=== PATIENT | female | born 2000 | race Caucasian/White ===

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

== ENCOUNTER 2020-02-14 16:02 | Outpatient (REF) | payer OTHER, SELFPAY ==
[2020-02-15 15:40] LABS: COVID-19 RT-PCR Result NEGATIVE (Negative)
== END 2020-02-14 16:22 ==
LOC: NCHCN 16:02
PROVIDERS: PCP Nurse Practitioner Family; Visit Provider Nurse Practitioner Family
DX: Z20.828 Contact with and (suspected) exposure to other viral communicable diseases (principal)
CPT/HCPCS: U0003

== ENCOUNTER 2020-04-08 16:14 | Outpatient (REF) | payer OTHER, SELFPAY ==
[2020-04-14 12:05] LABS: SARS-CoV-2 RNA Undetected (Undetected); SARS-CoV-2 Specimen Source Nasopharynx
== END 2020-04-08 16:34 ==
LOC: NCHCN 16:14
PROVIDERS: PCP Nurse Practitioner Family; Visit Provider Nurse Practitioner Family
DX: R50.9 Fever, unspecified (principal)
CPT/HCPCS: U0003

== ENCOUNTER 2020-07-18 02:58 | Outpatient (CLI) | payer OTHER, SELFPAY ==
[2020-07-18 09:47] LABS: TSH (W/Ref FT4) 2.77 uIU/mL (0.52-4.13)
[2020-07-18 18:08] LABS: Prolactin 25.8 ng/mL (See Table)
[2020-07-18 18:12] LABS: FSH 5.5 mIU/mL (See Note)
[2020-07-20 16:59] LABS: Testosterone, Free 0.54 ng/dL (0.06-1.08); Testosterone, Total 32 ng/dL (8-60)
[2020-07-21 08:59] LABS: DHEA Sulfate 464 ug/dL (61-494)
== END 2020-07-18 03:18 ==
PROVIDERS: PCP Nurse Practitioner Family; Visit Provider Nurse Practitioner Women's Health
DX: N92.6 Irregular menstruation, unspecified (principal); N91.2 Amenorrhea, unspecified; R63.4 Abnormal weight loss
CPT/HCPCS: 36415; 82627; 84402; 84403; 83001; 84146; 84443

== ENCOUNTER 2020-12-03 04:27 | Outpatient (CLI) | payer OTHER, SELFPAY ==
[2020-12-03 14:55] LABS: Abs Immature Grans 0.03 10^3/uL (0.0-0.06); Absolute Basophil Count 0.05 10^3/uL (0.0-0.2); Absolute Eosinophil Count 0.17 10^3/uL (0.0-0.7); Absolute Lymphocyte Count 2.26 10^3/uL (1.2-3.4); Absolute Monocyte Count 0.67 10^3/uL (0.1-0.8); Absolute Neutrophil Count 9.26 10^3/uL (1.2-6.7); Basophils % 0.4; Eosinophils % 1.4; HCT 40.8 % (36.0-46.0); HGB 13.8 g/dL (11.2-15.7); Immature Grans % 0.2; Lymphocytes % 18.2; MCH 29.4 pg (27.0-33.0); MCHC 33.8 % (32.0-36.0); MPV 9.1 fL (8.0-11.0); Monocytes % 5.4; Neutrophils % 74.4; Nucleated RBC 0 %; Platelet Count 305 10^3/uL (130-400); RBC 4.69 10^6/uL (3.93-5.22); RDW 13.2 % (11.7-14.6); RDW-SD 41.8 fL; WBC 12.44 10^3/uL (4.4-10.8)
[2020-12-03 15:54] LABS: TSH (W/Ref FT4) 2.49 uIU/mL (0.36-3.74)
[2020-12-04 09:33] LABS: HIV-1/2 Ag & Ab Screen Negative (Negative)
[2020-12-04 10:28] LABS: Varicella IgG Antibody Negative (See Note)
[2020-12-04 10:30] LABS: Rubella IgG Ab (UVM) Positive (See Note)
[2020-12-05 09:15] LABS: Hepatitis B Surface Ag Negative (Negative)
[2020-12-05 09:58] LABS: Hepatitis C Ab w Rflx HCV PCR Negative (Negative)
[2020-12-16 18:06] LABS: Result Summary NEGATIVE; Specimen WB Whole Blood
[2020-12-18 11:08] LABS: Specimen WB Whole Blood
== END 2020-12-03 04:28 | disposition home or self-care (01) ==
LOC: LBO 04:27
PROVIDERS: PCP Nurse Practitioner Family; Visit Provider Advanced Practice Midwife
DX: Z34.91 Encounter for supervision of normal pregnancy, unspecified, first trimester (principal); Z11.4 Encounter for screening for human immunodeficiency virus [HIV]; Z11.59 Encounter for screening for other viral diseases; Z01.84 Encounter for antibody response examination; Z36.89 Encounter for other specified antenatal screening
CPT/HCPCS: 36415; 81329; 86787; 86803; 86850; 86900; 86901; 87340; 87389; 81220; 84443; 85025; 86762

== ENCOUNTER 2020-12-03 19:21 | Outpatient (REF) | payer OTHER, SELFPAY ==
[2020-12-04 14:41] LABS: Chlamydia Result Negative (Negative); GC Result Negative (Negative)
== END 2020-12-03 19:22 | disposition home or self-care (01) ==
LOC: LBN 19:21
PROVIDERS: PCP Nurse Practitioner Family; Visit Provider Advanced Practice Midwife
DX: Z34.91 Encounter for supervision of normal pregnancy, unspecified, first trimester (principal); Z11.3 Encounter for screening for infections with a predominantly sexual mode of transmission
CPT/HCPCS: 87491; 87591; 87086; 87480; 87510; 87660

== ENCOUNTER 2020-12-17 02:22 | Outpatient (CLI) | payer OTHER, SELFPAY ==
[2020-12-17 11:16] LABS: Glucose,1 Hr (Glucola) 138 mg/dL (80-140)
[2020-12-17 12:47] LABS: Kit/Specimen SENT
== END 2020-12-17 02:23 | disposition home or self-care (01) ==
LOC: LBO 02:22
PROVIDERS: PCP Nurse Practitioner Family; Visit Provider Advanced Practice Midwife
DX: Z34.91 Encounter for supervision of normal pregnancy, unspecified, first trimester (principal); Z36.89 Encounter for other specified antenatal screening
CPT/HCPCS: 36415; 81329; 82950; 81220

== ENCOUNTER 2020-12-23 03:43 | Outpatient (CLI) | payer OTHER, SELFPAY ==
[2020-12-23 11:17] LABS: Glucose 1 Hour 167 mg/dL
[2020-12-23 13:39] LABS: Glucose 3 Hour 109 mg/dL
== END 2020-12-23 03:44 | disposition home or self-care (01) ==
LOC: LBO 03:43
PROVIDERS: Advanced Practice Midwife; PCP Nurse Practitioner Family; Visit Provider Advanced Practice Midwife
DX: Z34.91 Encounter for supervision of normal pregnancy, unspecified, first trimester (principal)
CPT/HCPCS: 36415; 82951

== ENCOUNTER 2020-12-31 12:52 | Outpatient (REF) | payer OTHER, SELFPAY ==
[2020-12-31 14:02] LABS: *AMPHETAMINES SCREEN URINE Negative (Negative); *BARBITURATES SCREEN URINE Negative (Negative); *BENZODIAZEPINES SCREEN URINE Negative (Negative); Cannabinoids THC Negative (Negative); Cocaine Screen,Urine Negative (Negative); METHADONE URINE SCREEN Negative (Negative); OPIATES URINE SCREEN Negative (Negative); Tricyclic Antidepressants Negative (Negative)
[2021-01-06 11:53] LABS: Buprenorphine Negative ng/mL (Cutoff: 5.0); Norbuprenorphine Negative ng/mL (Cutoff: 2.5)
== END 2020-12-31 12:53 | disposition home or self-care (01) ==
LOC: LBN 12:52
PROVIDERS: PCP Nurse Practitioner Family; Visit Provider Advanced Practice Midwife
DX: Z34.91 Encounter for supervision of normal pregnancy, unspecified, first trimester (principal)
CPT/HCPCS: 80307

== ENCOUNTER 2021-04-16 03:31 | Outpatient (CLI) | payer MEDICAID, SELFPAY ==
[2021-04-16 10:01] LABS: HCT 34.1 % (36.0-46.0); HGB 11.6 g/dL (11.2-15.7); MCH 29.8 pg (27.0-33.0); MCV 87.7 fL (80-95); MPV 8.9 fL (8.0-11.0); Platelet Count 298 10^3/uL (130-400); RBC 3.89 10^6/uL (3.93-5.22); RDW 12.8 % (11.7-14.6); RDW-SD 41.1 fL; WBC 14.12 10^3/uL (4.4-10.8)
[2021-04-16 11:33] LABS: Glucose 1 Hour 151 mg/dL
[2021-04-16 13:41] LABS: Glucose 3 Hour 161 mg/dL
== END 2021-04-16 03:32 | disposition home or self-care (01) ==
LOC: LBO 03:31
PROVIDERS: Advanced Practice Midwife; PCP Nurse Practitioner Family; Visit Provider Advanced Practice Midwife
DX: Z34.93 Encounter for supervision of normal pregnancy, unspecified, third trimester (principal); Z3A.28 28 weeks gestation of pregnancy
CPT/HCPCS: 36415; 85027; 82951

== ENCOUNTER 2021-05-26 09:17 | Outpatient (CLI) | payer MEDICAID, SELFPAY ==
--- NOTE | 2021-05-26 09:15 | RT.EKG_ITS ---
APPROVED REPORT Exam: Resting ECG Reason for Exam: VSD Patient Location: O HR:88 bpm ECG Measurements Heart Rate 88 AXIS SD 119 P 9 QRSd 72 QRS 54 QT 341 T 20 QTc 413 Conclusion Sinus rhythm...normal P axis, V-rate 50- 99 Borderline short SD interval...SD int <120mS Normal Electrocardiogram
== END 2021-05-26 09:18 | disposition home or self-care (01) ==
LOC: DI.CARD 09:20
PROVIDERS: PCP Nurse Practitioner Family; Visit Provider Internal Medicine Cardiovascular Disease
DX: Q21.0 Ventricular septal defect (principal); Q25.42 Hypoplasia of aorta
CPT/HCPCS: 93010

== ENCOUNTER 2021-05-30 11:36 | Emergency (ER) | payer MEDICAID, SELFPAY ==
[2021-05-30 11:41] VITALS: BP 116/81; PULSE 90; RESP 20; TEMP 36.7; O2SAT 98
--- NOTE | 2021-05-30 11:48 | DI.US_ITS ---
Exam(s) US ABDOMEN RENAL EXAM: US ABDOMEN RENAL CLINICAL HISTORY: right flank pain TECHNIQUE: Ultrasound abdomen performed using standard protocol. COMPARISON: No exams were available for comparison FINDINGS: ABDOMINAL AORTA AND IVC: Visualized portions normal caliber. PANCREAS: Obscured by overlying bowel gas. LIVER: Normal. Hepatopedal flow in the Portal Vein. GALLBLADDER: No evidence of cholelithiasis. No evidence of wall thickening. No pericholecystic fluid identified. BILIARY SYSTEM: Common bile duct measures < 7 mm. No intrahepatic biliary ductal dilation. LUND'S SIGN: Negative. SPLEEN: Not enlarged. ASCITES: None seen. Renal size in cm: Right: 10.4. Left: 10.1. Echogenicity: Normal. Hydronephrosis: Moderate right hydronephrosis. No left hydronephrosis. Cyst or mass: No. Nephrolithiasis: No. Other findings: Note is made of an intrauterine . The fetus was not evaluated on during thi s examination. Bladder:Normal. Ureteral jets: Right: Visualized and unremarkable. Left: Visualized and unremarkable. Prevoid vol:202 cc Postvoid vol:0 cc Renal color flow: Symmetric and within normal limits. IMPRESSION: 1. Moderate right hydronephrosis. 2. Both ureteral jets were visualized in the urinary bladder. 3. Note is made of an intrauterine . The fetus was not evaluated during this examination. DATA REPOSITORY:
--- NOTE | 2021-05-30 11:51 | W.ED.GENAD ---
Discharge Plan Disposition Patient Disposition: HOME Condition: Improving Discharge Details Clinical Impression: Right flank pain, with hydronephrosis Primary Care Provider: Teressa Morrison ED Provider: Jahaira Arboleda Home Meds and New Rx's Prescriptions: Continued prenat.vits,nitin,htn-uypy-tsbdy Tablet 1 tab PO DAILY RF: 0 cholecalciferol (vitamin D3) 25 mcg (1,000 unit) tablet,chewable 25 mcg PO DAILY RF: 0 aspirin 81 mg tablet,delayed release (DR/EC) 162 mg PO DAILY Qty: 90 RF: 3 pantoprazole [Protonix] 40 mg tablet,delayed release (DR/EC) 40 mg PO DAILY Qty: 30 RF: 3 vitamin B complex Tablet 1 tab PO DAILY RF: 0 ondansetron HCl [Zofran] 4 mg tablet 4 mg PO Q6H PRN (Reason: nausea and vomiting) Qty: 20 RF: 2 albuterol sulfate [ProAir HFA] 8.5 GM HFA aerosol inhaler 2 puff Inhalation Q4H PRN Qty: 1 RF: 1 (DME) Inhaler, Assist Devices [Aerochamber Mini] 1 EACH spacer 1 ea Miscellaneous Q4H PRN Qty: 1 RF: 0 Discharge Instructions Instructions: Flank Pain (ED) Additional Instructions: Urinalysis is reassuring, no evidence of infection. However, you do have some swelling around the right kidney which is likely associated with your . Please encourage hydration. You may continue with Tylenol as needed for discomfort. If you develop any fever/chills, increased pain or other new/worsening symptoms please seek care urgently once again. Otherwise, please keep your upcoming appointment with your hazardous substances scientist. Referrals: Corazon Yancey [[facility] [place]] - Medical Decision Making Patient is a pleasant 20-year-old female 36 weeks gestation, G1, P0, presenting today with chief complaint of right-sided flank pain. Pain began 5 days ago and has been intermittent since then. Pain is worse with mobility. Patient was seen by [facility] 2 days ago at which time an outpatient renal ultrasound was ordered. She did not have any hematuria. She denies any blood in her urine currently. No vaginal discharge. Still having movements. Denies any abdominal pain. No change in bowel movements. States she has had increased frequency and urgency but denies any dysuria or hematuria. No fevers or chills. No known trauma. On exam, patient appears nontoxic. She does have right CVA tenderness with percussion. However, pain is also elicited with range of motion as well as with palpation inferior to this along muscular region. No abdominal discomfort. Lungs are clear, normal cardiac exam. Primarily concern at this time for musculoskeletal etiology of her pain based on her symptoms and exam. However, I do agree with the ultrasound as ordered by [facility] and will attempt to obtain this today. She has not taken anything for discomfort. Will give Tylenol to help with pain. heart rate 124. Patietn is not hypertensive. FINDINGS: Liver: Normal. No mass. Gallbladder: Normal. No gallstones. There is no gallbladder wall thickening. Common bile duct: Normal. No stones. No dilation. Pancreas: The pancreas was obscured by bowel gas. Right kidney: There is moderate right hydronephrosis. No mass or calcification is seen in the right kidney. Left kidney: Normal. No mass. No hydronephrosis. Spleen: Normal. No splenomegaly. Urinary bladder: The urinary bladder is unremarkable. Bilateral ureteral jets are seen in the urinary bladder. Aorta: Normal. No aneurysm. Inferior vena cava: Normal. IMPRESSION: 1. Moderate right hydronephrosis. 2. Normal bilateral ureteral jets are seen in the urinary bladder. 3. No other significant abnormality.. Consulted with Dr. Britton. She advised that if UA is clean with no obstruction. She did not recommend empiric treatment. Recommended straight cath if urine is contaminated. REcommended hydration, tylenol and warm compresses. UA shows trace ketones. Negative for protein, negative blood, negative nitrate, negative leukocyte esterase. Discussed the findings with the patient. We reviewed Dr. Britton's recommendations. Encourage hydration. Advised that she may continue with Tylenol. She advised that she will pick some of these up today. Encourage warm compresses and hydration. She has a follow-up appointment scheduled for . Return precautions were discussed. All questions concerns were addressed and she is agreement this plan. HPI General Mode of arrival: ambulatory. Date/Time Provider Initiated Documentation: 05/30/21 11:39. Limitations to Documentation: no limitations. Information obtained by: patient, RN notes reviewed and old records reviewed. History of Present Illness 20 year old F presents to the emergency department with the chief complaint of right flank pain, described as severe, with intensity rated at 10. Quality is described as aching, and is localized to the back. Patient reports no radiation. Patient started experiencing this day(s) and it has been constant. Immobilization improves symptom(s), Movement worsens symptoms . Patient notes no other symptoms.. Patient did receive the following treatments prior to arrival, none Related Data Home Medications Medication Instructions Recorded Confirmed albuterol sulfate [ProAir HFA] 2 puff INHALATION Q4H PRN #1 06/01/17 05/28/21 inhaler prenat.vits,intin,rcw-mhlm-fxzoo 1 tab PO DAILY 05/20/20 05/28/21 cholecalciferol (vitamin D3) 25 25 mcg PO DAILY 10/29/20 05/28/21 mcg (1,000 unit) chewable tablet aspirin 81 mg tablet,delayed 162 mg PO DAILY #90 tab 12/03/20 05/28/21 release pantoprazole 40 mg tablet,delayed 40 mg PO DAILY #30 tab 04/16/21 05/28/21 release ondansetron HCl 4 mg tablet 4 mg PO Q6H PRN #20 tab 04/30/21 05/28/21 vitamin B complex 1 tab PO DAILY 04/30/21 05/28/21 Previous Rx's Medication Instructions Recorded aspirin 81 mg tablet,delayed 162 mg PO DAILY #90 tab 12/03/20 release pantoprazole 40 mg tablet,delayed 40 mg PO DAILY #30 tab 04/16/21 release ondansetron HCl 4 mg tablet 4 mg PO Q6H PRN #20 tab 04/30/21 Allergies Allergy/AdvReac Type Severity Reaction Status Date / Time No Known Allergies Allergy Verified 05/30/21 11:44 General Stated Complaint: FlankPain CALI: 3 Review of Systems Constitutional Constitutional: Reports as per HPI, Denies chills, Denies fatigue, Denies fever(s) and Denies headache(s) ENT Ears, Nose, Mouth, and Throat: Denies headache(s) Cardiovascular Cardiovascular: Reports as per HPI, Denies chest pain and Denies dyspnea (no exertional SOB, has some SOB when pain is maximal. None currently) Respiratory Respiratory: Reports as per HPI, Denies cough and Denies dyspnea (no exertional SOB, has some SOB when pain is maximal. None currently) Gastrointestinal Gastrointestinal: Reports as per HPI, Denies abdominal pain, Denies change in bowel habits, Denies nausea and Denies vomiting Genitourinary Genitourinary: Reports as per HPI, Denies hematuria, Denies dysuria, Denies urinary incontinence, Reports urinary urgency (increased urgency and frequency) and Denies vaginal discharge Musculoskeletal Musculoskeletal: Reports as per HPI Neurologic Neurologic: Denies headache(s) Endocrine Endocrine: Denies fatigue PFSH Medical History Acute pain of right shoulder (05/07/16) Asthma Chronic nausea Chronic right shoulder pain (06/01/17) Depression Limitation of joint motion of right shoulder (07/06/17) Routine sports examination for healthy child or adolescent (11/24/12) VSD (ventricular septal defect) Family History Mother Gestational diabetes Father Depression with anxiety Sister Asthma sports induced Grandfather Neoplasm MGF- Prostate, Lung, NonHodgkins PGF- Colon MGGM-cervical cancer Grandmother Eczema MGM Obsessive compulsive disorder PGM ADHD (attention deficit hyperactivity disorder) PGM GRANDPARENT Alcohol abuse Essential hypertension Heart disease Social History Smoking/Tobacco Use Status: Never Smoking risk assessment performed?: Yes Alcohol Intake: never Drug use: Never Substance use type: does not use Do you think of yourself as: straight/heterosexual Do you feel safe at home: Yes Do you feel safe in your relationship?: Yes History History 1 Para 0 Hx # Term Pregnancies 0 Multiple births 0 Hx # Pregnancies 0 Ectopic pregnancies 0 AB induced 0 Hx Number of Living Children 0 AB spontaneous 0 Exam Const General: cooperative, healthy appearing, comfortable, no acute distress and well developed Nutritional Appearance: average body habitus (appropriate for gestational age) and well nourished Orientation: alert and awake HENMT Mouth: moist mucous membranes Resp Effort & Inspection: normal respiratory effort and no respiratory distress Auscultation: clear to auscultation bilaterally, no rales, no rhonchi and no wheezes Cardio Rate: regular rate Rhythm: regular rhythm Heart Sounds: S1 normal and S2 normal GI Inspection: normal to inspection and other (appropriate for gestational age) Palpation: soft, no guarding and nontender Percussion: normal to percussion Auscultation: normal bowel sounds Back/Spine/Pelvis Back: CVA tenderness (right side) Thoracic/Lumbar Spine: thoracic and lumbar spine normal to inspection and No thoraco-lumbar ROM limited Back/spine/pelvis image: 1. area of discomfort. No rash, erythema, warmth. Worse with ROM although she does have good mobility. Skin General skin exam: no rashes or lesions noted Neuro General: patient alert and patient awake Cognition: normal cognition Speech: speech normal Gait: normal gait Psych Appearance: grossly normal and well kempt Mental Status: mental status grossly normal Speech and Movement: speech and movement normal Course Vital Signs Vital signs: Vital Signs Temperature 36.7 C 05/30/21 11:41 Pulse 90 05/30/21 11:41 Respiratory Rate 20 05/30/21 11:41 Blood Pressure 116/81 05/30/21 11:41 Pulse Oximetry 98 05/30/21 11:41 Temperature 36.7 C 05/30/21 11:41 Temperature Source Skin 05/30/21 11:41 Pulse 90 05/30/21 11:41 Respiratory Rate 20 05/30/21 11:41 Respiratory Effort Non-Labored 05/30/21 11:45 Blood Pressure 116/81 05/30/21 11:41 Blood Pressure Position Sitting 05/30/21 11:41 Pulse Oximetry 98 05/30/21 11:41 Oxygen Delivery Method Room Air 05/30/21 11:41 Oxygen Flow Rate 0 05/30/21 11:41 Pain Level 8 05/30/21 11:45
[2021-05-30] MEDS: Acetaminophen 325 MG TAB 650 MG PO (13:22)
--- NOTE | 2021-05-30 13:30 | DI.VRAD_ITS ---
PROCEDURE INFORMATION: Exam: US Abdomen Complete Exam date and time: 05/30/2021 12:04 PM Age: 20 years old Clinical indication: Patient HX: Right flank pain since this past Tuesday - patient is 35 weeks . TECHNIQUE: Imaging protocol: Real-time ultrasound of the abdomen with image documentation. COMPARISON: SD US OB 2-3 TRIMESTER 02/04/2021 10:41 AM FINDINGS: Liver: Normal. No mass. Gallbladder: Normal. No gallstones. There is no gallbladder wall thickening. Common bile duct: Normal. No stones. No dilation. Pancreas: The pancreas was obscured by bowel gas. Right kidney: There is moderate right hydronephrosis. No mass or calcification is seen in the right kidney. Left kidney: Normal. No mass. No hydronephrosis. Spleen: Normal. No splenomegaly. Urinary bladder: The urinary bladder is unremarkable. Bilateral ureteral jets are seen in the urinary bladder. Aorta: Normal. No aneurysm. Inferior vena cava: Normal. IMPRESSION: 1. Moderate right hydronephrosis. 2. Normal bilateral ureteral jets are seen in the urinary bladder. 3. No other significant abnormality.. Dictated and Authenticated by: Dharmesh Pena MD. Ordering:JOHNATHAN Campo MD
[2021-05-30 14:10] LABS: Bilirubin Negative (Negative); Blood Negative (Negative); Clarity Sl Cloudy (Clear); Glucose Negative (Negative); Ketones Trace mg/dL (Negative); Leukocyte Esterase Negative (Negative); Nitrite Negative (Negative); Specific Gravity 1.025 (1.005-1.025); Urobilinogen 0.2 EU/dL (Up TO 0.2); pH 6.5 (5-8)
== END 2021-05-30 14:24 | disposition home or self-care (01) ==
PROVIDERS: Emergency Provider Physician Assistant; PCP Nurse Practitioner Family
DX: O99.891 Other specified diseases and conditions complicating pregnancy (principal); N13.30 Unspecified hydronephrosis; Z3A.36 36 weeks gestation of pregnancy; R10.9 Unspecified abdominal pain
CPT/HCPCS: 76770; 99284; 76700; 81003; 99283

== ENCOUNTER 2021-06-04 17:54 | Outpatient (REF) | payer MEDICAID, SELFPAY | END 2021-06-04 17:55 | disposition home or self-care (01) | LOC: LBN 17:54 | PROVIDERS: PCP Nurse Practitioner Family; Visit Provider Advanced Practice Midwife | DX: Z34.93 Encounter for supervision of normal pregnancy, unspecified, third trimester (principal); Z36.85 Encounter for antenatal screening for Streptococcus B; Z3A.36 36 weeks gestation of pregnancy | CPT/HCPCS: 87081 ==

== ENCOUNTER 2021-06-11 16:29 | Outpatient (REF) | payer MEDICAID, SELFPAY ==
[2021-06-11 17:20] LABS: *AMPHETAMINES SCREEN URINE Negative (Negative); *BARBITURATES SCREEN URINE Negative (Negative); *BENZODIAZEPINES SCREEN URINE Negative (Negative); Cannabinoids THC Negative (Negative); Cocaine Screen,Urine Negative (Negative); METHADONE URINE SCREEN Negative (Negative); OPIATES URINE SCREEN Negative (Negative)
[2021-06-11 17:22] LABS: Tricyclic Antidepressants Negative (Negative)
[2021-06-17 09:59] LABS: Buprenorphine Negative ng/mL (Cutoff: 5.0); Norbuprenorphine Negative ng/mL (Cutoff: 2.5)
== END 2021-06-11 16:30 | disposition home or self-care (01) ==
LOC: LBN 16:29
PROVIDERS: PCP Nurse Practitioner Family; Visit Provider Advanced Practice Midwife
DX: Z34.93 Encounter for supervision of normal pregnancy, unspecified, third trimester (principal); Z3A.36 36 weeks gestation of pregnancy
CPT/HCPCS: 80307

== ENCOUNTER 2021-06-19 03:28 | Outpatient (CLI) | payer MEDICAID, SELFPAY ==
--- NOTE | 2021-06-19 06:00 | DI.US_ITS ---
Exam(s) US OB MYRA WEIGHT EXAM: US OB MYRA WEIGHT CLINICAL HISTORY: size less than dates,LOW WT GAIN,o26.10 TECHNIQUE: Ultrasound performed using standard protocol. COMPARISON: US US ABDOMEN RENAL from 05/30/2021 FINDINGS: Ob ultrasound was performed utilizing 3rd trimester protocol. biometry is consistent with gest ational age of 37 weeks 4 days and an EDC of July 06. The estimated weight is 3334 grams which is at the 59th percentile for predicted gestational ag e. Placenta is anterior and fundal with no evidence of placenta previa. There is visually a normal quantity of amniotic fluid and the MYRA is 11. Fetus is in cephalic presentation. heart rate is 122 BPM. IMPRESSION: DATA REPOSITORY:
== END 2021-06-19 03:48 ==
PROVIDERS: PCP Nurse Practitioner Family; Visit Provider Advanced Practice Midwife
DX: O26.13 Low weight gain in pregnancy, third trimester (principal); Z34.93 Encounter for supervision of normal pregnancy, unspecified, third trimester; Z3A.38 38 weeks gestation of pregnancy
CPT/HCPCS: 76816

== ENCOUNTER 2021-06-26 17:21 | Outpatient (REF) | payer MEDICAID, SELFPAY | END 2021-06-26 17:22 | disposition home or self-care (01) | LOC: LBN 17:21 | PROVIDERS: PCP Nurse Practitioner Family; Visit Provider Advanced Practice Midwife | DX: N89.8 Other specified noninflammatory disorders of vagina (principal) | CPT/HCPCS: 87480; 87510; 87660 ==

== ENCOUNTER 2021-06-27 18:10 | Inpatient (IN) | payer MEDICAID, SELFPAY ==
[2021-06-27] VITALS (58 sets, daily range): BP systolic 106–125; BP diastolic 52–66; PULSE 0–101; RESP 16; TEMP 36.6; O2SAT 95–99; BMI 33.4
[2021-06-27 18:48] LABS: HCT 34.4 % (36.0-46.0); HGB 11.5 g/dL (11.2-15.7); MCH 27.8 pg (27.0-33.0); MCHC 33.4 % (32.0-36.0); MCV 83.3 fL (80-95); Platelet Count 272 10^3/uL (130-400); RBC 4.13 10^6/uL (3.93-5.22); RDW 14.4 % (11.7-14.6); RDW-SD 43.3 fL; WBC 15.74 10^3/uL (4.4-10.8)
[2021-06-27] MEDS: Penicillin G POT. 5,000,000 UNITS in Normal Saline 100 ML 200 UNITS IVPB (19:05)
[2021-06-27 19:30] LABS: Source Nasal/Nares
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
[2021-06-27 20:25] LABS: COVID-19 PCR Negative (Negative)
--- NOTE | 2021-06-27 21:15 | ANES.PREOP_ITS ---
General Info Date of Service Date Performed: 06/27/21 Height: 5 ft 5 in Weight: 91.172 kg Body Mass Index (BMI): 33.4 Meds Allergies and Home Medications Allergies Allergy/AdvReac Type Severity Reaction Status Date / Time No Known Allergies Allergy Verified 06/26/21 13:53 Home Medication Medication Instructions Recorded albuterol sulfate [ProAir HFA] 2 puff INHALATION Q4H PRN #1 06/01/17 inhaler prenat.vits,nitin,[id number] 1 tab PO DAILY 05/20/20 cholecalciferol (vitamin D3) 25 25 mcg PO DAILY 10/29/20 mcg (1,000 unit) chewable tablet aspirin 81 mg tablet,delayed 162 mg PO DAILY #90 tab 12/03/20 release ondansetron HCl 4 mg tablet 4 mg PO Q6H PRN #20 tab 04/30/21 vitamin B complex 1 tab PO DAILY 04/30/21 pantoprazole 40 mg tablet,delayed 40 mg PO DAILY #90 tab 06/26/21 release Current Visit Medications: Current Medications Generic Name Dose Route Start Last Admin Trade Name Freq PRN Reason Stop Dose Admin Bupivacaine HCl 0 ml 06/27/21 21:07 Bupivacaine 0.25% Pres-Free 10 Ml Vial EP 06/27/21 21:08 NOW ONE Fentanyl 0 mcg 06/27/21 21:07 Fentanyl 100 Mcg/2 Ml Vial EP 06/27/21 21:08 NOW ONE Fentanyl/Ropivacaine 200 ml 06/27/21 21:15 Fentanyl/Ropivacaine 2 Mcg/Ml And 0.1% 200 Ml [place] EP DIRECTED CAIT Sodium Chloride 500 mls @ 0 mls/hr 06/27/21 18:10 Saline 500ml Bag IV PRN PRN As Directed Penicillin G Potassium 3,000, 50 mls @ 100 mls/hr 06/27/21 22:00 000 units/ Sodium Chloride IVPB Q4H CAIT Sodium Chloride 500 mls @ 0 mls/hr 06/27/21 18:24 Saline 500ml Bag IV PRN PRN As Directed Nalbuphine HCl 10 mg/ Sodium 51 mls @ 100 mls/hr 06/27/21 20:55 06/27/21 21:05 Chloride IVPB 06/27/21 21:25 100 mls/hr NOW ONE Administration Ringer's Solution 500 mls @ 500 mls/hr 06/27/21 21:07 IV 06/27/21 22:06 BOLUS ONE IV Miscellaneous Supplies 1 each 06/27/21 18:15 Iv Access IV DIRECTED [facility] IV Miscellaneous Supplies 1 each 06/27/21 18:30 Iv Access IV DIRECTED [facility] Sodium Chloride 0 ml 06/27/21 18:10 Normal Saline Flush 10 Ml Syr IVP PRN PRN Sodium Chloride 0 ml 06/27/21 18:24 Normal Saline Flush 10 Ml Syr IVP PRN PRN PFSH Active Problems Active Problems: Problem Status Onset Code Spontaneous onset of labor Leukorrhea N89.8 Low weight gain during O26.10 Positive GBS test B95.1 with hydronephrosis O99.891, N13.30 Chronic nausea R11.0 Right flank pain R10.9 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, 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 Housing or economic circumstances Z59.9 Weight loss, non-intentional R63.4 Hyperemesis gravidarum O21.0 Housing problems Z59.9 Anxiety disorder, unspecified F41.9 BMI 34.0-34.9,adult Z68.34 Z34.90 Depression F32.9 Attention-deficit hyperactivity disorder, unspecified type 09/07/16 F90.9 Intentional self-harm by sharp object 01/19/16 X78.9XXA Mild intermittent asthma, uncomplicated 08/24/16 J45.20 Learning difficulty 11/24/12 F81.9 Membranous ventricular septal defect 11/24/12 Q21.0 Sleep difficulties 06/01/16 G47.9 Medical History Medical History Acute pain of right shoulder (05/07/16) Asthma Chronic nausea Chronic right shoulder pain (06/01/17) Depression Limitation of joint motion of right shoulder (07/06/17) Routine sports examination for healthy child or adolescent (11/24/12) VSD (ventricular septal defect) Tobacco Smoking/Tobacco Use Status: Never Passive smoking exposure: No Alcohol Alcohol Intake: never Substance Use Substance use: Never Substance use type: does not use Prental History History 1 Para 0 Hx # Term Pregnancies 0 Multiple births 0 Hx # Pregnancies 0 Ectopic pregnancies 0 AB induced 0 Hx Number of Living Children 0 AB spontaneous 0 Vital Signs and Lab Results Vital Signs Most Recent Vital Signs in EMR: Most Recent Vital Signs Temp Pulse Resp BP Pulse Ox 36.6 C 75 16 106/59 L 99 06/27/21 19:28 06/27/21 19:28 06/27/21 19:28 06/27/21 19:28 06/27/21 19:28 Lab Results Result Diagrams: 06/27/21 18:35 Blood Type / Crossmatch: Patient ABO/Rh O Positive 06/27/21 18:35 06/27/21 Antibody Screen NEGATIVE 06/27/21 18:35 06/27/21 Complete Blood Count: White Blood Count 15.74 10^3/uL (4.4-10.8) H 06/27/21 18:35 06/27/21 Red Blood Count 4.13 10^6/uL (3.93-5.22) 06/27/21 18:35 06/27/21 Hemoglobin 11.5 g/dL (11.2-15.7) 06/27/21 18:35 06/27/21 Hematocrit 34.4 % (36.0-46.0) L 06/27/21 18:35 06/27/21 Platelet Count 272 10^3/uL (130-400) 06/27/21 18:35 06/27/21 Complete Metabolic Panel: No Data to Display Liver Function Panel: No Data to Display Coagulation Panel: No Data to Display Cardiac Panel: No Data to Display Arterial Blood Gas: No Data to Display Venous Blood Gas: No Data to Display Pancreas Panel: No Data to Display Thyroid Panel: No Data to Display Infectious Disease: Coronavirus (COVID-19)(PCR) Negative (Negative) 06/27/21 18:30 06/27/21 Coronavirus 2019 Source Nasal/Nares 06/27/21 18:30 06/27/21 Blood Cultures: No Data to Display Toxicology Panel: Urine Amphetamines Screen Negative (Negative) 06/11/21 15:15 06/11/21 Urine Benzodiazepines Screen Negative (Negative) 06/11/21 15:15 06/11/21 Urine Barbiturates Screen Negative (Negative) 06/11/21 15:15 06/11/21 Urine Cocaine Screen Negative (Negative) 06/11/21 15:15 06/11/21 Urine Methadone Screen Negative (Negative) 06/11/21 15:15 06/11/21 Urine Opiates Screen Negative (Negative) 06/11/21 15:15 06/11/21 Ur Tricyclic Antidepressants Screen Negative (Negative) 06/11/21 15:15 06/11/21 Ur Tetrahydrocannabinol (THC) Scrn Negative (Negative) 06/11/21 15:15 06/11/21 Panel: No Data to Display Imaging and Studies Imaging and Studies Other Study Summary:: 05/26/21 Assessment & Plan (1) VSD (ventricular septal defect): Patient has a very small muscular ventricular septal defect, not hemodynamically significant. She was experiencing atypical chest pain which sounds musculoskeletal. This is no longer present. She does not really have any specific cardiac symptoms I would see no specific contribution of her VSD related to the care of her , labor or delivery. Endocarditis prophylaxis is not indicated. I would not anticipate any cardiac issues We would like to reevaluate the patient in about a year, when she is not p regnant. This was discussed and she seemed agreeable Orders: Anesthesia Assessment and Plan Anesthesia History Personal History: No History of Anesthesia Complications Family History: No Family History of Anesthesia Complications Exercise Tolerance Exercise Tolerance: Metabolic Equivalents>4 Cardiac & Pulmonary Exam Cardiac Exam: Normal S1/S2 Heart Sounds Pulmonary Exam: Clear Bilateral Breath Sounds Airway Exam Known Difficult Airway: No Mallampati Class: 1 Mouth Opening: Normal (> 3cm) Thyromental Distance: Greater than 3 cm Neck Range of Motion: Full ROM Neck Circumference: Thick Teeth Condition: Normal Dentition ASA Classification ASA Score: ASA 2 Emergency Case?: No NPO Status NPO Status: NPO Clears >2 hours, Solids >8 hours Status Status: Confirmed Anesthesia Plan Resuscitation Status: Full Code Anesthesia Technique: Epidural Anesthesia Airway Planned: Natural Airway Monitors Used: Standard Monitors
--- NOTE | 2021-06-27 21:16 | PGE_ITS ---
Date of service: 06/27/21 Time of Service: 21:16 Pelvic Exam Dilation: 5 Effacement (%): 100 station: +1 Cervix Position: mid Consistency: soft Pooling: Positive (clear) Contractions Monitor Mode: External Contraction Frequency(min): every 3 min Contraction Duration(sec): 50-60 Intensity: Moderate/Strong Fetus A Monitor: External (US) Heart Rate Baseline: 130 Presentation: Cephalic Variability: Moderate (6-25 BPM) Categories: Category I FHR Rhythm: Regular Accelerations: 15 X 15 Decelerations: None Amniotic Membrane Status: Ruptured Rupture Method: Spontaneous Amniotic Fluid: Clear Date of Membrane Rupture: 06/27/21 Assessment and Plan Assessment and plan (1) Spontaneous onset of labor: Status: Acute Assessment and plan: nubain 10 mg SC was given for relaxation with good ef fect. Christopher ROONEY from anesthesia was paged. Anticipate Objective Abnormal lab results 06/27/21 Range/Units 18:35 WBC 15.74 H (4.4-10.8) 10^3/uL Hct 34.4 L (36.0-46.0) % Temp Pulse Resp BP Pulse Ox 97.9 F 75 16 106/59 L 99 06/27/21 19:28 06/27/21 19:28 06/27/21 19:28 06/27/21 19:28 06/27/21 19:28 Laboratory Results WBC 15.74 10^3/uL (4.4-10.8) H 06/27/21 18:35 RBC 4.13 10^6/uL (3.93-5.22) 06/27/21 18:35 Hgb 11.5 g/dL (11.2-15.7) 06/27/21 18:35 Hct 34.4 % (36.0-46.0) L 06/27/21 18:35 MCV 83.3 fL (80-95) 06/27/21 18:35 MCH 27.8 pg (27.0-33.0) 06/27/21 18:35 MCHC 33.4 % (32.0-36.0) 06/27/21 18:35 RDW 14.4 % (11.7-14.6) 06/27/21 18:35 Plt Count 272 10^3/uL (130-400) 06/27/21 18:35 MPV 10.0 fL (8.0-11.0) 06/27/21 18:35 COVID-19 Source Nasal/Nares 06/27/21 18:30 SARS-CoV-2 (PCR) Negative (Negative) 06/27/21 18:30 Patient ABO/Rh O Positive 06/27/21 18:35 Antibody Screen NEGATIVE 06/27/21 18:35 Subjective Patient Reports: New Complaints Interval history since last seen: SROM and contraction pain intensified. Lorena requests an epidural and is not coping well with her contractions Results Hemoglobin/Hematocrit: Hgb 11.5 g/dL (11.2-15.7) 06/27/21 18:35 Hct 34.4 % (36.0-46.0) L 06/27/21 18:35 Abnormal Lab Findings: Abnormal Labs 06/27/21 18:35 WBC 15.74 H Hct 34.4 L
--- NOTE | 2021-06-27 22:06 | W.ANESNEU ---
Epidural/Spinal Catheter Date Performed: 06/27/21 Procedure Start: 21:20 Procedure Stop: 21:41 Requesting Provider: Ann Marie Weiss Procedure Location: Obstetrics Reason Performed: Labor Epidural Standard Monitors Applied: Blood Pressure and SpO2 Patient Position: Sitting Sedation Given (Indicate Dose Given): No Sedation given Patient Mental Status: Awake Sterility: Hand Hygiene, Surgical Cap, Surgical Mask, Sterile Gloves, Sterile Drape/Sheet and Eye Protection Procedure Location: L3-L4 Interspace Epidural Needle: Tuohy 17 Guage Needle Length: 3.5 Inch Needle Approach: Midline Epidural Procedure: Skin Prepped, Sterile Drape Placed, 1% Lidocaine to skin and subcutaneous tissue with 25G needle, Tuohy Needle placed, EDGARDO to Saline Used, Epidural Catheter Placed, Negative Heme and Negative CSF Flow Catheter Placed?: Catheter Placed Test Dose (Indicate Dose Given): 3ml 1.5% Lidocaine with 1:200K Epinephrine Given Loss of Resistance Depth (cm): 9 Catheter depth at skin (cm): 17 Dressing: Sorbaview Dressing Placed Epidural Provider Bolus (Indicate Dose Given): Total bolus dose given in 3-5 ml divided doses (3+3 cc mix off the pump mixture) and Total Ropivacaine 0.1% with Fentanyl 2mcg/ml Given from pump (ml) Dose:: 3+3 cc bolus dose Additives (Indicate Dose Given ): None Infusion Medication: Medication Infusion Began Medication Infusion: Ropivacaine 0.1% with Fentanyl 2mcg/ml Maintenance Infusion Rate (ml/hour): 10 PCEA Bolus Dose (ml): 5 Block Level: T10 Paresthesia: None Ultrasound: Not Used Number of Attempts (See previous attempts in note section): 1 Procedure Tolerated: No Complications and Patient tolerated well Procedure Outcome: Successful Performed By: Francy
[2021-06-27] MEDS: Penicillin G POT. 3,000,000 UNITS in Normal Saline 50 ML 100 UNITS IVPB (23:00)
[2021-06-28] VITALS (23 sets, daily range): BP systolic 112–196; BP diastolic 55–160; PULSE 70–118; RESP 12–23; TEMP 36.3–37.3; O2SAT 93–98
--- NOTE | 2021-06-28 02:04 | W.PM.OBNL1 ---
Date of service: 06/28/21 Time of Service: 02:14 Pelvic Exam Dilation: 10 station: +2 Position: ROP Vaginal Exam Presentation: Cephalic Contractions Monitor Mode: External Fetus A Monitor: External (US) Heart Rate Baseline: 130 Presentation: Vertex Variability: Moderate (6-25 BPM) Categories: Category I Accelerations: 15 X 15 Decelerations: Early Amniotic Membrane Status: Ruptured Assessment and Plan Assessment and plan (1) Spontaneous onset of labor: Status: Acute Assessment and plan: Dr. Alvarez notified of patient's progress and requested to come to the center to evaluate for possible vacuum extraction. Objective Abnormal lab results 06/27/21 Range/Units 18:35 WBC 15.74 H (4.4-10.8) 10^3/uL Hct 34.4 L (36.0-46.0) % Temp Pulse Resp BP Pulse Ox 98.1 F 103 H 18 117/59 L 97 06/28/21 01:34 06/28/21 01:34 06/28/21 00:00 06/28/21 01:34 06/27/21 22:52 Laboratory Results WBC 15.74 10^3/uL (4.4-10.8) H 06/27/21 18:35 RBC 4.13 10^6/uL (3.93-5.22) 06/27/21 18:35 Hgb 11.5 g/dL (11.2-15.7) 06/27/21 18:35 Hct 34.4 % (36.0-46.0) L 06/27/21 18:35 MCV 83.3 fL (80-95) 06/27/21 18:35 MCH 27.8 pg (27.0-33.0) 06/27/21 18:35 MCHC 33.4 % (32.0-36.0) 06/27/21 18:35 RDW 14.4 % (11.7-14.6) 06/27/21 18:35 Plt Count 272 10^3/uL (130-400) 06/27/21 18:35 MPV 10.0 fL (8.0-11.0) 06/27/21 18:35 COVID-19 Source Nasal/Nares 06/27/21 18:30 SARS-CoV-2 (PCR) Negative (Negative) 06/27/21 18:30 Patient ABO/Rh O Positive 06/27/21 18:35 Antibody Screen NEGATIVE 06/27/21 18:35 Subjective Patient Reports: New Complaints Interval history since last seen: pshing x 2.5 hours in various positions. Caput visible at introitus with lack of descent x 1 hour. Lorena complains of fatigue but is unable to rest and avoid pushing. Results Hemoglobin/Hematocrit: Hgb 11.5 g/dL (11.2-15.7) 06/27/21 18:35 Hct 34.4 % (36.0-46.0) L 06/27/21 18:35 Abnormal Lab Findings: Abnormal Labs 06/27/21 18:35 WBC 15.74 H Hct 34.4 L
[2021-06-28] MEDS: Ondansetron 4 MG/2 ML VIAL IVP (02:10)
--- NOTE | 2021-06-28 03:08 | W.OBCONSULT ---
Date of service: 06/28/21 Time of Service: 03:08 Assessment and Plan Assessment and plan (1) Spontaneous onset of labor: Status: Acute (2) Positive GBS test: Status: Acute (3) VSD (ventricular septal defect and aortic arch hypoplasia: Status: Acute (4) Arrested labor: Status: Acute Assessment and plan: complete, pushing x > 3 1/2 hours with minimal descent of vertex. Caput present at introutus. No opportunity for assisted delivery due to caput and ROP with need for rotation. OR crew and anesthesia notified Full informed consent obtained. Will have Zithromax and Ancef prior to OR History of Present Illness History of Present Illness Chief Complaint: Arrest of descent Narrative: Patient is a 20 y/o with an uncomplicated at [facility] Presents in active labor. Progressed to complete. Now pushing with good maternal effort x 3 1/2 hours. Adequate contractions. Good maternal effort, though fatigued. Significant caput precluding vacuum assist. ROP position. Davidson placed for bladder drainage. No descent. Category 1 Strip. Risks benefits and alternatives of C/S discussed. OR crew to be called for primary section Consults Consult date: 06/28/21 Requesting physician: Ann Marie Weiss Review of Systems All systems reviewed & are unremarkable except as noted in HPI and below PFSH Medical History (Updated 06/28/21 @ 03:15 by Lisa Alvarez DO) Acute pain of right shoulder (05/07/16) Arrested labor Asthma Chronic nausea Chronic right shoulder pain (06/01/17) Depression Limitation of joint motion of right shoulder (07/06/17) Routine sports examination for healthy child or adolescent (11/24/12) VSD (ventricular septal defect) Family History Mother Gestational diabetes Father Depression with anxiety Sister Asthma sports induced Grandfather Neoplasm MGF- Prostate, Lung, NonHodgkins PGF- Colon MGGM-cervical cancer Grandmother Eczema MGM Obsessive compulsive disorder PGM ADHD (attention deficit hyperactivity disorder) PGM GRANDPARENT Alcohol abuse Essential hypertension Heart disease Social History Smoking/Tobacco Use Status: Never Smoking risk assessment performed?: Yes Alcohol Intake: never Drug use: Never Substance use type: does not use Do you think of yourself as: straight/heterosexual Do you feel safe at home: Yes Do you feel safe in your relationship?: Yes History History 1 Para 0 Hx # Term Pregnancies 0 Multiple births 0 Hx # Pregnancies 0 Ectopic pregnancies 0 AB induced 0 Hx Number of Living Children 0 AB spontaneous 0 Exam Const General: cooperative, healthy appearing and uncomfortable (pain with pushing) Nutritional Appearance: overweight Orientation: alert and oriented x3 Eyes General: appearance normal, both eyes and all related structures Neck Neck: normal visual inspection Resp Effort & Inspection: normal respiratory effort Cardio Rate: regular rate Rhythm: regular rhythm Other: Complete. Pushing. ROP, large caput Skin General skin exam: no rashes or lesions noted Results Last Vital Signs Temp 98.1 F 06/28/21 01:34 Pulse 103 H 06/28/21 01:34 Resp 18 06/28/21 00:00 BP 117/59 L 06/28/21 01:34 Pulse Ox 97 06/27/21 22:52 Labs Result diagrams: 06/27/21 18:35 Labs: Laboratory Results - last 24 hr 06/27/21 06/27/21 06/27/21 18:30 18:35 18:35 WBC 15.74 H RBC 4.13 Hgb 11.5 Hct 34.4 L MCV 83.3 MCH 27.8 MCHC 33.4 RDW 14.4 Plt Count 272 MPV 10.0 COVID-19 Source Nasal/Nares SARS-CoV-2 (PCR) Negative Patient ABO/Rh O Positive Antibody Screen NEGATIVE
[2021-06-28] MEDS: AZITHROMYCIN 500 MG in Normal Saline 250 ML 250 MG IVPB (03:15)
[2021-06-28] MEDS: Sodium Citrate 30 ML CUP PO (03:35)
[2021-06-28] MEDS: Lactated Ringers 1,000 ML 200 ML IV ×2 (04:14→05:35)
[2021-06-28] MEDS: ceFAZolin 2 GM/50 ML BAG IVPB (04:40)
[2021-06-28] MEDS: Methylergonovine 0.2 MG/ML VIAL (05:06)
[2021-06-28] MEDS: miSOPROStol 100 MCG TAB (05:48)
--- NOTE | 2021-06-28 06:03 | W.PM.OBCSECT ---
Date of service: 06/28/21 Time of Service: 06:03 Operative Note Operative Note Delivery Method: Unscheduled STAT: No DATE OF PROCEDURE: 06/28/21 PRE-OP DIAGNOSES: Arrest of descent POST-OP DIAGNOSES: same Persistent posterior PROCEDURE: Primary low transverse section SURGEON: Lisa Alvarez Electronic Field Service Engineer: Ann Marie Weiss Anesthesia: GETA and spinal Estimated blood loss (mL): 800 Pathology: none sent Complications: None Patient was transported to: PACU Patient's condition: stable Indications: Arrest of descent after approximately 3-1/2 to 4 hours of pushing. Persistent occiput posterior Findings: Delivery of a viable male with Apgars 8 and 9. Persistent occiput posterior. Procedure Description: Patient is a 20-year-old female primigravida who had care by our midwifery group. She presented today in early active labor. She progressed to the point that she was completely dilated. She did receive epidural for pain control. She became completely dilated and with good maternal effort of pushing over approximately 3-1/2 to 4 hours had an arrest of descent. I was called to evaluate the patient due to arrest of descent for possible operative vaginal delivery. With good maternal effort, It was noted at the perineum, however vertex was not distending underneath the pubic arch. vertex was in the persistent occiput posterior position with no availability turn to a delivery position that is more readily available. In light of this, conversation was had with patient and significant other regarding delivery. Risk benefits and alternatives of the procedure were explained to the patient in full informed consent was obtained. She understood the risk of infection, bleeding, injury to surrounding organs, risk of anesthesia, and potential postoperative complications. Patient was taken the operating suite with an IV running. Her previous epidural catheter was removed and intact per anesthesia and spinal anesthesia administered. During the testing portion of her spinal anesthetic, patient was not comfortable and that required general anesthesia. Please see anesthesia note for this portion of the procedure. After spinal had been administered, patient was placed in the supine position with leftward tilt. Vaginal vault prepped with Betadine and attempt was made to elevate the vertex out of the pelvis to allow for ease of delivery. At this point she was prepped and draped in the usual sterile fashion. Davidson catheter that had previously inserted was draining straw-colored urine. After the administration of general anesthesia a Pfannenstiel skin incision was made carried down to the underlying fascia. Fascial incision was nicked in the midline and extended laterally. The rectus muscles were bluntly in the midline peritoneum identified and entered and bladder blade inserted. Vesicouterine peritoneum identified tented up and entered sharply and the bladder blade was reinserted after creation of the bladder flap. Uterine incision was made and extended bluntly laterally. The fetus was wedged well low in the pelvis and the persistent posterior position. Due to this fact, effort from nursing staff from below to elevate the for vertex then allowed delivery of the vertex through the incision atraumatically. Shoulders followed with relative ease. Three-vessel cord was noted clamped x2 and cut and the was then handed off to the waiting lithostripper. At this point cord blood sample and cord blood gases segment were obtained. The placenta was manually expressed from the uterus, uterus exteriorized and cleared of all clot and debris. Due to lack of good uterine tonicity patient did receive Pitocin intravenously, 1 dose of Methergine 0.25 mg IM to assist with uterine tonicity. The uterine incision was then closed using 0 Monocryl suture in a running locked fashion and a second imbricating layer of the same suture placed. Uterus then returned to the abdomen. Abdomen was irrigated with copious amounts of normal saline and found to be hemostatic. Both fallopian tubes and ovaries are normal bilaterally. At this point, uterus had good tonicity and uterine incision was hemostatic. The fascial incision was then closed using 0 Vicryl suture in a running fashion. Subcutaneous tissue irrigated copious amounts of normal saline. Subcu tissue reapproximated with 3-0 Vicryl in a simple interrupted fashion and the skin edge was closed with 4-0 Monocryl in a subcuticular fashion. Steri-Strips and sterile dressing were placed. At this point, fundal massage was undertaken, there was a moderate gush of blood and approximately 50 clot expressed from the uterus and lower uterine segment. Due to some decrease in uterine tonicity intermittently throughout the procedure at 600 mcg of Cytotec was administered rectally. This will be continued for the first 24 hours postoperative. Patient awoke from anesthesia with ease. She was returned to the post anesthesia care unit with a Davidson catheter draining straw-colored urine. Fluids: Crystalloid per anesthesia Complications: None apparent Findings: Delivery of viable male infant from the persistent occiput posterior position. Normal tubes, ovaries, uterus. Mild uterine atony responding nicely to Pitocin, Methergine, Cytotec. EBL: 800 mL Pathology: None sent [place] Gestational Age in Weeks/Days: 39 Weeks and 2 Days Infant Gender: Male weight: 8 lb 6.217 oz
--- NOTE | 2021-06-28 06:46 | W.ANESPOSTOP ---
Postoperative Evaluation Date, Time and Location Date Performed: 06/28/21 Time Performed: 06:48 Patient Location: Obstetrics Vital Signs Most Recent Imported Vital Signs: Most Recent Vital Signs Temp Pulse Resp BP Pulse Ox 36.4 C L 100 H 22 130/95 H 97 06/28/21 06:35 06/28/21 06:35 06/28/21 06:35 06/28/21 06:35 06/28/21 06:35 Pain Score Most Recent Pain Score: Most Recent Pain Score Pain Level 1 06/28/21 06:35 Assessment Mental Status: Awake (Alert & Oriented to Patient Baseline) Airway and Respiratory Function: Patent airway with normal (patient baseline) respiratory exam Cardiovascular Function: Hemodynamically Stable Hydration Status: Adequately Hydrated Nausea & Vomiting: No Nausea or Vomiting Pain: Pain is tolerable per patient (4/10) Peripheral Nerve Block: Patient did not receive a nerve block
[2021-06-28] MEDS: Lactated Ringers 1,000 ML 120 ML IV ×3 (07:00→22:54)
[2021-06-28] MEDS: miSOPROStol 100 MCG TAB 600 MCG PO ×2 (10:58→19:20)
[2021-06-28] MEDS: Normal Saline Flush 10 ML SYR IVP ×2 (10:58→17:27)
[2021-06-28] MEDS: Ketorolac 30 MG/ML VIAL IVP ×3 (10:59→23:28)
--- NOTE | 2021-06-28 15:55 | NUR.NOTE ---
PT stated to RN that she wishes she did not have so many panic attacks all the time. RN notified CNM who has notified Gertrude Chavez Nursing Note:
--- NOTE | 2021-06-28 22:14 | NUR.NOTE ---
Assumed care of patient at 2200
[2021-06-29 03:00] VITALS: BP 114/60; PULSE 75; RESP 16; TEMP 36.9; O2SAT 97
[2021-06-29] MEDS: Ibuprofen 600 MG TAB PO ×2 (04:46→14:15)
[2021-06-29 07:32] LABS: Abs Immature Grans 0.12 10^3/uL (0.0-0.06); Absolute Eosinophil Count 0.03 10^3/uL (0.0-0.7); Absolute Lymphocyte Count 3.58 10^3/uL (1.2-3.4); Basophils % 0.2; Eosinophils % 0.2; HCT 25.3 % (36.0-46.0); HGB 8.3 g/dL (11.2-15.7); Immature Grans % 0.7; Lymphocytes % 21.5; MCH 27.7 pg (27.0-33.0); MCHC 32.8 % (32.0-36.0); MCV 84.3 fL (80-95); MPV 10.1 fL (8.0-11.0); Monocytes % 7.4; Nucleated RBC 0 %; Platelet Count 222 10^3/uL (130-400); RDW 14.8 % (11.7-14.6); RDW-SD 45.5 fL; WBC 16.66 10^3/uL (4.4-10.8)
[2021-06-29 07:33] LABS: Absolute Basophil Count 0.03 10^3/uL (0.0-0.2); Absolute Monocyte Count 1.23 10^3/uL (0.1-0.8); Absolute Neutrophil Count 11.66 10^3/uL (1.2-6.7)
[2021-06-29 08:25] VITALS: BP 110/54; PULSE 82; RESP 18; TEMP 36.7; O2SAT 97
--- NOTE | 2021-06-29 08:56 | W.PM.OBPNV1 ---
Date of service: 06/29/21 Time of Service: 08:56 Assessment and Plan Assessment and plan (1) Status post primary low transverse section: Status: Acute Assessment and plan: Postoperative day #1 status post primary low transverse section. Asymptomatic postoperative anemia due to blood loss. We will continue to monitor. Ambulate, regular diet. Advance activity. Anticipated discharge in 24 to 48 hours. (2) Arrested labor: Status: Acute Subjective Subjective Interval history: Patient seen and examined this morning postoperative day #1 status post primary low transverse section. She is doing well. Breast-feeding without difficulty. Davidson catheter is out and she has been ambulating. She is tolerating regular diet passing flatus Patient comments: No complaints, Incisional pain, Tolerating diet and Flatus present baby status: Doing well, Nursing well and Strong Bonding Observed Exam Physical Exam Vital signs: Temp Pulse Resp BP Pulse Ox 98.4 F 75 16 114/60 97 06/29/21 03:00 06/29/21 03:00 06/29/21 03:00 06/29/21 03:00 06/29/21 03:00 Constitutional Constitutional: no acute distress HEENT Exam HEENT Exam: Normal Respiratory Exam Respiratory Exam: Normal Cardiovascular Exam Cardiovascular Exam: Normal Abdominal Exam Abdomen: Tender Fundal Exam Fundus: Below Umbilicus and Firm Extremities Exam Extremity Exam: Normal; negative Calf Tenderness Skin Exam Skin Exam: Normal Psychiatric Exam Psychiatric Exam: Normal Results Hemoglobin/Hematocrit: Hgb 8.3 g/dL (11.2-15.7) L D 06/29/21 07:22 Hct 25.3 % (36.0-46.0) L D 06/29/21 07:22 Abnormal Lab Findings: Abnormal Labs 06/27/21 06/29/21 18:35 07:22 WBC 15.74 H 16.66 H RBC 3.00 L Hgb 8.3 L D Hct 34.4 L 25.3 L D RDW 14.8 H Absolute Neutrophils 11.66 H Absolute Lymphocytes 3.58 H Absolute Monocytes 1.23 H
[2021-06-29 13:17] VITALS: BP 105/57; PULSE 82; RESP 16; TEMP 36.7; O2SAT 97
[2021-06-29] MEDS: Docusate Sodium 100 MG CAP PO (14:15)
[2021-06-29] MEDS: Acetaminophen 325 MG TAB 650 MG PO (14:16)
[2021-06-29 19:30] VITALS: BP 110/59; PULSE 73; RESP 18; TEMP 36.6
[2021-06-30] MEDS: Ibuprofen 600 MG TAB PO ×2 (05:50→12:25)
[2021-06-30] MEDS: Acetaminophen 325 MG TAB 650 MG PO ×2 (05:50→12:24)
[2021-06-30 08:07] VITALS: BP 119/76; PULSE 75; RESP 16; TEMP 37.1; O2SAT 98
[2021-06-30] MEDS: Docusate Sodium 100 MG CAP PO (08:15)
[2021-06-30] MEDS: oxyCODONE 5 mg/Acetaminophen 325 mg TAB PO ×3 (08:16→17:09)
--- NOTE | 2021-06-30 08:30 | OBPPV_ITS ---
Date of service: 06/30/21 Time of Service: 08:30 Assessment and Plan Assessment and plan (1) Status post primary low transverse section: Status: Acute Assessment and plan: POD 2 LTCS. well, pain under control. Pt may be discharged to home later today, pending OK from Peds regarding 's weight and plan. Subjective Subjective Interval history: POD2 LTCS. . Pt reports feeling comfortable while taking NSAIDs. Plan to assess for plan and possible discharge to home today if Peds agrees. Patient comments: Pain well controlled, Tolerating diet and Flatus present Patient's Mood: appropriate [place] baby status: Doing well, Nursing well and Rooming in feeding status: Exclusively breast feeding Exam Physical Exam Vital signs: Temp Pulse Resp BP Pulse Ox 98.7 F 75 16 119/76 98 06/30/21 08:07 06/30/21 08:07 06/30/21 08:07 06/30/21 08:07 06/30/21 08:07 Vital Signs Reviewed: Yes Notable Details: no issues with OOB and performing ADLs Constitutional Constitutional: no acute distress, obese and cooperative HEENT Exam HEENT Exam: Not Done Neck Exam Neck Exam: Normal Respiratory Exam Respiratory Exam: Normal Cardiovascular Exam Cardiovascular Exam: Normal Abdominal Exam Abdomen: Tender (along incision line) Fundal Exam Fundus: Below Umbilicus and Firm Rectal Exam Rectal Exam: Not Done Extremities Exam Extremity Exam: Normal; negative Edema Back/Spine/Pelvis Exam Back Exam: Not Done Skin Exam Skin Exam: Normal Neurological Exam Neurological Exam: Normal Psychiatric Exam Psychiatric Exam: Normal Results Hemoglobin/Hematocrit: Hgb 8.3 g/dL (11.2-15.7) L D 06/29/21 07:22 Hct 25.3 % (36.0-46.0) L D 06/29/21 07:22 Abnormal Lab Findings: Abnormal Labs 06/27/21 06/29/21 18:35 07:22 WBC 15.74 H 16.66 H RBC 3.00 L Hgb 8.3 L D Hct 34.4 L 25.3 L D RDW 14.8 H Absolute Neutrophils 11.66 H Absolute Lymphocytes 3.58 H Absolute Monocytes 1.23 H
--- NOTE | 2021-06-30 11:57 | DSE_ITS ---
Date of service: 06/30/21 Time of Service: 11:57 DS: Diagnosis Discharge Diagnosis (1) Status post primary low transverse section: Status: Acute Discharge Plan Disposition Patient Disposition: HOME Condition: Fair Discharge Details Reason For Visit: Term Labor Admit Date/Time: 06/27/21 18:10 Admit Provider: Ann Marie Weiss Attending Provider: Ann Marie Weiss Primary Care Provider: Teressa Morrison [place] [facility] Hospital Course: 20yo female who presented to Center in active labor and progressed to complete cervical dilation. Despite 4 hours of excellent materna expulsive effort there was no descent of the vtx into the canal. Underwent a LTCS w/o complications. She was discharged to home on POD 3, successfully . Home Meds and New Rx's Prescriptions: New ibuprofen 600 mg Tablet 600 mg PO Q6H PRN PRNQty: 60 RF: 1 Discontinued aspirin 81 mg tablet,delayed release (DR/EC) 162 mg PO DAILY Qty: 90 RF: 3 No Action prenat.vits,nitin,qyi-gwsu-iqwpi Tablet 1 tab PO DAILY RF: 0 pantoprazole [Protonix] 40 mg tablet,delayed release (DR/EC) 40 mg PO DAILY Qty: 90 RF: 0 cholecalciferol (vitamin D3) 25 mcg (1,000 unit) tablet,chewable 25 mcg PO DAILY RF: 0 vitamin B complex Tablet 1 tab PO DAILY RF: 0 ondansetron HCl [Zofran] 4 mg tablet 4 mg PO Q6H PRN (Reason: nausea and vomiting) Qty: 20 RF: 2 albuterol sulfate [ProAir HFA] 8.5 GM HFA aerosol inhaler 2 puff Inhalation Q4H PRN Qty: 1 RF: 1 (DME) Inhaler, Assist Devices [Aerochamber Mini] 1 EACH spacer 1 ea Miscellaneous Q4H PRN Qty: 1 RF: 0 Discharge Instructions Additional Instructions: You have a prescription for Percocet 5/325mg tablets. Take one tablet for severe pain not relieved by Ibuprofen or Acetaminophen. Do not take the Percocet and Acetaminophen together, since they both have Acetaminophen and together may give you too large of a dose of Acetaminophen. You may take the Acetaminophen and Ibuprofen togeter, every 6 hours. Keep your appointment with Dr. Alvarez for a post op check in 2weeks and with the CNMs in 6 weeks. Stand Alone Forms: BC Instructions, BC Discharge Instruc Activity:: Activity as Tolerated Equipment/Supplies:: No Equipment Needed Diet:: As Tolerated Discharge Orders Discharge Orders: Discharge Order (Routine); Ordered 07/01/21 Ordered By: Leyda Sherman Discharge Data Discharge Date/Time-TO BE ENTERED AT DEPARTURE: 07/01/21 19:50 OB:DS Summary Contraception Discussed Contraception Discussed: Yes, Rosalie Gender-Baby A: Male weight: 8 lb 6.217 oz Status at Discharge Functional status at discharge: independent ambulation Overall status at discharge: patient is progressing back to baseline Mental Status: mental status grossly normal Speech and Movement: speech and movement normal Mood: congruent mood Affect: normal affect Exam Physical Exam Vital signs: Temp Pulse Resp BP Pulse Ox 98.7 F 75 16 119/76 98 06/30/21 08:07 06/30/21 08:07 06/30/21 08:07 06/30/21 08:07 06/30/21 08:07 Vital Signs Reviewed: Yes Narrative: POD 2 LTCS for arrest of dilation rest of descent after approximately4 hours of pushing with infant in persistent occiput posterior. She presented in early active labor. She progressed to the point that she was completely dilated. She did receive epidural for pain control. With good maternal effort of pushing but was unable to bring presenting part down into vagina. Findings: Delivery of a viable male with Apgars 8 and 9. Persistent occiput posterior. He will be named Cecilia. Constitutional Constitutional: no acute distress and cooperative HEENT Exam HEENT Exam: Not Done Neck Exam Neck Exam: Normal Respiratory Exam Respiratory Exam: Normal Cardiovascular Exam Cardiovascular Exam: Normal Abdominal Exam Abdomen: Tender (pfannenstiel skin incision.) Fundal Exam Fundus: Below Umbilicus and Firm Rectal Exam Rectal Exam: Not Done Extremities Exam Extremity Exam: Normal; negative Edema Skin Exam Skin Exam: Normal Neurological Exam Neurological Exam: Normal Psychiatric Exam Psychiatric Exam: Normal [facility] Medical History Acute pain of right shoulder (05/07/16) Arrested labor Asthma Chronic nausea Chronic right shoulder pain (06/01/17) Depression Limitation of joint motion of right shoulder (07/06/17) Routine sports examination for healthy child or adolescent (11/24/12) VSD (ventricular septal defect) Surgical History Status post primary low transverse section 06/28/21.Arrest of dilation. Jose Brooks. Family History Mother Gestational diabetes Father Depression with anxiety Sister Asthma sports induced Grandfather Neoplasm MGF- Prostate, Lung, NonHodgkins PGF- Colon MGGM-cervical cancer Grandmother Eczema MGM Obsessive compulsive disorder PGM ADHD (attention deficit hyperactivity disorder) PGM GRANDPARENT Alcohol abuse Essential hypertension Heart disease Social History Smoking/Tobacco Use Status: Never Smoking risk assessment performed?: Yes Alcohol Intake: never Drug use: Never Substance use type: does not use Household members: significant other, children and other Details: Shagufta Hahn- Cecilia Number of Children: 1 Do you think of yourself as: straight/heterosexual Do you feel safe at home: Yes Do you feel safe in your relationship?: Yes History History 1 Para 1 Hx # Term Pregnancies 1 Multiple births 0 Hx # Pregnancies 0 Ectopic pregnancies 0 AB induced 0 Hx Number of Living Children 1 AB spontaneous 0 Past Pregnancies Del. Date GA/Weeks # Outcome Route Wgt Sex Labor Lgth Anesthes ia Location [facility] 06/28/21 39 No Successful 8 lb 6.2 oz Male KJ DS: Data Vitals/I&O Vitals and I&O: Vital Signs Temperature 98.7 F 06/30/21 08:07 Pulse 75 06/30/21 08:07 Pulse Rhythm Regular 06/29/21 19:30 Respiratory Rate 16 06/30/21 08:07 Blood Pressure 119/76 06/30/21 08:07 Blood Pressure Mean 90 06/30/21 08:07 Pulse Oximetry 98 06/30/21 08:07 Respiratory End-tidal CO2 35 06/28/21 06:09 Oxygen Delivery Method Room Air 06/28/21 06:35 Oxygen Flow Rate 2 06/28/21 06:09 Pain Level 3 06/30/21 08:07 Intake & Output 06/29/21 06/29/21 06/30/21 11:59 23:59 11:59 Intake Total 904 / 904 Output Total 1800 / 2500 700 / 2500 Balance -896 / -1596 -700 / -1596 Intake: IV 754 / 754 Oral 150 / 150 Output: Urine 1800 / 2500 700 / 2500 Other: Urine Color Yellow Pale
[2021-06-30 13:00] VITALS: BP 124/69; PULSE 80; RESP 16; TEMP 36.4; O2SAT 99
[2021-06-30 18:18] VITALS: BP 115/78; PULSE 70; RESP 16; TEMP 36.8; O2SAT 98
[2021-06-30 20:26] VITALS: BP 117/79; PULSE 74; RESP 18; TEMP 36.6
[2021-07-01] MEDS: Ibuprofen 600 MG TAB PO ×3 (00:05→18:52)
[2021-07-01] MEDS: Acetaminophen 325 MG TAB 650 MG PO ×3 (00:05→18:53)
[2021-07-01 04:30] VITALS: BP 112/64; PULSE 72; RESP 18; TEMP 36.6
[2021-07-01 08:04] VITALS: BP 119/68; PULSE 88; RESP 16; TEMP 36.5; O2SAT 98
[2021-07-01] MEDS: Docusate Sodium 100 MG CAP PO ×2 (08:07→18:53)
--- NOTE | 2021-07-01 09:33 | W.PM.OBPNV1 ---
Date of service: 07/01/21 Time of Service: 09:33 Assessment and Plan Assessment and plan (1) Status post primary low transverse section: Status: Acute Assessment and plan: POD3. Primary LTCS for arrest of descent. Pt's pain controlled with NSAIDs and she has been placing on the breast to latch with +/- results. She has been pumping breast milk and syringe feeding it to infant. Pt's infant will remain hospitalized 2/2 wt loss issues. I will speak to pt later today regarding discharging her to boarder status if infant remains hospitalized. Subjective Subjective Interval history: POD 3 unscheduled PCS for arrest of descent . Pain controlled with NSAIDs and Acetaminophen. Pt reports not having to use Percocet in past 12hrs. Patient comments: Pain well controlled, Incisional pain and Tolerating diet Patient's Mood: appropriate [place] baby status: Nursing well (Patient's breast milk is not yet come in. She continues to pump), Rooming in, Strong Bonding Observed and Excessive weight loss (Peds will not discharge today 2/2 wt loss) feeding status: Exclusively breast feeding Exam Physical Exam Vital signs: Temp Pulse Resp BP Pulse Ox 98 F 72 18 112/64 98 07/01/21 04:30 07/01/21 04:30 07/01/21 04:30 07/01/21 04:30 06/30/21 18:18 Vital Signs Reviewed: Yes Constitutional Constitutional: no acute distress and obese HEENT Exam HEENT Exam: Not Done Neck Exam Neck Exam: Normal Respiratory Exam Respiratory Exam: Normal Cardiovascular Exam Cardiovascular Exam: Normal Abdominal Exam Abdomen: Tender Comments: along incsion. No ecchymosis. No induration Fundal Exam Fundus: Below Umbilicus and Firm Rectal Exam Rectal Exam: Not Done Extremities Exam Extremity Exam: Normal Back/Spine/Pelvis Exam Back Exam: Not Done Skin Exam Skin Exam: Normal Neurological Exam Neurological Exam: Normal Psychiatric Exam Psychiatric Exam: Normal Results Hemoglobin/Hematocrit: Hgb 8.3 g/dL (11.2-15.7) L D 06/29/21 07:22 Hct 25.3 % (36.0-46.0) L D 06/29/21 07:22 Abnormal Lab Findings: Abnormal Labs 06/27/21 06/29/21 18:35 07:22 WBC 15.74 H 16.66 H RBC 3.00 L Hgb 8.3 L D Hct 34.4 L 25.3 L D RDW 14.8 H Absolute Neutrophils 11.66 H Absolute Lymphocytes 3.58 H Absolute Monocytes 1.23 H
[2021-07-01 13:17] VITALS: BP 114/70; PULSE 88; RESP 17; TEMP 36.8; O2SAT 99
== END 2021-07-01 19:50 | disposition home or self-care (01) | DRG 787 ==
PROVIDERS: Obstetrics & Gynecology; Admitting Provider Advanced Practice Midwife; PCP Nurse Practitioner Family; Visit Provider Advanced Practice Midwife
PROC: 10D00Z1 Extraction of Products of Conception, Low, Open Approach (ICD-10-PCS; CPT 59514; principal; 2021-06-28 03:45)
DX: O26.13 Low weight gain in pregnancy, third trimester (principal); Q21.0 Ventricular septal defect; O99.42 Diseases of the circulatory system complicating childbirth; Z37.0 Single live birth; Z3A.39 39 weeks gestation of pregnancy; O34.211 Maternal care for low transverse scar from previous cesarean delivery; N85.8 Other specified noninflammatory disorders of uterus; O99.824 Streptococcus B carrier state complicating childbirth; O99.344 Other mental disorders complicating childbirth; F41.8 Other specified anxiety disorders; O99.52 Diseases of the respiratory system complicating childbirth; J45.909 Unspecified asthma, uncomplicated; O21.0 Mild hyperemesis gravidarum; O62.1 Secondary uterine inertia; O63.1 Prolonged second stage (of labor); Z20.822 Contact with and (suspected) exposure to COVID-19
CPT/HCPCS: 59514; 36410; 36415; 85027; 86850; 86900; 86901; 87635; 85025; J0131; J0456; J0690; J1100; J1885; J2001; J2210; J2405; J2540; J2590; J2704; J3010; J3490

== ENCOUNTER 2021-12-01 10:37 | Outpatient (REF) | payer MEDICAID, SELFPAY ==
--- NOTE | 2021-12-01 10:00 | PAPFT_PTH ---
PATIENT: Lorena Preston LOC: [facility] U#:[id number] AGE/SX: 21/F ROOM: RE12/01/[address]: Lisa Alvarez DO : 2000 BED: DIS: 12/01/2021 SPEC #: [id number] RECD: 12/01/21 13:00 STATUS: NIC REQ #: [id number] WENDI: 12/01/21 10:[address]: Lisa Alvarez DEPT: [facility] Cytology RECD BY: Svetlana Anderson ENTERED: 12/01/21 13:00 SP TYPE: PAPFT OTHR DR: Teressa Morrison Tissues: 1 - CX/ENDOCX FOR PAP SMEARS Procedures: PAP THIN PREP/UVM Screening Comments: [id number] (CHLAMYDIA/GC)
[2021-12-02 15:10] LABS: Chlamydia Result Negative (Negative); GC Result Negative (Negative)
== END 2021-12-01 10:38 | disposition home or self-care (01) ==
LOC: LBN 10:37
PROVIDERS: PCP Nurse Practitioner Family; Visit Provider Obstetrics & Gynecology
DX: Z12.4 Encounter for screening for malignant neoplasm of cervix (principal); R87.612 Low grade squamous intraepithelial lesion on cytologic smear of cervix (LGSIL)
CPT/HCPCS: 87491; 87591; 88142

== ENCOUNTER 2022-02-23 16:56 | Outpatient (REF) | payer MEDICAID, SELFPAY ==
--- NOTE | 2022-02-23 14:50 | ENDO_PTH ---
PATIENT: Lorena Preston LOC: [facility] U#:[id number] AGE/SX: 21/F ROOM: RE02/23/[address]: Lisa Alvarez DO : 2000 BED: DIS: 02/23/2022 SPEC #: [id number] RECD: 02/23/22 17:18 STATUS: NIC RE #: [id number] WENDI: 02/23/22 14:[address]: Lisa Alvarez DEPT: Surgical Specimen RECD BY: Svetlana Anderson ENTERED: 02/23/22 17:19 SP TYPE: Endo OTHR DR: Teressa Morrison Tissues: 1 - ENDOCERVICAL BX/CURRETTE 2 - CERVICAL BIOPSY Procedures: GROSS AND MICRO LEVEL 4 Comments: [id number]
== END 2022-02-23 16:57 | disposition home or self-care (01) ==
LOC: LBN 16:56
PROVIDERS: PCP Nurse Practitioner Family; Visit Provider Obstetrics & Gynecology
DX: R87.612 Low grade squamous intraepithelial lesion on cytologic smear of cervix (LGSIL) (principal)
CPT/HCPCS: 88305

== ENCOUNTER 2022-05-26 20:45 | Emergency (ER) | payer MEDICAID, SELFPAY ==
[2022-05-26 20:59] VITALS: BP 112/63; PULSE 93; RESP 14; TEMP 37; O2SAT 99
--- NOTE | 2022-05-26 21:27 | W.ED.GENAD ---
Discharge Plan Disposition Patient Disposition: HOME Condition: Good Discharge Details Clinical Impression: Vaginal bleeding Primary Care Provider: Teressa Morrison ED Provider: Sky Benson Home Meds and New Rx's Prescriptions: No Action cholecalciferol (vitamin D3) 25 mcg (1,000 unit) tablet,chewable 25 mcg PO DAILY vitamin B complex Tablet 1 tab PO DAILY albuterol sulfate [ProAir HFA] 8.5 GM HFA aerosol inhaler 2 puff Inhalation Q4H PRN Qty: 1 Rx Instructions: use with spacer (DME) Inhaler, Assist Devices [Aerochamber Mini] 1 EACH spacer 1 ea Miscellaneous Q4H PRN Qty: 1 0RF Discharge Instructions Instructions: Threatened Miscarriage (ED) Additional Instructions: At this time there is concern for potential threatened miscarriage. Please avoid any intercourse for the next few weeks. Follow-up closely with your OB doctor at your scheduled appointment. If you notice any worsening of your symptoms, or any new symptoms such as vomiting, diarrhea, fever, chills, shortness of breath, chest pain, numbness, weakness, or fainting , please return immediately to the emergency department for reevaluation. Please follow up with your primary care provider as soon as possible for reassessment and reevaluation. As always, it was a pleasure participating in your medical care today. Referrals: Teressa Morrison [Primary Care Provider] - Medical Decision Making This is a pleasant 21-year-old female who is a G2, P1 who is blood type a positive, presents today for evaluation of vaginal spotting who is currently 7 weeks . Patient states that over the last 2 to 3 days she has had mild cramping, and then today she noticed some small brown spotting. She describes the cramping is mild and located in the suprapubic region. She denies any vomiting or diarrhea. She denies any significant vaginal bladder bleeding. She denies any previous miscarriage. No other complaints at this time. No other modifying factors. Physical exam demonstrates a nontender nonsurgical abdomen with mild cramping in the suprapubic region. Urinalysis is negative for leuk esterase or nitrates. No evidence of bladder infection. Vaginal exam was performed with female nurse Tatyana at bedside and demonstrates no blood, no brown spotting, and a closed cervix. Ultrasound shows a small tissue mass in the uterus, no heartbeat is noted, however the child is supposed only be 7 weeks at this time anyway. Symptoms consistent with spotting secondary to a threatened miscarriage. Patient does admit to having intercourse last night, but this was after the spotting and the cramps had already begun. Recommend pelvic rest for the next few days, close follow-up with OB, and discussed red flags which to return. I have extensively reviewed the treatment plan and discharge instructions with the patient. I have addressed all patient concerns at this time. The patient was made aware of what symptoms to monitor for that would warrant a return to the emergency department. Discussed the plan with the patient, they demonstrate verbal understanding and agreement with our assessment and plan at this time. The documentation in this chart was dictated using [employer] dictation software. Please excuse any dictation errors. HPI General Date/Time Provider Initiated Documentation: 05/26/22 21:04. HPI Narrative: This is a pleasant 21-year-old female who is a G2, P1 who is blood type a positive, presents today for evaluation of vaginal spotting who is currently 7 weeks . Patient states that over the last 2 to 3 days she has had mild cramping, and then today she noticed some small brown spotting. She describes the cramping is mild and located in the suprapubic region. She denies any vomiting or diarrhea. She denies any significant vaginal bladder bleeding. She denies any previous miscarriage. No other complaints at this time. No other modifying factors. 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 CALI: 3 Review of Systems All systems reviewed & are unremarkable except as noted in HPI and below PFSH All Active Problems Vaginal bleeding (Acute) Missed menses (Acute) LGSIL (low grade squamous intraepithelial dysplasia) (Acute) Contraception management (Acute) Housing or economic circumstances (Acute) Weight loss, non-intentional (Acute) Housing problems (Acute) Anxiety disorder, unspecified (Acute) BMI 34.0-34.9,adult (Acute) Depression (Chronic) Attention-deficit hyperactivity disorder, unspecified type (Acute 09/07/16) has IEP for developmental/assisitive therapies (F90.9- adhd unspecified type) Intentional self-harm by sharp object (Acute 01/19/16) Mild intermittent asthma, uncomplicated (Acute 08/24/16) Learning difficulty (Acute 11/24/12) IEP in place for speech/language services Membranous ventricular septal defect (Acute 11/24/12) Followed by Dr. Chun, 02/2016- does not need SBE prophylaxis, no need to restrict from any vigorious physical activity. Re-eval in 3 years Sleep difficulties (Acute 06/01/16) Medical History Acute pain of right shoulder (05/07/16) Arrested labor Asthma Chronic right shoulder pain (06/01/17) Limitation of joint motion of right shoulder (07/06/17) Routine sports examination for healthy child or adolescent (11/24/12) VSD (ventricular septal defect and aortic arch hypoplasia VSD (ventricular septal defect) Surgical History Status post primary low transverse section 06/28/21.Arrest of dilation. Jose Brooks. Family History Mother Gestational diabetes Father Depression with anxiety Sister Asthma sports induced Grandfather Neoplasm MGF- Prostate, Lung, NonHodgkins PGF- Colon MGGM-cervical cancer Grandmother Eczema MGM Obsessive compulsive disorder PGM ADHD (attention deficit hyperactivity disorder) PGM GRANDPARENT Alcohol abuse Essential hypertension Heart disease Social History Smoking/Tobacco Use Status: Never Smoking risk assessment performed?: Yes Alcohol Intake: never Drug use: Never Substance use type: does not use Household members: significant other, children and other Details: Shagufta Lewis Number of Children: 1 Do you think of yourself as: straight/heterosexual Do you feel safe at home: Yes Do you feel safe in your relationship?: Yes History History 1 Para 1 Hx # Term Pregnancies 1 Multiple births 0 Hx # Pregnancies 0 Ectopic pregnancies 0 AB induced 0 Hx Number of Living Children 1 AB spontaneous 0 Past Pregnancies Del. Date GA/Weeks # Preg Succ Route Wgt Sex Labor Lgth Anesthesia Location Prov Complic 06/28/21 39 No 3804.506 g Male KJ Exam Narrative Exam Narrative: 1.Const: Well-nourished, Well-developed, appearing stated age 2.Eyes: PERRL, no conjunctival injection, and symmetrical lids. 3.ENT: Atraumatic external nose and ears. Moist MM. Neck: Symmetric, trachea midline, No thyromegaly. 4.CVS: +S1/S2, No murmurs or gallops. Peripheral pulses 2+ and equal in all extremities. Brisk capillary refill in all extremities. 5.RESP: Unlabored respiratory effort. Clear to auscultation bilaterally. No wheezes rales or rhonchi 6.GI: Soft, Nontender/Nondistended, No hepatosplenomegaly. No guarding or rebound. No significant suprapubic or abdominal tenderness on palpation. Mild achiness. Vaginal exam was performed with female nurse Tatyana at bedside. Vaginal exam demonstrates a closed cervix, no blood. 7.MSK: Normocephalic/Atraumatic, Extremities w/o deformity or ttp No cyanosis or clubbing, Normal movement of all extremities 8.Skin: Warm, Dry. No rashes or lesions. 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 Sensation grossly intact, no focal neurologic deficits. 10.Psych: (AAO) x3. Appropriate mood and affect Course Vital Signs Vital signs: Vital Signs Temperature 37.0 C 05/26/22 20:59 Pulse 93 H 05/26/22 20:59 Respiratory Rate 14 05/26/22 20:59 Blood Pressure 112/63 05/26/22 20:59 Pulse Oximetry 99 05/26/22 20:59 Temperature 37.0 C 05/26/22 20:59 Pulse 93 H 05/26/22 20:59 Respiratory Rate 14 05/26/22 20:59 Respiratory Effort Non-Labored 05/26/22 21:03 Blood Pressure 112/63 05/26/22 20:59 Pulse Oximetry 99 05/26/22 20:59 Pain Level 7 05/26/22 20:59 Lab/Test Results Lab/Test Results: POC- Test(urine) Positive POCUS Exam (ED) Limited OB Exam DATE OF EXAM:: 05/26/22 TIME OF EXAM:: 22:04 PROVIDER THAT PERFORMED THE STUDY: Sky Benson IS THIS A REPEAT STUDY: No Type of Exam: Pelvic OB Trans Abdominal REASON FOR EXAM: Vaginal Bleeding Exam Complete. DIFFERENTAL DIAGNOSES: Uterus was noted, small to medium amount of tissue noted in the uterus, no heartbeat can be detected. However that gestational age is affected to be around 7 weeks.
[2022-05-26 21:30] LABS: Bilirubin Negative (Negative); Blood Trace-lysed (Negative); Clarity Cloudy (Clear); Glucose Negative (Negative); Ketones Negative (Negative); Leukocyte Esterase Negative (Negative); Nitrite Negative (Negative); Specific Gravity >= 1.030 (1.005-1.025); Urobilinogen 0.2 EU/dL (Up TO 0.2)
[2022-05-26 21:46] LABS: Bacteria Moderate HPF (Negative); C & S Indicated? No/Sq. Contamination; Crystals Negative HPF (Negative); Epithelial Cells Many HPF (Negative); Mucus Heavy (Negative); RBC 0-2 HPF (0-2)
== END 2022-05-26 21:38 | disposition home or self-care (01) ==
PROVIDERS: Emergency Provider Student in an Organized Health Care Education/Training Program; PCP Nurse Practitioner Family
DX: O20.9 Hemorrhage in early pregnancy, unspecified (principal); O99.511 Diseases of the respiratory system complicating pregnancy, first trimester; J45.909 Unspecified asthma, uncomplicated; Z3A.08 8 weeks gestation of pregnancy
CPT/HCPCS: 76815; 81025; 99284; 81003; 81015; 99282

== ENCOUNTER 2022-06-01 19:35 | Outpatient (CLI) | payer MEDICAID, SELFPAY ==
[2022-06-01 13:07] LABS: HCG Quant, Pregnancy 59074 mIU/mL (1-3)
== END 2022-06-01 19:36 | disposition home or self-care (01) ==
LOC: LBO 19:36
PROVIDERS: PCP Nurse Practitioner Family; Visit Provider Advanced Practice Midwife
DX: O20.0 Threatened abortion (principal)
CPT/HCPCS: 36415; 84702

== ENCOUNTER → 2022-06-02 02:05 | Outpatient (CLI) | payer MEDICAID, SELFPAY ==
--- NOTE | 2022-06-02 07:45 | DI.US_ITS ---
Exam(s) US OB 1ST TRIMESTER EXAM: US OB 1ST TRIMESTER CLINICAL HISTORY: viability, threatened in early , O20.0. TECHNIQUE: First trimester obstetrical ultrasound was performed. COMPARISON: US POCUS EXAM from 05/26/2022 FINDINGS: There is an intrauterine gestational sac at the level the fundus which exhibits sac measurement 20.4 millimeters, correspond to 6 weeks and 4 days gestational age. No pole nor yolk sac identified . Uterus measures 7.6 cm length by 5 cm AP x 6.6 cm wide. There are no uterine fibroids. Maternal ovaries: Right ovary measures 1.6 x 1.7 x 2.6 cm. Left ovary measures 3.5 x 2.8 x 2.9 cm. There is a small amount of free fluid in the cul-de-sac. IMPRESSION:: Intrauterine fundal level sac exhibits sac measurement approximately 6 weeks 4 days. T here is, however, no pole nor yolk sac therein. Therefore possible blighted ovum. There is so me fluid in the cul-de-sac noted Cannot exclude ectopic Appropriate follow-up recommended. DATA REPOSITORY:
== END ==
PROVIDERS: PCP Nurse Practitioner Family; Visit Provider Advanced Practice Midwife
DX: O20.0 Threatened abortion (principal); Z3A.01 Less than 8 weeks gestation of pregnancy
CPT/HCPCS: 76801

== ENCOUNTER 2022-07-05 04:22 | Outpatient (CLI) | payer MEDICAID, SELFPAY ==
[2022-07-05 10:36] LABS: Abs Immature Grans 0.02 10^3/uL (0.0-0.06); Absolute Basophil Count 0.03 10^3/uL (0.0-0.2); Absolute Eosinophil Count 0.12 10^3/uL (0.0-0.7); Absolute Lymphocyte Count 1.67 10^3/uL (1.2-3.4); Absolute Monocyte Count 0.44 10^3/uL (0.1-0.8); Absolute Neutrophil Count 5.66 10^3/uL (1.2-6.7); Basophils % 0.4; Eosinophils % 1.5; HCT 34.9 % (36.0-46.0); HGB 12.2 g/dL (11.2-15.7); Immature Grans % 0.3; MCH 29.2 pg (27.0-33.0); MCV 84 fL (80-95); MPV 9.5 fL (8.0-11.0); Monocytes % 5.5; Neutrophils % 71.3; Platelet Count 266 10^3/uL (130-400); RBC 4.18 10^6/uL (3.93-5.22); RDW-SD 39.2 fL; WBC 7.94 10^3/uL (4.4-10.8)
[2022-07-05 10:37] LABS: Kit/Specimen SENT
[2022-07-05 11:30] LABS: Glucose,1 Hr (Glucola) 102 mg/dL (80-140)
[2022-07-05 11:43] LABS: TSH (W/Ref FT4) 1.89 uIU/mL (0.36-3.74)
[2022-07-06 09:36] LABS: Hepatitis B Surface Ag Negative (Negative)
[2022-07-06 10:24] LABS: HIV-1/2 Ag & Ab Screen Negative (Negative)
[2022-07-06 10:25] LABS: Varicella IgG Antibody Negative (See Note)
[2022-07-06 10:29] LABS: Rubella IgG Ab (UVM) Positive (See Note)
[2022-07-06 10:33] LABS: Hepatitis C Ab w Rflx HCV PCR Negative (Negative)
[2022-07-07 14:13] LABS: Syphilis IgG w/Reflex Nonreactive (Nonreactive)
== END 2022-07-05 04:23 | disposition home or self-care (01) ==
LOC: LBO 04:23
PROVIDERS: PCP Nurse Practitioner Family; Visit Provider Advanced Practice Midwife
DX: O99.341 Other mental disorders complicating pregnancy, first trimester (principal); F41.8 Other specified anxiety disorders; Z3A.11 11 weeks gestation of pregnancy; Z36.89 Encounter for other specified antenatal screening
CPT/HCPCS: 36415; 82950; 86787; 86803; 86850; 86900; 86901; 87340; 87389; 84443; 85025; 86762; 86780

== ENCOUNTER 2022-07-05 10:26 | Outpatient (CLI) | payer MEDICAID, SELFPAY ==
[2022-07-05 13:02] LABS: *AMPHETAMINES SCREEN URINE Negative (Negative); *BARBITURATES SCREEN URINE Negative (Negative); *BENZODIAZEPINES SCREEN URINE Negative (Negative); Cannabinoids THC Negative (Negative); Cocaine Screen,Urine Negative (Negative); METHADONE URINE SCREEN Negative (Negative); OPIATES URINE SCREEN Negative (Negative)
[2022-07-05 13:03] LABS: Tricyclic Antidepressants Negative (Negative)
[2022-07-06 14:51] LABS: Chlamydia Result Negative (Negative); GC Result Negative (Negative)
[2022-07-13 10:32] LABS: Buprenorphine Negative ng/mL (Cutoff: 5.0); Norbuprenorphine Negative ng/mL (Cutoff: 2.5)
== END 2022-07-05 10:27 | disposition home or self-care (01) ==
LOC: LBO 10:27
PROVIDERS: PCP Nurse Practitioner Family; Visit Provider Advanced Practice Midwife
DX: Z34.91 Encounter for supervision of normal pregnancy, unspecified, first trimester (principal); Z3A.11 11 weeks gestation of pregnancy
CPT/HCPCS: 80307; 80348; 87491; 87591; 87086

== ENCOUNTER 2022-07-28 09:20 | Emergency (ER) | payer MEDICAID, SELFPAY ==
--- NOTE | 2022-07-28 09:15 | DI.RAD_ITS ---
Exam(s) XR ANKLE LT COMPLETE EXAM: XR ANKLE LT COMPLETE CLINICAL HISTORY: Inversion injury, R/O Fracture TECHNIQUE: COMPARISON: No exams were available for comparison FINDINGS: Three views were obtained. The ankle mortise is well maintained. There is no evidence of acute frac ture or dislocation. IMPRESSION: RADIATION DOSE DELIVERED: Total DLP
[2022-07-28 09:23] VITALS: BP 124/75; PULSE 68; RESP 18; TEMP 37; O2SAT 99
--- NOTE | 2022-07-28 09:28 | ED.GENADUL_ITS ---
Discharge Plan Disposition Patient Disposition: HOME Condition: Stable Discharge Details Clinical Impression: Left ankle sprain Primary Care Provider: Teressa Morrison ED Provider: Cindy Cartwright Home Meds and New Rx's Prescriptions: Continued cholecalciferol (vitamin D3) 25 mcg (1,000 unit) tablet,chewable 25 mcg PO DAILY vitamin B complex Tablet 1 tab PO DAILY PNV 119-iron fum-folic acid 29 mg iron- 1 mg tablet PO doxylamine-pyridoxine (vit B6) [Diclegis] 10-10 mg tablet,delayed release (DR/EC) 1 tab PO QHS Qty: 20 3RF pantoprazole [Protonix] 40 mg tablet,delayed release (DR/EC) 40 mg PO DAILY Qty: 30 7RF ondansetron HCl 4 mg tablet 4 mg PO Q6H PRN (Reason: nausea and vomiting) Qty: 20 4RF albuterol sulfate [ProAir HFA] 8.5 GM HFA aerosol inhaler 2 puff Inhalation Q4H PRN Qty: 1 Rx Instructions: use with spacer (DME) Inhaler, Assist Devices [Aerochamber Mini] 1 EACH spacer 1 ea Miscellaneous Q4H PRN Qty: 1 0RF Discharge Instructions Instructions: Ankle Sprain (ED) Additional Instructions: At this time x-ray showed no evidence of broken bones or fractures. I do suspect that you sprained your ankle. This is very common injury. Wear the walking boot as needed for comfort. Advance toe-touch weightbearing as tolerated. Use the crutches as needed for comfort. Rest, ice, compression, elevation. Please take Tylenol with food every 4-6 hours as needed for pain and swelling. Stand Alone Forms: Work Release Referrals: Teressa Morrison [Primary Care Provider] - Return if symptoms worsen Medical Decision Making 21-year-old female who is approximately 14 weeks presents to the ER after an inversion type injury to her left ankle. She reportedly fell down approximately 3 steps did not fall all the way down to the ground. She was ambulatory with toe-touch weightbearing as tolerated upon arrival. No obvious deformity noted distal dorsal pedal pulses intact. X-ray ordered. 1049: X-ray shows no evidence for acute bony abnormality I do suspect a sprain. We will give a lace up ankle splint. Patient is wearing bearing weight without difficulty initially ordered crutches however I do not feel that patient will need these. I did discuss home care and follow-up care she verbalized understanding. This text was generated using [employer] system, please disregard any oddities of phrase or misspellings. HPI General Mode of arrival: ambulatory . Date/Time Provider Initiated Documentation: 07/28/22 09:26 . Limitations to Documentation: no limitations . Information obtained by: patient, RN notes reviewed and old records reviewed . HPI Narrative: 21-year-old female who is approximately 14 weeks presents to the ER after an inversion type injury to her left ankle. She reportedly fell down approximately 3 steps did not fall all the way down to the ground. She was ambulatory with toe-touch weightbearing as tolerated upon arrival. No obvious deformity noted distal dorsal pedal pulses intact. No significant swelling she does have tenderness to her medial and lateral malleolus with palpation. I did discuss the risks of x-rays she verbalized understanding and is requesting an x- ray. She did not take any Tylenol or ibuprofen prior to arrival I did offer her some Tylenol she declined at this time. Related Data Home Medications Medication Instructions Recorded Confirmed albuterol sulfate 90 mcg/actuation 2 puff inhalation Q4H PRN ##1 06/01/17 07/28/22 aerosol inhaler (ProAir HFA) cholecalciferol (vitamin D3) 25 25 mcg PO DAILY 10/29/20 07/28/22 mcg (1,000 unit) chewable tablet vitamin B complex 1 tab PO DAILY 04/30/21 07/28/22 doxylamine 10 mg-pyridoxine (vit 1 tab PO QHS hyperemesis #20 tabs 07/05/22 07/28/22 B6) 10 mg tablet,delayed release (Diclegis) ondansetron HCl 4 mg tablet 4 mg PO Q6H PRN nausea and 07/05/22 07/28/22 vomiting #20 tabs pantoprazole 40 mg tablet,delayed 40 mg PO DAILY #30 tabs 07/05/22 07/05/22 release (Protonix) vitamins no.119-iron tab PO 07/05/22 fumarate 29 mg-folic acid 1 mg tablet Previous Rx's Medication Instructions Recorded doxylamine 10 mg-pyridoxine (vit 1 tab PO QHS hyperemesis #20 tabs 07/05/22 B6) 10 mg tablet,delayed release (Diclegis) ondansetron HCl 4 mg tablet 4 mg PO Q6H PRN nausea and 07/05/22 vomiting #20 tabs pantoprazole 40 mg tablet,delayed 40 mg PO DAILY #30 tabs 07/05/22 release (Protonix) Allergies Allergy/AdvReac Type Severity Reaction Status Date / Time No Known Allergies Allergy Verified 07/05/22 08:44 General Stated Complaint: Orthopedic CALI: 4 Review of Systems Musculoskeletal Musculoskeletal: Reports as per HPI and Reports arthralgias PFSH All Active Problems (Updated 07/28/22 @ 10:41 by Cindy Cartwright NP) Left ankle sprain (Acute) Susceptible to varicella (non-immune), currently (Acute) Heart murmur (Acute) BMI 32.0-32.9,adult (Acute) Threatened in early (Acute) (Acute) LGSIL (low grade squamous intraepithelial dysplasia) (Acute) Housing or economic circumstances (Acute) Weight loss, non-intentional (Acute) Housing problems (Acute) Anxiety disorder, unspecified (Acute) Depression (Chronic) Attention-deficit hyperactivity disorder, unspecified type (Acute 09/07/16) has IEP for developmental/assisitive therapies (F90.9- adhd unspecified type) Intentional self-harm by sharp object (Acute 01/19/16) Mild intermittent asthma, uncomplicated (Acute 08/24/16) Learning difficulty (Acute 11/24/12) IEP in place for speech/language services Membranous ventricular septal defect (Acute 11/24/12) Followed by Dr. Chun, 02/2016- does not need SBE prophylaxis, no need to restrict from any vigorious physical activity. Re-eval in 3 years Sleep difficulties (Acute 06/01/16) Medical History Acute pain of right shoulder (05/07/16) Arrested labor Asthma Chronic right shoulder pain (06/01/17) Contraception management Limitation of joint motion of right shoulder (07/06/17) Missed menses Routine sports examination for healthy child or adolescent (11/24/12) VSD (ventricular septal defect and aortic arch hypoplasia VSD (ventricular septal defect) Surgical History Status post primary low transverse section 06/28/21.Arrest of dilation. Jose Brooks. Family History Mother Gestational diabetes Father Depression with anxiety Sister Asthma sports induced Grandfather Neoplasm MGF- Prostate, Lung, NonHodgkins PGF- Colon MGGM-cervical cancer Grandmother Eczema MGM Obsessive compulsive disorder PGM ADHD (attention deficit hyperactivity disorder) PGM GRANDPARENT Alcohol abuse Essential hypertension Heart disease Social History Smoking/Tobacco Use Status: Never Smoking risk assessment performed?: Yes Alcohol Intake: never Drug use: Never Substance use type: does not use Household members: significant other, children and other Details: Shagufta Lewis Number of Children: 1 Do you think of yourself as: straight/heterosexual Do you feel safe at home: Yes Do you feel safe in your relationship?: Yes History History 2 Para 1 Hx # Term Pregnancies 1 Multiple births 0 Hx # Pregnancies 0 Ectopic pregnancies 0 AB induced 0 Hx Number of Living Children 1 AB spontaneous 0 Past Pregnancies Del. Date GA/Weeks # Preg Succ Route Wgt Sex Labor Lgth Anesth esia Location Prov Complic 06/28/21 39 No Yes 3804.506 g Male regional [facility] for labor, C/S Dr. Alvarez Delivery Date: 06/28/21 Last Updated by: Ann Marie Weiss CNM spont labor, epidural, pushed for 5-6 hrs, baby stuck OP, C/S [facility] Exam Extrem Left lower extremity: lower leg Details: normal to inspection and ankle Details: normal to inspection, tenderness Location: of the lateral malleolus and of the medial malleolus and no edema; no abrasions, no lacerations and no ecchymosis Course Vital Signs Vital signs: Vital Signs Temperature 37 C 07/28/22 09:23 Pulse 68 07/28/22 09:23 Respiratory Rate 18 07/28/22 09:23 Blood Pressure 124/75 07/28/22 09:23 Pulse Oximetry 99 07/28/22 09:23 Temperature 37 C 07/28/22 09:23 Temperature Source Temporal Artery Scan 07/28/22 09:23 Pulse 68 07/28/22 09:23 Respiratory Rate 18 07/28/22 09:23 Respiratory Effort Non-Labored 07/28/22 09:26 Blood Pressure 124/75 07/28/22 09:23 Blood Pressure Position Sitting 07/28/22 09:23 Pulse Oximetry 99 07/28/22 09:23 Pain Level 6 07/28/22 09:23
== END 2022-07-28 10:54 | disposition home or self-care (01) ==
PROVIDERS: Emergency Provider Registered Nurse Emergency; PCP Nurse Practitioner Family
DX: S93.492A Sprain of other ligament of left ankle, initial encounter (principal); W10.8XXA Fall (on) (from) other stairs and steps, initial encounter
CPT/HCPCS: 29515; 99283; 73610; 99282

== ENCOUNTER 2022-08-09 02:37 | Outpatient (CLI) | payer MEDICAID, SELFPAY ==
[2022-08-10 16:39] LABS: AFP 32.1 ng/mL; Cigarette smoking status non-Smoker; GA used in risk estimate Scan estimate; IVF Pregnancy No; Initial or repeat testing Initial testing; Insulin dependent diabetes No; Maternal Weight 189 lbs; Number of Fetuses 1; Physician Phone Number 802-748-7300; Prev Pregnancy w/NTD No; RECOMMENDED FOLLOW UP None.; Results Summary Normal risk
== END 2022-08-09 02:38 | disposition home or self-care (01) ==
LOC: LBO 02:37
PROVIDERS: PCP Nurse Practitioner Family; Visit Provider Advanced Practice Midwife
DX: Z34.90 Encounter for supervision of normal pregnancy, unspecified, unspecified trimester (principal); Z3A.00 Weeks of gestation of pregnancy not specified
CPT/HCPCS: 36415; 82105

== ENCOUNTER 2022-10-27 02:10 | Outpatient (CLI) | payer MEDICAID, SELFPAY ==
[2022-10-27 10:12] LABS: HCT 32.4 % (36.0-46.0); HGB 10.8 g/dL (11.2-15.7); MCH 28.5 pg (27.0-33.0); MCHC 33.3 % (32.0-36.0); MCV 86 fL (80-95); MPV 8.7 fL (8.0-11.0); Platelet Count 297 10^3/uL (130-400); RBC 3.79 10^6/uL (3.93-5.22); RDW 13.1 % (11.7-14.6); RDW-SD 40.1 fL; WBC 12.39 10^3/uL (4.4-10.8)
[2022-10-27 10:26] LABS: Glucose,1 Hr (Glucola) 139 mg/dL (80-140)
== END 2022-10-27 02:11 | disposition home or self-care (01) ==
PROVIDERS: PCP Nurse Practitioner Family; Visit Provider Advanced Practice Midwife
DX: Z34.92 Encounter for supervision of normal pregnancy, unspecified, second trimester (principal); Z3A.27 27 weeks gestation of pregnancy
CPT/HCPCS: 36415; 82950; 85027

== ENCOUNTER 2022-11-09 17:11 | Outpatient (CLI) | payer MEDICAID, SELFPAY ==
[2022-11-09 17:56] VITALS: BP 115/53; PULSE 105; RESP 18; TEMP 37.3
[2022-11-09] MEDS: DEXTROSE 5%-LACTATED RINGERS 1,000 ML 999 ML IV ×2 (18:10→19:20)
[2022-11-09 18:13] VITALS: BP 115/53; PULSE 105; TEMP 37.3
[2022-11-09] MEDS: Ondansetron 4 MG/2 ML VIAL IVP (19:22)
[2022-11-09 19:28] VITALS: TEMP 37.1
[2022-11-09] MEDS: Metoclopramide 10 MG/2 ML VIAL 5 MG IVP (19:42)
[2022-11-09] MEDS: IRON SUCROSE COMPLEX 200 MG in Normal Saline 100 ML 400 MG IVPB (20:19)
[2022-11-09 20:55] VITALS: BP 109/59; PULSE 108; RESP 16; TEMP 37.3
--- NOTE | 2022-11-09 21:01 | W.OBNST ---
Date of service: 11/08/22 Time of Service: 22:00 NST Evaluation Reason for NST Reasons for Nonstress Test: OTHER, SEE COMMENT Reason for NST Other: Wellbeing, pt vomiting. Gestational Age Gestational Age in Weeks and Days: 28 Weeks and 6Days Test and Monitor Explained Test/Monitor Explained: Test Explained, Monitor Explained and Patient Verbalized Understanding Vital Signs Blood Pressure: 115/53 Pulse: 105 Temperature: 99.1 F Urine Results Urine Protein: Positive Urine Ketones: Positive Urine Glucose: Negative Urine Blood: Negative NST Information Date on Monitor: 11/09/22 Time on Monitor: 17:41 Date off Monitor: 11/09/22 Time off Monitor: 18:46 Total Time on Monitor: 65 NST Interventions: PO Hydration and IV Fluids Contraction Frequency: None NST Evaluation Patient States Movement: Present FHR Baseline: 160 Variability: Moderate 6-25 bpm Accelerations: 15x15 Decelerations: None NST Results: Reactive Note N/A NST Note Note: Pt received 2 liters of D5LR IV to correct dehydration and ketonuria Also given 4 mg Zofran, 5 mg Reglan, and 200 mg iron sucrose Pt discharged to home able to tolerate PO fluid intake (drank apple juice & shaye maría with buddy crackers) NST Reviewed and Verified by: Ally Yancey
[2022-11-09 21:03] VITALS: BP 115/53; PULSE 105; TEMP 37.3
== END 2022-11-09 20:59 ==
LOC: BCD 17:13 → OBS 17:18
PROVIDERS: PCP Nurse Practitioner Family; Visit Provider Advanced Practice Midwife
DX: O26.893 Other specified pregnancy related conditions, third trimester (principal); R11.10 Vomiting, unspecified; Z3A.28 28 weeks gestation of pregnancy
CPT/HCPCS: 59025; 96360; 96361; 96365; 96366; G0378; J1756; J2405; J2765

== ENCOUNTER 2022-12-01 01:47 | Outpatient (CLI) | payer MEDICAID, SELFPAY ==
--- NOTE | 2022-12-01 06:45 | DI.US_ITS ---
Exam(s) US OB MYRA WEIGHT EXAM: US OB MYRA WEIGHT CLINICAL HISTORY: covid infection in ,U07.1,O98.512,z34.90. TECHNIQUE: Transabdominal obstetrical ultrasound performed. COMPARISON: US US OB 1ST TRIMESTER from 06/02/2022 FINDINGS: Number of fetuses: 1 position: CEPHALIC Placental location: There is a grade 1 fundal endometrium which is slightly to the right. No evidenc e of previa. BIOMETRIC DATA: BPD: 8.5cm, 34weeks 2days HC: 31cm, 34weeks 4days AC: 30.23cm, 34weeks 1day FL: 6.42cm, 33weeks 1day EFW: 2,314.4g, 5lb 2.57oz, 88.2% Composite Age: 34weeks KOBE: 01/12/2023 Heart Rate: 123bpm Amniotic fluid index: 5.4cm. IMPRESSION: 1. Single live intrauterine gestation as above. 2. Estimated weight is 2314gms. This is the 88th percentile. 3. Amniotic fluid index is 5.4 cm. DATA REPOSITORY:
== END 2022-12-01 02:07 ==
PROVIDERS: PCP Nurse Practitioner Family; Visit Provider Advanced Practice Midwife
DX: O98.513 Other viral diseases complicating pregnancy, third trimester (principal); U07.1 COVID-19; Z3A.34 34 weeks gestation of pregnancy
CPT/HCPCS: 76816

== ENCOUNTER 2022-12-02 07:57 | Outpatient (CLI) | payer MEDICAID, SELFPAY ==
[2022-12-02 11:14] VITALS: BP 106/57; PULSE 83; TEMP 36.9
[2022-12-02 11:20] VITALS: BP 106/57; PULSE 83
[2022-12-02 11:54] VITALS: BP 106/57; PULSE 83; TEMP 36.9
--- NOTE | 2022-12-02 11:54 | W.OBNST ---
Date of service: 12/02/22 Time of Service: 11:54 NST Evaluation Reason for NST Reasons for Nonstress Test: OLIGOHYDRAMNIOS Gestational Age Gestational Age in Weeks and Days: 32 Weeks and 3Days Test and Monitor Explained Test/Monitor Explained: Test Explained, Monitor Explained and Patient Verbalized Understanding Vital Signs Blood Pressure: 106/57 Pulse: 83 Temperature: 98.4 F Urine Results Urine Protein: Negative Urine Ketones: Negative Urine Glucose: Negative Urine Blood: Negative NST Information Date on Monitor: 12/02/22 Time on Monitor: 11:17 Date off Monitor: 12/02/22 Time off Monitor: 11:49 Total Time on Monitor: 32 NST Interventions: PO Hydration Contraction Frequency: 0 NST Evaluation Patient States Movement: Present FHR Baseline: 135 Variability: Moderate 6-25 bpm Accelerations: 15x15 Decelerations: None NST Results: Reactive Note N/A NST Note Note: NST is reactive and reassuirng. Has MYRA and NST on 12/10/22. NST Reviewed and Verified by: Ann Marie Cohn
== END 2022-12-02 11:53 | disposition home or self-care (01) ==
LOC: BCD 08:25 → OBS 11:00
PROVIDERS: PCP Nurse Practitioner Family; Visit Provider Advanced Practice Midwife
DX: O41.03X0 Oligohydramnios, third trimester, not applicable or unspecified (principal); Z3A.32 32 weeks gestation of pregnancy
CPT/HCPCS: 59025

== ENCOUNTER 2022-12-06 13:12 | Outpatient (CLI) | payer MEDICAID, SELFPAY ==
[2022-12-06 15:59] VITALS: BP 112/62; PULSE 90; TEMP 36.6
--- NOTE | 2022-12-06 16:36 | W.OBNST ---
Date of service: 12/06/22 Time of Service: 15:50 NST Evaluation Reason for NST Reasons for Nonstress Test: OLIGOHYDRAMNIOS Gestational Age Gestational Age in Weeks and Days: 33 Weeks and 0Days Test and Monitor Explained Test/Monitor Explained: Test Explained, Monitor Explained and Patient Verbalized Understanding Vital Signs Blood Pressure: 112/62 Pulse: 90 Temperature: 97.9 F Urine Results Urine Protein: Negative Urine Ketones: Negative Urine Glucose: Negative Urine Blood: Negative NST Information Date on Monitor: 12/06/22 Time on Monitor: 15:28 Date off Monitor: 12/06/22 Time off Monitor: 15:58 Total Time on Monitor: 30 NST Interventions: PO Hydration Contraction Frequency: 0 NST Evaluation Patient States Movement: Present FHR Baseline: 140 Variability: Moderate 6-25 bpm Accelerations: 15x15 Decelerations: None NST Results: Reactive Note N/A (scheduled for 12/[address] Alvarez with NST) NST Note Note: Lorena had a normal reactive CAT I NST today. I reviewed her fingerstick BG's for past week, 5 elevated fasting BG's were reported 95-108. she reports there is at least 8 hours of fasting prior to checking. Her 1 hour PP have been within range except 1 elevation that was due to eating [employer] and she has discontinued that. She will meet with Dr. Sherman tomorrow to discuss insulin. NST Reviewed and Verified by: Ann Marie Cohn
[2022-12-06 16:38] VITALS: BP 112/62; PULSE 90; TEMP 36.6
--- NOTE | 2022-12-07 11:02 | DIABASSESS_ITS ---
Date of service: 12/07/22 Time of Service: 11:02 Diabetes Note Reason for Visit: GDM NOTE: Met with Lorena and ARI in [facility] today. Nurse reports to start insulin at HS due to elevations in FS and PP blood sugars. Provided insulin education, Lorena was able to demonstrate accurate technique. Provided written information on goal blood sugars and meal plan recommendations. Lorena to follow up via phone/email prn. Time Spent in Nutritional Counseling and Treatment: 10
== END 2022-12-06 16:24 | disposition home or self-care (01) ==
LOC: BCD 13:13 → OBS 15:31
PROVIDERS: PCP Nurse Practitioner Family; Visit Provider Advanced Practice Midwife
DX: O41.03X0 Oligohydramnios, third trimester, not applicable or unspecified (principal); Z3A.33 33 weeks gestation of pregnancy
CPT/HCPCS: 59025

== ENCOUNTER 2022-12-09 08:55 | Outpatient (CLI) | payer MEDICAID, SELFPAY ==
[2022-12-09 13:55] VITALS: BP 116/61; PULSE 95; TEMP 36.7
[2022-12-09 13:58] VITALS: BP 116/61; PULSE 95
--- NOTE | 2022-12-09 14:41 | PDOC.NST_ITS ---
Date of service: 12/09/22 Time of Service: 14:41 NST Evaluation Reason for NST Reasons for Nonstress Test: OLIGOHYDRAMNIOS Reason for NST Other: GDM on insulin Gestational Age Gestational Age in Weeks and Days: 33 Weeks and 3Days Test and Monitor Explained Test/Monitor Explained: Test Explained, Monitor Explained and Patient Verbalized Understanding Vital Signs Blood Pressure: 116/61 Pulse: 95 Temperature: 98.1 F Urine Results Urine Protein: Negative Urine Ketones: Positive Urine Glucose: Negative Urine Blood: Negative NST Information Date on Monitor: 12/09/22 Time on Monitor: 13:55 Date off Monitor: 12/09/22 NST Interventions: PO Hydration NST Evaluation Patient States Movement: Present FHR Baseline: 135 Variability: Moderate 6-25 bpm Accelerations: 15x15 Note MYRA Indication: Oligohydraminos Largest Vertical Pocket: 3.3 Total MYRA: 8.5 Other Pertinent Findings: Presentation (vertex) Coding for MYRA w/NST: Completed Exam NST Note Note: Category 1, reactive nonstress test. MYRA performed total is 8.5. Deepest vertical pocket is 3.3. Patient using insulin for her gestational diabetes at this point with control. She will continue her twice weekly surveillance, weekly MYRA. Recommend delivery at tertiary care facility if adamant about a trial of labor after section. Telemedicine visit with [facility] as scheduled. NST Reviewed and Verified by: Lisa Alvarez
[2022-12-09 14:43] VITALS: BP 116/61; PULSE 95; TEMP 36.7
--- NOTE | 2022-12-09 14:56 | W.OBNST ---
Date of service: 12/09/22 Time of Service: 14:56 NST Evaluation Reason for NST Reasons for Nonstress Test: OLIGOHYDRAMNIOS Reason for NST Other: GDM on insulin Gestational Age Gestational Age in Weeks and Days: 33 Weeks and 3Days Test and Monitor Explained Test/Monitor Explained: Test Explained, Monitor Explained and Patient Verbalized Understanding Vital Signs Blood Pressure: 116/61 Pulse: 95 Temperature: 98.1 F Urine Results Urine Protein: Negative Urine Ketones: Positive Urine Glucose: Negative Urine Blood: Negative NST Information Date on Monitor: 12/09/22 Time on Monitor: 13:55 Date off Monitor: 12/09/22 Time off Monitor: 14:37 Total Time on Monitor: 42 NST Interventions: PO Hydration Contraction Frequency: 0 NST Evaluation Patient States Movement: Present FHR Baseline: 135 Variability: Moderate 6-25 bpm Accelerations: 15x15 Decelerations: None NST Results: Reactive Note N/A (performed by Dr Alvarez) NST Note Note: Reactive NST. POCUS exam performed by Dr Alvarez with MYRA of 8. twice weekly NST recommended with transfer to [facility] for TOLAC. Lorena has no concerns today. NST Reviewed and Verified by: Ann Marie Weiss
[2022-12-09 14:57] VITALS: BP 116/61; PULSE 95; TEMP 36.7
== END 2022-12-09 14:40 | disposition home or self-care (01) ==
LOC: BCD 08:56 → OBS 13:54
PROVIDERS: PCP Nurse Practitioner Family; Visit Provider Advanced Practice Midwife
DX: O41.03X0 Oligohydramnios, third trimester, not applicable or unspecified (principal); Z3A.33 33 weeks gestation of pregnancy
CPT/HCPCS: 59025

== ENCOUNTER 2022-12-13 08:06 | Outpatient (CLI) | payer MEDICAID, SELFPAY ==
[2022-12-13 12:28] VITALS: BP 113/60; PULSE 111
[2022-12-13 12:35] VITALS: BP 113/60; PULSE 111; TEMP 37
--- NOTE | 2022-12-13 15:51 | W.OBNST ---
Date of service: 12/13/22 Time of Service: 12:30 NST Evaluation Reason for NST Reasons for Nonstress Test: GDM-INSULIN Gestational Age Gestational Age in Weeks and Days: 34 Weeks and 0Days Test and Monitor Explained Test/Monitor Explained: Test Explained, Monitor Explained and Patient Verbalized Understanding Vital Signs Blood Pressure: 113/60 Pulse: 111 Temperature: 98.6 F NST Information Date on Monitor: 12/13/22 Time on Monitor: 12:20 Date off Monitor: 12/13/22 Time off Monitor: 12:46 Total Time on Monitor: 26 NST Interventions: PO Hydration Contraction Frequency: 0 NST Evaluation Patient States Movement: Present FHR Baseline: 135 Variability: Moderate 6-25 bpm Accelerations: 15x15 Decelerations: None NST Results: Reactive Note N/A NST Note Note: Here for NST due to GDM. Started 2U NPH insulin last week. Fastings have been in the 80s until yesterday when it was 90 and this am was 114. She does not think she ate anything out of the ordinary last night. She had 2 pieces of pizza for dinner. pp levels are good. She has felt a bit more nauseous the past few days and is taking her zofran again. She said this happened through the whole with her first. Will monitor levels over the next few days and if consistently elevated then will need to increase her insulin dose. NST Reviewed and Verified by: Leyda Sherman
[2022-12-13 15:53] VITALS: BP 113/60; PULSE 111; TEMP 37
== END 2022-12-13 13:01 | disposition home or self-care (01) ==
LOC: BCD 08:07 → OBS 12:20
PROVIDERS: PCP Nurse Practitioner Family; Visit Provider Obstetrics & Gynecology
DX: O24.414 Gestational diabetes mellitus in pregnancy, insulin controlled (principal); Z3A.34 34 weeks gestation of pregnancy
CPT/HCPCS: 59025

== ENCOUNTER 2022-12-16 08:49 | Outpatient (CLI) | payer MEDICAID, SELFPAY ==
[2022-12-16 11:19] VITALS: BP 115/57; PULSE 94; TEMP 36.5
[2022-12-16 11:52] VITALS: BP 115/57; PULSE 94
--- NOTE | 2022-12-16 12:52 | W.OBNST ---
Date of service: 12/16/22 Time of Service: 12:00 NST Evaluation Reason for NST Reasons for Nonstress Test: GDM-INSULIN and OLIGOHYDRAMNIOS Gestational Age Gestational Age in Weeks and Days: 34 Weeks and 3Days Test and Monitor Explained Test/Monitor Explained: Test Explained, Monitor Explained and Patient Verbalized Understanding Vital Signs Blood Pressure: 115/57 Pulse: 94 Temperature: 97.7 F NST Information Date on Monitor: 12/16/22 Time on Monitor: 11:10 Date off Monitor: 12/16/22 Time off Monitor: 12:18 Total Time on Monitor: 68 NST Interventions: PO Hydration NST Evaluation Patient States Movement: Present FHR Baseline: 130 Variability: Moderate 6-25 bpm Accelerations: 15x15 Decelerations: None NST Results: Reactive Note MYRA Indication: Oligohydraminos Largest Vertical Pocket: 1.98 Total MYRA: 6.08 Coding for MYRA w/NST: Completed Exam NST Note Note: see visit note for details NST Reviewed and Verified by: Leyda Sherman
[2022-12-16 12:56] VITALS: BP 115/57; PULSE 94; TEMP 36.5
== END 2022-12-16 12:38 | disposition home or self-care (01) ==
LOC: BCD 08:51 → OBS 11:16
PROVIDERS: PCP Nurse Practitioner Family; Visit Provider Advanced Practice Midwife
DX: O24.414 Gestational diabetes mellitus in pregnancy, insulin controlled (principal); O41.03X0 Oligohydramnios, third trimester, not applicable or unspecified; Z3A.33 33 weeks gestation of pregnancy
CPT/HCPCS: 59025; 87081

== ENCOUNTER 2022-12-20 07:14 | Outpatient (CLI) | payer MEDICAID, SELFPAY ==
[2022-12-20 12:34] VITALS: BP 107/56; PULSE 76; TEMP 36.8
[2022-12-20 12:39] VITALS: BP 107/56; PULSE 76
--- NOTE | 2022-12-27 11:15 | W.OBNST ---
Date of service: 12/27/22 Time of Service: 11:16 NST Evaluation Reason for NST Reasons for Nonstress Test: GDM-INSULIN and OLIGOHYDRAMNIOS Gestational Age Gestational Age in Weeks and Days: 35 Weeks and 3Days Test and Monitor Explained Test/Monitor Explained: Test Explained, Monitor Explained and Patient Verbalized Understanding Vital Signs Blood Pressure: 107/56 Pulse: 76 Temperature: 98.2 F Urine Results Urine Protein: Negative Urine Ketones: Positive Urine Glucose: Negative Urine Blood: Negative NST Information Date on Monitor: 12/20/22 Time on Monitor: 12: Date off Monitor: 12/20/22 Time off Monitor: 12:47 Total Time on Monitor: 24 NST Interventions: PO Hydration and Notify Provider Contraction Frequency: Irritability NST Evaluation Patient States Movement: Present FHR Baseline: 135 Variability: Moderate 6-25 bpm Accelerations: 15x15 Decelerations: None NST Results: Reactive Note N/A NST Note Note: Reactive NST. Patient will continue twice weekly NSTs. NST Reviewed and Verified by: Juanita Joseph
[2022-12-27 11:16] VITALS: BP 107/56; PULSE 76; TEMP 36.8
== END 2022-12-20 12:50 | disposition home or self-care (01) ==
LOC: BCD 07:16 → OBS 12:30
PROVIDERS: PCP Nurse Practitioner Family; Visit Provider Obstetrics & Gynecology Gynecology
DX: O24.414 Gestational diabetes mellitus in pregnancy, insulin controlled (principal); O41.03X0 Oligohydramnios, third trimester, not applicable or unspecified; Z3A.35 35 weeks gestation of pregnancy
CPT/HCPCS: 59025

== ENCOUNTER 2022-12-23 07:40 | Outpatient (CLI) | payer MEDICAID, SELFPAY ==
[2022-12-23 12:33] VITALS: BP 101/51; PULSE 85; TEMP 36.8
--- NOTE | 2022-12-27 11:13 | W.OBNST ---
Date of service: 12/27/22 Time of Service: 11:13 NST Evaluation Reason for NST Reasons for Nonstress Test: GDM-INSULIN Gestational Age Gestational Age in Weeks and Days: 35 Weeks and 3Days Test and Monitor Explained Test/Monitor Explained: Test Explained, Monitor Explained and Patient Verbalized Understanding Vital Signs Blood Pressure: 101/51 Pulse: 85 Temperature: 98.2 F NST Information Date on Monitor: 12/23/22 Time on Monitor: 12:10 Date off Monitor: 12/23/22 NST Interventions: None NST Evaluation Patient States Movement: Present FHR Baseline: 130 Variability: Moderate 6-25 bpm Accelerations: 15x15 NST Results: Reactive Note N/A NST Note Note: Reactive NST. Satisfactory glycemic control. NST Reviewed and Verified by: Juanita Joseph
[2022-12-27 11:14] VITALS: BP 101/51; PULSE 85; TEMP 36.8
--- NOTE | 2023-01-05 13:41 | W.OBNST ---
Date of service: 01/05/23 Time of Service: 13:42 NST Evaluation Reason for NST Reasons for Nonstress Test: GDM-INSULIN Gestational Age Gestational Age in Weeks and Days: 37 Weeks and 1Days Test and Monitor Explained Test/Monitor Explained: Test Explained, Monitor Explained and Patient Verbalized Understanding Vital Signs Blood Pressure: 101/51 Pulse: 85 Temperature: 98.2 F NST Information Date on Monitor: 12/23/22 Time on Monitor: 12:10 Date off Monitor: 12/23/22 NST Interventions: None NST Evaluation Patient States Movement: Present FHR Baseline: 130 Variability: Moderate 6-25 bpm Accelerations: 15x15 NST Results: Reactive Note MYRA Indication: Oligohydraminos Largest Vertical Pocket: 2.7 Total MYRA: 6.5 Coding for MYRA w/NST: Completed Exam NST Note Note: Pt was advised to use 8 units of NPH at bedtime after am fastings > 95. Pt reports 1 hr PP are within normal range. Pt will continue with twice weekly NSTS and AFIs. NST Reviewed and Verified by: Juanita Joseph
[2023-01-05 13:42] VITALS: BP 101/51; PULSE 85; TEMP 36.8
== END 2022-12-23 12:54 ==
LOC: BCD 07:41 → OBS 12:09
PROVIDERS: PCP Nurse Practitioner Family; Visit Provider Obstetrics & Gynecology Gynecology
DX: O24.414 Gestational diabetes mellitus in pregnancy, insulin controlled (principal); Z3A.37 37 weeks gestation of pregnancy
CPT/HCPCS: 59025

== ENCOUNTER 2022-12-27 07:07 | Outpatient (CLI) | payer MEDICAID, SELFPAY ==
[2022-12-27 12:10] VITALS: BP 119/62; PULSE 87
[2022-12-27 12:17] VITALS: BP 119/62; PULSE 87; TEMP 36.7
--- NOTE | 2022-12-27 13:44 | PDOC.NST_ITS ---
Date of service: 12/27/22 Time of Service: 13:44 NST Evaluation Reason for NST Reasons for Nonstress Test: OLIGOHYDRAMNIOS Reason for NST Other: Gestational diabetes Gestational Age Gestational Age in Weeks and Days: 36 Weeks and 0Days Test and Monitor Explained Test/Monitor Explained: Test Explained, Monitor Explained and Patient Verbalized Understanding Vital Signs Blood Pressure: 119/62 Pulse: 87 Temperature: 98.1 F Urine Results Urine Protein: Negative Urine Ketones: Negative Urine Glucose: Negative Urine Blood: Negative NST Information Time on Monitor: 12:08 Date off Monitor: 12/27/22 Time off Monitor: 12:37 NST Interventions: None Contraction Frequency: 0 NST Evaluation Patient States Movement: Present FHR Baseline: 130 Variability: Moderate 6-25 bpm Accelerations: 15x15 Decelerations: None NST Results: Reactive Note MYRA Indication: Oligohydraminos Largest Vertical Pocket: 2.8 Total MYRA: 9.5 Coding for MYRA w/NST: Completed Exam and Presentation (Vertex) Coding for Pr esentation w/NST: Completed Exam NST Note Note: Patient reports fasting CBGs over 95. Examined the CBG 5 readings on her cell phone-fasting between 101- 115. Has not been testing postprandials throughout the day. Lunch and postprandial 145-154. I recommended that she increase her NPH dose to 4 units at bedtime. She will follow-up for a repeat NST on 12/30/2022. We will recheck her CBGs at that time. Group B strep RV culture obtained. NST Reviewed and Verified by: Juanita BERNARD Pocus Exam Exam testing Date/Time of Exam: Date of exam: 12/27/2022 Time of exam: 1:44 pm KOBE Calculator Estimated Delivery Date Method Current WG Current Estimate 01/24/23 Ultrasound #1 36w 0d Other Estimates 01/12/23 LMP (Uncertain) 37w 5d Other Comments: MYRA: 9.5
[2022-12-27 13:45] VITALS: BP 119/62; PULSE 87; TEMP 36.7
== END 2022-12-27 12:58 | disposition home or self-care (01) ==
LOC: BCD 07:08 → OBS 11:53 → BCD 12:11 → OBS 12:12
PROVIDERS: PCP Nurse Practitioner Family; Visit Provider Obstetrics & Gynecology Gynecology
DX: O41.03X0 Oligohydramnios, third trimester, not applicable or unspecified (principal); O24.414 Gestational diabetes mellitus in pregnancy, insulin controlled; Z3A.36 36 weeks gestation of pregnancy
CPT/HCPCS: 59025; 87081

== ENCOUNTER 2022-12-30 07:20 | Outpatient (CLI) | payer MEDICAID, SELFPAY ==
[2022-12-30 12:28] VITALS: BP 111/61; PULSE 88; TEMP 36.6
[2022-12-30 12:50] VITALS: BP 111/61; PULSE 88
--- NOTE | 2022-12-30 12:57 | PDOC.NST_ITS ---
Date of service: 12/30/22 Time of Service: 12:58 NST Evaluation Reason for NST Reasons for Nonstress Test: GDM-INSULIN Gestational Age Gestational Age in Weeks and Days: 36 Weeks and 3Days Test and Monitor Explained Test/Monitor Explained: Test Explained, Monitor Explained and Patient Verbalized Understanding Vital Signs Blood Pressure: 111/61 Pulse: 88 Temperature: 97.9 F NST Information Date on Monitor: 12/30/22 Time on Monitor: 12:34 Date off Monitor: 12/30/22 NST Interventions: PO Hydration NST Evaluation Patient States Movement: Present FHR Baseline: 135 Variability: Moderate 6-25 bpm Accelerations: 15x15 Decelerations: None NST Results: Reactive Note N/A NST Note Note: Reactive, category 1 nonstress test. Patient with elevated fasting blood glucose. Will increase to 8 units in the evening. Follow-up for nonstress test on Tuesday. Awaiting ultrasound to be scheduled at [facility]. Intentional delivery at [facility] due to prior trial of labor and insulin requiring gestational diabetes. NST Reviewed and Verified by: Lisa Alvarez
[2022-12-30 12:58] VITALS: BP 111/61; PULSE 88; TEMP 36.6
== END 2022-12-30 13:03 | disposition home or self-care (01) ==
LOC: BCD 07:21 → OBS 11:53
PROVIDERS: PCP Nurse Practitioner Family; Visit Provider Obstetrics & Gynecology
DX: O24.414 Gestational diabetes mellitus in pregnancy, insulin controlled (principal); Z3A.36 36 weeks gestation of pregnancy
CPT/HCPCS: 59025

== ENCOUNTER 2023-01-04 13:16 | Outpatient (CLI) | payer MEDICAID, SELFPAY ==
[2023-01-04 13:27] VITALS: BP 113/61; PULSE 104; TEMP 36.7
== END 2023-01-04 14:25 | disposition home or self-care (01) ==
LOC: BCD 13:17 → OBS 13:25
PROVIDERS: PCP Nurse Practitioner Family; Visit Provider Obstetrics & Gynecology Gynecology
DX: O24.414 Gestational diabetes mellitus in pregnancy, insulin controlled (principal)
CPT/HCPCS: 59025

== ENCOUNTER 2023-01-12 12:42 | Outpatient (CLI) | payer MEDICAID, SELFPAY ==
[2023-01-12 15:20] VITALS: BP 107/59; PULSE 85; TEMP 36.4
--- NOTE | 2023-01-12 17:05 | W.OBNST ---
Date of service: 01/12/23 Time of Service: 12:30 NST Evaluation Reason for NST Reasons for Nonstress Test: GDM-INSULIN Gestational Age Gestational Age in Weeks and Days: 38 Weeks and 2Days Test and Monitor Explained Test/Monitor Explained: Test Explained, Monitor Explained and Patient Verbalized Understanding Vital Signs Blood Pressure: 107/59 Pulse: 85 Temperature: 97.5 F Urine Results Urine Protein: Negative Urine Ketones: Negative Urine Glucose: Negative Urine Blood: Negative NST Information Date on Monitor: 01/12/23 Time on Monitor: 12:48 Date off Monitor: 01/12/23 Time off Monitor: 14:24 Total Time on Monitor: 96 NST Interventions: PO Hydration Contraction Frequency: None NST Evaluation Patient States Movement: Present FHR Baseline: 125 Variability: Moderate 6-25 bpm Accelerations: 15x15 Decelerations: None NST Results: Reactive Note Ultrasound Done: N/A. NST Note Note: FS levels good. Has induction scheduled next week. NST Reviewed and Verified by: Leyda Sherman
[2023-01-12 17:07] VITALS: BP 107/59; PULSE 85; TEMP 36.4
== END 2023-01-12 14:30 | disposition home or self-care (01) ==
LOC: BCD 12:44 → OBS 13:43
PROVIDERS: PCP Nurse Practitioner Family; Visit Provider Obstetrics & Gynecology
DX: O24.414 Gestational diabetes mellitus in pregnancy, insulin controlled (principal); Z3A.38 38 weeks gestation of pregnancy
CPT/HCPCS: 59025

== ENCOUNTER 2023-01-13 23:20 | Inpatient (IN) | payer MEDICAID, SELFPAY ==
[2023-01-14] VITALS (10 sets, daily range): BP systolic 104–129; BP diastolic 56–74; PULSE 72–86; RESP 14–16; TEMP 36.7–37.4; O2SAT 97
--- NOTE | 2023-01-14 00:11 | W.PM.OBHPL1 ---
Date of service: 01/14/23 Time of Service: 00:11 Assessment and Plan Assessment and plan (1) Normal labor: Status: Acute Assessment and plan: Anticipate vaginal delivery (2) Previous delivery affecting , antepartum: Status: Acute Assessment and plan: M.D. in house. Cat 1 FHT. OR team not notified due to imminent delivery and ability to performed vacuum assisted delivery if necessary. (3) Gestational diabetes: Status: Acute Assessment and plan: Check FS OB-HPI Labor/Delivery History of Present Illness Reason for Visit: LABOR Chief Complaint: Uterine Contractions. KOBE Calculator Estimated Delivery Date Method Current WG Current Estimate 01/24/23 Ultrasound #1 38w 4d Other Estimates 01/12/23 LMP (Uncertain) 40w 2d Comments: Pt started having contractions about 1hr prior to arrival on the center. Her water broke just after she arrived. History of Present Expected Delivery Route/Plan Hoping for TOLAC- CNM FOB- Walter Narayanan (second child together) BG Varicella non-immune, offer vaccine Specific Issues/Plan 1. Previous -Des[place] ; [place] [facility] [place] [facility] success likelihood. - Consent signed 11/12/22. [place] [facility] 2. BMI 32 - early GTT 102; 28 wk [id number] 3hr GTT(unable to draw - difficult stick). - GDM monitoring 3. Pt hx VSD/murmur, to Dr. Henson 05/2021: no ATB prophylaxis, no restrictions. [facility] [place] (nml); Echo 09/28 (nml) 4. History anxiety and depression- denies current issues or need for counseling. 5. LGSIL pap - colposcopy 01/2022- repeat pap 6. Genetic testing- panorama: low risk x5, previous neg CF/SMA, AFP neg 7. Covid vaccine x 1, covid infection 09/2021 and 2021, - 32 week growth US- MYRA 5.4, EFW 88% ile 8. Anemia - Hgb 10.8 at 27 weeks. - Taking gummie vitamins - Will start PO iron, repeat at 36 weeks 9. Painful hemorrhoid, will try topical remedies and avoid constipation (11/08/22) 10. Gestational diabetes. - Insulin, NPH started 12/07/2022 for elevated fasting blood glucose. - Twice weekly surveillance. - Weekly amniotic fluid index for previous low MYRA. - 39 week [place] [facility] Review of Systems Constitutional Constitutional: Reports system reviewed and no additional complaints, except as documented Gastrointestinal Gastrointestinal: Denies nausea and Denies vomiting Genitourinary Genitourinary: Reports system reviewed and no additional complaints, except as documented Musculoskeletal Comments: No regular contractions PFSH All Active Problems (Updated 01/14/23 @ 00:22 by Leyda Sherman MD) Gestational diabetes (Acute) Normal labor (Acute) MYRA (amniotic fluid index) borderline low (Acute) 5.4 on US at [facility] 12/01/22 Previous delivery affecting , antepartum (Acute) LTCS 06/28/21 arrest of dilation/ second stage 5 hours Membranous ventricular septal defect (Acute 11/24/12) Followed by Dr. Chun, 02/2016- does not need SBE prophylaxis, no need to restrict from any vigorious physical activity. Re-eval in 3 years Depression (Chronic) Anxiety disorder, unspecified (Acute) Housing or economic circumstances (Acute) LGSIL (low grade squamous intraepithelial dysplasia) (Acute) (Acute) BMI 32.0-32.9,adult (Acute) Heart murmur (Acute) Susceptible to varicella (non-immune), currently (Acute) Anemia affecting in third trimester (Acute) Medical History (Updated 01/14/23 @ 00:22 by Leyda Sherman MD) Attention-deficit hyperactivity disorder, unspecified type (09/07/16) has IEP for developmental/assisitive therapies (F90.9- adhd unspecified type) Chronic right shoulder pain (06/01/17) Intentional self-harm by sharp object (01/19/16) Learning difficulty (11/24/12) IEP in place for speech/language services Limitation of joint motion of right shoulder (07/06/17) Mild intermittent asthma, uncomplicated (08/24/16) Sleep difficulties (06/01/16) Weight loss, non-intentional Surgical History (Updated 12/01/22 @ 10:31 by Ann Marie Cohn CNM) Status post primary low transverse section 06/28/21.Arrest of dilation. Jose Brooks. Family History Mother Gestational diabetes Father Depression with anxiety Sister Asthma sports induced Grandfather Neoplasm MGF- Prostate, Lung, NonHodgkins PGF- Colon MGGM-cervical cancer Grandmother Eczema MGM Obsessive compulsive disorder PGM ADHD (attention deficit hyperactivity disorder) PGM GRANDPARENT Alcohol abuse Essential hypertension Heart disease Social History Smoking/Tobacco Use Status: Never Smoking risk assessment performed?: Yes Alcohol Intake: never Drug use: Never Substance use type: does not use Household members: significant other, children and other Details: BF-Walter. S-Cecilia Number of Children: 1 Do you think of yourself as: straight/heterosexual Do you feel safe at home: Yes Do you feel safe in your relationship?: Yes History History 2 Para 1 Hx # Term Pregnancies 1 Multiple births 0 Hx # Pregnancies 0 Ectopic pregnancies 0 AB induced 0 Hx Number of Living Children 1 AB spontaneous 0 Past Pregnancies Del. Date GA/Weeks # Preg Succ Route Wgt Sex Labor Lgth Anesthesia Location Prov Complic 06/28/21 39 No Yes 8 lb 6.2 oz Male regional [facility] for labor, C/S Dr. Alvarez Delivery Date: 06/28/21 Last Updated by: Leyda Sherman MD spont labor, epidural, pushed for 4 hrs, baby stuck OP, C/S [facility] Meds Allergies and Home Medications Allergies Allergy/AdvReac Type Severity Reaction Status Date / Time No Known Allergies Allergy Verified 12/07/22 10:01 Home Medications Medication Instructions Recorded Confirmed Type Inhaler, Assist Devices ##1 06/01/17 05/26/22 Clinic [Aerochamber Mini] albuterol sulfate 90 mcg/actuation 2 puff inhalation Q4H PRN ##1 06/01/17 12/16/22 History aerosol inhaler (ProAir HFA) cholecalciferol (vitamin D3) 25 25 mcg PO DAILY 10/29/20 12/16/22 History mcg (1,000 unit) chewable tablet vitamin B complex 1 tab PO DAILY 04/30/21 12/16/22 History doxylamine 10 mg-pyridoxine (vit 1 tab PO QHS hyperemesis #20 tabs 07/05/22 12/16/22 Rx B6) 10 mg tablet,delayed release (Diclegis) ondansetron HCl 4 mg tablet 4 mg PO Q6H PRN nausea and 07/05/22 12/16/22 Rx vomiting #20 tabs pantoprazole 40 mg tablet,delayed 40 mg PO DAILY #30 tabs 07/05/22 12/16/22 Rx release (Protonix) vitamins no.119-iron tab PO 07/05/22 12/16/22 History fumarate 29 mg-folic acid 1 mg tablet ferrous sulfate 325 mg (65 mg 325 mg PO DAILY #30 tabs 10/27/22 12/16/22 Rx iron) tablet (Feosol) docusate sodium 100 mg capsule 100 mg PO BID #60 caps 11/09/22 12/16/22 Rx (Colace) alcohol swabs (Alcohol Prep Pads) See Rx Instructions topical 11/17/22 12/16/22 Rx .COMPLEX #100 ea blood sugar diagnostic (Blood #50 ea 11/17/22 12/16/22 Rx Glucose Test strips) blood-glucose meter (Blood Glucose #1 ea 11/17/22 12/16/22 Rx Monitoring kit) lancets 33 gauge (BD Ultra Fine #100 ea 11/17/22 12/16/22 Rx Lancets) insulin NPH isoph U-100 human 100 2 unit (0.02 mL) subcut QPM #15 mL 12/07/22 12/16/22 Rx unit/mL (3 mL) subcutaneous pen (Humulin N NPH U-100 Insulin KwikPen) pen needle, diabetic 32 gauge x #100 ea 12/07/22 12/16/22 Rx 5/32 (1st Tier Unifine Pentips) Exam Detailed Labor and Delivery Exam Dilation: 10 Effacement (%): 100 station: +3 Dobson Score: Cervical Points Exam 0 1 2 3 Dilation Closed 1-2cm 3-4 cm 5-6cm Effacement 0-30% 40-50% 60-70% 80% Consistency Firm Medium Soft Station -3 -2 -1,0 +1,+2 Position Posterior Mid Anterior Fetus A Heart Rate Baseline: 120 Monitor Accelerations: 15 X 15 Monitor Decelerations: Early Variability: Moderate (6-25 BPM) Categories: Category I Results Results Group Beta Strep: Positive Blood Type: O+ Rubella Status: Immune Varicella Immunity: Nonimmune Risk Assessment Risk for Shoulder Dystocia Historical/Initial OB: POSITIVE FOR: Pre- BMI>30; NEGATIVE FOR: Pelvic Abnormality, Previous Shoulder Dystocia or Previous Macrosomia Risk for Pre-Eclampsia Yes, if one or more: NEGATIVE FOR: Hx Pre-E/Gest HTN, Chronic HTN, Multiple Gestation, Pre-gestational DM, Renal Disease, Systemic Lupus or APA Syndrome Yes, if 2 or more: POSITIVE FOR: BMI>30; NEGATIVE FOR: Nulliparity, Age>= 35 yrs, >10yr btwn pregnancies, ethinicty, Mother/Sister w/ Pre-E or Previous IUGR Risk for Post- Hemorrhage Initial: NEGATIVE FOR: Multiple Gestation, Previous PPH, Known Clotting Deficiency, Grand Multiparity or Anticoagulation Risks Reviewed Risks Reviewed Upon Admission: Yes
[2023-01-14] MEDS: Penicillin G POT. 5,000,000 UNITS in Normal Saline 100 ML 200 UNITS IVPB (00:20)
[2023-01-14 00:23] LABS: HGB 11.8 g/dL (11.2-15.7); MCH 25.9 pg (27.0-33.0); MCHC 32.8 % (32.0-36.0); MCV 79 fL (80-95); Platelet Count 333 10^3/uL (130-400); RBC 4.56 10^6/uL (3.93-5.22); RDW-SD 43.3 fL; WBC 21.33 10^3/uL (4.4-10.8)
[2023-01-14] MEDS: Lidocaine 1% Multi-Dose 20 ML VIAL (01:05)
[2023-01-14] MEDS: Lidocaine 1% Pres-Free 30 ML VIAL (01:05)
--- NOTE | 2023-01-14 01:46 | W.OBDELIVERY ---
Date of service: 01/14/23 Time of Service: 01:46 OB Labor/ Delivery Information Baby A Delivery Delivery Method: Spontaneaous Presentation: Vertex Cephalic Position: Vertex Vertex Position: Left Occipital Anterior Amniotic Fluid: Clear Estimated Blood Loss: 450 Delivery Outcome: Liveborn Infant Transferred: Remains with Mother Note: Lorena arrived at the center fully dilated with an urge to push. FHTs were 130s during first stage of labor. FHTs 130s in second stage. Category 1 tracing. An IV was started and one dose of penicillin was administered immediately prior to delivery. Lorena received nitrous oxide for pain relief with good effect and she was encouraged to begin pushing. Dr Sherman arrived prior to pushing and the nursing security shift supervisor was also present for the delivery. She pushed well and there was a spontaneous delivery of female infant delivered in GABI position. Baby was placed on mother's abdomen and dried and stimulated. She had a spontaneous cry. Cord was clamped and cut by the baby's father. Pitocin 30 units IV was started and attempts were made with gentle cord traction to deliver the placenta in the first 30 minutes after delivery. bleeding was minimal. The cord broke at the insertion site at 30 minutes with delivery attempts. The cervix was approximately 4 cms dilated and maanual removal was attempted but unsuccessful. Dr Sherman was called to perform a manual removal and the pitocin was discontinued to facilitate delivery. She was able to perform a manual removal assisted with nitrous oxide analgesia. The placenta was removed in 3 sections and a three vessel cord was noted. Pitocin 30 units was restarted after delivery of the placenta. The perineum was inspected and a first degree perineal laceration was repaired under local anesthetic as well as a superficial left periclitoral laceration. After delivery, Mother and baby and father of the baby were stable and bonding well in the delivery room and there were no complications. She plans to breastfeed her baby Xalia. Providers Doctor: Leyda Sherman Nurse Upholsterer Assembly Line: Ann Marie Weiss Nurse: Radha Yen Nurse: Bita Agarwal Other: Rae Apple Labor/Delivery Information Number of Babies in Womb: 1 Steroids Given: None Reason Steroids Not Administered: N/A Group Beta Strep: Positive Antibiotics Administered: Yes Number of Doses of Antibiotics: 1 Rubella Status: Immune Blood Type: O+ Varicella Immunity: Nonimmune Maternal Complications: Precipitous Labor(<3hrs) Shoulder Dystocia: No Stages of Labor Onset of Labor Date: 01/13/23 Onset of Labor Time: 20:30 Complete Dilatation Date: 01/14/23 Complete Dilatation Time: 23:25 Labor - Stage 1 Duration: 26 hours and 55 minutes ROM Baby A: 01/13/23 ROM Baby A: 23:25 ROM Total Time- Baby A: [id number] Infant Delivery Date-Baby A: 01/14/23 Delivery Time-Baby A: 00:32 Labor Stage 2 Duration: -1373 minutes Placenta Delivery Date-Baby A: 01/14/23 Placenta Delivery Time-Baby A: 01:13 Labor-Stage 3 Duration: 41 minutes Total Length of Labor-Baby A: 4 hours and 2 minutes Placenta Cultured: No Placenta Status: Delivered Baby A Infant Gender: Female Gestational Status: Term (39-41.6 wks) Gestational Age in Weeks/Days: 38 Weeks and 4 Days Length-Baby A: 7.87 in Score-1 Minute Interval(Baby A) Heart Rate-1 minute: 100 BPM or Greater Respiratory Effort- 1 minute: Spontaneous/Strong Cry Muscle Tone-1 minute: Active Movement Reflex Response-1 minute: Prompt Response Color-1 minute: Bluish Hands or Feet Total Score-1 minute: 9 Score-5 Minute Interval(Baby A) Heart Rate- 5 minute: 100 BPM or Greater Respiratory Effort-5 minute: Spontaneous/Strong Cry Muscle Tone-5 minute: Active Movement Reflex Response-5 minute: Prompt Response Color-5 minute: Bluish Hands or Feet Total Score- 5 minute: 9 Interventions Repair of Laceration Type: Perineal, Laceration Extension: First Degree. Sponge Count Correct: No Sponges Placed in Vagina, Sharp Count Correct: Yes. Laceration Repair Note: left superficial megan-clitoral repaired under local anesthetic with 2 interrupted 4-0 vicryl sutures,
[2023-01-14] MEDS: Acetaminophen 325 MG TAB 650 MG PO ×3 (02:01→22:23)
[2023-01-14] MEDS: Ibuprofen 600 MG TAB PO ×3 (02:01→22:23)
[2023-01-14] MEDS: Oxytocin/Normal Saline 30 UNIT/500 ML BAG 95 UNITS IV (03:30)
--- NOTE | 2023-01-14 08:17 | W.PM.OBPNV1 ---
Date of service: 01/14/23 Time of Service: 08:17 Assessment and Plan Assessment and plan (1) , delivered: Status: Acute Assessment and plan: Patient is day 0 after successful vaginal after section. She did have a retained placenta with manual extraction. She will receive Ancef 2 g IV every 6 hours today. We will carefully monitor her bleeding patterns. She will have a CBC performed in the morning. (2) Gestational diabetes: Status: Acute Assessment and plan: We will check a fasting blood glucose, and have a 2-hour glucose tolerance test at 6-week visit. Subjective Subjective Interval history: Patient seen and examined this morning. Doing well. Very happy with her successful vaginal after section. We discussed the events of her delivery. She did have a retained placenta with manual extraction and her placenta came out in some pieces. We will continue to monitor her bleeding closely as she may have retained products with the amount of effort it took to deliver her placenta. She will also receive Ancef, 2 g every 6 hours x2 doses in light of significant uterine manipulation. Otherwise she is doing well today [place] baby status: Doing well feeding status: Exclusively breast feeding Exam Physical Exam Vital signs: Pulse BP 80 118/74 01/14/23 04:44 01/14/23 04:44 Vital Signs Reviewed: Yes Constitutional Constitutional: no acute distress HEENT Exam HEENT Exam: Normal Neck Exam Neck Exam: Normal Respiratory Exam Respiratory Exam: Normal Cardiovascular Exam Cardiovascular Exam: Normal Abdominal Exam Abdomen: Tender Fundal Exam Fundus: Below Umbilicus and Firm Results Hemoglobin/Hematocrit: Hgb 11.8 g/dL (11.2-15.7) 01/14/23 00:10 Hct 36.0 % (36.0-46.0) 01/14/23 00:10 Abnormal Lab Findings: Abnormal Labs 01/14/23 00:10 WBC 21.33 H MCV 79 L MCH 25.9 L RDW 15.0 H
[2023-01-14] MEDS: ceFAZolin 2 GM/50 ML BAG IVPB (08:38)
[2023-01-14] MEDS: ceFAZolin 2 GM/50 ML BAG IV (14:03)
[2023-01-14] MEDS: Docusate Sodium 100 MG CAP PO ×2 (14:10→22:23)
[2023-01-15 02:13] VITALS: BP 104/64; PULSE 75
[2023-01-15] MEDS: Ibuprofen 600 MG TAB PO ×2 (04:37→14:29)
[2023-01-15] MEDS: Acetaminophen 325 MG TAB 650 MG PO ×2 (04:37→14:29)
[2023-01-15 06:39] LABS: Abs Immature Grans 0.08 10^3/uL (0.0-0.06); Absolute Basophil Count 0.08 10^3/uL (0.0-0.2); Absolute Eosinophil Count 0.29 10^3/uL (0.0-0.7); Absolute Monocyte Count 0.87 10^3/uL (0.1-0.8); Basophils % 0.5; Eosinophils % 1.9; HGB 10.1 g/dL (11.2-15.7); Immature Grans % 0.5; Lymphocytes % 33.6; MCH 25.9 pg (27.0-33.0); MCHC 32.6 % (32.0-36.0); MCV 80 fL (80-95); MPV 9.5 fL (8.0-11.0); Monocytes % 5.8; Neutrophils % 57.7; Platelet Count 208 10^3/uL (130-400); RDW 15.4 % (11.7-14.6); RDW-SD 44.2 fL; WBC 15.04 10^3/uL (4.4-10.8)
[2023-01-15 06:46] LABS: Absolute Lymphocyte Count 5.05 10^3/uL (1.2-3.4); Absolute Neutrophil Count 8.68 10^3/uL (1.2-6.7)
[2023-01-15 06:56] LABS: Diff Comment Agrees w/ Instrument; RBC Morphology Normal
[2023-01-15 09:06] VITALS: BP 102/66; PULSE 83; RESP 17; TEMP 36.7; O2SAT 98
--- NOTE | 2023-01-15 11:45 | OBPPV_ITS ---
Date of service: 01/15/23 Time of Service: 11:45 Assessment and Plan Assessment and plan (1) , delivered: Status: Acute Assessment and plan: Caring for baby independently. Pain is managed well with oral analgesics. Voiding without difficulty. well. S/P manual removal of placenta. GBS pos with inadequate prophylactic treatent A - stable mother and baby , Post day 1 P - Discharge to home tomorrow after 48 hours of observation for baby. Routine post instructions. [facility] Subjective Subjective Interval history: Lorena feels well and has been out of bed, showering and voiding without difficulty. She did not get OOB for 14 hours after delivery to void and she voided at 1500 yesterday, a total of 700 cc. She reported that she had no urge to void and she was encouraged to void frequently even if she does not have the urge. S/P retained placenta with manual removal by Dr Sherman. Patient comments: No complaints and Pain well controlled Patient's Mood: excellent [facility] baby status: Nursing well feeding status: Exclusively breast feeding Exam Physical Exam Vital signs: Temp Pulse Resp BP Pulse Ox 98.1 F 83 17 102/66 98 01/15/23 09:06 01/15/23 09:06 01/15/23 09:06 01/15/23 09:06 01/15/23 09:06 Respiratory Exam Respiratory Exam: Normal Cardiovascular Exam Cardiovascular Exam: Normal Fundal Exam Fundus: Below Umbilicus and Firm Exam Comments: well- approximated, no edema, small hemorrhoid Extremities Exam Extremity Exam: negative Normal Skin Exam Skin Exam: Normal Psychiatric Exam Psychiatric Exam: Normal Results Hemoglobin/Hematocrit: Hgb 10.1 g/dL (11.2-15.7) L 01/15/23 06:29 Hct 31.0 % (36.0-46.0) L 01/15/23 06:29 Abnormal Lab Findings: Abnormal Labs 01/14/23 01/15/23 00:10 06:29 WBC 21.33 H 15.04 H RBC 3.90 L Hgb 10.1 L Hct 31.0 L MCV 79 L MCH 25.9 L 25.9 L RDW 15.0 H 15.4 H Absolute Neutrophils 8.68 H Absolute Lymphocytes 5.05 H Absolute Monocytes 0.87 H
[2023-01-15 17:00] VITALS: BP 110/66; PULSE 79; RESP 22; TEMP 36.7
[2023-01-15 19:40] VITALS: BP 112/72; PULSE 75; RESP 18; TEMP 36.7; O2SAT 98
[2023-01-16] MEDS: Acetaminophen 325 MG TAB 650 MG PO (00:44)
[2023-01-16] MEDS: Ibuprofen 600 MG TAB PO (00:44)
[2023-01-16] MEDS: Docusate Sodium 100 MG CAP PO (00:45)
[2023-01-16 03:55] VITALS: BP 105/66; PULSE 75; RESP 17; TEMP 36.7; O2SAT 98
[2023-01-16 07:30] VITALS: BP 106/61; PULSE 80; TEMP 37.1
--- NOTE | 2023-01-16 10:52 | W.PM.OBDISCH ---
Date of service: 01/16/23 Time of Service: 10:53 DS: Diagnosis Discharge Diagnosis (1) , delivered: Status: Acute Asessment and Plan: S/P and manual removal of placenta. Post IV antibiotics prescribed by Dr Lisa Alvarez on 01/14. Lorena is Caring for baby independently. Pain is managed well with oral analgesics. Voiding without difficulty. well. A - stable mother and baby , Post day 2, manual removal of placenta, History of anxiety, Gestational diabetes. varicella non-immune P - Discharge to home. Routine post instructions. We discussed history of anxiety and depression. Lorena denies post depression but symptoms were reviewed. Will order random blood sugar by fingerstick before discharge and plan to do 2-hr GTT at 6 weeks post . Offer varicella vaccine before discharge, [facility] (2) Gestational diabetes: Status: Acute Asessment and Plan: 2-hr GTT to be scheduled at 6 weeks post . (3) Anemia, blood loss: Status: Acute Asessment and Plan: Hgb and HCT - 10.1 and 31.0 yesterday. Continue gummy vitamins and iron supplements daily. Discharge Plan Disposition Patient Disposition: Home Condition: Good Discharge Details Reason For Visit: Labor Admit Date/Time: 01/13/23 23:20 Admit Provider: Ann Marie Weiss Attending Provider: Ann Marie Weiss Primary Care Provider: Teressa Morrison Home Meds and New Rx's Prescriptions: No Action Humulin N NPH Insulin KwikPen 100 unit/mL (3 mL) insulin pen 2 unit subcut QPM Qty: 15 5RF (DME) pen needle, diabetic [1st Tier Unifine Pentips] 32 gauge x 5/32 needle See Rx Instructions .Route Qty: 100 0RF Rx Instructions: Use with kwikpen as directed cholecalciferol (vitamin D3) 25 mcg (1,000 unit) tablet,chewable 25 mcg PO DAILY vitamin B complex Tablet 1 tab PO DAILY PNV 119-iron fum-folic acid 29 mg iron- 1 mg tablet PO doxylamine-pyridoxine (vit B6) [Diclegis] 10-10 mg tablet,delayed release (DR/EC) 1 tab PO QHS Qty: 20 3RF pantoprazole [Protonix] 40 mg tablet,delayed release (DR/EC) 40 mg PO DAILY Qty: 30 7RF ondansetron HCl 4 mg tablet 4 mg PO Q6H PRN (Reason: nausea and vomiting) Qty: 20 4RF albuterol sulfate [ProAir HFA] 8.5 GM HFA aerosol inhaler 2 puff Inhalation Q4H PRN Qty: 1 Rx Instructions: use with spacer (DME) Inhaler, Assist Devices [Aerochamber Mini] 1 EACH spacer 1 ea Miscellaneous Q4H PRN Qty: 1 0RF ferrous sulfate [Feosol] 325 mg (65 mg iron) tablet 325 mg PO DAILY Qty: 30 5RF docusate sodium [Colace] 100 mg capsule 100 mg PO BID Qty: 60 4RF (DME) Blood Glucose Test Strip See Rx Instructions .Route Qty: 50 6RF Rx Instructions: As directed (DME) blood-glucose meter [Blood Glucose Monitoring] Kit See Rx Instructions .Route Qty: 1 0RF Rx Instructions: As directed alcohol swabs [Alcohol Prep Pads] Pads, Medicated See Rx Instructions topical .COMPLEX Qty: 100 3RF Rx Instructions: 1 pad used topically; (DME) lancets [BD Ultra Fine Lancets] 33 gauge misc See Rx Instructions .Route Qty: 100 4RF Rx Instructions: As directed Discharge Instructions Activity:: Activity as Tolerated Equipment/Supplies:: No Equipment Needed Diet:: As Tolerated Discharge Orders Discharge Orders: Discharge Order (Routine); Ordered 01/16/23 Ordered By: Ann Marie Weiss OB:DS Summary Summary Vaginal Delivery Method: Spontaneaous Episiotomy Description: None Laceration Description: Perineal Laceration Extension: First Degree Contraception Discussed Contraception Discussed: Yes Contraceptive Plan: Undecided (all methods discussed, will discuss further at 2 weeks post visit), Infant Gender-Baby A: Female weight: 7 lb 15.339 oz Status at Discharge Functional status at discharge: independent ambulation Overall status at discharge: patient is back to baseline Mental Status: mental status grossly normal Speech and Movement: speech and movement normal Mood: congruent mood Affect: normal affect Exam Physical Exam Vital signs: Temp Pulse Resp BP Pulse Ox 98.8 F 80 17 106/61 98 01/16/23 07:30 01/16/23 07:30 01/16/23 03:55 01/16/23 07:30 01/16/23 03:55 Respiratory Exam Respiratory Exam: Normal Cardiovascular Exam Cardiovascular Exam: Normal Fundal Exam Fundus: Below Umbilicus and Firm Exam Perineum: Repair Intact External: Present normal urethra appearance; Absent erythema Extremities Exam Extremity Exam: Normal Skin Exam Skin Exam: Normal Psychiatric Exam Psychiatric Exam: Normal PFSH All Active Problems (Updated 01/16/23 @ 11:02 by Ann Marie Weiss CNM) Anemia, blood loss (Acute) Gestational diabetes (Acute) , delivered (Acute) Depression (Chronic) Anxiety disorder, unspecified (Acute) LGSIL (low grade squamous intraepithelial dysplasia) (Acute) BMI 32.0-32.9,adult (Acute) Heart murmur (Acute) Susceptible to varicella (non-immune), currently (Acute) Anemia affecting in third trimester (Acute) Medical History (Updated 01/16/23 @ 11:02 by Ann Marie Weiss CNM) Attention-deficit hyperactivity disorder, unspecified type (09/07/16) has IEP for developmental/assisitive therapies (F90.9- adhd unspecified type) Chronic right shoulder pain (06/01/17) Intentional self-harm by sharp object (01/19/16) Learning difficulty (11/24/12) IEP in place for speech/language services Limitation of joint motion of right shoulder (07/06/17) Membranous ventricular septal defect (11/24/12) Followed by Dr. Chun, 02/2016- does not need SBE prophylaxis, no need to restrict from any vigorious physical activity. Re-eval in 3 years Mild intermittent asthma, uncomplicated (08/24/16) Normal labor Sleep difficulties (06/01/16) Weight loss, non-intentional Surgical History (Updated 01/15/23 @ 11:51 by Ann Marie Weiss CNM) Previous delivery affecting , antepartum LTCS 06/28/21 arrest of dilation/ second stage 5 hours Status post primary low transverse section 06/28/21.Arrest of dilation. Jose Brooks. Family History Mother Gestational diabetes Father Depression with anxiety Sister Asthma sports induced Grandfather Neoplasm MGF- Prostate, Lung, NonHodgkins PGF- Colon MGGM-cervical cancer Grandmother Eczema MGM Obsessive compulsive disorder PGM ADHD (attention deficit hyperactivity disorder) PGM GRANDPARENT Alcohol abuse Essential hypertension Heart disease Social History Smoking/Tobacco Use Status: Never Smoking risk assessment performed?: Yes Alcohol Intake: never Drug use: Never Substance use type: does not use Household members: significant other, children and other Details: FOX-Walter. Jovani-Cecilia Number of Children: 1 Do you think of yourself as: straight/heterosexual Do you feel safe at home: Yes Do you feel safe in your relationship?: Yes History History 2 Para 1 Hx # Term Pregnancies 1 Multiple births 0 Hx # Pregnancies 0 Ectopic pregnancies 0 AB induced 0 Hx Number of Living Children 1 AB spontaneous 0 Past Pregnancies Del. Date GA/Weeks # Preg Succ Route Wgt Sex Labor Lgth Anesthesia Location Prov Complic 06/28/21 39 No Yes 8 lb 6.2 oz Male regional [facility] for labor, C/S Dr. Alvarez Delivery Date: 06/28/21 Last Updated by: Leyda Sherman MD spont labor, epidural, pushed for 4 hrs, baby stuck OP, C/S Bell DS: Data Vitals/I&O Vitals and I&O: Vital Signs Temperature 98.8 F 01/16/23 07:30 Temperature Source Oral 01/16/23 07:30 Pulse 80 01/16/23 07:30 Pulse Rhythm Regular 01/16/23 07:30 Respiratory Rate 17 01/16/23 03:55 Respiratory Depth Normal 01/15/23 19:40 Blood Pressure 106/61 01/16/23 07:30 Blood Pressure Mean 76 01/16/23 07:30 Pulse Oximetry 98 01/16/23 03:55 Pain Level 0 01/16/23 07:30 Intake & Output 01/15/23 01/15/23 01/16/23 11:59 23:59 11:59 Output Total 400 / 400 Balance -400 / -400 Output: Urine 400 / 400 Other: Urine Color Yellow
[2023-01-16] MEDS: Varicella Virus Vaccine (Live) 0.5 ML SC (11:38)
== END 2023-01-16 12:02 | disposition home or self-care (01) | DRG 806 ==
PROVIDERS: Admitting Provider Advanced Practice Midwife; PCP Nurse Practitioner Family; Visit Provider Advanced Practice Midwife
DX: O24.424 Gestational diabetes mellitus in childbirth, insulin controlled (principal); Q21.0 Ventricular septal defect; Z37.0 Single live birth; Z3A.38 38 weeks gestation of pregnancy; O70.0 First degree perineal laceration during delivery; O62.3 Precipitate labor; O34.211 Maternal care for low transverse scar from previous cesarean delivery; N85.8 Other specified noninflammatory disorders of uterus; O73.1 Retained portions of placenta and membranes, without hemorrhage; O99.02 Anemia complicating childbirth; D64.9 Anemia, unspecified; O99.344 Other mental disorders complicating childbirth; F41.8 Other specified anxiety disorders; J45.20 Mild intermittent asthma, uncomplicated; O99.824 Streptococcus B carrier state complicating childbirth; O99.52 Diseases of the respiratory system complicating childbirth; O75.89 Other specified complications of labor and delivery
CPT/HCPCS: 36415; 80053; 85027; 86850; 86900; 86901; 85025; J0690; J2540; J3490

== ENCOUNTER 2023-02-24 16:16 | Outpatient (REF) | payer MEDICAID, SELFPAY | END 2023-02-24 16:17 | disposition home or self-care (01) | LOC: LBN 16:16 | PROVIDERS: PCP Nurse Practitioner Family; Visit Provider Advanced Practice Midwife | DX: N89.8 Other specified noninflammatory disorders of vagina (principal) | CPT/HCPCS: 87480; 87510; 87660 ==

== ENCOUNTER 2023-03-21 04:18 | Outpatient (CLI) | payer MEDICAID, SELFPAY ==
[2023-03-21 12:32] LABS: GTT Comment See Comments
== END 2023-03-21 04:19 | disposition home or self-care (01) ==
LOC: LBO 04:18
PROVIDERS: PCP Nurse Practitioner Family; Visit Provider Advanced Practice Midwife
DX: Z86.32 Personal history of gestational diabetes (principal)
CPT/HCPCS: 36415; 82951

== ENCOUNTER 2023-12-12 18:09 | Outpatient (CLI) | payer MEDICAID, SELFPAY ==
[2023-12-12 15:35] LABS: Abs Immature Grans 0.02 10^3/uL (0.0-0.06); Absolute Basophil Count 0.04 10^3/uL (0.0-0.2); Absolute Eosinophil Count 0.24 10^3/uL (0.0-0.7); Absolute Lymphocyte Count 2.24 10^3/uL (1.2-3.4); Absolute Monocyte Count 0.48 10^3/uL (0.1-0.8); Absolute Neutrophil Count 4.62 10^3/uL (1.2-6.7); Basophils % 0.5; Eosinophils % 3.1; HCT 41.7 % (36.0-46.0); Immature Grans % 0.3; Lymphocytes % 29.3; MCH 28.6 pg (27.0-33.0); MCHC 33.6 % (32.0-36.0); MCV 85 fL (80-95); MPV 9.1 fL (8.0-11.0); Monocytes % 6.3; Neutrophils % 60.5; Platelet Count 290 10^3/uL (130-400); RDW 12.7 % (11.7-14.6); RDW-SD 39.1 fL; WBC 7.64 10^3/uL (4.4-10.8)
[2023-12-12 16:20] LABS: Hemoglobin A1C 5.1 % (<5.7)
[2023-12-12 18:00] LABS: ALT 24 U/L (14-59); AST 13 U/L (15-37); Albumin 4.1 g/dL (3.4-5.0); Alkaline Phosphatase 107 U/L (46-116); Anion Gap 10.7 mmol/L (3-11); BUN 12 mg/dL (7-18); Bilirubin, Total 0.3 mg/dL (0.2-1.0); CO2 26.3 mmol/L (21.0-32.0); CREATININE 0.7 mg/dL (0.55-1.02); Calcium 9.3 mg/dL (8.5-10.1); Calculated LDL 120 mg/dL (<100); Chloride 107 mmol/L (98-107); Cholesterol 205 mg/dL (<200); Estimated GFR 124.55 (mL/min/1.73m2); Glucose 90 mg/dL (74-106); HDL Cholesterol 67 mg/dL (40-60); Sodium 144 mmol/L (136-145); TSH (W/Ref FT4) 2.74 uIU/mL (0.36-3.74); Total Protein 6.9 g/dL (6.4-8.2); Triglyceride 91 mg/dL (<150)
[2023-12-13 10:43] LABS: Hepatitis A Antibody IgM Negative (Negative); Hepatitis B Core Antibody Negative (Negative); Hepatitis B surface Ag Negative (Negative); Hepatitis C Ab w Rflx HCV PCR Negative (Negative)
== END 2023-12-12 18:10 | disposition home or self-care (01) ==
LOC: LBO 18:09
PROVIDERS: PCP Nurse Practitioner Family; Visit Provider Nurse Practitioner Family
DX: E78.5 Hyperlipidemia, unspecified (principal); I10 Essential (primary) hypertension; Z13.1 Encounter for screening for diabetes mellitus; Z11.59 Encounter for screening for other viral diseases
CPT/HCPCS: 36415; 80053; 80061; 86704; 86709; 86803; 87340; 83036; 84443; 85025

== ENCOUNTER 2024-04-16 11:58 | Outpatient (CLI) | payer MEDICAID, SELFPAY ==
--- OUTSIDE RECORDS SUMMARY | 2024-04-16 11:59 | XMS_ITS | Clinical Summary ---
Author Organization [facility] Address [address] [place] [address] Care Team Providers Care Cylinder Batcher Name Role Phone Teressa Morrison INFANT CHILDCARE PROVIDER Primary Care Provider [phone] Social History Tobacco Use Types Packs/Day Years Used Date Smoking Tobacco: Never Assessed Interpersonal Safety Answer Date Record ed Physically Hurt Never 05/04/2020 Verbally Threaten Not on file 05/04/2020 Sex and Gender Information Value Date Recorded Sex Assigned at Not on file Gender Identity Not on file Sexual Orientation Not on file Plan of Treatment Health Maintenance Due Date Last Done Comments Hepatitis B Vaccine (1 of 3 - 19+ 3-dose series) 2019 COVID-19 Vaccine (2022- season) 2023 Hepatitis C Screen Completed 07/05/2022, 12/03/2020 Procedures Procedure Name Priority Date/Time Associated Diagnosis Comments HEPATITIS C AB W REFLEX TO HCV RNA BY PCR Routine 07/05/2022 10:15 EDT from Last 3 Months or Most Recently Relevant to Health Maintenance Results * HEPATITIS C AB W REFLEX TO HCV RNA BY PCR (07/05/2022 10:15 EDT) Hep C Antibody Negative Negative 07/06/2022 10:28 EDT [facility] Blood VENOUS BLOOD / Unknown 07/05/2022 10:15 EDT 07/05/2022 17:42 EDT Provider Outr Resulting Lab CHEMISTRY & BLOOD GAS ORDERABLES [facility] [address] [place] [address] from Last 3 Months or Most Recently Relevant to Health Maintenance Care Teams Cylinder Batcher Relationship Specialty Start Date End Date Teressa Morrison, INFANT CHILDCARE PROVIDER [address] [place] [address] PCP - General 09/07/17
--- OUTSIDE RECORDS SUMMARY | 2024-04-16 12:00 | XMS_ITS | Encounter Summary ---
Author Organization [facility] Address [address] [place] [address] Care Team Providers Care Glass Cylinder Flanger Name Role Phone Teressa Morrison CIVIL CELEBRANT Primary Care Provider Encounter Details Date Type Department Care Team (Late st Contact Info) Description 12/12/2023 Lab Requisition [facility] Pathology & Laboratory Medicine - [address] [address] Outr Resulting Lab, Provider Social History Tobacco Use Types Packs/Day Years Used Date Smoking Tobacco: Never Assessed Interpersonal Safety Answer Date Record ed Physically Hurt Never 05/04/2020 Verbally Threaten Not on file 05/04/2020 Sex and Gender Information Value Date Recorded Sex Assigned at Not on file Gender Identity Not on file Sexual Orientation Not on file documented as of this encounter Plan of Treatment Not on file documented as of this encounter Procedures Procedure Name Priority Date/Time Associated Diagnosis Comments ACUTE HEPATITIS PROFILE Routine 12/12/2023 13:20 EDT documented in this encounter Results * ACUTE HEPATITIS PROFILE (12/12/2023 13:20 EDT) Hep B Surface Ag Negative Negative 12/13/2023 10:38 EDT [facility] Hep C Antibody Negative Negative 12/13/2023 10:38 EDT [facility] Hepatitis A Antibody, IgM Negative Negative 12/13/2023 10:38 EDT [facility] Comment:The results of this assay can be falsely lowered due to the consumption of Biotin. Hepatitis B Core Ab, Total Negative Negative 12/13/2023 10:38 EDT [facility] Blood VENOUS BLOOD / Unknown 12/12/2023 13:20 EDT 12/12/2023 21:38 EDT Provider Outr Resulting Lab CHEMISTRY & BLOOD GAS ORDERABLES [facility] [address] [place] [address] documented in this encounter Visit Diagnoses Not on filedocumented in this encounter Care Teams Glass Cylinder Flanger Relationship Specialty Start Date End Date Teressa Morrison NP [address] [place] [address] PCP - General 09/07/17 documented as of this encounter
--- OUTSIDE RECORDS SUMMARY | 2024-04-16 12:00 | XMS_ITS | Encounter Summary ---
Author Organization [facility] Address [address] [place] [address] Care Team Providers Care Recruiting Operations Consultant Name Role Phone Teressa Morrison OIL RIG ROUGHNECK Primary Care Provider [phone] Reason for Visit * Reason Comments Heart Problem Encounter Details Date Type Department Care Team (Late st Contact Info) Description 03/23/2018 12:30 EDT Office Visit [facility] Pediatric Cardiology [facility] [address] [place] [address] Ruperto Chun MD [address] [place] [phone] Ventricular septal defect (Primary Dx) Social History Tobacco Use Types Packs/Day Years Used Date Smoking Tobacco: Never Assessed Sex and Gender Information Value Date Recorded Sex Assigned at Not on file Gender Identity Not on file Sexual Orientation Not on file documented as of this encounter Progress Notes * Ruperto Chun MD - 03/23/2018 2641 EDT [facility] - [facility] PROGRESS / FOLLOWUP NOTE - 03/23/2018 Aminta Whately MD [facility] - Pediatrics [address] [place] [phone] Dear Aminta, I saw Deirdre on 03/23/2018 in our [facility] clinic. She is now a 17-1/2-year-old whom I have followed for many years with a very small muscular ventricular septal defect. I last saw her in 2015. At that time, an echocardiogram was performed demonstrating her very small anterior muscular defect with normal left ventricular size and function and normal estimated right ventricular pressure. She returns today because she has had a bit of shortness of breath associated with athletic performance. She was tested for exercise- induced asthma and did not demonstrate significant airway reactivity. Otherwise, her health has been quite good. She denies any chest pain with activity. She has had no palpitations or dizziness. She has had no episodes of fainting. She has had no sudden cyanosis or pallor. She has not had any pneumonia or serious respiratory infections. She denies any high fevers. She has had no unusual rashes or joint symptoms. She had one emergency room visit for a concussion, which occurred while playing basketball. She has had no other emergency room visits or hospitalizations.She is finishing her leandra year and plans to study [employer] and rehabilitation therapy aide education and [employer] daycare facility in this region after graduation from college. A general 10 point review of systems was performed and was negative except as noted. On physical examination today, her height was 161.5 cm and her weight 63.4 kg. Her blood pressure was 102/59 in the right arm. Her resting pulse was 64 and her resting respiratory rate was 20. Her femoral pulses felt strong and her extremities were warm and well perfused. Her abdomen was soft. Her liver was not enlarged. Her precordium was quiet. Her lungs were clear. Her lips and nail beds were pink. She had no clubbing or peripheral edema. She had a normal first heart sound and a physiologically split second heart sound of normal intensity. She had a grade 2 to 3/6 quite localized, high-pitched midsystolic murmur at the left lower to midsternal border. No diastolic or continuous murmur was noted. She had no click or gallop. Her electrocardiogram was normal. In summary, Deirdre's examination is unchanged. This defect is clearly very small without hemodynamicsignificance, and I do not think it would be having any effect on her exercise performance. I do not think there is any reason to restrict her or do any further investigation at the present time. I reassured her that vigorous exercise is entirely appropriate and that her small VSD does not enter into her endurance in any significant way. I propose that we recheck her in about 3 years. She may be transitioning to an adult primary as well as adult cardiology at some point, although I do not thinksonja is going to need frequent cardiology followup. We discussed the possibility of endocarditis and the importance of avoiding risk factors, which would include poor dental hygiene or intravenous drug use. In addition, I reviewed the fact that it is recommended that cholesterol be checked sometime between the age of 17 and 21 and she may be talking to you about having a fasting cholesterol done at somepoint. Please give me a call if you have any questions about today's evaluation or our recommendations. Thanks for sending her to us. Sincerely, Ruperto Chun MD 01 26 PM - Ruperto Chun MD ln Dictation ID: [id number] cc: Amitna Whatley MD, [facility] - Pediatrics [address] [place] [phone] documented in this encounter Plan of Treatment Not on file documented as of this encounter Visit Diagnoses Diagnosis Ventricular septal defect- Primary documented in this encounter Care Teams Recruiting Operations Consultant Relationship Specialty Start Date End Date Teressa Morrison NP [address] [place] [address] PCP - General 09/07/17 documented as of this encounter
--- OUTSIDE RECORDS SUMMARY | 2024-04-16 12:00 | XMS_ITS | Encounter Summary ---
Author Organization [facility] Address [address] [place] [address] Care Team Providers Care Automobile Insurance Claim Examiner Name Role Phone Harrison Lindsay MD Primary Care Provider [phone] Teressa Morrison NP Primary Care Provider [phone] Encounter Details Date Type Department Care Team (Late st Contact Info) Description 01/29/2016 Documentation Visit [facility] Pediatric Cardiology - [address] [address] Ruperto Chun MD [address] [place] [phone] Social History Tobacco Use Types Packs/Day Years Used Date Smoking Tobacco: Never Assessed Sex and Gender Information Value Date Recorded Sex Assigned at Not on file Gender Identity Not on file Sexual Orientation Not on file documented as of this encounter Progress Notes * Ruperto Chun MD - 01/29/2016 5977 EDT [facility] - [facility] PROGRESS / FOLLOWUP NOTE - 01/29/2016 Aminta Whatley MD [facility] - Pediatrics [address] [place] [phone] Dear Aminta: I saw Julia in our [facility] clinic on 01/29/2016. She is now 15-year-old whom I have seen in the past with a small muscular ventricular septal defect. I last saw her about 3 years ago. In the interim, she has continued to be in excellent health. She is now a freshman in high school. She participates in basketball, softball, field hockey and dance. She feels that her energy level and exercisetolerance are excellent. She has no difficulty keeping up with her teammates. She has had no complaints of chest pain, palpitations, dizziness, or fainting. She has had no recent history of chronic coughing, wheezing, respiratory symptoms, or unusual illnesses. She says she does not like school very much, but does enjoy athletics. She came to today's visit with her father, who has no new concernsregarding her general health. On physical examination today, her height was 165 cm and her weight 58.5 kg. Her blood pressure evw816/50 in the right arm. Her resting pulse was 72 and her resting respiratory rate was 18. Her femoral pulses felt strong and her extremities were warm and well-perfused. Her abdomen was soft and nontender. Her liver was not enlarged. Her precordium was quiet. Her lungs were clear. Her lips and nail beds were pink. She had no clubbing or peripheral edema. She had a normal first heart sound and a physiologically split second heart sound of normal intensity. She had a grade 2 to 3/6 high-pitched midsystolic murmur at the left midsternal border. I did not appreciate a diastolic murmur. She had no clicks or gallops. Her electrocardiogram was normal. A 2-dimensional echo and Doppler study was performed. This demonstrated her small anterior muscularventricular septal defect with high velocity [id number]-[id number] flow and normal estimated right ventricular pressure. Her left ventricular size and systolic function were normal. There were no other signif icant abnormalities. In summary, it appears that Julia's ventricular septal defect will probably not close spontaneously, but it is hemodynamically insignificant. She does not need any restrictions to activity. I would not expect any symptoms related to this small defect. She does not need SBE prophylaxis, although she would be at theoretical risk for developing endocarditis in the future and so should maintain excellent dental hygiene. She can continue to participate in competitive athletics. I will plan on listening to her again in about another 3 years. If you have any questions about today's evaluation or our recommendations, please give me a call. Sincerely, Ruperto Chun MD 10 09 AM - Ruperto Chun MD ln Dictation ID: [id number] cc: Aminta Whatley MD, [facility] - Pediatrics [address] [place] [phone] documented in this encounter Plan of Treatment Not on file documented as of this encounter Visit Diagnoses Not on filedocumented in this encounter Care Teams Automobile Insurance Claim Examiner Relationship Specialty Start Date End Date Harrison Lindsay MD [address] [place] [address] [place] [phone] PCP - General 03/16/10 09/06/17 Teressa Morrison NP [address] [place] [address] PCP - General 09/07/17 documented as of this encounter
--- OUTSIDE RECORDS SUMMARY | 2024-04-16 12:00 | XMS_ITS | Encounter Summary ---
Author Organization [facility] [place] [address] Care Team Providers Care Field Evidence Technician Name Role Phone Teressa Morrison APRN Primary Care Provider [phone] Encounter Details Date Type Department Care Team (Latest Contact Info) Description 01/10/2023 8:45 AM EDT - 01/10/2023 11:59 PM EDT Hospital [place] [id number] Asia Raymond MD [facility] [address] OBSTETRICS & [place] [address] History of delivery Discharge Disposition: Home Social History Tobacco Use Types Packs/Day Years Used Date Smoking Tobacco: Never Smokeless Tobacco: Never Alcohol Use Standard Drinks/Week Comments Not Currently 0 (1 standard drink = 0.6 oz pur e alcohol) Comments Yes Sex and Gender Information Value Date Recorded Sex Assigned at Not on file Gender Identity Not on file Sexual Orientation Not on file documented as of this encounter Medications at Time of Discharge Medication Sig Dispensed Refills Start Date End Date Alcohol Prep Pads Pads, Medicated 12/09/2022 OneTouch Verio test strips Strip TEST BLOOD GLUCOSE FOUR TIMES A DAY DIRECTED 01/02/2023 OneTouch Verio Flex meter Misc USE DIRECTED TO TEST BLOOD GLUCOSE FOUR TIMES A DAY 11/17/2022 docusate sodium (Colace) 100 mg capsule Take 100 mg by mouth 2 times daily. 11/11/2022 ferrous sulfate EC (FeroSul) 325 mg (65 mg iron) DR tablet Take 325 mg by mouth daily. 11/08/2022 HumuLIN N NPH Insulin KwikPen 100 unit/mL (3 mL) Insulin Pen 8 Units. 12/08/2022 OneTouch Delica Plus Lancet 33 gauge Misc TEST BLOOD GLUCOSE FOUR TIMES A DAY DIRECTED 12/22/2022 Unifine Pentips 32 gauge x 5/32 Needle USE WITH KWIKPEN DIRECTED 12/07/2022 pantoprazole EC (Protonix) 40 mg Tablet, Delayed Release (E.C.) Take 40 mg by mouth daily. 07/06/2022 ondansetron (Zofran) 4 mg Tablet TAKE 1 TABLET BY MOUTH EVERY 6 HOURS NEEDED FOR NAUSEA OR VOMITING 08/25/2022 vit/iron fum/folic ac ( 1+1 ORAL) Take by mouth. Diclegis 10-10 mg Tablet, Delayed Release (E.C.) TAKE 1 TABLET BY MOUTH EVERY 6 HOURS NEEDED FOR HYPEREMESIS 12/03/2020 Cholecalciferol, Vitamin D3, 25 mcg (1,000 unit) Tablet, Chewable Take by mouth. 10/29/2020 albuteroL 90 mcg/actuation HFA Aerosol Inhaler Inhale 2 puffs into the lungs every 4 hours as needed for Wheezing. Use with spacer documented as of this encounter Plan of Treatment Not on file documented as of this encounter Procedures Procedure Name Priority Date/Time Associated Diagnosis Comments US OB FOLLOW UP Routine 01/10/2023 9:21 AM EDT History of delivery documented in this encounter Results * US OB Follow Up (01/10/2023 9:21 AM EDT) Anatomical Region Laterality Modality Pelvis, Abdomen Ultrasound 01/10/2023 8:51 AM EDT Impressions 01/10/2023 9:52 AM EDT 3rd Trimester Summary Single intrauterine with a gestational age of 38w 0d based on Clinical KOBE Composite age based on the current ultrasound alone is 35w 5d. Estimated weight corresponds to the 33rd percentile for 38w 0d. Current growth parameters are consistent with prior dating indicating normal growth. Amniotic fluid volume is normal Reassuring biophysical profile 05/10 Anatomical survey is limited due to the late gestational age. Thank you for letting us participate in the care of this patient. If you are a health care provider and have any questions regarding this report, please contact the number above. For patients who have questions, please contact the health customer care voice consultant that requested your imaging first. ? Carlotta Hagen, Staff Physician Electronically Signed Final Report ?? 01/10/2023 09:51 am Narrative 01/10/2023 9:52 AM EDT OBSTETRICS REPORT ?(Signed Final 01/10/2023 09:51 am) PATIENT INFO: ID #: ? [id number] ?: ??[birth year] (22 yrs)(F) Name: ? LORENA JUAN ? Visit Date: 01/10/2023 08:51 am PERFORMED BY: Performed By: ? Genoveva Newton RDMS Attending: ?Carlotta Hagen MD Referred By: ?CARON ROBERTSON Location: ? [place] SERVICE(S) PROVIDED: UOBFOL - Efw - Growth ??- Saenz - [id number] ?[id number] UBPP - Biophysical Profile (without NST) - [id number] ? [id number] INDICATIONS: 38 weeks gestation of ?Z3A.38 growth, fluid VITAL SIGNS: Weight (lb): 190.0 Height: ?5'4 ? BMI: ? 32.61 EVALUATION: Num Of Fetuses: ? 1 Heart Rate(bpm): ??115 Cardiac Activity: ? Observed, normal rhythm Presentation: ? Cephalic Placenta: ? Fundal P. Cord Insertion: ?Within Normal Limits Amniotic Fluid MYRA FV: ?Normal MYRA Sum(cm) ? Largest Pocket(cm) 13.3 ?5.1 RUQ(cm) ? RLQ(cm) ? LUQ(cm) ?LLQ(cm) 5.1 ? 4.4 ? 2.1 ?1.7 BIOPHYSICAL EVALUATION: Amniotic F.V: ?? Within normal limits ? F. Tone: ??Observed F. Movement: ?Observed ? Score: ??8/8 F. Breathing: ?? Observed --------- BIOMETRY: --------- BPD: ?87.8 ??mm ? G.Age: ?? 35w 3d ?11 ??% OFD: ? 106.3 ??mm HC: ?309.4 ??mm ? G.Age: ?? 34w 4d ? < 1 ??% AC: ?330.9 ??mm ? G.Age: ?? 37w 0d ?39 ??% FL: ? 69.4 ??mm ? G.Age: ?? 35w 4d ? 6 ??% HUM: ?60.7 ??mm ? G.Age: ?? 35w 1d ?24 ??% CI: ?82.6 ??% ? 70 - 86 FL/HC: ? 22.4 ??% ? 20.9 - 22.7 HC/AC: ? 0.94 ?0.92 - 1.05 FL/BPD: ?79.0 ??% ? 71 - 87 FL/AC: ? 21.0 ??% ? 20 - 24 Est. FW: ?2877 ??gm ?6 lb 5 oz ?33 ??% OB HISTORY: : ?2 ? Term: ?? 1 Living: ? 1 GESTATIONAL AGE: Clinical KOBE: ??38w 0d ?KOBE: ?? 01/24/23 U/S Today: ? 35w 5d ?KOBE: ?? 02/09/23 Best: ?38w 0d ?? Det. By: ??Clinical KOBE ? KOBE: ?? 01/24/23 -------- ANATOMY: -------- Cranium: ? Visualized Cavum: ? Visualized Ventricles: ?Visualized Choroid Plexus: ?Visualized Cerebellum: ?Visualized Posterior Fossa: ? Visualized Nuchal Fold: ? Not evaluated at this gestational age Face: ?Limited views Heart: ? Visualized RVOT: ?Visualized LVOT: ?Visualized Diaphragm: ? Visualized Stomach: ? Visualized Abdomen: ? Within Normal Limits Abdominal Wall: ?Cord Insertion - WNL Cord Vessels: ?3-vessels- WNL Kidneys: ? Visualized Bladder: ? Visualized Spine: ? Limited views Upper Extremities: ? Limited views Lower Extremities: ? Limited views CERVIX UTERUS ADNEXA: Right Ovary Not visualized Left Ovary Not visualized Procedure Note Claus Hagen MD - 01/10/2023 OBSTETRICS REPORT (Signed Final 01/10/2023 09:51 am) PATIENT INFO: ID #: [id number] : [birth year] (22 yrs)(F) Name: LORENA PRESTON Visit Date: 01/10/2023 08:51 am PERFORMED BY: Performed By: Genoveva Newton RDMS Attending: Carlotta Hagen MD Referred By: CARON ROBERTSON Location: [place] SERVICE(S) PROVIDED: UOBFOL - Efw - Growth - Saenz - [id number] UB - Biophysical Profile (without NST) - [id number] INDICATIONS: 38 weeks gestation of Z3A.38 growth, fluid VITAL SIGNS: Weight (lb): 190.0 Height: 5'4 BMI: 32.61 EVALUATION: Num Of Fetuses: 1 Heart Rate(bpm): 115 Cardiac Activity: Observed, normal rhythm Presentation: Cephalic Placenta: Fundal P. Cord Insertion: Within Normal Limits Amniotic Fluid MYRA FV: Normal MYRA Sum(cm) Largest Pocket(cm) 13.3 5.1 RUQ(cm) RLQ(cm) LUQ(cm) LLQ(cm) 5.1 4.4 2.1 1.7 BIOPHYSICAL EVALUATION: Amniotic F.V: Within normal limits F. Tone: Observed F. Movement: Observed Score: 05/10 F. Breathing: Observed --------- BIOMETRY: --------- BPD: 87.8 mm G.Age: 35w 3d 11 % OFD: 106.3 mm HC: 309.4 mm G.Age: 34w 4d < 1 % AC: 330.9 mm G.Age: 37w 0d 39 % FL: 69.4 mm G.Age: 35w 4d 6 % HUM: 60.7 mm G.Age: 35w 1d 24 % CI: 82.6 % 70 - 86 FL/HC: 22.4 % 20.9 - 22.7 HC/AC: 0.94 0.92 - 1.05 FL/BPD: 79.0 % 71 - 87 FL/AC: 21.0 % 20 - 24 Est. FW: 2877 gm 6 lb 5 oz 33 % OB HISTORY: : 2 Term: 1 Livin GESTATIONAL AGE: Clinical KOBE: 38w 0d KOBE: 01/24/23 U/S Today: 35w 5d KOBE: 02/09/23 Best: 38w 0d Det. By: Clinical KOBE KOBE: 01/24/23 -------- ANATOMY: -------- Cranium: Visualized Cavum: Visualized Ventricles: Visualized Choroid Plexus: Visualized Cerebellum: Visualized Posterior Fossa: Visualized Nuchal Fold: Not evaluated at this gestational age Face: Limited views Heart: Visualized RVOT: Visualized LVOT: Visualized Diaphragm: Visualized Stomach: Visualized Abdomen: Within Normal Limits Abdominal Wall: Cord Insertion - WNL Cord Vessels: 3-vessels- WNL Kidneys: Visualized Bladder: Visualized Spine: Limited views Upper Extremities: Limited views Lower Extremities: Limited views CERVIX UTERUS ADNEXA: Right Ovary Not visualized Left Ovary Not visualized IMPRESSION 3rd Trimester Summary Single intrauterine with a gestational age of 38w 0d based on Clinical KBOE Composite age based on the current ultrasound alone is 35w 5d. Estimated weight corresponds to the 33rd percentile for 38w 0d. Current growth parameters are consistent with prior dating indicating normal growth. Amniotic fluid volume is normal Reassuring biophysical profile 05/10 Anatomical survey is limited due to the late gestational age. Thank you for letting us participate in the care of this patient. If you are a health care provider and have any questions regarding this report, please contact the number above. For patients who have questions, please contact the health customer care voice consultant that requested your imaging first. Carlotta Hagen, Staff Physician Electronically Signed Final Report 01/10/2023 09:51 am Asia Raymond MD [facility] OB ORDERABL ES documented in this encounter Visit Diagnoses Diagnosis History of delivery Other postprocedural status documented in this encounter Care Teams Field Evidence Technician Relationship Specialty Start Date End Date Teressa Morrison, ALUMNAE SECRETARY PCP - General Family Medicine 02/04/21 documented as of this encounter
--- OUTSIDE RECORDS SUMMARY | 2024-04-16 12:00 | XMS_ITS | Encounter Summary ---
[place] [address] Care Team Providers Care Faculty Research Physician Name Role Phone Tamiko Teressa Coates APRN Primary Care Provider [phone] Encounter Details Date Type Department Care Team (Late st Contact Info) Description 03/06/2021 3:00 PM EDT Office Visit [place] [phone] Venita Johnson MD [address] [place] [id number] Maternal congenital cardiac anomaly complicating Social History Tobacco Use Types Packs/Day Years Used Date Smoking Tobacco: Never Smokeless Tobacco: Never Comments Yes Sex and Gender Information Value Date Recorded Sex Assigned at Not on file Gender Identity Not on file Sexual Orientation Not on file documented as of this encounter Progress Notes * Venita Johnson MD - 03/06/2021 3:00 PM EDT Cardiology Clinic Primary OB provider: Lisa Alvarez DO Indication for Evaluation: history of congenital heart defect, currently Patient history: I was asked by Dr. Hagen to see Lorena Mohan for advice regarding cardiac risk associated with a personal history of a congenital heart defect. Lorena is a 20 y.o. female who iscurrently at 23 weeks gestation based on an EDC of 07/03/21. Lorena had a ventricular septal defect which did not require surgery. She was evaluated by maternal- medicine during this pregnancyat 20 weeks gestation. The anatomy by ultrasound appeared unremarkable. She denies any other complications with the . She plans to deliver at [facility]. Medications: Current Outpatient Medications on File Prior to Visit Medication Sig Dispense Refill ??? aspirin EC 81 mg Tablet, Delayed Release (E.C.) TAKE 2 TABLETS BY MOUTH ONCE DAILY ??? Diclegis 10-10 mg Tablet, Delayed Release (E.C.) TAKE 1 TABLET BY MOUTH EVERY 6 HOURS NEEDEDFOR HYPEREMESIS ??? Cholecalciferol, Vitamin D3, 25 mcg (1,000 unit) Tablet, Chewable Take by mouth. ??? albuteroL 90 mcg/actuation HFA Aerosol Inhaler Inhale 2 puffs into the lungs every 4 hours as needed for Wheezing. Use with spacer No current facility-administered medications on file prior to visit. Past Medical History: Patient Active Problem List Diagnosis Code ??? Anxiety disorder, unspecified F41.9 ??? Attention-deficit hyperactivity disorder, unspecified type F90.9 ??? BMI 34.0-34.9,adult Z68.34 ??? Depression F32.9 ??? Intentional self-harm by sharp object X78.9XXA ??? Learning difficulty F81.9 ??? Membranous ventricular septal defect Q21.0 ??? Mild intermittent asthma, uncomplicated J45.20 ??? Sleep difficulties G47.9 ??? Obesity affecting in second trimester O99.212 ??? Congenital heart defect Q24.9 Family Medical History: No other known family history of congenital heart disease, other defects or genetic syndromes. Social History: The father of the baby, Walter is 21 yo. 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 She denies tobacco and alcohol use in the . echocardiogram results: A complete echocardiogram was performed today which demonstrates: ?? Single intrauterine with levocardia, visceral situs solitus, [S,D,S] normal segmental anatomy with normal chamber dimensions. ?? heart rate was 138 bpm and the AV interval was 104 ms. Normal rhythm throughout. ?? The tricuspid valve appears normal. There is no evidence of tricuspid insufficiency. ?? The mitral valve appears normal. There is no evidence of mitral regurgitation. ?? Qualitatively, there is normal biventricular size and shortening. ?? No evidence of pulmonary stenosis or insufficiency. ?? No evidence of aortic stenosis or insufficiency. ?? Flow across the aortic arch appears unobstructed with no evidence of coarctation of the aorta. ?? Ductus arteriosus with nonrestricted right to left flow. ?? Moderate size foramen ovale with right to left flow. ?? No evidence of a VSD. ?? No evidence of a pericardial effusion. ? Normal umbilical artery and umbilical vein flow patterns. Normal flow pattern in the ductus venosus. ?? See full report for further details. Diagnosis: ?? 20 y.o. female at 23 weeks gestation ?? History of a muscular ventricular septal defect which remained patent but did not require surgery ?? No evidence of a cardiac abnormality on echocardiogram today Recommendation: ? Dr. Camilo and I have reviewed normal cardiac anatomy with Lorena and Walter and relayed that we see no evidence of a major structural cardiac abnormality on imaging today. We discussed that the ventricular septum appears intact. ??? We have also relayed that echocardiography may not be able to detect certain conditions (these include but are not limited to certain septal defects, coarctation of the aorta, or subtle valve abnormalities), nor can it predict the persistence of structures related to circulation such as a patent foramen ovale or a patent ductus arteriosus. Therefore, if there is any suspicion of acardiac abnormality after , further evaluation would be warranted. Otherwise no specific Cardiology follow up for the child is needed. ??? Lorena does not require further follow up in our clinic unless additional concerns arise. I appreciate the opportunity to participate in the care of this patient. Please feel free to contact me for any further questions or concerns. Total provider visit time was 30 minutes with more than 50 percent of the time spent exclusive of procedural time in reviewing patient records/history and [id number] counseling to discuss normal cardiac anatomy and physiology, review of today's echocardiogram results and review of those findings which can and cannot be prenatally detected as described above. documented in this encounter Plan of Treatment Not on file documented as of this encounter Visit Diagnoses Diagnosis Maternal congenital cardiac anomaly complicating Congenital cardiovascular disorders of mother, complicating , childbirth, or the puerperium, unspecified as to episode of care documented in this encounter Care Teams Faculty Research Physician Relationship Specialty Start Date End Date Teressa Morrison, PREVENTION COORDINATOR PCP - General Family Medicine 02/04/21 documented as of this encounter
--- OUTSIDE RECORDS SUMMARY | 2024-04-16 12:00 | XMS_ITS | Data Portability ---
Author Organization [facility], [facility] Address [address] [place] [address] Assessment No assessment recorded. Plan of Treatment Reminders Order Date Submit Date Provider Last Modified By Organization Details Last Modified Time Details Appointments None recorded. Lab None recorded. Referral None recorded. Procedures None recorded. Surgeries None recorded. Imaging None recorded. Medication Orders Lidocaine Viscous 2 % mucosal solution 2023 024 [id number], [address] [place] [address], [id number], 10:25:39 Patient TargetsNo targets recorded. Patient Instructions Encounter Date Encounter Id Patient Instructions Last Modified By Organization Details Last Modified Time 01/27/2024 [id number] 1. I have sent prescription for viscous lidocaine and topical numbing solution you can use 2-3 times a day as needed for pain. Do not use for more than 2 days at a time. Please remember this medication can cause lidocaine toxicity. It is important that you use cautiously. 2. I do also recommend applying both a hot and or cool compress. You may find that 1 of these gives you more relief than the other. 3. It is safe for you to take ibuprofen while breast-feeding. I recommend that you do a combination of ibuprofen and Tylenol. You can take 600 mg of Tylenol together with 1 g of Tylenol safely every 6 hours. No more than that as that is your maximum dose in a 24-hour period. 4. If this does not better help manage pain you will either need to follow-up with your dentist, your primary care provider or the emergency department for discussion about stronger pain medications. [email or web address] Not available 01/27/2024 10:26:47 Reason for Referral None Reported. Results Created Date Observation Date Name Description Value Unit Range Abnormal Flag LastModifiedBy Organization Detail LastModifiedTime 01/27/20 24 12/01/2021 Pap compl iance * No observ ation record ed. BARCODE Not Available 01/27/2024 16:50:13 Result Notes None recorded. 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 , last appt 03/2018 Problem Code: Q21.0; Problem Code Type: ICD-10; Not Available [facility] 3 05:34:28 Pain of right shoulder joint Active 2016 Problem Code: M25.511; Problem Code Type: ICD-10; Not Available [facility] 3 05:34:28 Pleuritic pain Completed 201610/15/2017 Problem Code: R07.81; Problem Code Type: ICD-10; Not Available [facility] 3 05:34:28 Counseling Completed 201608/21/2017 Problem Code: Z71.89; Problem Code Type: ICD-10; Not Available [facility] 3 05:34:29 Developmental academic disorder Active 2016 Problem Code: F81.9; Problem Code Type: ICD-10; Not Available [facility] 3 05:34:29 Sleep disorder Active 2016 Problem Code: G47.8; Problem Code Type: ICD-10; Not Available [facility] 3 05:34:29 Dyspnea Active 2016 Problem Code: R06.09; Problem Code Type: ICD-10; Not Available [facility] 3 05:34:29 Heart murmur Active 2017 Problem Code: R01.1; Problem Code Type: ICD-10; Not Available [facility] 3 05:34:29 Well child visit Completed 201706/10/2018 Problem Code: Z00.129; Problem Code Type: ICD-10; Not Available [facility] 3 05:34:29 Pain of left knee joint Completed 201707/11/2023 Problem Code: M25.562; Problem Code Type: ICD-10; Not Available [facility] 4 05:34:20 Major depression, single episode Active 2019 Problem Code: F32.9; Problem Code Type: ICD-10; Not Available [facility] 3 05:34:29 Diarrhea Completed 201903/05/2020 02/13/2020 - Comments only - Laila Ange Gold [employer]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 VSS, physical exam reassuring. COVID-19 testing performed by Kristi ROBISON according to protocol. Educated pt on importance of quarantine, red flag sx, and encouraged good hydration. 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 Discussed importance of taking full course of treatment and use of probiotics to prevent diarrhea from abx. Encouraged continued symptomatic mgmt. Problem Code: H66.90; Problem Code Type: ICD-10; Not Available [facility] 3 05:34:30 Amenorrhea Active 201905/21/2020 - Comments only - Teressa Morrison [employer] - 2ndary to nexplanon removal- expected- sees [facility]- if persists they will consider TX with progestin Problem Code: N91.2; Problem Code Type: ICD-10; Not Available [facility] 3 05:34:30 Generalized anxiety disorder Active 202005/09/2021 - Comments only - Teressa Morrison [employer] - followed by [facility] Problem Code: F41.1; Problem Code Type: ICD-10; Not Available [facility] 3 05:34:30 Low grade squamous intraepithelia l lesion on cervical Papanicolaou smear Active 2021 Problem Code: R87.612; Problem Code Type: ICD-10; Not Available [facility] 3 05:34:30 Active 2021 Problem Code: Z33.1; Problem Code Type: ICD-10; Not Available [facility] 3 05:34:30 Otitis media of right ear Completed 201805/21/2020 Problem Code: H66.91; Problem Code Type: ICD-10; Not Available [facility] 3 05:34:30 Fever Completed 201905/21/2020 Problem Code: R50.9; Problem Code Type: ICD-10; Not Available [facility] 3 05:34:30 Asthma Active 2022 Tiburcio Celis MA [facility], [facility] 3 13:12:33 Adult health examination Active 2022 Problem Code: Z00.00; Problem Code Type: ICD-10; Not Available [facility] 4 05:34:14 Completed 202007/08/2023 Problem Code: Z33.1; Problem Code Type: ICD-10; Not Available [facility] 4 05:34:17 Toothache Active 2023 PASCALE ALVAREZ PA-C [facility] [address], [place], [address] [facility] 4 10:23:59 Notes:*Problem Name: Intenti onal self-harm by unspecified sharp object, subsequent encounter *Problem Status: active *Comments: *Problem Code: X78.9xxD *Problem Code Type: ICD-10 *Note Date: 08/19/2017 Problem Notes None recorded. Procedures Surgical History None recorded. Imaging Results Imaging Date Name Status LastModified by [facility] Details LastModified Time 12/01/2021 Pap compliance * completed BARCODE Information not available 01/27/2024 16:50:13 Procedure Notes None recorded. Medical Equipment None Reported. Allergies No known drug allergies Medications Name Sig Start Date Stop Date Status Note LastModified by Organization Details LastModified Time magnesium tab 500mg active Not Available Not Available No t Available magnesium 500mg tablets TAKE 1 TABLET BY MOUTH EVERY MORNING TO PREVENT HEADACHES active Not Available Not Available No t Available amoxicillin 500 mg capsule Take 1 cap by mouth three times daily 10/29 completed Not Available Not Available Not Available Carafate 1 gram tablet tablet by mouth 07/11 completed Not Available Not Available Not Available Lidocaine Viscous 2 % mucosal solution Apply a small amount to affected area 2-3 times a day as needed for pain. Allowed to sit for 1 minute. Do not use for more than 2 days at a time. 2023 active Not Available Not Available Not Avai lable fluconazole 150 mg tablet TAKE 1 TABLET BY MOUTH DAILY A SINGLE DOSE active Not Available Not Available No t Available ondansetron HCl 4 mg tablet TAKE 1 TABLET BY MOUTH EVERY 6 HOURS NEEDED FOR NAUSEA OR VOMITING active Not Available Not Available No t Available penicillin V potassium 500 mg tablet active Not Available Not Available Not Available Aerochamber MV spacer use with inhaler 2016 active Not Available Not Available Not Avai lable pantoprazol e 40 mg tablet,katheryn yed release TAKE ONE TABLET BY MOUTH ONCE DAILY active Not Available Not Available No t Available naproxen sodium 550 mg tablet 1 tablet PO BID PRN STREET (use with Tylenol), take w/food active Not Available Not Available No t Available magnesium 500 mg (as magnesium oxide) tablet 1 tablet PO QAM to prevent headaches 2022 active Not Available Not Available Not Avai lable docusate sodium 100 mg capsule TAKE ONE CAPSULE BY MOUTH TWICE A DAY active Not Available Not Available No t Available ibuprofen 100 mg/5 mL oral suspension 200 mg every 6 hours as needed for pain 2016 active Not Available Not Available Not Avai lable ferrous sulfate 325 mg (65 mg iron) tablet,katheryn yed release TAKE ONE TABLET BY MOUTH EVERY DAY active Not Available Not Available No t Available norethindro ne (contracept arnoldo) 0.35 mg tablet TAKE 1 TABLET BY MOUTH DAILY active Not Available Not Available No t Available amoxicillin 875 mg-potassiu m clavulanate 125 mg tablet Take 1 tablet by mouth twice a day 07/11 completed Not Available Not Available Not Available Ventolin HFA 90 mcg/actuati on aerosol inhaler Inhale 2 puff(s) every 4-6 hours by inhalatio n route as needed. 2022 active Not Available Not Available Not Avai lable escitalopra m 10 mg tablet Take 1 tablet by mouth once a day 07/11 completed Not Available Not Available Not Available Alcohol Prep Pads USE 1 PAD TOPICALLY DIRECTED FOUR TIMES A DAY TO TEST BLOOD GLUCOSE active Not Available Not Available No t Available cholecalcif rick (vitamin D3) 25 mcg (1,000 unit) tablet 1 once a day 2019 active Not Available Not Available Not Avai labnadiya Nexplanon 68 mg subdermal implant 2017 active Not Available Not Available Not Avai lable OneTouch Verio test strips TEST BLOOD GLUCOSE FOUR TIMES A DAY DIRECTED active Not Available Not Available No t Available Unifine Pentips 32 gauge x 5/32 needle USE WITH KWIKPEN DIRECTED active Not Available Not Available No t Available Diclegis 10 mg-10 mg tablet,katheryn yed release TAKE 1 TABLET BY MOUTH EVERY NIGHT AT BEDTIME FOR HYPEREMES IS active Not Available Not Available No t Available Humulin N NPH U-100 Insulin KwikPen 100 unit/mL (3 mL) subcutaneou s INJECT 2 UNITS UNDER THE SKIN EVERY EVENING active Not Available Not Available No t Available Xulane 150 mcg-35 mcg/24 hr transdermal patch change weekly 05/31 completed Not Available Not Available Not Available OneTouch Verio Flex Meter USE DIRECTED TO TEST BLOOD GLUCOSE FOUR TIMES A DAY active Not Available Not Available No t Available OneTouch Delica Plus Lancet 33 gauge TEST BLOOD GLUCOSE FOUR TIMES A DAY DIRECTED active Not Available Not Available No t Available Sodium Fluoride 5000 Plus 1.1 % dental cream USE DIRECTED TO BRUSH TEETH active Not Available Not Available No t Available Vitals Date Recorded Body height Body mass index (BMI) Body weight Body temperature Oxygen saturation Oxygen saturation in Arterial blood by Pulse oximetry Heart rate Respiratory rate Systolic blood pressure Diastolic blood pressure Provider Name and Address Organization Details Last Updated DateTime 4 164.39 cm 33.2 kg/m2 66276.2 9 g 97.9 [degF] 99 % 99 % 70 /min 17 /min 115 mm[Hg] 77 mm[Hg] LAURA COOK, MA [facility] 09:59:05 Social History Question Answer Notes LastModified by Organizat ion Details LastModified Time Tobacco Smoking Status Never Smoker LAURA PUCKETT MA null, [facility] 01/27/2024 09:57:20 What Was The Date Of Your Most Recent Tobacco Screening? 01/27/2024 [email or web address] Information not available 01/27/2024 Has Tobacco Cessation Counseling Been Provided? No [email or web address] Information not available 01/27/2024 Do You Or Have You Ever Used Any Other Forms Of Tobacco Or Nicotine? No [email or web address] Information not available 01/27/2024 Sex: Female Functional Status None recorded. Mental Status None recorded. Family History Relationship Description Onset Age of this Age Resolved Age Notes Father Family history of Depression Father Family history of Anxiety state Maternal Grandmother Family history of acute medical disorder eczema Paternal Grandmother Family history of acute medical disorder OCD Maternal Grandfather Family history of malignant neoplasm prostate CA, NonHodgkins Maternal Grandfather Family history of malignant neoplasm of lung prostate CA, NonHodgkins Paternal Grandfather Family history of cancer of colon Unspecified Relation Family history of malignant neoplasm of cervix uteri MGGM Sister Family history of disorder of lung sports induced Mother Family history of diabetes mellitus type 1 gestational Medical History No medical history recorded. Gynecological HistoryNo gynecological history recorded. Obstetrics History GPAL:G 0 P 0 0 0 0 Immunizations Vaccine Type Date Status Provider Name and Address Organization Details Recorded Time MMR 10/19/2005 completed Not Available [facility] 04:09:53 MMR 09/28/2001 completed Not Available [facility] 04:09:53 DTaP, unspecified formulation 10/16/2004 completed Not Available [facility] 08/12/2023 04:09:53 DTaP, unspecified formulation 2000 completed Not Available [facility] 08/12/2023 04:09:53 DTaP, unspecified formulation 12/29/2001 completed Not Available [facility] 08/12/2023 04:09:53 DTaP, unspecified formulation 02/06/2001 completed Not Available [facility] 08/12/2023 04:09:54 DTaP, unspecified formulation 04/10/2001 completed Not Available [facility] 08/12/2023 04:09:54 meningococcal ACWY, unspecified formulation 01/25/2013 completed Not Available [facility] 08/12/2023 04:09:54 meningococcal MCV4P 05/31/2018 completed Not Available [facility] 08/12/2023 04:09:54 Tdap 11/24/2012 completed Not Available [facility] 04:09:54 HPV, unspecified formulation 11/24/2012 completed Not Available [facility] 08/12/2023 04:09:54 HPV, unspecified formulation 01/25/2013 completed Not Available [facility] 08/12/2023 04:09:54 HPV, unspecified formulation 05/29/2013 completed Not Available [facility] 08/12/2023 04:09:54 Pneumococcal Conjugate, unspecified formulation 2000 completed Not Available [facility] 08/12/2023 04:09:54 Pneumococcal Conjugate, unspecified formulation 12/29/2001 completed Not Available [facility] 08/12/2023 04:09:55 Pneumococcal Conjugate, unspecified formulation 02/06/2001 completed Not Available [facility] 08/12/2023 04:09:55 Pneumococcal Conjugate, unspecified formulation 04/10/2001 completed Not Available [facility] 08/12/2023 04:09:55 Hib, unspecified formulation 2000 completed Not Available [facility] 08/12/2023 04:09:55 Hib, unspecified formulation 12/29/2001 completed Not Available [facility] 08/12/2023 04:09:55 Hib, unspecified formulation 02/06/2001 completed Not Available [facility] 08/12/2023 04:09:55 Hib, unspecified formulation 04/10/2001 completed Not Available [facility] 08/12/2023 04:09:55 varicella 11/30/2007 completed Not Available [facility] 04:09:55 varicella 09/28/2001 completed Not Available [facility] 04:09:55 Hep B, unspecified formulation 04/10/2001 completed Not Available [facility] 08/12/2023 04:09:56 Hep B, unspecified formulation 04/20/2002 completed Not Available [facility] 08/12/2023 04:09:56 Hep B, unspecified formulation 06/29/2001 completed Not Available [facility] 08/12/2023 04:09:56 Hep A, ped/adol, 2 dose 05/31/2018 completed Not Available [facility] 08/12/2023 04:09:56 Hep A, unspecified formulation 06/01/2017 completed Not Available [facility] 08/12/2023 04:09:56 influenza, unspecified formulation 07/19/2017 completed Not Available [facility] 08/12/2023 04:09:56 influenza, unspecified formulation 08/24/2016 completed Not Available [facility] 08/12/2023 04:09:56 polio, unspecified formulation 10/19/2005 completed Not Available [facility] 08/12/2023 04:09:56 polio, unspecified formulation 2000 completed Not Available [facility] 08/12/2023 04:09:57 polio, unspecified formulation 12/29/2001 completed Not Available [facility] 08/12/2023 04:09:57 polio, unspecified formulation 02/06/2001 completed Not Available [facility] 08/12/2023 04:09:57 Past Encounters Encounter ID Performer Location Encounter Start Date Encounter Closed Date Diagnosis/Indication Diagnosis SNOMED-CT Code [id number] PASCALE ALVAREZ PA-C [address] [address] 01/27/2024 09:39:50 01/27/2024 10:28:07 Toothache [id number] Health Concerns Section Related Observation LastModified by Organization Detai ls LastModified Time None Recorded Concern Status LastModified by Organization Details LastModified Time None Recorded Advance Directives Directive None Recorded Payers Encounter Date Sequence Insurance Name Policy Number Policy Nicholas Covered Member ID Nicholas Member ID Guarantor Name 01/27/2024 1 [facility] (MEDICAID) Lorena Preston [id number] Lorena Preston Notes Date Note Type Note Provider Name and Address Organization Details Recorded Time 01/27/2024 text/html HPI Notes: Deirdre is a 23-year-old female who presents with concerns for dry socket. She had her upper and lower wisdom teeth removed on the right side on Tuesday the , today is now Tuesday the . This was done at [facility]. She was doing well Tuesday and however last night around 8 PM pain seem to greatly increased. She has been attempting to manage pain with 2 extra strength Tylenol last at 6 AM with minimal relief. This was previously helping. She is currently breast-feeding and unsure if she can take ibuprofen. She is unsure if maybe she felt something fall out of the socket. She has looked in that area and saw some whiteness. She has not had drainage. She has not developed fevers. She does have pain with opening and closing the mouth. She called the dentist and they recommended she come here. PASCALE ALVAREZ PA-C [address], [place], [address], [facility], [facility]. 01/27/2024 12:05:29 OBGyn Episode No OBEpisode recorded.
--- OUTSIDE RECORDS SUMMARY | 2024-04-16 12:00 | XMS_ITS | Encounter Summary ---
[place] [address] Care Team Providers Care Flight Attendant Inflight Services Name Role Phone Teressa Morrison APRN Primary Care Provider [phone] Encounter Details Date Type Department Care Team (Late st Contact Info) Description 09/28/2022 11:00 AM EST Office Visit [place] [address] Venita Johnson MD [address] [place] [id number] Maternal congenital cardiac anomaly complicating Social History Tobacco Use Types Packs/Day Years Used Date Smoking Tobacco: Never Smokeless Tobacco: Never Comments Yes Sex and Gender Information Value Date Recorded Sex Assigned at Not on file Gender Identity Not on file Sexual Orientation Not on file documented as of this encounter Progress Notes * Venita Johnson MD - 09/28/2022 11:00 AM EST Cardiology Clinic Primary OB provider: Ann Marie Weiss CNM Indication for Evaluation: History of congenital heart disease, currently Patient history: I was asked by Ann Marie Weiss CNM to see Lorena Preston for advice regarding cardiac riskassociated with a personal history of congenital heart disease. Lorena is a 22 y.o. female who is currently at 23 1/7 weeks gestation based on an EDC of 01/24/23. 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 She was evaluated by Dr. Martinez at 20 weeks gestation. No structural anomalies were noted. She denies any other complications with the . Medications: Diclegis, pantoprazole, Zofran, PNV, ASA, vit D3, Albuterol Past Medical History: Membranous VSD, asthma Family Medical History: No known family history of congenital heart disease, other defects orgenetic syndromes. Social History: She is single, The father of the baby, Walter is 23 yo. She has a 15 mo daughter. Lorena denies tobacco and alcohol use. echocardiogram results: A complete echocardiogram was performed today which demonstrates: ?? Single intrauterine with levocardia, visceral situs solitus, [S,D,S] normal segmental anatomy with normal chamber dimensions. ?? heart rate was 130 bpm and the AV interval was 124 ms. Normal rhythm throughout. ?? The tricuspid [...] See full report for further details. Diagnosis: ??? 22 yo female at 23 1/7 weeks gestation ??? History of a muscular ventricular septal defect which remained patent but did not require surgery ??? No evidence of a cardiac abnormality on echocardiogram today Recommendation: ? I have reviewed normal cardiac anatomy with Lorena and relayed that I see no evidence of a major structural cardiac abnormality on my imaging today. We specifically discussed that the interventricular septum appears intact. ??? I have also relayed that echocardiography may not be able to detect certain conditions (these include but are not limited to certain septal defects, coarctation of the aorta, or subtle valve abnormalities), nor can it predict the persistence of structures related to circulation suchas a patent foramen ovale or a patent ductus arteriosus. Therefore, if there is any suspicion of a cardiac abnormality after , further evaluation would be warranted. Otherwise no specific Cardiology follow up for the child is needed. ??? Lorena does not require further follow up in our clinic unless additional concerns arise. I appreciate the opportunity to participate in the care of this patient. Please feel free to contact me for any further questions or concerns. Total visit time was 30 minutes with more than 50 percent of the time spent exclusive of proceduraltime in reviewing patient records/history and [id number] counseling to discuss normal cardiac anatomy and [...] care documented in this encounter Care Teams Flight Attendant Inflight Services Relationship Specialty Start Date End Date Teressa Morrison APRN PCP - General Family Medicine 02/04/21 documented as of this encounter
--- OUTSIDE RECORDS SUMMARY | 2024-04-16 12:00 | XMS_ITS | Encounter Summary ---
[place] [address] Care Team Providers Care Miller Head Wet Process Name Role Phone Teressa Morrison APRN Primary Care Provider [phone] Reason for Referral * Consultation (Routine) - Closed Specialty Diagnoses / Procedures Referred By Wesly crump Referred To Contact Obstetrics and Gynecology Diagnoses , unspecified gestational age Previous delivery, antepartum condition or complication Amniotic fluid index borderline low Ventricular septal defect Healed pelvic floor repair affecting in second trimester [facility] [address] [place] [address] [facility] [employer] [address] [address] Referral ID Status Reason Start Date Expiration Date V isits Requested Visits Authorized [id number] Closed Consult, Test & Treat PCP Updated and/or Approved 12/01/2022 12/01/2023 6 6 Encounter Details Date Type Department Care Team (Late st Contact Info) Description 12/01/2022 Transcribe Orders eDH Incoming Referrals [phone] [facility] [address] [place] [address] , unspecified gestational age; Previous delivery, antepartum condition or complication; Amniotic fluid index borderline low; Ventricular septal defect; Healed pelvic floor repair affecting in second trimester Social History Tobacco Use Types Packs/Day Years Used Date Smoking Tobacco: Never Smokeless Tobacco: Never Comments Yes Sex and Gender Information Value Date Recorded Sex Assigned at Not on file Gender Identity Not on file Sexual Orientation Not on file documented as of this encounter Plan of Treatment Scheduled Referrals Name Type Priority Associated Diagnoses Orde r Schedule Referral to Maternal Medicine Outpatient Referral Routine , unspecified gestational age Previous delivery, antepartum condition or complication Amniotic fluid index borderline low Ventricular septal defect Healed pelvic floor repair affecting in second trimester Ordered: 12/01/2022 documented as of this encounter Visit Diagnoses Diagnosis , unspecified gestational age Previous delivery, antepartum condition or complication Amniotic fluid index borderline low Nonspecific abnormal finding in amniotic fluid Ventricular septal defect Healed pelvic floor repair affecting in second trimester documented in this encounter Care Teams Miller Head Wet Process Relationship Specialty Start Date End Date Teressa Morrison APRN PCP - General Family Medicine 02/04/21 documented as of this encounter
--- OUTSIDE RECORDS SUMMARY | 2024-04-16 12:00 | XMS_ITS | Encounter Summary ---
[place] [address] Care Team Providers Care Rehab Consultant Name Role Phone Teressa Morrison APRN Primary Care Provider [phone] Reason for Referral * Diagnostic Test (Routine) - Closed Specialty Diagnoses / Procedures Referred By Wesly crump Referred To Contact Diagnoses History of heart murmur in childhood VSD (ventricular septal defect) Procedures Echo Caron Weiss CNM [address] [place] [address] [address] [place] [address] [facility] [place] [address] Referral ID Status Reason Start Date Expiration Date V isits Requested Visits Authorized [id number] Closed Specialty Service Requested 08/11/2022 08/11/2023 1 1 Reason for Visit * Diagnostic Test (Routine) - Closed Specialty Diagnoses / Procedures Referred By Wesly crump Referred To Contact Diagnoses History of heart murmur in childhood VSD (ventricular septal defect) Procedures Echo Caron Weiss CNM [address] [place] [address] [address] [place] [address] [facility] [place] [address] Referral ID Status Reason Start Date Expiration Date V isits Requested Visits Authorized [id number] Closed Specialty Service Requested 08/11/2022 08/11/2023 1 1 Encounter Details Date Type Department Care Team (Latest Contact Info) Description 09/28/2022 10:37 AM EST - 09/28/2022 11:59 PM EST Hospital Encounter Non-[place] [address] Caron Weiss, [facility] [address] [place] [address] [address] [place] [address] History of heart murmur in childhood; VSD (ventricular septal defect) Discharge Disposition: Home Social History Tobacco Use Types Packs/Day Years Used Date Smoking Tobacco: Never Smokeless Tobacco: Never Comments Yes Sex and Gender Information Value Date Recorded Sex Assigned at Not on file Gender Identity Not on file Sexual Orientation Not on file documented as of this encounter Medications at Time of Discharge Medication Sig Dispensed Refills Start Date End Date pantoprazole EC (Protonix) 40 mg Tablet, Delayed [...] as needed for Wheezing. Use with spacer aspirin EC 81 mg Tablet, Delayed Release (E.C.) TAKE 2 TABLETS BY MOUTH ONCE DAILY 12/03/2020 12/14/2022 documented as of this encounter Plan of Treatment Not on file documented as of this encounter Procedures Procedure Name Priority Date/Time Associated Diagnosis Comments ECHO COMPLETE Routine 09/28/2022 1 1:52 AM EST History of heart murmur in childhood VSD (ventricular septal defect) documented in this encounter Results * ECHO COMPLETE (09/28/2022 11:52 AM EST) Anatomical Region Laterality Modality Cardiac Other 09/28/2022 11:0 6 AM EST Narrative 09/28/2022 12:46 PM EST Echocardiogram Report Name: LORENA PRESTON ? Study Date: 09/28/2022 ? Patient Location: [address] [place] [address] : 2000 ? Gender: Female Age: 22 yrs Reason For Study: History of congenital heart disease Ordering Physician: MICHAEL Referring Physician: CARON WEISS Performed By: Venita Jhonson MD Exam Location: [facility]. Interpretation Summary This is a 23 1/7 week fetus. The estimated due date is 01/24/2023. There is levocardia, visceral situs solitus and normal segmental anatomy {S,D,S}, with normal chamber dimension and wall motion. No major structural cardiac abnormalities were noted. Prenatally cannot exclude certain septal defects, coarctation of the aorta, partial pulmonary venous anomalies, coronary anomalies, subtle valve abnormalities nor predict the persistence of structures of circulation such as a PDA or PFO. The results of today's study were discussed with the patient. Please see office note regarding the details of this consultation. Position Single intrauterine . Vertex presentation. Cardiac Position Levocardia. Cardiac Segments {S,D,S}. Veins The inferior vena cava appears normal. The superior vena cava appears normal. There is no evidence of an LSVC. Color and spectral Doppler flow patterns of at least one right and one left pulmonary vein appear normal. Atria There is no evidence of right atrial enlargement. There is no evidence of left atrial dilatation. Mitral Valve The mitral valve appears normal. There is a normal biphasic inflow pattern across the valve. There is no evidence of mitral regurgitation by color and spectral Doppler. The mitral diameter at the annulus measures 0.63 cm ([place] Z-score: 0.51). Tricuspid Valve The tricuspid valve appears normal. There is a normal biphasic inflow pattern across the valve. There is no evidence of tricuspid insufficiency. Left Ventricle The left ventricular cavity size appears normal. The left ventricular systolic function is qualitatively within normal limits. There is no evidence of left ventricular hypertrophy. There are no obvious segmental wall motion abnormalities. Right Ventricle The right ventricle is not dilated. There is no evidence of right ventricular hypertrophy. The right ventricular systolic function is qualitatively within normal limits. Interventricular/Interatrial Septum There is a moderate sized foramen ovale with right to left shunting by color Doppler. There is no evidence of a ventricular septal defect. Aortic Valve The aortic valve appears normal. There is no evidence of valvular aortic stenosis. There is no evidence of aortic insufficiency by color or spectral Doppler. The aortic diameter at the annulus is 0.42 cm ([place] Z-score: 0.77). Pulmonic Valve The pulmonary valve appears normal. There is no evidence of valvular pulmonary stenosis. There is no evidence of pulmonary insufficiency by color or spectral Doppler. The pulmonary annulus measures 0.5 cm ([place] Z-score: 0.55). Great Vessels The ascending aorta does not appear dilated. The descending thoracic aorta does not appear dilated. There is no evidence of coarctation of the aorta. The main pulmonary artery appears normal. The aortic isthmus measures 0.28 cm ([place] Z- score: -0.5). The branch pulmonary arteries appear normal. Circulation Normal Doppler flow pattern in the umbilical artery. The umbilicus has 2 umbilical arteries. There is a normal flow pattern in the umbilical vein. There is a normal flow pattern in the ductus venosus. There is normal intrauterine right to left flow across the ductus arteriosus. The rhythm is regular. The heart rate is 130 bpm. The AV interval is 124 msec. Pericardium and Pleura No pericardial effusion. CPT A complete two-dimensional echocardiogram was performed (2D, M-mode, Doppler and color flow Doppler). ? Reading Physician:12:46 PM Procedure Note Venita Johnson MD - 09/28/2022 Echocardiogram Report Name: LORENA PRESTON Study Date: 09/28/2022 Patient Location: [address] [place] [address] : 2000 Gender: Female Age: 22 yrs Reason For Study: History of congenital heart disease Ordering Physician: MICHAEL Referring Physician: CARON WEISS Performed By: Venita Johnson MD Exam Location: [facility]. Interpretation Summary This is a 23 1/7 week fetus. The estimated due date is 01/24/2023. Thereis levocardia, visceral situs solitus and normal segmental anatomy {S,D,S},with normal chamber dimension and wall motion. No major structural cardiac abnormalities were noted. Prenatally cannot exclude certain septaldefects, coarctation of the aorta, partial pulmonary venous anomalies, coronaryanomalies, subtle valve abnormalities nor predict the persistence ofstructures of circulation such as a PDA or PFO. The results of today's studywere discussed with the patient. Please see office note regarding the detailsof this consultation. Position Single intrauterine . Vertex presentation. Cardiac Position Levocardia. Cardiac Segments {S,D,S}. Veins The inferior vena cava appears normal. The superior vena cava appearsnormal. There is no evidence of an LSVC. Color and spectral Doppler flow patternsof at least one right and one left pulmonary vein appear normal. Atria There is no evidence of right atrial enlargement. There is no evidence ofleft atrial dilatation. Mitral Valve The mitral valve appears normal. There is a normal biphasic inflow patternacross the valve. There is no evidence of mitral regurgitation by color andspectral Doppler. The mitral diameter at the annulus measures 0.63 cm ([place]-score: 0.51). Tricuspid Valve The tricuspid valve appears normal. There is a normal biphasic inflowpattern across the valve. There is no evidence of tricuspid insufficiency. Left Ventricle The left ventricular cavity size appears normal. The left ventricularsystolic function is qualitatively within normal limits. There is no evidence ofleft ventricular hypertrophy. There are no obvious segmental wall motionabnormalities. Right Ventricle The right ventricle is not dilated. There is no evidence of rightventricular hypertrophy. The right ventricular systolic function is qualitativelywithin normal limits. Interventricular/Interatrial Septum There is a moderate sized foramen ovale with right to left shunting bycolor Doppler. There is no evidence of a ventricular septal defect. Aortic Valve The aortic valve appears normal. There is no evidence of valvular aorticstenosis. There is no evidence of aortic insufficiency by color or spectral Doppler.The aortic diameter at the annulus is 0.42 cm ([place] Z-score: 0.77). Pulmonic Valve The pulmonary valve appears normal. There is no evidence of valvularpulmonary stenosis. There is no evidence of pulmonary insufficiency by color orspectral Doppler. The pulmonary annulus measures 0.5 cm ([place] Z-score: 0.55). Great Vessels The ascending aorta does not appear dilated. The descending thoracic aortadoes not appear dilated. There is no evidence of coarctation of the aorta. Themain pulmonary artery appears normal. The aortic isthmus measures 0.28 cm([place] Z- score: -0.5). The branch pulmonary arteries appear normal. Circulation Normal Doppler flow pattern in the umbilical artery. The umbilicus has 2umbilical arteries. There is a normal flow pattern in the umbilical vein. There is anormal flow pattern in the ductus venosus. There is normal intrauterine right toleft flow across the ductus arteriosus. The rhythm is regular. The heartrate is 130 bpm. The AV interval is 124 msec. Pericardium and Pleura No pericardial effusion. CPT A complete two-dimensional echocardiogram was performed (2D, M- mode,Doppler and color flow Doppler). Electronically signed by: Venita Johnson MD on09/28/2022 Reading Physician:12:46 PM Caron Weiss CNM ECHO ORDERABLES documented in this encounter Visit Diagnoses Diagnosis History of heart murmur in childhood VSD (ventricular septal defect) Ventricular septal defect documented in this encounter Care Teams Rehab Consultant Relationship Specialty Start Date End Date Teressa Morrison APRN PCP - General Family Medicine 02/04/21 documented as of this encounter
--- OUTSIDE RECORDS SUMMARY | 2024-04-16 12:00 | XMS_ITS | Encounter Summary ---
Author Organization [facility] Address [address] [place] [address] Care Team Providers Care Bakery Assistant Name Role Phone Harrison Lindsay MD Primary Care Provider [phone] Aminta Montano MD Primary Care Provider [phone] Teressa Morrison NP Primary Care Provider [phone] Encounter Details Date Type Department Care Team (Late st Contact Info) Description 04/11/2008 Before PRISM Converted Visit (Maple) [facility] Pediatric Primary Care [address] [id number] Aminta Montano MD [address] [place] [phone] Social History Tobacco Use Types Packs/Day Years Used Date Smoking Tobacco: Never Assessed Sex and Gender Information Value Date Recorded Sex Assigned at Not on file Gender Identity Not on file Sexual Orientation Not on file documented as of this encounter Plan of Treatment Not on file documented as of this encounter Procedures Procedure Name Priority Date/Time Associated Diagnosis Comments CONGENITAL ECHOCARDIOGRAM 04/11/2008 10:05 EDT documented in this encounter Results * CONGENITAL ECHOCARDIOGRAM (04/11/2008 10:05 EDT) Anatomical Region Laterality Modality Other 04/11/2008 10:0 5 EDT Narrative 03/16/2009 11:29 EDT color/pulse Doppler Site Location: Date of Appt: April, 10:05 AM Pediatric Echocardiogram Report Demographics and Visit Data: : 2000. ??Age: 7y/6m/15d. ??BSA (m 2): 0.91. ??Height (cm): 123.6. Weight (kg): 24.5. ??BMI (kg/m 2): 16.04. ??Patient location: [facility]. Height Centile: 49.32. ??Weight Centile: 59.36. ??Person requesting test: AMINTA MONTANO MD Firmware Test Engineer: Cheryl Broderick. ??Reason for test: color/pulse Doppler. Referral diagnosis: ventricular septal defect. ??Procedure Description: COMPLETE CONGENITAL ECHO. Summary: Small anterior muscular ventricular septal defect. Normal left ventricular size, wall thickness and systolic function. Normal estimated right ventricular pressure. No other abnormalities seen. Atrial Situs: Solitus Ventricular Situs: D - Looped Arterial Situs: Solitus Findings: Veins and Atria: >> Normal Left Atrium >> Normal Right Atrium >> Normal Pulmonary Veins >> Normal Systemic Veins >> Intact Atrial Septum A-V Canal: >> Tricuspid regurgitation, trivial By tricuspid regurgitation jet, the estimated right ventricular pressure is approximately 21 mmHg plus right atrial pressure. >> Normal Tricuspid Valve >> Normal Mitral Valve Ventricles: >> Muscular ventricular septal defect, small Small anterior muscular ventricular septal defect. >> Global left ventricular dysfunction, ruled out Normal left ventricular size, wall thickness and systolic function. >> Right ventricular hypertension, ruled out No suggestion of significant right ventricular hypertension based on septal position. Conotruncus: >> Normal Pulmonary Valve Great Arteries: >> Normal Aorta >> Normal Aortic Arch Pericardium: (No abnormalities seen) Measures: Systemic Arterial Function: Name ? Value ?Units ?Z-Score ?Min ?Max Systolic BP ? 88 ? mmHg ? -1.18 ? 80.28 ?? 119.04 Diastolic BP ? 49 ? mmHg ? -0.4 ?34.71 ?? 70.61 Pulse Pressure ? 39.00 ?mmHg Mean BP ? 62.0 ? mmHg ? -1.4 ?56.77 ?? 92.8 M-Mode: Name ? Value ?Units ?Z-Score ?Min ?Max LV Diastolic Septal Thickness ? 0.67 ? cm ? -0.28 ? 0.51 ?0.96 LV Diastolic Dimension ? 3.33 ? cm ? -1.27 ? 3.14 ?4.34 LV Diastolic Wall Thickness ? 0.67 ? cm ? -0.01 ? 0.52 ?0.86 LV Systolic Dimension ? 2.00 ? cm ? -1.73 ? 1.95 ?2.93 LV Fractional Shortening ? 39.94 ?% ?2.21 ?29.67 ?? 39.34 LV Systolic Function: Name ? Value ?Units ?Z-Score ?Min ?Max Endocardial FS ? 39.94 ?% ?2.21 ?29.67 ?? 39.34 FS Vs Stress ? 39.94 ?% Cardiac Geometry: Name ? Value ?Units ?Z-Score ?Min ?Max M-Mode LV Mass ? 54.61 ?g ?-1.13 ? 46.14 ?? 101.52 M-Mode LV Mass Index ? 60.02 ?g/m 2 LV Midwall Diastolic Dimension ? 4.00 ? cm M-Mode LV Mass / Height ? 44.19 ?g/m M-Mode LV Mass / Height 2.7 ? 30.82 ?g/m ?19.4 ?38.6 Aorta: Name ? Value ?Units ?Z-Score ?Min ?Max Ao Annulus Diameter ? 1.36 ? cm ? -0.64 ? 1.17 ?1.73 Ao Root Diameter ? 1.85 ? cm ? -0.24 ? 1.48 ?2.32 AV Area (using Diameter) ? 1.45 ? cm 2 Sinotubular Junction Diameter ? 1.60 ? cm ? -0.11 ? 1.27 ?1.97 Ascending Ao Diameter ? 1.62 ? cm ? -0.13 ? 1.29 ?2. Analysis Aortic Valve Doppler: Name ? Value ?Units AV Area (using Diameter) ? 1.45 ? cm 2 Montezuma's Name: RUPERTO CORONA MD Date/time of reading: Apr 16 2008 - 2:23:16 PM Report created at 2:23:52 PM on Wednesday, April 16, 2008 Procedure Note Ruperto Corona MD - 03/16/2009 color/pulse Doppler Site Location: Date of Appt: April, 10:05 AM Pediatric Echocardiogram Report Demographics and Visit Data: : 2000. Age: 7y/6m/15d. BSA (m 2): 0.91. Height (cm): 123.6. Weight (kg): 24.5. BMI (kg/m 2): 16.04. Patient location: [facility]. Height Centile: 49.32. Weight Centile: 59.36. Person requesting test: DUSTY GODOY,AMINTA Garcia Firmware Test Engineer: Cheryl Broderick. Reason for test: color/pulse Doppler. Referral diagnosis: ventricular septal defect. Procedure Description: COMPLETE CONGENITAL ECHO. Summary: Small anterior muscular ventricular septal defect. Normal left ventricular size, wall thickness and systolic function. Normal estimated right ventricular pressure. No other abnormalities seen. Atrial Situs: Solitus Ventricular Situs: D - Looped Arterial Situs: Solitus Findings: Veins and Atria: >> Normal Left Atrium >> Normal Right Atrium >> Normal Pulmonary Veins >> Normal Systemic Veins >> Intact Atrial Septum A-V Canal: >> Tricuspid regurgitation, trivial By tricuspid regurgitation jet, the estimated right ventricular pressure is approximately 21 mmHg plus right atrial pressure. >> Normal Tricuspid Valve >> Normal Mitral Valve Ventricles: >> Muscular ventricular septal defect, small Small anterior muscular ventricular septal defect. >> Global left ventricular dysfunction, ruled out Normal left ventricular size, wall thickness and systolic function. >> Right ventricular hypertension, ruled out No suggestion of significant right ventricular hypertension based on septal position. Conotruncus: >> Normal Pulmonary Valve Great Arteries: >> Normal Aorta >> Normal Aortic Arch Pericardium: (No abnormalities seen) Measures: Systemic Arterial Function: Name Value Units Z-Score Min Max Systolic BP 88 mmHg -1.18 80.28 119.04 Diastolic BP 49 mmHg -0.4 34.71 70.61 Pulse Pressure 39.00 mmHg Mean BP 62.0 mmHg -1.4 56.77 92.8 M-Mode: Name Value Units Z-Score Min Max LV Diastolic Septal Thickness 0.67 cm -0.28 0.51 0.96 LV Diastolic Dimension 3.33 cm -1.27 3.14 4.34 LV Diastolic Wall Thickness 0.67 cm -0.01 0.52 0.86 LV Systolic Dimension 2.00 cm -1.73 1.95 2.93 LV Fractional Shortening 39.94 % 2.21 29.67 39.34 LV Systolic Function: Name Value Units Z-Score Min Max Endocardial FS 39.94 % 2.21 29.67 39.34 FS Vs Stress 39.94 % Cardiac Geometry: Name Value Units Z-Score Min Max M-Mode LV Mass 54.61 g -1.13 46.14 101.52 M-Mode LV Mass Index 60.02 g/m 2 LV Midwall Diastolic Dimension 4.00 cm M-Mode LV Mass / Height 44.19 g/m M-Mode LV Mass / Height 2.7 30.82 g/m 19.4 38.6 Aorta: Name Value Units Z-Score Min Max Ao Annulus Diameter 1.36 cm -0.64 1.17 1.73 Ao Root Diameter 1.85 cm -0.24 1.48 2.32 AV Area (using Diameter) 1.45 cm 2 Sinotubular Junction Diameter 1.60 cm -0.11 1.27 1.97 Ascending Ao Diameter 1.62 cm -0.13 1.29 2. Analysis Aortic Valve Doppler: Name Value Units AV Area (using Diameter) 1.45 cm 2 Montezuma's Name: CHLOE GODOY,RUPERTO Wilson Date/time of reading: Apr 16 2008 - 2:23:16 PM Report created at 2:23:52 PM on Wednesday, April 16, 2008 Aminta Montano MD CARDIAC ECHO ORDERAB LES documented in this encounter Visit Diagnoses Not on filedocumented in this encounter Care Teams Bakery Assistant Relationship Specialty Start Date End Date Harrison Lindsay MD [address] [place] [phone] PCP - General 03/16/10 09/06/17 Aminta Montano MD [address] [place] [address] [phone] PCP - General 03/10/10 03/15/10 Teressa Morrison, SIGNAL CIRCUIT DESIGNER [address] [place] [id number] PCP - General 09/07/17 documented as of this encounter
--- OUTSIDE RECORDS SUMMARY | 2024-04-16 12:00 | XMS_ITS | Encounter Summary ---
[place] [address] Care Team Providers Care Vessel Captain Name Role Phone Teressa Morrison APRN Primary Care Provider [phone] Encounter Details Date Type Department Care Team (Latest Contact Info) Description 09/28/2022 Travel Social History Tobacco Use Types Packs/Day Years [...] on filedocumented in this encounter Care Teams Vessel Captain Relationship Specialty Start Date End Date Teressa Morrison APRN PCP - General Family Medicine 02/04/21 documented as of this encounter
--- OUTSIDE RECORDS SUMMARY | 2024-04-16 12:00 | XMS_ITS | Encounter Summary ---
Author Organization [facility] Address [address] [place] [address] Care Team Providers Care Electrical Unit Rebuilder Name Role Phone Teressa Morrison NAME PLATE STAMPER Primary Care Provider [phone] Encounter Details Date Type Department Care Team (Late st Contact Info) Description 12/03/2020 Lab Requisition [facility] Pathology & Laboratory Medicine - [facility] [address], [place] [address] Outr Resulting Lab, Provider Social History Tobacco [...] Procedure Name Priority Date/Time Associated Diagnosis Comments RUBELLA IGG ANTIBODY Routine 12/03/2020 14:38 EST VARICELLA IGG ANTIBODY Routine 12/03/2020 14:38 EST documented in this encounter Results * VARICELLA IGG ANTIBODY (12/03/2020 14:38 EST) Varicella IgG Ab Negative See Note 12/04/2020 10:24 EST [facility] Comment:Absence of detectabl e Varicella Zoster virus IgG antibodies. A negative result generally indicates no detectable antibody, but does not rule out acute infection. If VZV exposure is suspected, a second sample should be collected and tested no less than one or two weeks later. Blood VENOUS BLOOD / Unknown 12/03/2020 14:38 EST 12/03/2020 21:34 EST Provider Outr Resulting Lab IMMUNOLOGY A ND SEROLOGY ORDERABLES Performing Organization Address City/[facility]/ZIP Co de Phone Number [facility] [address] [place] [address] * RUBELLA IGG ANTIBODY (12/03/2020 14:38 EST) Rubella IgG Ab Positive See Note 12/04/2020 10:26 EST [facility] Comment:Positive for IgG ant ibodies to Rubella virus. Blood VENOUS BLOOD / Unknown 12/03/2020 14:38 EST 12/03/2020 21:34 EST Provider Outr Resulting Lab CHEMISTRY & BLOOD GAS ORDERABLES Performing Organization Address City/[facility] Co de Phone Number [facility] [address] [place] [address] documented in this encounter Visit Diagnoses Not on filedocumented in this encounter Care Teams Electrical Unit Rebuilder Relationship Specialty Start Date End Date Teressa Morrison, TERESA [address] [place] [address] PCP - General 09/07/17 documented as of this encounter
--- OUTSIDE RECORDS SUMMARY | 2024-04-16 12:00 | XMS_ITS | Encounter Summary ---
Author Organization [facility] Address [address] [place] [address] Care Team Providers Care Architectural Drafter Name Role Phone Unavailable Primary Care Provider Unavailabl e Encounter Details Date Type Department Care Team (Late st Contact Info) Description 05/26/2006 Before PRISM Converted Visit (Maple) [facility] - Maple conversion [address] [place] [address] Ruperto Chun MD [address] [place] [phone] Social History Tobacco Use Types Packs/Day Years Used Date Smoking Tobacco: Never Assessed Sex and Gender Information Value Date Recorded Sex Assigned at Not on file Gender Identity Not on file Sexual Orientation Not on file documented as of this encounter Progress Notes * Ruperto Chun MD - 09/26/2009 0240 EST PROGRESS/FOLLOWUP NOTE - 05/26/2006 - [facility] May 26, 2006 Aminta Whatley MD [facility] [address] [place] [id number] Dear Aminta: I saw Deirdre on May 26, 2006, in [facility]. She is now approaching6 years of age and was diagnosed clinically with a small muscular ventricular septal defect. I last saw her a couple of years ago. In the interim, she has continued to be in excellent health. Her growth and development remain normal. She is a very activechild who has no difficulty running and playing vigorously. She does not have a history of chronic coughing, wheezing or other respiratory problems. She has had no reports of chest pain, palpitations, dizziness or fainting. She has been on no cardiac medications routinely.Her parents are aware of SBE prophylaxis. They have no concerns about her general health. A review of systems is noncontributory. Her dietary history sounds unremarkable. On physical examination today, her height was 113.5 cm and her weight 19.7 kg, both around the 50thpercentile. Her blood pressure was 87/50 in the right arm. Her resting pulse was 88 and her restingrespiratory rate was 28. Her femoral pulses felt strong and her extremities were warm and well perfused. Her liver was notenlarged. No abdominal masses were palpated. Her precordium was quiet. Her lungs sounded clear with symmetric aeration. Her neck veins were not distended. Her thyroid did not feel enlarged. Her lips and nail beds were pink. She had no clubbing or peripheral edema. She had a normal first heart sound and a physiologically split second heart sound of normal intensity. She had agrade 2-3 over 6 very brief, high-pitched mid systolic ejection murmur at the left lower sternal border. I did not appreciate a diastolic murmur. There were no clicks or gallops noted. Her electrocardiogram was normal. In summary, Deirdre still has evidence of a small muscular ventricular septal defect. Other than SBE prophylaxis, she needs no restrictions or medications. I would like to see her again in 2 years, at which point we will perform an echocardiogram to identify the location of the defect and measure ventricular size and function. I anticipate that this will be unremarkable except for the small VSD. Please give me a call if you have any questions about her cardiac status prior to her scheduled return. Sincerely, Signed by Ruperto Chun MD 06/09/2006 15:45 [facility] [id number] B Yeager, MD Ruperto Chun MD Division of Pediatric Cardiology [phone] - Ruperto Chun MD A - O3 Job ID: [id number] Document ID: [id number] cc: Aminta Whatley MD documented in this encounter Plan of Treatment Not on file documented as of this encounter Visit Diagnoses Not on filedocumented in this encounter
--- OUTSIDE RECORDS SUMMARY | 2024-04-16 12:00 | XMS_ITS | Encounter Summary ---
Author Organization [facility] Address [address] [place] [address] Care Team Providers Care Press Operator Printing Name Role Phone Teressa Morrison SLURRY TANK TENDER Primary Care Provider [phone] Encounter Details Date Type Department Care Team (Late st Contact Info) Description 12/03/2020 Lab Requisition [facility] Pathology & Laboratory Medicine - [address] [id number] Outr Resulting Lab, Provider Social History Tobacco [...] Procedure Name Priority Date/Time Associated Diagnosis Comments HIV 1/2 ANTIGEN AND ANTIBODY, 4TH GENERATION Routine 12/03/2020 14:38 EST documented in this encounter Results * HIV 1/2 ANTIGEN AND ANTIBODY, 4TH GENERATION (12/03/2020 14:38 EST) HIV 1 and 2 Antibody/p24 Antigen, 4th Generation Negative Negative 12/04/2020 9:29 EST [facility] Comment: If acute HIV-1 infection is suspected in a high risk ??patient, submit plasma specimen for HIV-1 RNA quantitation test. Fourth Generation assay performed on the Siemens Bplatsaur. Blood VENOUS BLOOD / Unknown 12/03/2020 14:38 EST 12/03/2020 21:34 EST Provider Outr Resulting Lab IMMUNOLOGY A ND SEROLOGY ORDERABLES [facility] [address] [place] [address] documented in this encounter Visit Diagnoses Not on filedocumented in this encounter Care Teams Press Operator Printing Relationship Specialty Start Date End Date Teressa Morrison, SLURRY TANK TENDER [address] [place] [address] PCP - General 09/07/17 documented as of this encounter
--- OUTSIDE RECORDS SUMMARY | 2024-04-16 12:00 | XMS_ITS | Encounter Summary ---
Author Organization [facility] Address [address] [place] [address] Care Team Providers Care Project Geologist Name Role Phone Teressa Morrison BEAM RACKER Primary Care Provider [phone] Encounter Details Date Type Department Care Team (Late st Contact Info) Description 02/24/2022 Lab Requisition [facility] Pathology & Laboratory Medicine - [facility] [address] [place] [address] Lisa Alvarez [address] [place] [address] [place] [phone] Encounter for other general examination Social History Tobacco Use Types Packs/Day Years [...] Procedure Name Priority Date/Time Associated Diagnosis Comments SURGICAL PATHOLOGY Today 02/23/2022 14 :30 EDT Encounter for other general examination documented in this encounter Results * SURGICAL PATHOLOGY (02/23/2022 14:30 EDT) Note to Patient The following pathology results have been interpreted by your pathologist and may be available to you before your health provider has had the opportunity to review them. Please allow time for your provider to receive these results and explore management options, if applicable. 02/26/2022 10:59 EDT [facility] Final Diagnosis A. ENDOCERVIX, CURETTAGE: - Benign endocervical cells. B. CERVIX, 6 O'CLOCK, BIOPSY : - Benign transformation zone tissue with reactive changes. See comment. 02/26/2022 10:59 [facility] Diagnosis Comment Deeper sections have been examined of block A and B. The referring pap smear ([id number]) was reviewed by cytopathologist, Dr. Ruperto Arias, and the diagnosis of LSIL confirmed. The current biopsy material shows reactive changes and is negative for a squamous intraepithelial lesion. 02/26/2022 10:59 [facility] Attestation By the signature below, the attending physician certifies that they have 1) personally conducted a gross and/or microscopic examination of the described specimen(s), and/or personally interpreted the results of laboratory testing of the described specimen(s), and 2) personally rendered or confirmed the above diagnosis. 02/26/2022 10:59 [facility] at 1059 Clinical History LSIL 02/26/2022 10:59 [facility] Gross Description A. Received in formalin labelled with proper patient identification (initials R, G) and 1. ECC is an aggregate of clear focally light brown thin mucus cassette (1.8 x 1.3 x 0.1 cm). Entirely submitted in A1. B. Received in formalin labelled with proper patient identification (initials R, G) and 2. 6 o'clock is a single katz-white focally brown speckled, firm tissue fragment (0.3 x 0.2 x 0.1 cm). Submitted intact in B1. FAISAL MOSER 02/24/2022 10:05 02/26/2022 10:59 [facility] Performing Lab [facility] 10:59 [facility] Scanned Images 02/26/2022 10:59 [facility] Tissue ENTIRE WALL OF CERVIX / Unknown 02/23/2022 14:30 EDT 02/24/2022 7:57 EDT Tissue specimen (specimen) CERVIX UTERI STRUCTURE / Unknown 02/23/2022 14:30 EDT 02/24/2022 7:57 EDT Lisa Alvarez PATHOLOGY ORDERABLES [facility] [address] [place] [address] documented in this encounter Visit Diagnoses Diagnosis Encounter for other general examination documented in this encounter Care Teams Project Geologist Relationship Specialty Start Date End Date Teressa Morrison NP [address] [place] [address] PCP - General 09/07/17 documented as of this encounter
--- OUTSIDE RECORDS SUMMARY | 2024-04-16 12:00 | XMS_ITS | Encounter Summary ---
Author Organization [facility] Address [address] [place] [address] Care Team Providers Care Homoeopath Name Role Phone Harrison Lindsay MD Primary Care Provider [phone] Encounter Details Date Type Department Care Team (Late st Contact Info) Description 01/29/2016 Results Only Imaging [facility] Pediatric Cardiology - [address] [id number] Olivia Corona MD [address] [place] [phone] Social History Tobacco Use Types Packs/Day Years Used Date Smoking Tobacco: Never Assessed Sex and Gender Information Value Date Recorded Sex Assigned at Not on file Gender Identity Not on file Sexual Orientation Not on file documented as of this encounter Plan of Treatment Not on file documented as of this encounter Procedures Procedure Name Priority Date/Time Associated Diagnosis Comments CONGENITAL ECHOCARDIOGRAM 01/29/2016 9:40 EDT documented in this encounter Results * CONGENITAL ECHOCARDIOGRAM (01/29/2016 9:40 EDT) Anatomical Region Laterality Modality Other 01/29/2016 9:40 EDT Narrative 02/02/2016 13:12 EDT Patient Name: LORENA PRESTON Chart Number: [id number] Site Location: Date of Appt: January, 9:40 AM Pediatric Echocardiogram Report Demographics and Visit Data: : 2000. ??Age: 15y/4m/2d. ??Sex: F. ??BSA (m 2): 1.64. ?? Height (cm): 165. ??Weight (kg): 58.5. ??BMI (kg/m 2): 21.49. ?? Patient location: [facility]. ??Height Centile: 67.02. ??Weight Centile: 62.49. ?? Person requesting test: JEANNE MONTANO MD. ??Locomotive Engineer Diesel: Cheryl Broderick. ?? Reason for test: VSD. ??Referral diagnosis: ventricular septal defect. ?? Procedure Description: CONGENITAL ECHOCARDIOGRAM. ?? Summary: Small anterior muscular ventricular septal defect with high velocity left to right flow. Normal left ventricular size, wall thickness and systolic function. Normal estimated right ventricular pressure. No other abnormalities seen. Compared with last study, no significant change. Complete 2-dimensional study performed, with pulse/continuous wave Doppler samplings, and color flow Doppler imaging reviewed. Findings: ?? Veins and Atria: ?? >> Normal Left Atrium >> Normal Right Atrium >> Normal Pulmonary Veins >> Normal Systemic Veins >> Intact Atrial Septum ?? A-V Canal: ?? >> Normal Tricuspid Valve >> Normal Mitral Valve ?? Ventricles: ?? >> Muscular ventricular septal defect, small Small anterior muscular ventricular septal defect with high velocity left to right flow. The left ventricle to right ventricle gradient is not resolved, but exceeds 60 mmHg. ?? >> Global left ventricular dysfunction, ruled out Normal left ventricular size, wall thickness and systolic function. ?? >> Right ventricular hypertension, ruled out No suggestion of significant right ventricular hypertension based on septal position. ?? >> Left ventricular dilation or enlargement, ruled out >> Normal Right Ventricle ?? Conotruncus: ?? >> Normal Pulmonary Valve >> Normal Aortic Valve ?? Great Arteries: ?? >> Normal Aorta >> Normal Aortic Arch ?? Pericardium: ?? (No abnormalities seen) ?? Measures: ?? Systemic Arterial Function: ?? Name ?Value ?Units ?Z-Score ?Min ?Max ?? Systolic BP ? 104 ?mmHg ? -0.21 ?83.3 ?? 129.61 ?? Diastolic BP ?50 ? mmHg ? -0.51 ?36.14 ??73.58 ?? Pulse Pressure ?54.00 ?mmHg ? Mean BP ? 68.0 ? mmHg ? -0.99 ?57.8 ?? 98.77 ? M-Mode: ?? Name ?Value ?Units ?Z-Score ?Min ?Max ?? M-Mode LV Diastolic ? 4.51 ? cm ? -0.92 ?4.14 ?? 5.52 ?? Dimension M-Mode LV Systolic ?2.90 ? cm ? -0.66 ?2.47 ?? 3.77 ?? Dimension LV Fractional Shortening ?35.70 ?% ?0.16 ? 29.02 ??42.54 ? LV Systolic Function: ?? Name ?Value ?Units ?Z-Score ?Min ?Max ?? Endocardial FS ?35.70 ?% ?0.16 ? 29.02 ??42.54 ?? FS Vs Stress ?35.70 ?% ? Aorta: ?? Name ?Value ?Units ?Z-Score ?Min ?Max ?? Ao Annulus Diameter ? 1.71 ? cm ? -1.58 ?1.64 ?? 2.38 ?? Ao Root Diameter ?2.29 ? cm ? -1.22 ?2.07 ?? 3.22 ?? AV Area (using Diameter) ?2.30 ? cm 2 ? Sinotubular Junction ?1.64 ? cm ? -2.46 ?1.77 ?? 2.8 ?? Diameter Ascending Ao Diameter ? 1.96 ? cm ? -1.57 ?1.85 ?? 2.97 ? Analysis Aortic Valve Doppler: ?? Name ?Value ?Units ?? AV Area (using Diameter) ?2.30 ? cm 2 ? [place]'s Name: OLIVIA CORONA MD Date/time of reading: Feb 02 2016 - 1:11:03 PM Report created at 1:12:30 PM on Tuesday, February 02, 2016 Report Number: Note:Study interpreted at [facility] unless otherwise noted Procedure Note Olivia Corona MD - 02/02/2016 Patient Name: LORENA PRESTON Chart Number: [id number] Site Location: Date of Appt: January, 9:40 AM Pediatric Echocardiogram Report Demographics and Visit Data: : 2000. Age: 15y/4m/2d. Sex: F. BSA (m 2): 1.64. Height (cm): 165. Weight (kg): 58.5. BMI (kg/m 2): 21.49. Patient location: [facility]. Height Centile: 67.02. Weight Centile: 62.49. Person requesting test: JEANNE MONTANO MD. Locomotive Engineer Diesel: Cheryl Broderick. Reason for test: VSD. Referral diagnosis: ventricular septal defect. Procedure Description: CONGENITAL ECHOCARDIOGRAM. Summary: Small anterior muscular ventricular septal defect with high velocity left to right flow. Normal left ventricular size, wall thickness and systolic function. Normal estimated right ventricular pressure. No other abnormalities seen. Compared with last study, no significant change. Complete 2-dimensional study performed, with pulse/continuous wave Doppler samplings, and color flow Doppler imaging reviewed. Findings: Veins and Atria: >> Normal Left Atrium >> Normal Right Atrium >> Normal Pulmonary Veins >> Normal Systemic Veins >> Intact Atrial Septum A-V Canal: >> Normal Tricuspid Valve >> Normal Mitral Valve Ventricles: >> Muscular ventricular septal defect, small Small anterior muscular ventricular septal defect with high velocity left to right flow. The left ventricle to right ventricle gradient is not resolved, but exceeds 60 mmHg. >> Global left ventricular dysfunction, ruled out Normal left ventricular size, wall thickness and systolic function. >> Right ventricular hypertension, ruled out No suggestion of significant right ventricular hypertension based on septal position. >> Left ventricular dilation or enlargement, ruled out >> Normal Right Ventricle Conotruncus: >> Normal Pulmonary Valve >> Normal Aortic Valve Great Arteries: >> Normal Aorta >> Normal Aortic Arch Pericardium: (No abnormalities seen) Measures: Systemic Arterial Function: Name Value Units Z-Score Min Max Systolic BP 104 mmHg -0.21 83.3 129.61 Diastolic BP 50 mmHg -0.51 36.14 73.58 Pulse Pressure 54.00 mmHg Mean BP 68.0 mmHg -0.99 57.8 98.77 M-Mode: Name Value Units Z-Score Min Max M-Mode LV Diastolic 4.51 cm -0.92 4.14 5.52 Dimension M-Mode LV Systolic 2.90 cm -0.66 2.47 3.77 Dimension LV Fractional Shortening 35.70 % 0.16 29.02 42.54 LV Systolic Function: Name Value Units Z-Score Min Max Endocardial FS 35.70 % 0.16 29.02 42.54 FS Vs Stress 35.70 % Aorta: Name Value Units Z-Score Min Max Ao Annulus Diameter 1.71 cm -1.58 1.64 2.38 Ao Root Diameter 2.29 cm -1.22 2.07 3.22 AV Area (using Diameter) 2.30 cm 2 Sinotubular Junction 1.64 cm -2.46 1.77 2.8 Diameter Ascending Ao Diameter 1.96 cm -1.57 1.85 2.97 Analysis Aortic Valve Doppler: Name Value Units AV Area (using Diameter) 2.30 cm 2 [place]'s Name: OLIVIA CORONA MD Date/time of reading: Feb 02 2016 - 1:11:03 PM Report created at 1:12:30 PM on Tuesday, February 02, 2016 Report Number: Note:Study interpreted at [facility] unless otherwise noted Olivia Corona MD CARDIAC ECHO ORDER RUDDY documented in this encounter Visit Diagnoses Not on filedocumented in this encounter Care Teams Homoeopath Relationship Specialty Start Date End Date Harrison Lindsay MD [address] [place] [address] PCP - General 03/16/10 09/06/17 documented as of this encounter
--- OUTSIDE RECORDS SUMMARY | 2024-04-16 12:00 | XMS_ITS | Encounter Summary ---
Author Organization [facility] Address [address] [place] [address] Care Team Providers Care Senior Policy Analyst Name Role Phone Teressa Morrison MARKET MANAGER Primary Care Provider [phone] Encounter Details Date Type Department Care Team (Late st Contact Info) Description 07/05/2022 Lab Requisition [facility] Pathology & Laboratory Medicine - [facility] [address] [place] [address] Outr Resulting Lab, Provider Social History Tobacco [...] RNA BY PCR Routine 07/05/2022 10:15 EDT HEPATITIS B SURFACE ANTIGEN Routine 07/05/2022 10:15 EDT documented in this encounter Results * HEPATITIS B SURFACE ANTIGEN (07/05/2022 10:15 EDT) Hep B Surface Ag Negative Negative 07/06/2022 9:31 EDT [facility] Blood VENOUS BLOOD / Unknown 07/05/2022 10:15 EDT 07/05/2022 17:42 EDT Provider Outr Resulting Lab CHEMISTRY & BLOOD GAS ORDERABLES Performing Organization Address City/[facility]/ZIP Co de Phone Number [facility] [address] [place] [address] * HEPATITIS C AB W REFLEX TO HCV RNA BY PCR (07/05/2022 10:15 EDT) Hep C Antibody Negative Negative 07/06/2022 10:28 EDT [facility] Blood VENOUS BLOOD / Unknown 07/05/2022 10:15 EDT 07/05/2022 17:42 EDT Provider Outr Resulting Lab CHEMISTRY & BLOOD GAS ORDERABLES Performing Organization Address [facility] Co de Phone Number [facility] [address] [place] [address] documented in this encounter Visit Diagnoses Not on filedocumented in this encounter Care Teams Senior Policy Analyst Relationship Specialty Start Date End Date Teressa Morrison, MARKET MANAGER [address] [place] [id number] PCP - General 09/07/17 documented as of this encounter
--- OUTSIDE RECORDS SUMMARY | 2024-04-16 12:00 | XMS_ITS | Encounter Summary ---
Author Organization [facility], Located Within [facility] [place] [address] Care Team Providers Care Bag Machine Operator Name Role Phone Tamiko Teressa Coates APRN Primary Care Provider [phone] Reason for Visit * Reason Comments Establish Care * Consultation (Routine) - Closed Specialty Diagnoses / Procedures Referred By Wesly t Referred To Contact Obstetrics and Gynecology Diagnoses Ventricular septal defect Encounter for supervision of normal , unspecified, unspecified trimester Cardiac murmur, unspecified Ann Marie Weiss, RUBIA [address] [place] [address] [place] [address] [facility] Education Research Analyst [address] [place] [address] Referral ID Status Reason Start Date Expiration Date V isits Requested Visits Authorized [id number] Closed Consult, Test & Treat PCP Updated and/or Approved 08/02/2022 08/02/2023 6 6 Encounter Details Date Type Department Care Team (Late st Contact Info) Description 09/06/2022 10:00 AM EST Office Visit Obstetrics [place] [address] Doreen Martinez MD [facility] DR OBSTETRICS & [place] [address] Membranous ventricular septal defect; Obesity affecting in second trimester Social History Tobacco Use Types Packs/Day Years Used Date Smoking Tobacco: Never Smokeless Tobacco: Never Comments Yes Sex and Gender Information Value Date Recorded Sex Assigned at Not on file Gender Identity Not on file Sexual Orientation Not on file documented as of this encounter Last Filed Vital Signs Vital Sign Reading Time Taken Comments Blood Pressure 105/49 09/06/2022 9:42 AM EST Pulse - - Temperature - - Respiratory Rate - - Oxygen Saturation - - Inhaled Oxygen Concentration - - Weight 86.4 kg (190 lb 6.4 oz) 09/06/2022 9:42 A M EST Height - - Body Mass Index - - documented in this encounter Progress Notes * Doreen Martinez MD - 09/06/2022 10:00 AM EST Maternal Medicine Consult Note Lorena Preston is a 21 y.o. who is at 20w0d gestation by ultrasound. She is seen in consultation at the request of Ann Marie Weiss Joaquin for evaluation of personal history of structural heart diesase (ventriculo septal defect.) She was seen today for maternal- medicine consultation and ultrasound evaluation. She reports seeing a wallpaper hanger helper in the past 2 years. She believes she has not had an echocardiogram since childhood. The wallpaper hanger helper did not plan an echocardiogram. Her initial cardiology care was by Ruperto Chun MD from [facility] so we do not have records Record Review No additional issues Past Medical History: Diagnosis Date ??? BMI 34.0-34.9,adult ??? Congenital heart defect ??? VSD (ventricular septal defect) Past Surgical History: Procedure Laterality Date ??? SECTION OB History Para Term AB Living 2 0 0 0 0 0 SAB IAB Ectopic Multiple Live Births 0 0 0 0 0 # Outcome Date GA Lbr Isac/2nd Weight Sex Delivery Anes PTL Lv 2 Current 1 A family history was obtained. There is no history of structural abnormalities, inheritable disease, learning disability,intellectual disability, epilepsy, or repetitive loss. Social: Denies illicit substance use or alcohol Denies tobacco use Meds Cholecalciferol (Vitamin D3), Doxylamine-Pyridoxine, albuteroL, aspirin EC, ondansetron, pantoprazole EC, and vit/iron fum/folic ac No Known Allergies Review of Systems Constitutional: generally well Eyes: negative Ears Nose Throat:negative Respiratory: no cough, shortness of breath, or wheezing Cardiac: negative Gastrointestinal: Normal bowel movements, denies hematochezia, melena or pain. Genitourinary: Negative for dysuria Musculoskeletal: negative Skin: negative Psychiatric: Negative for anxiety, depression Endocrine:negative Contractions: none Leaking: none Bleeding: none Ultrasound IMPRESSION 2nd Trimester - Detailed Morphology - Summary Single intrauterine with a gestational age of 20w 0d based on Clinical KOBE Composite age based on the current ultrasound alone is 21w 0d. Current growth parameters are consistent with prior dating indicating normal growth. Amniotic fluid volume is subjectively normal for gestational age Detailed anatomic evaluation was performed and no structural abnormalities are noted. ?? Physical Exam Patient Vitals for the past 24 hrs: BP 09/06/22 0942 105/49 General: alert, well appearing, in no apparent distress HEENT: normocephalic, atraumatic Extremities: normal Neurologic:alert, oriented, normal speech Abdomen: abdomen is soft without significant tenderness Psychiatric: affect is appropriate. Uterine Size: consistent with dates Assessment and Recommendations: 21 y.o. at 20w0d weeks gestation. Personal history of structural heart disease without associated syndrome. There is no evidence for recurrence today. I recommend a echocardiogram which is scheduled. Previous . Based on calculator the likelihood of success is about 50%. I recommended she take this into account when deciding about mode of delivery. Should be considered to be donehere, we could do a telehealth consult. I appreciate the opportunity to be involved in this patient's care and am available if further questions should arise. Doreen Martinez MD 09/06/2022 Cc: Ann Marie Weiss CN[address] [place] [address] This was a 30 minute encounter all of which was face to face consultation regarding personal history of structural heart disease and prior . documented in this encounter Plan of Treatment Not on file documented as of this encounter Visit Diagnoses Diagnosis Membranous ventricular septal defect Ventricular septal defect Obesity affecting in second trimester documented in this encounter Care Teams Bag Machine Operator Relationship Specialty Start Date End Date Teressa Morrison, CARA PCP - General Family Medicine 02/04/21 documented as of this encounter
--- OUTSIDE RECORDS SUMMARY | 2024-04-16 12:00 | XMS_ITS | Continuity of Care Document ---
Author Organization [place] [facility], [facility] Address [address] [place] [address] Assessment No assessment recorded. Plan of Treatment Reminders Order Date Submit Date Provider Last Modified By Organization Details Last Modified Time Details Appointments None recorded. Lab None recorded. Referral None recorded. Procedures None recorded. Surgeries None recorded. Imaging None recorded. Medication Orders Lidocaine Viscous 2 % mucosal solution 2023 024 [id number], [address] [place] [address], [id number], 10:25:39 Patient TargetsNo targets recorded. Patient Instructions Encounter Date Encounter Id Patient Instructions Last Modified By Organization Details Last Modified Time 01/27/2024 [id number] 1. I have sent prescription for viscous [...] J45.20; Problem Code Type: ICD-10; Not Available [facility] 3 05:34:28 Ventricular septal defect Active 201604/19/2018 - Comments only - Teressa Morrison SALES CONTRACTS ANALYST - followed by Dr Chun global marketing manager , last appt 03/2018 Problem Code: Q21.0; Problem Code Type: ICD-10; Not Available [facility] 3 05:34:28 Pain of right shoulder joint Active 2016 Problem Code: M25.511; Problem Code Type: ICD-10; Not Available [facility] 3 05:34:28 Pleuritic pain Completed 201610/15/2017 Problem Code: R07.81; Problem Code Type: ICD-10; Not Available [facility] 3 05:34:28 Counseling Completed 201608/21/2017 Problem Code: Z71.89; Problem Code Type: ICD-10; Not Available [facility] 3 05:34:29 Developmental academic disorder Active 2016 Problem Code: F81.9; Problem Code Type: ICD-10; Not Available [facility] 3 05:34:29 Sleep disorder Active 2016 Problem Code: G47.8; Problem Code Type: ICD-10; Not Available [facility] 3 05:34:29 Dyspnea Active 2016 Problem Code: R06.09; Problem Code Type: ICD-10; Not Available [facility] 3 05:34:29 Heart murmur Active 2017 Problem Code: R01.1; Problem Code Type: ICD-10; Not Available [facility] 3 05:34:29 Well child visit Completed 201706/10/2018 Problem Code: Z00.129; Problem Code Type: ICD-10; Not Available [facility] 3 05:34:29 Pain of left knee joint Completed 201707/11/2023 Problem Code: M25.562; Problem Code Type: ICD-10; Not Available [facility] 4 05:34:20 Major depression, single episode Active 2019 Problem Code: F32.9; Problem Code Type: ICD-10; Not Available [facility] 3 05:34:29 Diarrhea Completed 201903/05/2020 02/13/2020 - Comments only - Laila Ange Gold PROJECT MANAGEMENT ADVISOR - with body aches, low grade fever/chills . VSS, physical exam reassuring. COVID-19 testing performed by Kristi ROBISON according to protocol. Educated pt on importance of quarantine, red flag sx, and encouraged good hydration. Problem Code: R19.7; Problem Code Type: ICD-10; Not Available [facility] 3 05:34:29 Otitis media Completed 201904/29/2020 04/08/2020 - Comments only - Laila Ange Gold PROJECT MANAGEMENT ADVISOR - Prescribed Augmentin 875-125 mg BID x 7 days for moderate AOM. Discussed importance of taking full course of treatment and use of probiotics to prevent diarrhea from abx. Encouraged continued symptomatic mgmt. Problem Code: H66.90; Problem Code Type: ICD-10; Not Available [facility] 3 05:34:30 Amenorrhea Active 201905/21/2020 - Comments only - Teressa Morrison SALES CONTRACTS ANALYST - 2ndary to nexplanon removal- expected- sees [facility]- if persists they will consider TX with progestin Problem Code: N91.2; Problem Code Type: ICD-10; Not Available [facility] 3 05:34:30 Generalized anxiety disorder Active 202005/09/2021 - Comments only - Teressa Morrison SALES CONTRACTS ANALYST - followed by [facility] Problem Code: F41.1; Problem Code Type: ICD-10; Not Available [facility] 3 05:34:30 Low grade squamous intraepithelia l lesion on cervical Papanicolaou smear Active 2021 Problem Code: R87.612; Problem Code Type: ICD-10; Not Available [facility] 3 05:34:30 Active 2021 Problem Code: Z33.1; Problem Code Type: ICD-10; Not Available [facility] 3 05:34:30 Otitis media of right ear Completed 201805/21/2020 Problem Code: H66.91; Problem Code Type: ICD-10; Not Available [facility] 3 05:34:30 Fever Completed 201905/21/2020 Problem Code: R50.9; Problem Code Type: ICD-10; Not Available [facility] 3 05:34:30 Asthma Active 2022 Tiburcio Celis MA [facility], [facility] 3 13:12:33 Adult health examination Active 2022 Problem Code: Z00.00; Problem Code Type: ICD-10; Not Available [facility] 4 05:34:14 Completed 202007/08/2023 Problem Code: Z33.1; Problem Code Type: ICD-10; Not Available [facility] 4 05:34:17 Toothache Active 2023 PASCALE ALVAREZ PA-C [facility] [address], [place], [address] , [facility] 4 10:23:59 Notes:*Problem Name: Intenti onal self-harm by unspecified sharp object, subsequent encounter *Problem Status: active *Comments: *Problem Code: X78.9xxD *Problem Code Type: ICD-10 *Note Date: 08/19/2017 Problem Notes None recorded. Medical Equipment None Reported. [...] Not Available Not Available Not Avai lable Nexplanon 68 mg subdermal implant 2017 active [...] Updated DateTime 4 164.39 cm 33.2 kg/m2 69860.2 9 g 97.9 [degF] 99 % 99 % 70 /min 17 /min 115 mm[Hg] 77 mm[Hg] LAURA PUCKETT MA [place] [facility] 4 09:59:05 Social History Question Answer Notes LastModified by Organizat ion Details LastModified Time Tobacco Smoking Status Never Smoker LAURA PUCKETT MA null, [place] [facility]. 01/27/2024 09:57:20 What Was The Date Of Your Most Recent Tobacco Screening? 01/27/2024 [email or web address] Information not available 01/27/2024 Has Tobacco Cessation Counseling Been Provided? No Information not available 01/27/2024 Do You Or Have You Ever Used Any Other Forms Of Tobacco Or Nicotine? No Information not available 01/27/2024 Sex: Female Functional [...] Recorded Time MMR 10/19/2005 completed Not Available [facility] 04:09:53 MMR 09/28/2001 completed Not Available [facility] 04:09:53 DTaP, unspecified formulation 10/16/2004 completed Not Available [facility] 08/12/2023 04:09:53 DTaP, unspecified formulation 2000 completed Not Available [facility] 08/12/2023 04:09:53 DTaP, unspecified formulation 12/29/2001 completed Not Available [facility] 08/12/2023 04:09:53 DTaP, unspecified formulation 02/06/2001 completed Not Available [facility] 08/12/2023 04:09:54 DTaP, unspecified formulation 04/10/2001 completed Not Available [facility] 08/12/2023 04:09:54 meningococcal ACWY, unspecified formulation 01/25/2013 completed Not Available [facility] 08/12/2023 04:09:54 meningococcal MCV4P 05/31/[address] [facility] 08/12/2023 04:09:54 Tdap 11/24/2012 completed Not Available [facility] 04:09:54 HPV, unspecified formulation 11/24/2012 completed Not Available [facility] 08/12/2023 04:09:54 HPV, unspecified formulation 01/25/2013 completed Not Available [facility] 08/12/2023 04:09:54 HPV, unspecified formulation 05/29/2013 completed Not Available [facility] 08/12/2023 04:09:54 Pneumococcal Conjugate, unspecified formulation 2000 completed Not Available [facility] 08/12/2023 04:09:54 Pneumococcal Conjugate, unspecified formulation 12/29/2001 completed Not Available [facility] 08/12/2023 04:09:55 Pneumococcal Conjugate, unspecified formulation 02/06/2001 completed Not Available [facility] 08/12/2023 04:09:55 Pneumococcal Conjugate, unspecified formulation 04/10/2001 completed Not Available [facility] 08/12/2023 04:09:55 Hib, unspecified formulation 2000 completed Not Available [facility] 08/12/2023 04:09:55 Hib, unspecified formulation 12/29/2001 completed Not Available [facility] 08/12/2023 04:09:55 Hib, unspecified formulation 02/06/2001 completed Not Available [facility] 08/12/2023 04:09:55 Hib, unspecified formulation 04/10/2001 completed Not Available [facility] 08/12/2023 04:09:55 varicella 11/30/2007 completed Not Available [facility] 04:09:55 varicella 09/28/2001 completed Not Available [facility] 04:09:55 Hep B, unspecified formulation 04/10/2001 completed Not Available [facility] 08/12/2023 04:09:56 Hep B, unspecified formulation 04/20/2002 completed Not Available [facility] 08/12/2023 04:09:56 Hep B, unspecified formulation 06/29/2001 completed Not Available [facility] 08/12/2023 04:09:56 Hep A, ped/adol, 2 dose 05/31/2018 completed Not Available [facility] 08/12/2023 04:09:56 Hep A, unspecified formulation 06/01/2017 completed Not Available [facility] 08/12/2023 04:09:56 influenza, unspecified formulation 07/19/2017 completed Not Available [facility] 08/12/2023 04:09:56 influenza, unspecified formulation 08/24/2016 completed Not Available [facility] 08/12/2023 04:09:56 polio, unspecified formulation 10/19/2005 completed Not Available [facility] 08/12/2023 04:09:56 polio, unspecified formulation 2000 completed Not Available [facility] 08/12/2023 04:09:57 polio, unspecified formulation 12/29/2001 completed Not Available [facility] 08/12/2023 04:09:57 polio, unspecified formulation 02/06/2001 completed Not Available [facility] 08/12/2023 04:09:57 Past Encounters Encounter ID Performer Location Encounter Start Date Encounter Closed Date Diagnosis/Indication Diagnosis SNOMED-CT Code [id number] PASCALE ALVAREZ PA-C [address],[facility] [address] [place] [address] 01/27/2024 09:39:50 01/27/2024 10:28:07 Toothache [id number] Health Concerns Section Related Observation LastModified by Organization Detai ls LastModified Time None Recorded Concern Status LastModified by Organization Details LastModified Time None Recorded Payers Encounter Date Sequence Insurance Name Policy Number Policy Nicholas Covered Member ID Nicholas Member ID Guarantor Name 01/27/2024 1 [facility] (MEDICAID) Lorena Preston [id number] Lorena Preston Notes Date Note Type Note Provider Name and Address Organization Details Recorded Time 01/27/2024 text/html HPI Notes: Deirdre is a 23-year-old female who presents with concerns for dry socket. She had her upper and lower wisdom teeth removed on the right side on Tuesday the , today is now Tuesday the . This was done at [facility]. She was doing well Tuesday and however [...] dentist and they recommended she come here. [address], [place], [address], [facility]. 01/27/2024 12:05:29 OBGyn Episode No OBEpisode recorded.
--- OUTSIDE RECORDS SUMMARY | 2024-04-16 12:00 | XMS_ITS | Encounter Summary ---
Author Organization [facility] [place] [address] Care Team Providers Care Saw Tailer Name Role Phone TamikoTeressa Aminata MARROQUIN Primary Care Provider [phone] Reason for Visit * Reason Comments Follow-up Ultrasound Encounter Details Date Type Department Care Team (Late st Contact Info) Description 01/10/2023 10:00 AM EDT Office Visit Obstetrics [place] [address] Claus Hagen MD [facility] DR OBSTETRICS & [place] [address] Insulin controlled gestational diabetes mellitus (GDM) in third trimester; History of delivery Social History Tobacco Use Types Packs/Day Years [...] Sign Reading Time Taken Comments Blood Pressure 112/64 01/10/2023 9:37 AM EDT Pulse 81 01/10/2023 9:37 AM EDT Temperature 36.3 ??C (97.3 ??F) 01/10/2023 9:37 AM ED T Respiratory Rate - - Oxygen Saturation 99% 01/10/2023 9:37 AM EDT Inhaled Oxygen Concentration - - Weight 89.3 kg (196 lb 14.4 oz) 01/10/2023 9:37 AM EDT Height - - Body Mass Index - - documented in this encounter Progress Notes * Claus Hagen MD - 01/10/2023 10:00 AM EDT Gestational age: 38w0d, returns for follow-up ultrasound and limited MFM consult. Patient Active Problem List Diagnosis Date Noted ??? GDM (gestational diabetes mellitus) 12/14/2022 ??? Anxiety disorder, unspecified 02/16/2021 ??? BMI 34.0-34.9,adult 02/16/2021 ??? Depression 02/16/2021 ??? Obesity affecting in second trimester 02/16/2021 ??? Congenital heart defect ??? Attention-deficit hyperactivity disorder, unspecified type 09/07/2016 ??? Mild intermittent asthma, uncomplicated 08/24/2016 ??? Sleep difficulties 06/01/2016 ??? Intentional self-harm by sharp object 01/19/2016 ??? Learning difficulty 11/24/2012 ??? Membranous ventricular septal defect 11/24/2012 Resolved Hospital Problems No resolved problems to display. Ultrasound Date: 01/10/2023 Growth appropriate for gestational age Amniotic fluid volume normal Presentation cephalic Placenta fundal anatomy appears normal BPP 8/8 Physical Exam BP 112/64 Pulse 81 Temp 36.3 ??C (97.3 ??F) Wt 89.3 kg (196 lb 14.4 oz) SpO2 99% General: alert, well appearing, in no apparent distress, oriented to person, place and time HEENT: normocephalic, atraumatic Abdomen: Gravid, soft, nontender Extremities: no edema Neurologic:alert, oriented, normal speech, no focal findings or movement disorder noted Psychiatric: Affect is Appropriate. Assessment and Recommendations: 22 y.o. year old female at 38w0d weeks gestation with GDM A2. Normal growth, fluid, placentation, BPP. Patient reports her current insulin dose is 8units at bedtime of long acting insulin. Also states she is in good control. Plan for [facility] at [facility] due to prior delivery. Scheduled 01/17/23; handout reviewed.. I appreciate the opportunity to be involved in this patients care, and am available if further questions should arise. Claus HAGEN MD 01/10/2023 Cc: Ann Marie Cohn, with copy of ultrasound report documented in this encounter Plan of Treatment Not on file documented as of this encounter Visit Diagnoses Diagnosis Insulin controlled gestational diabetes mellitus (GDM) in third trimester History of delivery Other postprocedural status documented in this encounter Care Teams Saw Tailer Relationship Specialty Start Date End Date Teressa Morrison, CARA PCP - General Family Medicine 02/04/21 documented as of this encounter
--- OUTSIDE RECORDS SUMMARY | 2024-04-16 12:00 | XMS_ITS | Encounter Summary ---
[place] [address] Care Team Providers Care Support Services Specialist Name Role Phone Tamiko Teressa Aminata MARROQUIN Primary Care Provider Reason for Referral * Diagnostic Test (Routine) - Closed Specialty Diagnoses / Procedures Referred By Contac t Referred To Contact Radiology Diagnoses Ventricular septal defect Procedures US OB Detailed Morphology Ann Marie Weiss CNM [address] [facility] [address] [place] [address] [place] [address] Referral ID Status Reason Start Date Expiration Date V isits Requested Visits Authorized [id number] Closed Specialty Service Requested 08/02/2022 01/31/2024 1 1 Reason for Visit * Diagnostic Test (Routine) - Closed Specialty Diagnoses / Procedures Referred By Contac t Referred To Contact Radiology Diagnoses Ventricular septal defect Procedures US OB Detailed Morphology Ann Marie Weiss CNM [address] [facility] [address] [place] [address] [facility] [place] [address] Referral ID Status Reason Start Date Expiration Date V isits Requested Visits Authorized [id number] Closed Specialty Service Requested 08/02/2022 01/31/2024 1 1 Encounter Details Date Type Department Care Team (Latest Contact Info) Description 09/06/2022 8:13 AM EST - 09/06/2022 11:59 PM EST Hospital [place] [address] Ann Marie Weiss CNM [address] [place] [address] [address] [place] [address] Ventricular septal defect Discharge Disposition: Home Social History Tobacco Use [...] Priority Date/Time Associated Diagnosis Comments US OB DETAILED MORPHOLOGY Routine 09/06/2022 9:55 AM EST Ventricular septal defect documented in this encounter Results * US OB Detailed Morphology (09/06/2022 9:55 AM EST) Anatomical Region Laterality Modality Pelvis, Abdomen Ultrasound 09/06/2022 9:45 AM EST Impressions 09/06/2022 9:59 AM EST 2nd Trimester - Detailed Morphology - Summary Single intrauterine with a gestational age of 20w 0d based on Clinical KOBE Composite age based on the current ultrasound alone is 21w 0d. Current growth parameters are consistent with prior dating indicating normal growth. Amniotic fluid volume is subjectively normal for gestational age Detailed anatomic evaluation was performed and no structural abnormalities are noted. Thank you for letting us participate in the care of this patient. If you are a health care provider and have any questions regarding this report, please contact the number above. For patients who have questions, please contact the health memory care program resident that requested your imaging first. ?Asia Raymond, Staff Physician Electronically Signed Final Report ?? 09/06/2022 09:58 am Narrative 09/06/2022 9:59 AM EST OBSTETRICS REPORT ?(Signed Final 09/06/2022 09:58 am) PATIENT INFO: ID #: ? [id number] ?: ??[birth year] (21 yrs)(F) Name: ? LORENA PRESTON ? Visit Date: 09/06/2022 09:45 am PERFORMED BY: Performed By: ? Genoveva Newton RDMS Attending: ?Segundo GODOY, Asia Davila Referred By: ?ANN MARIE WEISS Location: ? [place] SERVICE(S) PROVIDED: [facility] - Detailed Morphology - [id number] ? [id number] INDICATIONS: 20 weeks gestation of ?Z3A.20 historty of heart murmur and small Vsd VITAL SIGNS: Weight (lb): 188.0 Height: ?5'4 ? BMI: ? 32.27 EVALUATION: Num Of Fetuses: ? 1 Heart Rate(bpm): ??141 Cardiac Activity: ? Observed, normal rhythm Presentation: ? Breech Placenta: ? Fundal P. Cord Insertion: ?Within Normal Limits Amniotic Fluid MYRA FV: ?Subjectively normal for gestational age --------- BIOMETRY: --------- BPD: ?48.2 ??mm ? G.Age: ?? 20w 4d OFD: ?67.9 ??mm HC: ?187.5 ??mm ? G.Age: ?? 21w 0d AC: ?171.5 ??mm ? G.Age: ?? 22w 1d FL: ? 33.1 ??mm ? G.Age: ?? 20w 2d HUM: ?33.2 ??mm ? G.Age: ?? 21w 1d CER: ?21.0 ??mm ? G.Age: ?? 20w 0d NFT: ?5.66 ??mm NB: ?4.9 ??mm LV: ?7.1 ??mm CM: ?5.4 ??mm CI: ?71.0 ??% ? 70 - 86 FL/HC: ? 17.7 ??% ? 16.8 - 19.8 HC/AC: ? 1.09 ?1.09 - 1.39 FL/BPD: ?68.7 ??% FL/AC: ? 19.3 ??% ? 20 - 24 Est. FW: ? 411 ??gm ?0 lb 14 oz OB HISTORY: : ?2 ? Term: ?? 1 Living: ? 1 GESTATIONAL AGE: Clinical KOBE: ??20w 0d ?KOBE: ?? 01/24/23 U/S Today: ? 21w 0d ?KOBE: ?? 01/17/23 Best: ?20w 0d ?? Det. By: ??Clinical KOBE ? KOBE: ?? 01/24/23 TARGETED ANATOMY: Central Nervous System Calvarium/Cranial V.: ??Within Normal Limits Intracranial Nina: ? Within Normal Limits Cavum: ? Within Normal Limits Parenchyma: ?Within Normal Limits Lateral Ventricles: ?Within Normal Limits Choroid Plexus: ?Within Normal Limits Cereb./Vermis: ? Within Normal Limits Cisterna Magna: ?Within Normal Limits Midline Falx: ?Within Normal Limits Spine Cervical: ?Visualized Thoracic: ?Visualized Lumbar: ?Visualized Sacral: ?Visualized Shape/Curvature: ? Visualized Head/Neck Face: ?Within Normal Limits Lips: ?Within Normal Limits Neck: ?Within Normal Limits Nuchal Fold: ? Within Normal Limits Nasal Bone: ?Present Profile: ? Visualized Orbits/Eyes: ? Visualized Mandible: ?Visualized Maxilla: ? Visualized Thorax Thoracic Contour: ?Within Normal Limits Lungs: ? Visualized 4 Chamber View: ?Within Normal Limits Cardiac Activity: ?Normal Rhythm Rt Outflow Tract: ?Visualized Lt Outflow Tract: ?Visualized Aortic Arch: ? Visualized Ductal Arch: ? Visualized SVC: ? Visualized Cardiac [place]: ?Visualized Diaphragm: ? Visualized 3 Vessel View: ? Visualized 3 V Trachea View: ?Visualized IVC: ? Visualized Crossing: ?Visualized Abdomen Ventral Wall: ?Visualized Cord Insertion: ?Visualized Situs: ? Normal Stomach: ? Visualized Liver: ? Visualized Lt Kidney: ? Visualized Rt Kidney: ? Visualized Bladder: ? Visualized Bowel: ? Visualized Extremities Lt Humerus: ?Within Nomal Limits Rt Humerus: ?Within Normal Limits Lt Forearm: ?Within Normal Limits Rt Forearm: ?Within Normal Limits Lt Hand: ? Within Normal Limits Rt Hand: ? Within Normal Limits Lt Femur: ?Within Normal Limits Rt Femur: ?Within Normal Limits Lt Lower Leg: ?Within Normal Limits Rt Lower Leg: ?Within Normal Limits Lt Foot: ? Visualized Rt Foot: ? Visualized Other Umbilical Cord: ?3 vessel cord Genitalia: ? Female CERVIX UTERUS ADNEXA: Right Ovary Size(cm) ? 2.8 ??x ?? 2.6 ?x ??1.4 ? Vol(ml): 5.3 Visualized Left Ovary Not visualized Procedure Note Asia Raymond MD - 09/06/2022 OBSTETRICS REPORT (Signed Final 09/06/2022 09:58 am) PATIENT INFO: ID #: [id number] : [birth year] (21 yrs)(F) Name: LORENA PRESTON Visit Date: 09/06/2022 09:45 am PERFORMED BY: Performed By: Genoveva Newton RDMS Attending: Asia Raymond MD Referred By: ANN MARIE WEISS Location: [place] SERVICE(S) PROVIDED: [facility] - Detailed Morphology - [id number] INDICATIONS: 20 weeks gestation of Z3A.20 historty of heart murmur and small Vsd VITAL SIGNS: Weight (lb): 188.0 Height: 5'4 BMI: 32.27 EVALUATION: Num Of Fetuses: 1 Heart Rate(bpm): 141 Cardiac Activity: Observed, normal rhythm Presentation: Breech Placenta: Fundal P. Cord Insertion: Within Normal Limits Amniotic Fluid MYRA FV: Subjectively normal for gestational age --------- BIOMETRY: --------- BPD: 48.2 mm G.Age: 20w 4d OFD: 67.9 mm HC: 187.5 mm G.Age: 21w 0d AC: 171.5 mm G.Age: 22w 1d FL: 33.1 mm G.Age: 20w 2d HUM: 33.2 mm G.Age: 21w 1d CER: 21.0 mm G.Age: 20w 0d NFT: 5.66 mm NB: 4.9 mm LV: 7.1 mm CM: 5.4 mm CI: 71.0 % 70 - 86 FL/HC: 17.7 % 16.8 - 19.8 HC/AC: 1.09 1.09 - 1.39 FL/BPD: 68.7 % FL/AC: 19.3 % 20 - 24 Est. FW: 411 gm 0 lb 14 oz OB HISTORY: : 2 Term: 1 Liv[place] GESTATIONAL AGE: Clinical KOBE: 20w 0d KOBE: 01/24/23 U/S Today: 21w 0d KOBE: 01/17/23 Best: 20w 0d Det. By: Clinical KOBE KOBE: 01/24/23 TARGETED ANATOMY: Central Nervous System Calvarium/Cranial V.: Within Normal Limits Intracranial Nina: Within Normal Limits Cavum: Within Normal Limits Parenchyma: Within Normal Limits Lateral Ventricles: Within Normal Limits Choroid Plexus: Within Normal Limits Cereb./Vermis: Within Normal Limits Cisterna Magna: Within Normal Limits Midline Falx: Within Normal Limits Spine Cervical: Visualized Thoracic: Visualized Lumbar: Visualized Sacral: Visualized Shape/Curvature: Visualized Head/Neck Face: Within Normal Limits Lips: Within Normal Limits Neck: Within Normal Limits Nuchal Fold: Within Normal Limits Nasal Bone: Present Profile: Visualized Orbits/Eyes: Visualized Mandible: Visualized Maxilla: Visualized Thorax Thoracic Contour: Within Normal Limits Lungs: Visualized 4 Chamber View: Within Normal Limits Cardiac Activity: Normal Rhythm Rt Outflow Tract: Visualized Lt Outflow Tract: Visualized Aortic Arch: Visualized Ductal Arch: Visualized SVC: Visualized Cardiac Miramonte: Visualized Diaphragm: Visualized 3 Vessel View: Visualized 3 V Trachea View: Visualized IVC: Visualized Crossing: Visualized Abdomen Ventral Wall: Visualized Cord Insertion: Visualized Situs: Normal Stomach: Visualized Liver: Visualized Lt Kidney: Visualized Rt Kidney: Visualized Bladder: Visualized Bowel: Visualized Extremities Lt Humerus: Within Nomal Limits Rt Humerus: Within Normal Limits Lt Forearm: Within Normal Limits Rt Forearm: Within Normal Limits Lt Hand: Within Normal Limits Rt Hand: Within Normal Limits Lt Femur: Within Normal Limits Rt Femur: Within Normal Limits Lt Lower Leg: Within Normal Limits Rt Lower Leg: Within Normal Limits Lt Foot: Visualized Rt Foot: Visualized Other Umbilical Cord: 3 vessel cord Genitalia: Female CERVIX UTERUS ADNEXA: Right Ovary Size(cm) 2.8 x 2.6 x 1.4 Vol(ml): 5.3 Visualized Left Ovary Not visualized IMPRESSION 2nd Trimester - Detailed Morphology - Summary Single intrauterine with a gestational age of 20w 0d based on Clinical KOBE Composite age based on the current ultrasound alone is 21w 0d. Current growth parameters are consistent with prior dating indicating normal growth. Amniotic fluid volume is subjectively normal for gestational age Detailed anatomic evaluation was performed and no structural abnormalities are noted. Thank you for letting us participate in the care of this patient. If you are a health care provider and have any questions regarding this report, please contact the number above. For patients who have questions, please contact the health memory care program resident that requested your imaging first. Asia Raymond, Staff Physician Electronically Signed Final Report 09/06/2022 09:58 am Ann Marie Jacksonrosekathi CNM IMG US OB ORDERABLE S documented in this encounter Visit Diagnoses Diagnosis Ventricular septal defect documented in this encounter Care Teams Support Services Specialist Relationship Specialty Start Date End Date Teressa Morrison APRN PCP - General Family Medicine 02/04/21 documented as of this encounter
--- OUTSIDE RECORDS SUMMARY | 2024-04-16 12:00 | XMS_ITS | Encounter Summary ---
[place] [address] Care Team Providers Care Vp Digital Marketing Social Media And Crm Name Role Phone MinTeressa zepeda Aminata MARROQUIN Primary Care Provider [phone] Encounter Details Date Type Department Care Team (Late st Contact Info) Description 01/14/2023 Telephone Obstetrics [place] [address] Porsha Daniel MD [facility] DR OBSTETRICS & [place] [address] Social History Tobacco Use Types Packs/Day Years Used Date Smoking Tobacco: Never Smokeless Tobacco: Never Alcohol Use Standard Drinks/Week Comments Not Currently 0 (1 standard drink = 0.6 oz pur e alcohol) Comments Yes Sex and Gender Information Value Date Recorded Sex Assigned at Not on file Gender Identity Not on file Sexual Orientation Not on file documented as of this encounter Miscellaneous Notes * Telephone Encounter - Porsha Daniel MD - 01/14/2023 12:10 AM EDT Telephone Encounter 22 yo female at 38w4d w/hx of C/S paged. Returned call with no answer. Left message to callback with any concerns. Porsha Daniel MD documented in this encounter Plan of Treatment Not on file documented as of this encounter Visit Diagnoses Not on filedocumented in this encounter Care Teams Vp Digital Marketing Social Media And Crm Relationship Specialty Start Date End Date Teressa Morrison APRN PCP - General Family Medicine 02/04/21 documented as of this encounter
--- OUTSIDE RECORDS SUMMARY | 2024-04-16 12:00 | XMS_ITS | Encounter Summary ---
[place] [address] Care Team Providers Care Automotive Tire Testing Supervisor Name Role Phone Teressa Morrison APRN Primary Care Provider [phone] Encounter Details Date Type Department Care Team (Latest Contact Info) Description 09/06/2022 Travel Social History Tobacco Use Types Packs/Day [...] on filedocumented in this encounter Care Teams [employer] Supervisor Relationship Specialty Start Date End Date Teressa Morrison APRN PCP - General Family Medicine 02/04/21 documented as of this encounter
--- OUTSIDE RECORDS SUMMARY | 2024-04-16 12:00 | XMS_ITS | Encounter Summary ---
Author Organization [facility] Address [address] [place] [address] Care Team Providers Care Chauffeur Name Role Phone Teressa Morrison RN INTERN Primary Care Provider [phone] Encounter Details Date Type Department Care Team (Late st Contact Info) Description 03/23/2018 Documentation Visit [facility] Pediatric Cardiology - [address] [id number] Ruperto Chun MD [address] [place] [phone] Social History Tobacco Use Types Packs/Day Years Used Date Smoking Tobacco: Never Assessed Sex and Gender Information Value Date Recorded Sex Assigned at Not on file Gender Identity Not on file Sexual Orientation Not on file documented as of this encounter Progress Notes * Ruperto Chun MD - 03/23/2018 0000 EDT [facility] PEDI[facility]IC [facility]IOLOGY - [facility] PROGRESS / FOLLOWUP NOTE - 03/23/2018 Aminta Whatley MD [facility] - Pediatrics [address] [place] [phone] Dear Aminta, I saw Deirdre on 03/23/2018 in our [facility] clinic. 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
--- OUTSIDE RECORDS SUMMARY | 2024-04-16 12:00 | XMS_ITS | Encounter Summary ---
Author Organization [facility] Address [address] [place] [address] Care Team Providers Care Trimmer Loader Name Role Phone Teressa Morrison EXTRUDER OPERATOR HELPER Primary Care Provider [phone] Encounter Details Date Type Department Care Team (Late st Contact Info) Description 07/05/2022 Lab Requisition [facility] Pathology & Laboratory Medicine - [address] [address] Outr Resulting Lab, Provider Social History Tobacco [...] Procedure Name Priority Date/Time Associated Diagnosis Comments CHLAMYDIA/N. GONORRHOEAE AMPLIFIED NUCLEIC ACID Routine 07/05/2022 9:00 EDT documented in this encounter Results * CHLAMYDIA/N. GONORRHOEAE AMPLIFIED RNA (07/05/2022 9:00 EDT) Neisseria gonorrhoeae Result Negative Negative 07/06/2022 14:47 EDT [facility] Chlamydia trachomatis Result Negative Negative 07/06/2022 14:47 EDT [facility] Swab ENTIRE ENDOCERVIX / Unknown 07/05/2022 9:00 EDT 07/05/2022 22:35 EDT Provider Outr Resulting Lab MICROBIOLOGY - GENERAL ORDERABLES [facility] [address] [place] [address] documented in this encounter Visit Diagnoses Not on filedocumented in this encounter Care Teams Trimmer Loader Relationship Specialty Start Date End Date Teressa Morrison, TER[address] [place] [address] PCP - General 09/07/17 documented as of this encounter
--- OUTSIDE RECORDS SUMMARY | 2024-04-16 12:00 | XMS_ITS | Encounter Summary ---
Author Organization [facility] [place] [address] Care Team Providers Care Tie Maker Name Role Phone Teressa Morrison APRN Primary Care Provider [phone] Reason for Visit * Consultation (Routine) - Closed Specialty Diagnoses / Procedures Referred By Wesly crump Referred To Contact Obstetrics and Gynecology Diagnoses , unspecified gestational age Previous delivery, antepartum condition or complication Amniotic fluid index borderline low Ventricular septal defect Healed pelvic floor repair affecting in second trimester Ann Marie Robertson, RUBIA [address] [place] [address] [place] [address] [facility] [address] [place] [address] Referral ID Status Reason Start Date Expiration Date V isits Requested Visits Authorized [id number] Closed Consult, Test & Treat PCP Updated and/or Approved 12/01/2022 12/01/2023 6 6 Encounter Details Date Type Department Care Team (Late st Contact Info) Description 12/14/2022 11:00 AM EDT TH Visit (TeleHealth) Obstetrics [place] [address] Asia Sandoval MD [facility] DR OBSTETRICS & [place] [address] History of delivery Social History Tobacco Use [...] as of this encounter Progress Notes * Asia Sandoval MD - 12/14/2022 11:00 AM EDT Patient verbally consents to this telephone visit and understands that this visit may be billed, similar to a clinic office visit. I provided care to the patient today via telephone call. The total time associated with this visit was 30 minutes. Gestational age: 34w1d, returns for follow-up ultrasound and limited MFM consult. FM felt, no LOF, no bleeding or mary. GDM on NPH 2u at hs Reports Fasting 87-90 1 hours Pp 100-130 Recent US US EFW 88% MYRA 5.4cm Repeat MYRA 8cm Patient Active Problem List Diagnosis Date Noted [...] Hospital Problems No resolved problems to display. Physical Exam There were no vitals taken for this visit. General: alert, well appearing, in no apparent distress HEENT: normocephalic, atraumatic Neurologic:alert, oriented, normal speech, no focal findings or movement disorder noted Psychiatric: Affect is Appropriate. Assessment and Recommendations: 22 y.o. year old female at 34w1d weeks gestation with prior for counseling We reviewed her history in detail. Her prior was ~ 18 months ago for arrest after 5 hour second stage with an 8# 6oz OP baby. We calculate her predicted success rate 54% (51-57%). We reviewed the risks of and ERCS. The risk of attempting includes 5-7 in 1000 risk of uterine rupture. The risk of ERCS includes future risk for placenta previa and accreta. We reviewed that spontaneous labor has the highest chance of successful . She has GDM which seems well controlled onsmall amounts of insulin. She may require ain induction of labor which increases the risk of uterine rupture 2-fold to ~ 1%. I requested the op note to review. She desires . I recommend a follow up ultrasound here at [facility] at 37-38 weeks to sign consents and finalize delivery planning. She will continue to have NST's and care with her local OB provider. I appreciate the opportunity to be involved in this patients care, and am available if further questions should arise. ASIA SANDOVAL MD 12/14/2022 Cc: Ann Marie Robertson, with copy of ultrasound report documented in this encounter Plan of Treatment Not on file documented as of this encounter Results * US OB Follow [...] who have questions, please contact the health assurance services manager health care that requested your imaging first. ? Carlotta Hagen, Staff Physician Electronically Signed Final Report ?? 01/10/2023 09:51 am Narrative 01/10/2023 9:52 AM EDT OBSTETRICS REPORT ?(Signed Final 01/10/2023 09:51 am) PATIENT INFO: ID #: ? [id number] ?: ??00 (22 yrs)(F) Name: ? LORENA PRESTON ? Visit Date: 01/10/2023 08:51 am PERFORMED BY: Performed By: ? Genoveva Newton RDMS Attending: ?Carlotta Hagen MD Referred By: ?ANN MARIE ROBERTSON Location: ? [place] SERVICE(S) PROVIDED: UOBFOL - Efw - Growth ??- Saenz - [id number] ?[id number] UBPP - Biophysical Profile (without NST) - [id number] ? [id number] INDICATIONS: 38 weeks gestation of ?Z3A.38 growth, [...] Tone: ??Observed F. Movement: ?Observed ? Score: ??05/10 F. Breathing: ?? Observed --------- BIOMETRY: --------- [...] visualized Left Ovary Not visualized Procedure Note Luis Hagen MD - 01/10/2023 OBSTETRICS REPORT (Signed Final 01/10/2023 09:51 am) PATIENT INFO: ID #: [id number] : [birth year] (22 yrs)(F) Name: LORENA PRESTON Visit Date: 01/10/2023 08:51 am PERFORMED BY: Performed By: Genoveva Newton RDMS Attending: Carlotta Hagen MD Referred By: ANN MARIE ROBERTSON Location: [place] SERVICE(S) PROVIDED: UOBFOL - Efw - Growth - Saenz - [id number] UBPP - Biophysical Profile (without NST) - [id number] INDICATIONS: 38 weeks gestation of Z3A.38 growth, [...] who have questions, please contact the health assurance services manager health care that requested your imaging first. Carlotta Hagen, Staff Physician Electronically Signed Final Report 01/10/2023 09:51 am Asia Sandoval MD IMG OB ORDERABL ES documented in this encounter Visit Diagnoses Diagnosis History of delivery Other postprocedural status History of delivery Other postprocedural status documented in this encounter Care Teams Tie Maker Relationship Specialty Start Date End Date Teressa Morrison APRN PCP - General Family Medicine 02/04/21 documented as of this encounter
--- OUTSIDE RECORDS SUMMARY | 2024-04-16 12:00 | XMS_ITS | Encounter Summary ---
Author Organization [facility] Address [address] [place] [address] Care Team Providers Care Grinder Set Up Operator Thread Tool Name Role Phone Teressa Morrison EXECUTIVE CASINO HOST Primary Care Provider [phone] Encounter Details Date Type Department Care Team (Late st Contact Info) Description 12/01/2021 Lab Requisition [facility] Pathology & Laboratory Medicine - [facility] [address] [place] [address] Lisa Alvarez [address] [place] [address] [place] [address] Encounter for other general examination Social History [...] Procedure Name Priority Date/Time Associated Diagnosis Comments PAP TEST Today 12/01/2021 10:00 EST Encounter for other general examination CHLAMYDIA/N. GONORRHOEAE AMPLIFIED NUCLEIC ACID, THINPREP Today 12/01/2021 10:00 EST documented in this encounter Results * PAP TEST (12/01/2021 10:00 EST) Specimens A. Cervix and/or Endocervix , ThinPrep Imaging System with Manual Evaluation 12/09/2021 11:04 EST [facility] Specimen Adequacy Satisfactory for Evaluation - transformation zone component present 12/09/2021 11:04 [facility] General Categorization Epithelial Cell Abnormality 12/09/2021 11:04 [facility] Descriptive Diagnosis Squamous Cell Abnormality - Low grade squamous intraepithelial lesion (LSIL). 12/09/2021 11:04 [facility] Educational Comments [facility] recommends following ASCCP's 2012 Updated Consensus Guidelines for the Management of Abnormal Cervical Cancer Screening Tests and Cancer Precursors (JLGTD, 2013; 17(5):S1-S27). Consensus guidelines are available online at www.asccp.org. 12/09/2021 11:04 [facility] Attestation By the signature below, the attending physician certifies that they have personally conducted a gross and/or microscopic examination of the described specimens and rendered or confirmed the above diagnosis. 12/09/2021 11:04 [facility] at 1104 Clinical History See below 12/10/19 11:04 [facility] Performing Lab [facility] 12/09/2021 11:04 [facility] Scanned Images 12/09/2021 11:04 [facility] Papanicolaou smear specimen (specimen) CERVIX UTERI STRUCTURE / Unknown 12/01/2021 10:00 EST 12/03/2021 11:09 EST Lisa Alvarez PATHOLOGY ORDERABLES [facility] [address] [place] [address] * CHLAMYDIA/N. GONORRHOEAE AMPLIFIED RNA, THINPREP (12/01/2021 10:00 EST) Neisseria gonorrhoeae Result Negative Negative 12/02/2021 15:05 [facility] Chlamydia trachomatis Result Negative Negative 12/02/2021 15:05 [facility] Papanicolaou smear specimen (specimen) CERVIX UTERI STRUCTURE / Unknown 12/01/2021 10:00 EST 12/02/2021 8:10 EST Lisa Antonio MICROBIOLOGY - GENER AL ORDERABLES [facility] [address] [place] [address] documented in this encounter Visit Diagnoses Diagnosis Encounter for other general examination documented in this encounter Care Teams Grinder Set Up Operator Thread Tool Relationship Specialty Start Date End Date Teressa Morrison, TERESA [address] [place] [id number] PCP - General 09/07/17 documented as of this encounter
--- OUTSIDE RECORDS SUMMARY | 2024-04-16 12:00 | XMS_ITS | Encounter Summary ---
Author Organization [facility] Address [address] [place] [address] Care Team Providers Care Visual Design Lead Name Role Phone Unavailable Primary Care Provider Unavailabl e Encounter Details Date Type Department Care Team (Late st Contact Info) Description 04/11/2008 Before PRISM Converted Visit (Maple) [facility] - Maple conversion [address] [place] [address] Ruperto Chun MD [address] [place] [phone] Social History Tobacco Use Types Packs/Day Years Used Date Smoking Tobacco: Never Assessed Sex and Gender Information Value Date Recorded Sex Assigned at Not on file Gender Identity Not on file Sexual Orientation Not on file documented as of this encounter Progress Notes * Ruperto Chun MD - 06/30/2009 0994 EDT PROGRESS/FOLLOWUP NOTE - 04/11/2008 April 11, 2008 Aminta Wahtley MD [facility] [address] [place] [id number] Dear Aminta: I saw Chula on April 11, 2008. She is now a 7-1/2-year-old who I have followed since six months of age with a clinical diagnosis of a small ventricular septal defect. Her murmur has persisted. I last saw her two years ago. In the interim, her overall health has been excellent. She continues to be physically quite active and does not seem to be limited in terms of energy level or exercise tolerance. She has had no chronic coughing, wheezing, or other respiratory symptoms. She had a single episode of chest pain, a few weeks ago. She described a squeezing of her heart and started crying. The symptom resolved spontaneously. She was not particularly active at the time of onset. She has had no recurrence. She has had no complaints of palpitations, dizziness, or fainting. She has not been hospitalized since she was last seen. Her mother is aware of the change in recommendations regarding SBE prophylaxis. On physical examination today, her height was 123.6 cm, the 25th to 50th percentile and her weight 24.5 kg, around the 50th percentile. Her blood pressure was 88/44 in the right arm. Her pulse was 72and her resting respiratory rate was 18. Her femoral pulses felt strong and her extremities were well- perfused. Her abdomen was soft and nontender. Noabdominal masses were appreciated. Her liver was not enlarged. Her precordium was quiet. No thrill was palpable. Her lungs were clear, with symmetricaeration. Her neck veins were not distended. Her lips and nail beds were pink. She had no clubbing or peripheral edema. She had a normal first heart sound and a physiologically split second heart sound of normal intensity. She had a grade 2/6 high-pitched mid systolic murmur at the left mid sternalborder. I did not hear a diastolic murmur. Her electrocardiogram was normal. A 2-dimensional echo and Doppler study was performed. This confirmed an anterior muscular ventricular septal defect with high velocity wpme-eo-bosks flow. Her left ventricular size and systolic function were normal . No other abnormalities were identified. In summary, Chula has a very small muscular ventricular septal defect. The fact that it has persisted to this age makes it likely that it will continue to be present into adult life. It is not sufficiently large to result in any hemodynamic abnormalities. She can be unrestricted in activity. She does not need SBE prophylaxis based on new recommendations. I would like to see her again in two to three more years. When she is fully grown, at age 15 or 16, we will probably repeat an echocardiogram to document ventricular size and function as an adult, but I would not anticipate that this defect will be any significant problem for her now or in the future. This information was all reviewed with her parents. Please give me a call if you have any questions or concerns regarding her cardiac status. Sincerely, Total time spent with patient was 25 minutes; over 50% of the time was spent face to face on counseling and managing his/her care as described above. Signed by Ruperto Chun MD 04/17/2008 10:23 Ruperto Chun MD Division of Pediatric Cardiology [phone] - Ruperto Chun MD A - DIS Job ID: [id number] Doc ID: [id number] cc: Aminta Whatley MD documented in this encounter Plan of Treatment Not on file documented as of this encounter Visit Diagnoses Not on filedocumented in this encounter
--- OUTSIDE RECORDS SUMMARY | 2024-04-16 12:00 | XMS_ITS | Encounter Summary ---
Author Organization [facility] Address [address] [place] [address] Care Team Providers Care Design Printing Machine Setter Name Role Phone Teressa Morrison SAFETY TECHNICIAN Primary Care Provider [phone] Encounter Details Date Type Department Care Team (Late st Contact Info) Description 07/05/2022 Lab Requisition [facility] Pathology & Laboratory Medicine - [facility] [address] [place] [address] Outr Resulting Lab, Provider Social History Tobacco [...] 1/2 ANTIGEN AND ANTIBODY, 4TH GENERATION Routine 07/05/2022 10:15 EDT documented in this encounter Results * HIV 1/2 ANTIGEN AND ANTIBODY, 4TH GENERATION (07/05/2022 10:15 EDT) HIV 1 and 2 Antibody/p24 Antigen, 4th Generation Negative Negative 07/06/2022 10:19 EDT [facility] Comment:If acute HIV-1 infec tion is suspected in a high risk patient, submit plasma specimen for HIV-1 RNA quantitation test. Blood VENOUS BLOOD / Unknown 07/05/2022 10:15 EDT 07/05/2022 17:42 EDT Narrative [facility] - 07/06/2022 10:19 EDT Fourth Generation assay performed on the Siemens InstaJobaur XPT. Provider Outr Resulting Lab IMMUNOLOGY A ND SEROLOGY ORDERABLES [facility] [address] [place] [address] documented in this encounter Visit Diagnoses Not on filedocumented in this encounter Care Teams Design Printing Machine Setter Relationship Specialty Start Date End Date Teressa Morrison NP [address] [place] [id number] PCP - General 09/07/17 documented as of this encounter
--- OUTSIDE RECORDS SUMMARY | 2024-04-16 12:00 | XMS_ITS | Referral Summary ---
Author Organization [facility] Address [address] [place] [address] Care Team Providers Care Retail Link Analyst Name Role Phone Teressa Morrison MANAGER GAMES Primary Care Provider [phone] Social History Tobacco Use Types Packs/Day Years Used Date Smoking Tobacco: Never Assessed Interpersonal Safety Answer Date Record ed Physically Hurt Never 05/04/2020 Verbally Threaten Not on file 05/04/2020 Sex and Gender Information Value Date Recorded Sex Assigned at Not on file Gender Identity Not on file Sexual Orientation Not on file Plan of Treatment Not on file Procedures Procedure Name Priority Date/Time Associated Diagnosis Comments HEPATITIS C AB W REFLEX TO HCV RNA BY PCR Routine 07/05/2022 10:15 EDT from Last 3 Months or Most Recently Relevant to Health Maintenance Results * HEPATITIS C AB W REFLEX TO HCV RNA BY PCR (07/05/2022 10:15 EDT) Hep C Antibody Negative Negative 07/06/2022 10:28 EDT [facility] Blood VENOUS BLOOD / Unknown 07/05/2022 10:15 EDT 07/05/2022 17:42 EDT Provider Outr Resulting Lab CHEMISTRY & BLOOD GAS ORDERABLES [facility] [address] [place] [address] from Last 3 Months or Most Recently Relevant to Health Maintenance Care Teams Retail Link Analyst Relationship Specialty Start Date End Date Teressa Morrison, MANAGER GAMES [address] [place] [address] PCP - General 09/07/17
--- OUTSIDE RECORDS SUMMARY | 2024-04-16 12:00 | XMS_ITS | Encounter Summary ---
[place] [address] Care Team Providers Care Professor Of Business Name Role Phone Tamiko Teressa Coates APRN Primary Care Provider [phone] Reason for Referral * Consultation (Routine) - Closed Specialty Diagnoses / Procedures Referred By Wesly crump Referred To Contact Obstetrics and Gynecology Diagnoses Ventricular septal defect Encounter for supervision of normal , unspecified, unspecified trimester Cardiac murmur, unspecified Ann Marie Weiss CNM [address] [place] [address] [address] [place] [address] [facility] [employer] Laboratory Technician [address] [address] Referral ID Status Reason Start Date Expiration Date V isits Requested Visits Authorized [id number] Closed Consult, Test & Treat PCP Updated and/or Approved 08/02/2022 08/02/2023 6 6 Encounter Details Date Type Department Care Team (Late st Contact Info) Description 08/02/2022 Transcribe Orders eDH Incoming Referrals [phone] Ann Marie Weiss CNM [address] [place] [address] [address] [place], [place] [id number] Ventricular septal defect Social History Tobacco Use Types Packs/Day Years Used Date Smoking Tobacco: Never Smokeless Tobacco: Never Sex and Gender Information Value Date Recorded Sex Assigned at Not on file Gender Identity Not on file Sexual Orientation Not on file documented as of this encounter Plan of Treatment Scheduled Referrals Name Type Priority Associated Diagnoses Orde r Schedule Referral to Maternal Medicine Outpatient Referral Routine Ventricular septal defect Ordered: 08/02/2022 documented as of this encounter Visit Diagnoses Diagnosis Ventricular septal defect documented in this encounter Care Teams Professor Of Business Relationship Specialty Start Date End Date Teressa Morrison APRN PCP - General Family Medicine 02/04/21 documented as of this encounter
--- OUTSIDE RECORDS SUMMARY | 2024-04-16 12:00 | XMS_ITS | Encounter Summary ---
Author Organization [facility] Address [address] [place] [address] Care Team Providers Care Dye House Hand Name Role Phone Teressa Morrison FORESTRY PROFESSOR Primary Care Provider [phone] Encounter Details Date Type Department Care Team (Late st Contact Info) Description 12/03/2020 Lab Requisition [facility] Pathology & Laboratory Medicine - [address] [address] Outr Resulting Lab, Provider Social History Tobacco [...] Comments CHLAMYDIA/N. GONORRHOEAE AMPLIFIED NUCLEIC ACID Routine 12/03/2020 13:45 EST documented in this encounter Results * CHLAMYDIA/N. GONORRHOEAE AMPLIFIED RNA (12/03/2020 13:45 EST) Neisseria gonorrhoeae Result Negative Negative 12/04/2020 14:35 EST [facility] Chlamydia trachomatis Result Negative Negative 12/04/2020 14:35 EST [facility] Swab ENTIRE ENDOCERVIX / Unknown 12/03/2020 13:45 EST 12/03/2020 21:34 EST Provider Outr Resulting Lab MICROBIOLOGY - GENERAL ORDERABLES [facility] [address] [place] [address] documented in this encounter Visit Diagnoses Not on filedocumented in this encounter Care Teams Dye House Hand Relationship Specialty Start Date End Date Teressa Morrison, FORESTRY PROFESSOR [address] [place] [address] PCP - General 09/07/17 documented as of this encounter
--- OUTSIDE RECORDS SUMMARY | 2024-04-16 12:00 | XMS_ITS | Encounter Summary ---
Author Organization [facility] Address [address] [place] [address] Care Team Providers Care Sociology Teacher Name Role Phone Teressa Morrison LOOM INSPECTOR Primary Care Provider [phone] Encounter Details Date Type Department Care Team (Late st Contact Info) Description 12/04/2020 Lab Requisition [facility] Pathology & Laboratory Medicine - [address] [id number] Outr Resulting Lab, Provider Social History Tobacco [...] REFLEX TO HCV RNA BY PCR Routine 12/03/2020 14:38 EST HEPATITIS B SURFACE ANTIGEN Routine 12/03/2020 14:38 EST documented in this encounter Results * HEPATITIS B SURFACE ANTIGEN (12/03/2020 14:38 EST) Hep B Surface Ag Negative Negative 12/05/2020 9:10 EST [facility] Blood VENOUS BLOOD / Unknown 12/03/2020 14:38 EST 12/04/2020 16:45 EST Provider Outr Resulting Lab CHEMISTRY & BLOOD GAS ORDERABLES Performing Organization Address City/[facility] Co de Phone Number [facility] [address] [place] [address] * HEPATITIS C AB W REFLEX TO HCV RNA BY PCR (12/03/2020 14:38 EST) Hep C Antibody Negative Negative 12/05/2020 9:52 EST [facility] Blood VENOUS BLOOD / Unknown 12/03/2020 14:38 EST 12/04/2020 16:45 EST Provider Outr Resulting Lab CHEMISTRY & BLOOD GAS ORDERABLES Performing Organization Address [facility] Co de Phone Number [facility] [address] [place] [address] documented in this encounter Visit Diagnoses Not on filedocumented in this encounter Care Teams Sociology Teacher Relationship Specialty Start Date End Date Teressa Morrison, LOOM INSPECTOR [address] [place] [id number] PCP - General 09/07/17 documented as of this encounter
--- OUTSIDE RECORDS SUMMARY | 2024-04-16 12:00 | XMS_ITS | Encounter Summary ---
Author Organization [facility] Address [address] [place] [address] Care Team Providers Care Pilates Instructor Name Role Phone Teressa Morrison DIAGNOSTIC ASSISTANT Primary Care Provider [phone] Encounter Details Date Type Department Care Team (Late st Contact Info) Description 07/05/2022 Lab Requisition [facility] Pathology & Laboratory Medicine - [facility] [address] [place] [address] Outr Resulting Lab, Provider Social History Tobacco [...] Associated Diagnosis Comments RUBELLA IGG ANTIBODY Routine 07/05/2022 10:15 EDT VARICELLA IGG ANTIBODY Routine 07/05/2022 10:15 EDT documented in this encounter Results * VARICELLA IGG ANTIBODY (07/05/2022 10:15 EDT) Varicella IgG Ab Negative See Note 07/06/2022 10:20 EDT [facility] Comment:Absence of detectabl e Varicella Zoster virus IgG antibodies. A negative result generally indicates no detectable antibody, but does not rule out acute infection. If VZV exposure is suspected, a second sample should be collected and tested no less than one or two weeks later. Blood VENOUS BLOOD / Unknown 07/05/2022 10:15 EDT 07/05/2022 17:42 EDT Provider Outr Resulting Lab IMMUNOLOGY A ND SEROLOGY ORDERABLES Performing Organization Address City/[facility] Co de Phone Number [facility] [address] [place] [address] * RUBELLA IGG ANTIBODY (07/05/2022 10:15 EDT) Rubella IgG Ab Positive See Note 07/06/2022 10:25 EDT [facility] Comment:Positive for IgG ant ibodies to Rubella virus. Blood VENOUS BLOOD / Unknown 07/05/2022 10:15 EDT 07/05/2022 17:42 EDT Provider Outr Resulting Lab CHEMISTRY & BLOOD GAS ORDERABLES Performing Organization Address City/[facility] Co de Phone Number [facility] [address] [place] [address] documented in this encounter Visit Diagnoses Not on filedocumented in this encounter Care Teams Pilates Instructor Relationship Specialty Start Date End Date Teressa Morrison, TERESA [address] [place] [id number] PCP - General 09/07/17 documented as of this encounter
--- OUTSIDE RECORDS SUMMARY | 2024-04-16 12:00 | XMS_ITS | Encounter Summary ---
Author Organization [facility] Address [address] [place] [address] Care Team Providers Care Nurses' Registry Director Name Role Phone Teressa Morrison SQL ANALYST Primary Care Provider [phone] Encounter Details Date Type Department Care Team (Late st Contact Info) Description 02/14/2020 Lab Requisition [facility] Pathology & Laboratory Medicine - [facility] [address] [place] [address] Outr Resulting Lab, Provider Social History Tobacco [...] Procedure Name Priority Date/Time Associated Diagnosis Comments DO NOT ORDER STANDALONE - BROAD COVID TEST Today 02/13/2020 16:10 EDT COVID-19 TESTING Routine 02/13/2020 16:1 0 EDT documented in this encounter Results * DO NOT ORDER STANDALONE - BROAD COVID TEST (02/13/2020 16:10 EDT) COVID-19 rt-PCR Result NEGATIVE Negative 02/15/2020 11:40 EDT [facility] Comment: 2019-novel Coronavirus (2019-nCoV) not detected by the qRT-PCR assay. Consider testing for other respiratory viruses or re-collecting for 2019-nCoV testing. Note: Optimum timing for peak viral levels during infections caused by 2019-nCoV have not been determined. Collection of multiple specimens from the same patient may be necessary to detect the virus. Limitations Positive results are indicative of active infection with SARS-CoV-2 but do not rule out bacterial infection or co-infection with other viruses. The agent detected may not be the definite cause of disease. In addition, detection of viral RNA may not indicate the presence of infectious virus or that SARS-CoV-2 is the causative agent for clinical symptoms. Negative results do not preclude SARS-CoV-2 infection and should not be used as the sole basis for patient management decisions. Negative results must be combined with clinical observations, patient history, and epidemiological information. False negative results may also occur if amplification inhibitors are present in the specimen or if inadequate numbers of organisms are present in the specimen. Optimum specimen types and timing for peak viral levels during infections caused by SARS-CoV-2 have not been fully determined. Collection of multiple specimens (types and time points) from the same patient may be necessary to detect the virus. The test was validated for use with upper respiratory specimens obtained via nasopharyngeal or oropharyngeal swabs in VTM, UTM, M4, M5, M6, saline, and MTM media. The performance of this test has not been established for other specimens. Specimens collected using other FDA recommended Specimen Collection Materials listed in the FDA COVID-19 [employer] communication (December 27, 2019) are processed with the caveat that they were not all validated for use with this test and the result must be interpreted in this context. Furthermore, a false negative results may occur if a specimen is improperly collected, transported or handled. If the virus mutates in the RT-PCR target region, SARS-CoV-2 may not be detected or may be detected less predictably. Inhibitors or other types of interference may produce a false negative result. An interference study evaluating the effect of common cold medications was not performed. This test is not FDA-cleared but its performance characteristics were established by our CLIA-certified, CAP-accredited, high complexity laboratory in accordance with CLIA regulations, [employer] [place] [employer] (CAP) guidelines (Dec 20, 2019), and FDA guidance (Dec 01, 2019). This test is only for use under the Food and Drug Administration's Emergency Use Authorization. Swab ENTIRE NASOPHARYNX / Unknown 02/13/2020 16:10 EDT 02/14/2020 20:54 EDT Provider Outr Resulting Lab MICROBIOLOGY - GENERAL ORDERABLES [facility] [place], [place] * COVID-19 TESTING (02/13/2020 16:10 EDT) COVID-19 rt-PCR Result NEGATIVE Negative 02/15/2020 15:33 EDT [facility] Comment: 2019-novel Coronavirus (2019-nCoV) not detected by the qRT-PCR assay. Consider testing for other respiratory viruses or re-collecting for 2019-nCoV testing. Note: Optimum timing for peak viral levels during infections caused by 2019-nCoV have not been determined. Collection of multiple specimens from the same patient may be necessary to detect the virus. Limitations Positive results are indicative of active infection with SARS-CoV-2 but do not rule out bacterial infection or co-infection with other viruses. The agent detected may not be the definite cause of disease. In addition, detection of viral RNA may not indicate the presence of infectious virus or that SARS-CoV-2 is the causative agent for clinical symptoms. Negative results do not preclude SARS-CoV-2 infection and should not be used as the sole basis for patient management decisions. Negative results must be combined with clinical observations, patient history, and epidemiological information. False negative results may also occur if amplification inhibitors are present in the specimen or if inadequate numbers of organisms are present in the specimen. Optimum specimen types and timing for peak viral levels during infections caused by SARS-CoV-2 have not been fully determined. Collection of multiple specimens (types and time points) from the same patient may be necessary to detect the virus. The test was validated for use with upper respiratory specimens obtained via nasopharyngeal or oropharyngeal swabs in VTM, UTM, M4, M5, M6, saline, and MTM media. The performance of this test has not been established for other specimens. Specimens collected using other FDA recommended Specimen Collection Materials listed in the FDA COVID-19 [employer] communication (December 27, 2019) are processed with the caveat that they were not all validated for use with this test and the result must be interpreted in this context. Furthermore, a false negative results may occur if a specimen is improperly collected, transported or handled. If the virus mutates in the RT-PCR target region, SARS-CoV-2 may not be detected or may be detected less predictably. Inhibitors or other types of interference may produce a false negative result. An interference study evaluating the effect of common cold medications was not performed. This test is not FDA-cleared but its performance characteristics were established by our CLIA-certified, CAP-accredited, high complexity laboratory in accordance with CLIA regulations, [employer] [place] [employer] (CAP) guidelines (Dec 20, 2019), and FDA guidance (Dec 01, 2019). This test is only for use under the Food and Drug Administration's Emergency Use Authorization. Performing Lab [facility] 02/15/2020 15:33 EDT [facility] Swab ENTIRE NASOPHARYNX / Unknown 02/13/2020 16:10 EDT 02/14/2020 20:54 EDT Provider Outr Resulting Lab MICROBIOLOGY - GENERAL ORDERABLES [facility] [address] [place] [address] [facility] [place], [place] documented in this encounter Visit Diagnoses Not on filedocumented in this encounter Care Teams Nurses' Registry Director Relationship Specialty Start Date End Date Teressa Morrison NP [address] [place] [id number] PCP - General 09/07/17 documented as of this encounter
--- OUTSIDE RECORDS SUMMARY | 2024-04-16 12:00 | XMS_ITS | Encounter Summary ---
Author Organization [facility] Address [address] [place] [address] Care Team Providers Care Ob/Gyn Doctor Name Role Phone Harrison Lindsay MD Primary Care Provider [phone] Encounter Details Date Type Department Care Team (Late st Contact Info) Description 02/22/2013 Documentation Visit [facility] Pediatric Cardiology - [address] [address] Ruperto Chun MD [address] [place] [phone] Social History Tobacco Use Types Packs/Day Years Used Date Smoking Tobacco: Never Assessed Sex and Gender Information Value Date Recorded Sex Assigned at Not on file Gender Identity Not on file Sexual Orientation Not on file documented as of this encounter Progress Notes * Ruperto Chun MD - 02/28/2013 6476 EDT PROGRESS/FOLLOWUP NOTE - 02/22/2013 Aminta Whatley MD [address] [address] Dear Aminta: I saw Deirdre on 02/22/2013 in our [facility] clinic. She is now a 12-1/2-year-old, whom I initially saw at 6 months of age for evaluation of a murmur. She had a clinical diagnosis of a small ventricular septal defect. I confirmed her abnormality with an echocardiogram in 04/2008. That showed a small defect in the anterior muscular septum. I last saw her about 3 years ago. In the interim, she has continued to be very well without cardiac-related symptoms. She is physically reasonably active and does not seem to get tired or short of breath with routine activity. She denies chest pain, palpitations, dizzy spells or fainting episodes. She has had no sudden cyanosis or pallor. She has had no major illnesses or hospitalizations. She has had a couple of trips to the emergency room for orthopedic injuries, but no other significant medical problems. She is on no cardiac-related medications. She is currently finishing the 6th grade and doing satisfactorily in school. She came to today's visit with her parents. On physical examination today, her height was 158 cm, around the 75th percentile, and her weight 48.5 kg, around the 25th percentile. Her blood pressure was 103/59 in the right arm. Her resting pulsewas 80, and her resting respiratory rate was 20. Her femoral pulses felt strong, and her extremities were warm and well perfused. Her abdomen was soft, and her liver was not enlarged. No abdominal masses were appreciated. Her precordium was quiet. Her lungs were clear. Her lips and nail beds were pink. She had no clubbing or peripheral edema. She had a normal first heart sound and a physiologically split second heart sound of normal intensity. She had a grade 2 to 3/6 fairly brief high-pitched ejection murmur at the left lower sternal border. No diastolic or continuous murmur was noted. Her electrocardiogram was normal. In summary, Deirdre's examination is unchanged, and she still has the findings of a small, restrictive ventricular septal defect. I do not think there is any reason to restrict her from vigorous activity. I would like to see her again in 3 years for routine reevaluation. We will probably repeat an echocardiographic evaluation of her heart at that time, assuming that she is fully grown. Based on current recommendations, she does not need SBE prophylaxis or any other cardiac- related medications. Please give me a call if you have any questions about today's visit or our recommendations. Sincerely, Electronically Signed by Ruperto Chun MD 03/01/2013 17:49 Ruperto Chun MD Division of Pediatric Cardiology [phone] - Ruperto Chun MD P - LW Job ID: SM Doc ID: [id number] Ext Doc ID: [id number] cc: Aminta Whatley MD documented in this encounter Plan of Treatment Not on file documented as of this encounter Visit Diagnoses Not on filedocumented in this encounter Care Teams Ob/Gyn Doctor Relationship Specialty Start Date End Date Harrison Lindsay MD [address] [place] [id number] PCP - General 03/16/10 09/06/17 documented as of this encounter
--- OUTSIDE RECORDS SUMMARY | 2024-04-16 12:00 | XMS_ITS | Encounter Summary ---
[place] [address] Care Team Providers Care Workers Compensation Analyst Name Role Phone Teressa Morrison APRN Primary Care Provider [phone] Encounter Details Date Type Department Care Team (Latest Contact Info) Description 01/10/2023 Travel Social History Tobacco Use Types Packs/Day [...] on filedocumented in this encounter Care Teams Workers Compensation Analyst Relationship Specialty Start Date End Date Teressa Morrison APRN PCP - General Family Medicine 02/04/21 documented as of this encounter
--- OUTSIDE RECORDS SUMMARY | 2024-04-16 12:00 | XMS_ITS | Encounter Summary ---
Author Organization [facility] Address [address] [place] [address] Care Team Providers Care Beef Cattle Specialist Name Role Phone Teressa Morrison [employer] Primary Care Provider [phone] Encounter Details Date Type Department Care Team (Late st Contact Info) Description 07/18/2020 Lab Requisition [facility] Pathology & Laboratory Medicine - [facility] [address] [place] [address] Outr Resulting Lab, Provider Social History Tobacco [...] Procedure Name Priority Date/Time Associated Diagnosis Comments HOLD SST Today 07/18/2020 8:17 EDT HOLD SST Today 07/18/2020 8:17 EDT PROLACTIN Today 07/18/2020 8:17 EDT DHEA SULFATE Today 07/18/2020 8:17 EDT FSH Today 07/18/2020 8:17 EDT documented in this encounter Results * HOLD SST (07/18/2020 8:17 EDT) Hold Hold 07/18/2020 17:30 EDT [facility] Blood VENOUS BLOOD / Unknown 07/18/2020 8:17 EDT 07/18/2020 16:21 EDT Provider Outr Resulting Lab LAB INFO SER VICE AND SUPPORT & PHONE RESULT Performing Organization Address [facility]/ZIP Co de Phone Number [facility] [address] [place] [address] * HOLD SST (07/18/2020 8:17 EDT) Hold Hold 07/18/2020 17:30 EDT [facility] Blood VENOUS BLOOD / Unknown 07/18/2020 8:17 EDT 07/18/2020 16:21 EDT Provider Outr Resulting Lab LAB INFO SER VICE AND SUPPORT & PHONE RESULT Performing Organization Address [facility] Co de Phone Number [facility] [address] [place] [address] * FSH (07/18/2020 8:17 EDT) FSH 5.5 See Note mIU/mL 07/18/2020 18:07 EDT [facility] Blood VENOUS BLOOD / Unknown 07/18/2020 8:17 EDT 07/18/2020 16:17 EDT Narrative [facility] - 07/18/2020 18:07 EDT NOTE: Female FSH Reference Ranges (>= 13 Menstruating): PHYSIOLOGICAL STATUS ? REFERENCE RANGE ? Follicular (-12 to -4 days): ?? 2.5 - 10.2 mIU/mL Midcycle (-3 to +2 days): ?3.4 - 33.4 mIU/mL Luteal (+4 to +12 days): ? 1.5 - 9.1 mIU/mL Postmenopausal: ?23.0 - 116.3 mIU/mL Reference Ranges for female patients <13 years old have not been established. Provider Outr Resulting Lab CHEMISTRY & BLOOD GAS ORDERABLES Performing Organization Address [facility] Co de Phone Number [facility] [address] [place] [address] * PROLACTIN (07/18/2020 8:17 EDT) [facility] Prolactin 25.8 See Table ng/mL 07/18/2020 18:04 EDT [facility] Comment: NOTE: Female Reference Ranges: PHYSIOLOGICAL STATUS ?EXPECTED RANGE ? Postmenopausal ?1.8 - 20.3 ng/mL ?9.7 - 208.5 ng/mL Non- ?2.8 - 29.2 ng/mL Reference Ranges for Prolactin in female patients <18 years old have not been established. Blood VENOUS BLOOD / Unknown 07/18/2020 8:17 EDT 07/18/2020 16:17 EDT Provider Outr Resulting Lab CHEMISTRY & BLOOD GAS ORDERABLES Performing Organization Address [facility]/ZIP Co de Phone Number [facility] [address] [place] [address] * DHEA SULFATE (07/18/2020 8:17 EDT) DHEA Sulfate 464 61 - 494 ug/dL 07/21/2020 8:54 EDT [facility] Blood VENOUS BLOOD / Unknown 07/18/2020 8:17 EDT 07/18/2020 16:17 EDT Provider Outr Resulting Lab CHEMISTRY & BLOOD GAS ORDERABLES [facility] [address] [place] [address] documented in this encounter Visit Diagnoses Not on filedocumented in this encounter Care Teams Beef Cattle Specialist Relationship Specialty Start Date End Date Teressa Morrison NP [address] [place] [id number] PCP - General 09/07/17 documented as of this encounter
--- OUTSIDE RECORDS SUMMARY | 2024-04-16 12:00 | XMS_ITS | Clinical Summary ---
Author Organization [facility] [place] [address] Care Team Providers Care Veneer Sawyer Name Role Phone MinTeressa zepeda Aminata MARROQUIN Primary Care Provider [phone] Allergies No known active allergies Medications Medication Sig Dispensed Refills Start Date End Date Status Diclegis 10-10 mg Tablet, Delayed Release (E.C.) TAKE 1 TABLET BY MOUTH EVERY 6 HOURS NEEDED FOR HYPEREMESIS 12/03/2020 Active Cholecalciferol, Vitamin D3, 25 mcg (1,000 unit) Tablet, Chewable Take by mouth. 10/29/2020 Active albuteroL 90 mcg/actuation HFA Aerosol Inhaler Inhale 2 puffs into the lungs every 4 hours as needed for Wheezing. Use with spacer Active pantoprazole EC (Protonix) 40 mg Tablet, Delayed Release (E.C.) Take 40 mg by mouth daily. 07/06/2022 Active ondansetron (Zofran) 4 mg Tablet TAKE 1 TABLET BY MOUTH EVERY 6 HOURS NEEDED FOR NAUSEA OR VOMITING 08/25/2022 Active vit/iron fum/folic ac ( 1+1 ORAL) Take by mouth. A ctive Alcohol Prep Pads Pads, Medicated 12/09/2022 Active OneTouch Verio test strips Strip TEST BLOOD GLUCOSE FOUR TIMES A DAY DIRECTED 01/02/2023 Active OneTouch Verio Flex meter Misc USE DIRECTED TO TEST BLOOD GLUCOSE FOUR TIMES A DAY 11/17/2022 Active docusate sodium (Colace) 100 mg capsule Take 100 mg by mouth 2 times daily. 11/11/2022 Active ferrous sulfate EC (FeroSul) 325 mg (65 mg iron) DR tablet Take 325 mg by mouth daily. 11/08/2022 Active HumuLIN N NPH Insulin KwikPen 100 unit/mL (3 mL) Insulin Pen 8 Units. 12/08/2022 Active OneTouch Delica Plus Lancet 33 gauge Misc TEST BLOOD GLUCOSE FOUR TIMES A DAY DIRECTED 12/22/2022 Active Unifine Pentips 32 gauge x 5/32 Needle USE WITH KWIKPEN DIRECTED 12/07/2022 Active Active Problems Problem Noted Date Diagnosed Date History of delivery 01/10/2023 GDM (gestational diabetes mellitus) 12/14/2022 Anxiety disorder, unspecified 02/16/2021 BMI 34.0-34.9,adult 02/16/2021 Depression 02/16/2021 Obesity affecting in second trimester 02/16/2021 Attention-deficit hyperactivity disorder, unspec ified type 09/07/2016 Mild intermittent asthma, uncomplicated 08/24/20 16 Sleep difficulties 06/01/2016 Intentional self-harm by sharp object 01/19/2016 Learning difficulty 11/24/2012 Membranous ventricular septal defect 11/24/2012 Congenital heart defect Immunizations Name Administration Dates Next Due DTaP 10/16/2004, 2,04/10/2001,02/06,2000 HIB Vaccine PRP-T (ActHIB, H iberix, OmniHib) 12/29/2001,04/10/2001,02/06/2001,12/07 HPV, Quadrivalent (Gardasil) 05/29/2013,01/26/20 13,11/24/2012 Hepatitis A Pediatric/Adoles cent (HavRix, Vaqta) 06/01/2017 Hepatitis B (Engerix-B, Herb mbivax) 0-19yrs 04/20/2002,06/29/2001,04/10/2001 Inactivated Polio Vaccine (IPOL) 006,12/29/2001,02/06/2001,12/07 Influenza Quadrivalent, Pres ervative Free 08/24/2016 MMR Vaccine LIVE 10/19/2005,09/28/2001 Meningococcal ACWY Polysacch aride Conjugate (Menactra) 01/25/2013 Pneumococcal Conjugate (Prevnar 13) 12/02,04/10/2001,02/06/2001,12/07 Tdap 11/24/2012 Varicella (Varivax) LIVE 11/30/2007,09/28/2001 Social History Tobacco Use Types Packs/Day Years Used Date Smoking Tobacco: Never Smokeless Tobacco: Never Alcohol Use Standard Drinks/Week Comments Not Currently 0 (1 standard drink = 0.6 oz pur e alcohol) Sex and Gender Information Value Date Recorded Sex Assigned at Not on file Gender Identity Not on file Sexual Orientation Not on file Last Filed Vital Signs Vital Sign Reading [...] - - Body Mass Index - - Plan of Treatment Health Maintenance Due Date Last Done Comments Pneumococcal Vaccine: At-Ris k 5-64yrs (1 of 1 - PPSV23 or PCV20) 2006 12/29/2001, 001, 02/06/2001, Additional history exists Chlamydia Screening 2015 HIV screen 2018 Hepatitis C Screening 2018 PAP Smear 2021 Tetanus vaccine 11/24/2022 11/24/2012, 10/03, 12/29/2001, Additional history exists Covid-19 Vaccine ( - 2022-2 4 season) 2023 Influenza (Flu) vaccine (1 o f 1 - Influenza standard series) 06/03/2024 08/24/2016 Hepatitis B vaccine (0-59 yrs) Completed 0 04/20/2002, 06/29/2001, 04/10/2001 Tdap adult Completed 11/24/2012 HPV vaccine Completed 05/29/2013, 01/02, 11/24/2012 Care Teams Veneer Sawyer Relationship Specialty Start Date End Date Teressa Morrison, EXTRUDER OPERATOR HORIZONTAL PCP - General Family Medicine 02/04/21
--- OUTSIDE RECORDS SUMMARY | 2024-04-16 12:00 | XMS_ITS | Encounter Summary ---
[place] [address] Care Team Providers Care Cartographic Drafter Name Role Phone Teressa Morrison APRN Primary Care Provider [phone] Reason for Referral * - Closed Specialty Diagnoses / Procedures Referred By Contac t Referred To Contact Diagnoses Ventricular septal defect Procedures Echocardiogram Lisa Alvarez DO [address] [place] [address] [place] [address] [facility] [place] [address] Referral ID Status Reason Start Date Expiration Date Visits Re quested Visits Authorized [id number] Closed 02/10/2021 02/10/2022 1 1 Reason for Visit * - Closed Specialty Diagnoses / Procedures Referred By Contac t Referred To Contact Diagnoses Ventricular septal defect Procedures Echocardiogram Lisa Alvarez DO [address] [place] [address] [place] [address] [facility] [place] [address] Referral ID Status Reason Start Date Expiration Date Visits Re quested Visits Authorized [id number] Closed 02/10/2021 02/10/2022 1 1 Encounter Details Date Type Department Care Team (Latest Contact Info) Description 03/06/2021 2:46 PM EDT - 03/06/2021 11:59 PM EDT Hospital Encounter Non-Invasive Cardiology Lab [place] [address] Ventricular septal defect Discharge Disposition: Home Social [...] Sig Dispensed Refills Start Date End Date Diclegis 10-10 mg Tablet, Delayed Release (E.C.) [...] Date/Time Associated Diagnosis Comments ECHO COMPLETE Routine 03/06/2021 3 :36 PM EDT Ventricular septal defect documented in this encounter Results * ECHO COMPLETE (03/06/2021 3:36 PM EDT) Anatomical Region Laterality Modality Other 03/06/2021 Narrative 03/06/2021 3:36 PM EDT Procedure: ?Pediatric Echocardiogram Patient: ?MOHAN MATAMOROS ?(Age): 2000(20y) ? Med Rec#: ? [id number] ?Sex: ?F ? Site Loc: ? [facility] ?Ht / Wt: ??(cm)/ (kg) ? Pt. Loc: ? Study Date: ?? 03/06/2021 ?Pt. Type: Study Quality: ? Referring: ROMARIO Reading: Venita Johnson ([id number]) Certified Medication Technician: Asia Pryor Diagnosis: BP: ? / SUMMARY: 1. A echocardiogram was performed at 23 weeks 0 days gestation (OKBE: 07/09/21) due to maternal hx of VSD. Good quality images were obtained. The fetus is in breech position. 2. Levocardia with normal segmental and conotruncal anatomy {S,D,S}. 3. Chamber dimensions, myocardial appearance, wall thickness and ventricular systolic function appear normal. 4. Valve structure and function appear normal. 5. Normal heart rate (138 bpm). Normal mechanical KY interval (104 ms). The heart rhythm is regular throughout. 6. No cardiac structural abnormalities were identified. 7. No hydrops. 8. No specific or cardiac follow-up is required on this basis of this study. 9. The limitations of echocardiography include the inability to diagnose patent ductus arteriosus, some atrial and ventricular septal defects, minor valve abnormalities and coarctation. FINDINGS: ? Venous Connections ?There are normal systemic venous connections, with the superior and inferior vena cavae returning to the right atrium. Normal spectral Doppler patterns in umbilical vein, ductus venosus, ductus arteriosus, and umbilical artery. ?At least one pulmonary vein from each side enters the left atrium. No pulmonary venous anomalies are detected. ?? Atrial Septum ?There is a patent foramen ovale (PFO). ?There is pvhtc-oh-dvnw shunting across the patent foramen ovale with color Doppler. (Normal physiology.) Av Valves ?The tricuspid valve is functionally and structurally normal. ?The tricuspid valve diameter measures 7.3 mm in the lateral plane obtained from the A4C view. (Z-Score: 1.53) ?The mitral valve is functionally and structurally normal. ?The mitral valve diameter measures 7 mm in the lateral plane obtained from the A4C view. (Z-Score: 1.61) Ventricles ?The right ventricle is of normal size. ?The right ventricular systolic function is normal. ?The left ventricular chamber size, wall thickness and systolic function are normal. ?The global left ventricular systolic function is normal. Ventricular Septum ?The interventricular septum is intact with no evidence of a ventricular septal defect. Semilunar Valves ?The pulmonary valve annulus diameter measures 4.3 mm. (Z-Score: -0.69) ?The pulmonary valve leaflets are of normal thickness. ?There is laminar flow through the pulmonary valve. ?There is no pulmonary valve insufficiency. ?The aortic valve annulus diameter measures 3.7 mm. (Z-Score: -0.33) ?The aortic valve leaflets are of normal thickness. ?There is laminar flow through the aortic valve. ?There is no aortic valve insufficiency. Thoracic Arteries ?The main pulmonary artery is normal, without dilatation, stenosis, or aneurysm. The great arteries are normally related. ?The right pulmonary artery has normal size, origin, and configuration. ?The left pulmonary artery has normal size, origin, and configuration. ?There is a patent ductus arteriosus. ?There is euvlq-ab-euav shunting across the patent ductus arteriosus with color Doppler. (Normal physiology.) ?The ascending aorta is normal, without dilatation or narrowing. ?The ascending aorta diameter measures 4.6 mm from the long axis view. (Z-Score: 0.58) ?The aortic arch is normal, without dilatation, aneurysm or coarctation. The aortic isthmus is normal sized. ?The aortic isthmus diameter measures 3.1 mm distal to the left subclavian artery. (Z-Score: 0.12) ?The descending aorta is normal, without dilatation, narrowing or aneurysm. Effusion ?There is no pericardial effusion. ?No evidence of hydrops. Mitral Valve ? Value(Units) ?? Range ? Z Score MV diam (lateral) 4C ? 7 ??mm ?-?? Tricuspid Valve ? Value(Units) ?? Range ? Z Score TV diam (lateral) 4C ? 7.3 ??mm ?-?? Pulmonary Valve / RV ? Value(Units) ?? Range ? Z Score PV aisha diam 2D ? 4.3 ??mm ?-?? Aorta ? Value(Units) ?? Range ? Z Score AV aisha diam 2D ? 3.7 ??mm ?-?? Asc Ao diam (LAX) ?4.6 ??mm ?-?? Isthmus diam (SSN) ? 3.1 ??mm ?-?? All Z scores are estimated This report has been electronically signed by: Venita Johnson MD ? 03/06/2021 15:35:17 Images reviewed and interpretation verified [facility] Cardiac Ultrasound Laboratory Procedure Note Venita Johnson MD - 03/06/2021 Procedure: Pediatric Echocardiogram Patient: MOHAN WASHINGTON(Age): 2000(20y) Med Rec#: [id number] Sex: F Site Loc: [facility] Ht / Wt: (cm)/ (kg) Pt. Loc: Study Date: 03/06/2021 Pt. Type: Study Quality: Referring: ROMARIO Reading: Venita Johnson ([id number]) Certified Medication Technician: Asia Pryor Diagnosis: BP: / SUMMARY: 1. A echocardiogram was performed at 23 weeks 0 days gestation (KOBE: 07/09/21) due to maternal hx of VSD. Good quality images were obtained. The fetus is in breech position. 2. Levocardia with normal segmental and conotruncal anatomy {S,D,S}. 3. Chamber dimensions, myocardial appearance, wall thickness and ventricular systolic function appear normal. 4. Valve structure and function appear normal. 5. Normal heart rate (138 bpm). Normal mechanical KY interval (104 ms). The heart rhythm is regular throughout. 6. No cardiac structural abnormalities were identified. 7. No hydrops. 8. No specific or cardiac follow-up is required on this basis of this study. 9. The limitations of echocardiography include the inability to diagnose patent ductus arteriosus, some atrial and ventricular septal defects, minor valve abnormalities and coarctation. FINDINGS: Venous Connections There are normal systemic venous connections, with the superior and inferior vena cavae returning to the right atrium. Normal spectral Doppler patterns in umbilical vein, ductus venosus, ductus arteriosus, and umbilical artery. At least one pulmonary vein from each side enters the left atrium. No pulmonary venous anomalies are detected. Atrial Septum There is a patent foramen ovale (PFO). There is tarfq-um-uzox shunting across the patent foramen ovale with color Doppler. (Normal physiology.) Av Valves The tricuspid valve is functionally and structurally normal. The tricuspid valve diameter measures 7.3 mm in the lateral plane obtained from the A4C view. (Z-Score: 1.53) The mitral valve is functionally and structurally normal. The mitral valve diameter measures 7 mm in the lateral plane obtained from the A4C view. (Z-Score: 1.61) Ventricles The right ventricle is of normal size. The right ventricular systolic function is normal. The left ventricular chamber size, wall thickness and systolic function are normal. The global left ventricular systolic function is normal. Ventricular Septum The interventricular septum is intact with no evidence of a ventricular septal defect. Semilunar Valves The pulmonary valve annulus diameter measures 4.3 mm. (Z-Score: -0.69) The pulmonary valve leaflets are of normal thickness. There is laminar flow through the pulmonary valve. There is no pulmonary valve insufficiency. The aortic valve annulus diameter measures 3.7 mm. (Z-Score: -0.33) The aortic valve leaflets are of normal thickness. There is laminar flow through the aortic valve. There is no aortic valve insufficiency. Thoracic Arteries The main pulmonary artery is normal, without dilatation, stenosis, or aneurysm. The great arteries are normally related. The right pulmonary artery has normal size, origin, and configuration. The left pulmonary artery has normal size, origin, and configuration. There is a patent ductus arteriosus. There is xjfvz-lg-ccxm shunting across the patent ductus arteriosus with color Doppler. (Normal physiology.) The ascending aorta is normal, without dilatation or narrowing. The ascending aorta diameter measures 4.6 mm from the long axis view. (Z-Score: 0.58) The aortic arch is normal, without dilatation, aneurysm or coarctation. The aortic isthmus is normal sized. The aortic isthmus diameter measures 3.1 mm distal to the left subclavian artery. (Z-Score: 0.12) The descending aorta is normal, without dilatation, narrowing or aneurysm. Effusion There is no pericardial effusion. No evidence of hydrops. Mitral Valve Value(Units) Range Z Score MV diam (lateral) 4C 7 mm -?? Tricuspid Valve Value(Units) Range Z Score TV diam (lateral) 4C 7.3 mm -?? Pulmonary Valve / RV Value(Units) Range Z Score PV aisha diam 2D 4.3 mm -?? Aorta Value(Units) Range Z Score AV aisha diam 2D 3.7 mm -?? Asc Ao diam (LAX) 4.6 mm -?? Isthmus diam (SSN) 3.1 mm -?? All Z scores are estimated This report has been electronically signed by: Venita Johnson MD 03/06/2021 15:35:17 Images reviewed and interpretation verified [facility] Cardiac Ultrasound Laboratory Lisa Alvarez DO ECHO ORDERABLES documented in this encounter Visit Diagnoses Diagnosis Ventricular septal defect documented in this encounter Care Teams Cartographic Drafter Relationship Specialty Start Date End Date Teressa Morrison APRN PCP - General Family Medicine 02/04/21 documented as of this encounter
--- OUTSIDE RECORDS SUMMARY | 2024-04-16 12:01 | XMS_ITS | Encounter Summary ---
Author Organization [facility] [place] [address] Care Team Providers Care Electronic Imager Name Role Phone Aminta Whatley MD Primary Care Provider [phone] Encounter Details Date Type Department Care Team (Latest Contact Info) Description 04/06/2016 - 04/06/2016 11:59 PM EDT Hospital Encounter [place] [address] Adelso Gutiérrez MD [facility] [place] [address] Pain Discharge Disposition: Home Social History Tobacco Use Types Packs/Day Years Used Date Smoking Tobacco: Never Assessed Sex and Gender Information Value Date Recorded Sex Assigned at Not on file Gender Identity Not on file Sexual Orientation Not on file documented as of this encounter Plan of Treatment Not on file documented as of this encounter Procedures Procedure Name Priority Date/Time Associated Diagnosis Comments FILM LIBRARY STORAGE ONLY MR SHOULDER Routine 04/06/2016 12:00 AM EDT Pain documented in this encounter Results * Film Library- Storage only MR Shoulder (04/06/2016 12:00 AM EDT) Narrative [facility] - 06/16/2016 3:39 PM EDT This exam is for storage only and is auto-finalizing. Adelso Gutiérrez MD IM FILM LIBRARY ORD ERABLES [place], [place] documented in this encounter Visit Diagnoses Diagnosis Pain Generalized pain documented in this encounter Care Teams Electronic Imager Relationship Specialty Start Date End Date Aminta Whatley MD [facility] [place] [address] PCP - General 08/25/10 02/03/21 documented as of this encounter
--- OUTSIDE RECORDS SUMMARY | 2024-04-16 12:01 | XMS_ITS | Encounter Summary ---
[place] [address] Care Team Providers Care Ultimate Hoops Scoreboard Operator Name Role Phone Teressa Morrison APRN Primary Care Provider [phone] Reason for Referral * Diagnostic Test - Closed Specialty Diagnoses / Procedures Referred By Contac t Referred To Contact Diagnoses Ventricular septal defect Procedures US OB Detailed Morphology Lisa Alvarez DO [address] [place] [address] [place] [address] [place] [address] Referral ID Status Reason Start Date Expiration Date Visits Re quested Visits Authorized [id number] Closed 02/05/2021 02/05/2022 1 1 Reason for Visit * Diagnostic Test - Closed Specialty Diagnoses / Procedures Referred By Contac t Referred To Contact Diagnoses Ventricular septal defect Procedures US OB Detailed Morphology Lisa Alvarez DO [address] [place] [address] [place] [address] [place] [address] Referral ID Status Reason Start Date Expiration Date Visits Re quested Visits Authorized [id number] Closed 02/05/2021 02/05/2022 1 1 Encounter Details Date Type Department Care Team (Latest Contact Info) Description 02/16/2021 8:56 AM EDT - 02/16/2021 11:59 PM EDT Hospital En[place] [address] Lisa Alvarez DO [address] [place] [address] [place] [address] Ventricular septal defect Discharge Disposition: Home Social [...] Diagnosis Comments US OB DETAILED MORPHOLOGY Routine 02/16/2021 9:42 AM EDT Ventricular septal defect documented in this encounter Results * US OB Detailed Morphology (02/16/2021 9:42 AM EDT) Anatomical Region Laterality Modality Pelvis, Abdomen Ultrasound 02/16/2021 9:41 AM EDT Impressions 02/16/2021 10:05 AM EDT 2nd Trimester - Detailed Morphology - Summary Single intrauterine with a gestational age of 20w 1d based on Early Ultrasound ??(11/18/20) Composite age based on the current ultrasound alone is 21w 2d. Current growth parameters are consistent with prior dating indicating normal growth. Amniotic fluid volume is subjectively normal for gestational age Detailed anatomic evaluation was performed and no structural abnormalities are noted. Thank you for letting us participate in the care of this patient. If you are a health care provider and have any questions regarding this report, please contact the number below. For patients who have questions, please contact the health hourly caregiver that requested your imaging first. ? Carlotta Hagen, Staff Physician Electronically Signed Final Report ?? 02/16/2021 10:04 am Narrative 02/16/2021 10:05 AM EDT OBSTETRICS REPORT ?(Signed Final 02/16/2021 10:04 am) PATIENT INFO: ID #: ? [id number] ?: ??[birth year] (20 yrs)(F) Name: ? LORENA PRESTON ? Visit Date: 02/16/2021 09:41 am PERFORMED BY: Performed By: ? Nancie SPRAGUE, ??Sheba Attending: ?Carlotta Hagen MD Referred By: ?LISA ALVAREZ Location: ? [place] SERVICE(S) PROVIDED: [facility] - Detailed Morphology - [id number] ? [id number] INDICATIONS: 20 weeks gestation of ?Z3A.20 VSD EVALUATION: Num Of Fetuses: ? 1 Heart Rate(bpm): ??151 Cardiac Activity: ? Observed, normal rhythm Presentation: ? Cephalic Placenta: ? Anterior P. Cord Insertion: ?Within Normal Limits Amniotic Fluid MYRA FV: ?Subjectively normal for gestational age --------- BIOMETRY: --------- BPD: ?51.8 ??mm ? G.Age: ?? 21w 5d OFD: ?65.8 ??mm HC: ?189.0 ??mm ? G.Age: ?? 21w 1d AC: ?164.6 ??mm ? G.Age: ?? 21w 4d FL: ? 34.0 ??mm ? G.Age: ?? 20w 5d HUM: ?31.7 ??mm ? G.Age: ?? 20w 4d CER: ?22.7 ??mm ? G.Age: ?? 21w 2d NFT: ?4.84 ??mm NB: ?5.1 ??mm LV: ?6.5 ??mm CM: ?4.1 ??mm CI: ?78.7 ??% ? 70 - 86 FL/HC: ? 18.0 ??% ? 16.8 - 19.8 HC/AC: ? 1.15 ?1.09 - 1.39 FL/BPD: ?65.6 ??% FL/AC: ? 20.7 ??% ? Est. FW: ? 404 ??gm ?0 lb 14 oz OB HISTORY: : ?1 GESTATIONAL AGE: LMP: ? 30w 1d ?Date: ??07/20/20 ? KOBE: ?? 04/26/21 U/S Today: ? 21w 2d ?KOBE: ?? 06/27/21 Best: ?20w 1d ?? Det. By: ??Early ?KOBE: ?? 07/05/21 ? Ultrasound ? (11/18/20) TARGETED ANATOMY: Central Nervous System Calvarium/Cranial V.: [...] Arch: ? Visualized SVC: ? Visualized Cardiac Pitts: ?Visualized Diaphragm: ? Visualized 3 Vessel View: ? Visualized IVC: ? Visualized Abdomen Ventral Wall: ?Visualized Cord Insertion: ?Visualized [...] Umbilical Cord: ?3 vessel cord Genitalia: ? Male CERVIX UTERUS ADNEXA: Right Ovary Visualized Left Ovary Visualized Procedure Note Luis Hagen MD - 02/16/2021 OBSTETRICS REPORT (Signed Final 02/16/2021 10:04 am) PATIENT INFO: ID #: [id number] : [birth year] (20 yrs)(F) Name: LORENA PRESTON Visit Date: 02/16/2021 09:41 am PERFORMED BY: Performed By: Sheba Canada RDMS Attending: Carlotta Hagen MD Referred By: LISA ALVAREZ Location: [place] SERVICE(S) PROVIDED: [facility] - Detailed Morphology - [id number] INDICATIONS: 20 weeks gestation of Z3A.20 VSD EVALUATION: Num Of Fetuses: 1 Heart Rate(bpm): 151 Cardiac Activity: Observed, normal rhythm Presentation: Cephalic Placenta: Anterior P. Cord Insertion: Within Normal Limits Amniotic Fluid MYRA FV: Subjectively normal for gestational age --------- BIOMETRY: --------- BPD: 51.8 mm G.Age: 21w 5d OFD: 65.8 mm HC: 189.0 mm G.Age: 21w 1d AC: 164.6 mm G.Age: 21w 4d FL: 34.0 mm G.Age: 20w 5d HUM: 31.7 mm G.Age: 20w 4d CER: 22.7 mm G.Age: 21w 2d NFT: 4.84 mm NB: 5.1 mm LV: 6.5 mm CM: 4.1 mm CI: 78.7 % 70 - 86 FL/HC: 18.0 % 16.8 - 19.8 HC/AC: 1.15 1.09 - 1.39 FL/BPD: 65.6 % FL/AC: 20.7 % 20 - 24 Est. FW: 404 gm 0 lb 14 oz OB HISTORY: : 1 GESTATIONAL AGE: LMP: 30w 1d Date: 07/20/20 KOBE: 04/26/21 U/S Today: 21w 2d KOBE: 06/27/21 Best: 20w 1d Det. By: Early KOBE: 07/05/21 Ultrasound (11/18/20) TARGETED ANATOMY: Central Nervous System Calvarium/Cranial V.: [...] Visualized Ductal Arch: Visualized SVC: Visualized Cardiac Pitts: Visualized Diaphragm: Visualized 3 Vessel View: Visualized IVC: Visualized Abdomen Ventral Wall: Visualized Cord Insertion: [...] Other Umbilical Cord: 3 vessel cord Genitalia: Male CERVIX UTERUS ADNEXA: Right Ovary Visualized Left Ovary Visualized IMPRESSION 2nd Trimester - Detailed Morphology - Summary Single intrauterine with a gestational age of 20w 1d based on Early Ultrasound (11/18/20) Composite age based on the current ultrasound alone is 21w 2d. Current growth parameters are consistent with prior dating indicating normal growth. Amniotic fluid volume is subjectively normal for gestational age Detailed anatomic evaluation was performed and no structural abnormalities are noted. Thank you for letting us participate in the care of this patient. If you are a health care provider and have any questions regarding this report, please contact the number below. For patients who have questions, please contact the health hourly caregiver that requested your imaging first. Carlotta Hagen, Staff Physician Electronically Signed Final Report 02/16/2021 10:04 am Lisa Alvarez DO IMG US OB ORDERABLES documented in this encounter Visit Diagnoses Diagnosis Ventricular septal defect documented in this encounter Care Teams Ultimate Hoops Scoreboard Operator Relationship Specialty Start Date End Date Teressa Morrison, CARA PCP - General Family Medicine 02/04/21 documented as of this encounter
--- OUTSIDE RECORDS SUMMARY | 2024-04-16 12:01 | XMS_ITS | Encounter Summary ---
[place] [address] Care Team Providers Care Rail Filler Name Role Phone Teressa Morrison APRN Primary Care Provider [phone] Reason for Visit * Reason Comments Maternal Condition * Consultation (Routine) - Closed Specialty Diagnoses / Procedures Referred By Wesly crump Referred To Contact Obstetrics and Gynecology Diagnoses Ventricular septal defect Encounter for supervision of normal , unspecified, unspecified trimester MATERNAL CONDITION- SMALL MATERNAL VSD Procedures MATERNAL MEDICINE CONSULT ECHOCARDIOGRAM Lisa Alvarez, [address] [place] [address] [facility] Boring Machine Operator [address] [place] [address] Referral ID Status Reason Start Date Expiration Date V isits Requested Visits Authorized [id number] Closed Consult, Test & Treat Connection Center PCP Updated and/or Approved 02/04/2021 02/04/2022 6 6 Encounter Details Date Type Department Care Team (Latest Contact Info) Description 02/12/2021 10:00 AM EDT TH Visit (TeleHealth) Obstetrics [place] [address] Nupur Uribe, [facility] OBSTETRICS & [place] [address] screening encounter Social History Tobacco Use Types Packs/Day Years Used Date Smoking Tobacco: Never Assessed Comments Yes Sex and Gender Information Value Date Recorded Sex Assigned at Not on file Gender Identity Not on file Sexual Orientation Not on file documented as of this encounter Progress Notes * Nupur Uribe, [facility] - 02/12/2021 10:00 AM EDT Genetic Counseling Note Lorena Preston is a 20 y.o. female currently at 19w4d gestation. She was referred to the Diagnosis Program by Lisa Alvarez CNM. I met with Lorena for a 15 minute genetic counselingvideo visit. Chief Complaint Patient presents with ??? Maternal Condition: VSD A family obtained and was unremarkable for intellectual disability, congenital anomalies, recurrentpregnancy loss, or known genetic conditions that could have implications for this . Lorena and her partner, Walter Narayanan, are [place]. Consanguinity was denied. OB History Para Term AB Living 1 0 0 0 0 0 SAB TAB Ectopic Multiple Live Births 0 0 0 0 0 # Outcome Date GA Lbr Isac/2nd Weight Sex Delivery Anes PTL Lv 1 Current No LMP recorded (lmp unknown). Patient is . Estimated Date of Delivery: 07/05/21 based on ultrasound (11/18/20: 7 weeks, 2 days) Completed Screening Test Result ??? Aneuploidy screen [place] - low risk, male ?? Spinal muscular atrophy screen Negative ??? Cystic fibrosis carrier screen Negative ??? Thalassemia screen MCV within normal limits (87.0 fL) Assessment Lorena has a VSD that did not require surgery. She reported she is currently seen every two years in [facility] by a visiting assistant store manager operations from [place]. Congenital heart defects are the mostcommon type of defect occurring in about 1% of newborns. The majority of congenital heart defects are isolated, although some will be associated with a genetic condition or an environmental exposure. The family history is negative for heart defects. Lorena's personal and family histories are consistent with an isolated congenital heart defect. The chance of recurrence for any type of heart defect in the fetus is ~5%. Plan: Lorena is scheduled for detailed ultrasound and maternal- medicine consultation with Dr. Carlotta Hagen on February 16. Please refer to her note for further details and recommendations. echocardiogram is scheduled for March 06. documented in this encounter Plan of Treatment Not on file documented as of this encounter Visit Diagnoses Diagnosis screening encounter Unspecified screening documented in this encounter Care Teams Rail Filler Relationship Specialty Start Date End Date Teressa Morrison, CONDUIT CLEANER PCP - General Family Medicine 02/04/21 documented as of this encounter
--- OUTSIDE RECORDS SUMMARY | 2024-04-16 12:01 | XMS_ITS | Encounter Summary ---
Author Organization [facility] [place] [address] Care Team Providers Care Skimmer Reverberatory Name Role Phone Aminta Whatley MD Primary Care Provider [phone] Encounter Details Date Type Department Care Team (Latest Contact Info) Description 03/30/2016 - 03/30/2016 11:59 PM EDT Hospital Encounter [place] [address] Adelso Gutiérrez MD [facility] [place] [address] Pain Discharge Disposition: Home Social History Tobacco [...] Associated Diagnosis Comments FILM LIBRARY STORAGE ONLY DX SHOULDER Routine 03/30/2016 12:00 AM EDT Pain documented in this encounter Results * Film Library- Storage only DX Shoulder (03/30/2016 12:00 AM EDT) Narrative [facility] - 06/16/2016 3:40 PM EDT This exam is for storage only and is auto-finalizing. Adelso Gutiérrez MD IM FILM LIBRARY ORD ERABLES [place], [place] documented in this encounter Visit Diagnoses Diagnosis Pain Generalized pain documented in this encounter Care Teams Skimmer Reverberatory Relationship Specialty Start Date End Date Aminta Whatley MD [facility] DR CHILD ADVOCACY & [place] [address] PCP - General 08/25/10 02/03/21 documented as of this encounter
--- OUTSIDE RECORDS SUMMARY | 2024-04-16 12:01 | XMS_ITS | Encounter Summary ---
Author Organization [facility] [place] [address] Care Team Providers Care Deputy Sheriff Generalist/Bailiff Name Role Phone Teressa Morrison APRN Primary Care Provider [phone] Reason for Visit * Reason Comments Routine Visit * Consultation (Routine) - Closed Specialty Diagnoses / Procedures Referred By Wesly crump Referred To Contact Obstetrics and Gynecology Diagnoses Ventricular septal defect Encounter for supervision of normal , unspecified, unspecified trimester MATERNAL CONDITION- SMALL MATERNAL VSD Procedures MATERNAL MEDICINE CONSULT ECHOCARDIOGRAM Lisa Alvarez, [address] [place] [address] [facility] [place] [employer] [address] [place] [address] Referral ID Status Reason Start Date Expiration Date V isits Requested Visits Authorized [id number] Closed Consult, Test & Treat Connection [facility] PCP Updated and/or Approved 02/04/2021 02/04/2022 6 6 Encounter Details Date Type Department Care Team (Late st Contact Info) Description 02/16/2021 11:00 AM EDT Office Visit Obstetrics [place] [address] Luis Hagen MD [facility] DR OBSTETRICS & [place] [address] Obesity affecting in second trimester; Membranous ventricular septal defect; Congenital heart defect Social History Tobacco Use Types Packs/Day Years Used Date Smoking Tobacco: Never Smokeless Tobacco: Never Comments Yes Sex and Gender Information Value Date Recorded Sex Assigned at Not on file Gender Identity Not on file Sexual Orientation Not on file documented as of this encounter Last Filed Vital Signs Vital Sign Reading Time Taken Comments Blood Pressure 110/68 02/16/2021 9:59 AM EDT Pulse - - Temperature - - Respiratory Rate - - Oxygen Saturation - - Inhaled Oxygen Concentration - - Weight 91.4 kg (201 lb 8 oz) 02/16/2021 9:59 AM EDT Height - - Body Mass Index - - documented in this encounter Progress Notes * Luis Hagen MD - 02/16/2021 11:00 AM EDT Maternal Medicine: Ultrasound Consultation Lorena Preston is a 20 y.o. year old female who is at 20w1d gestation. She is seen in consultation at the request of Lisa Alvarez DO for evaluation of anatomy due to maternal history of congenital heart defect: VSD, which did not require surgery. She was seen today for maternal- medicine consultation and ultrasound evaluation. Review of Systems Constitutional:feels well, except for persistent nausea Movement: normal Contractions: none Leaking: None Bleeding: None Patient Active Problem List Diagnosis Date Noted ??? Anxiety disorder, unspecified 02/16/2021 ??? BMI [...] No resolved problems to display. Ultrasound Date: 02/16/2021 Growth appropriate for gestational age Amniotic fluid volume normal Presentation cephalic Placenta anterior anatomy appears normal Physical Exam BP 110/68 Wt 91.4 kg (201 lb 8 oz) LMP (LMP Unknown) General: alert, well appearing, in no apparent distress, oriented to person, place and time, overweight HEENT: normocephalic, atraumatic Abdomen: Gravid, soft, nontender Neurologic:alert, oriented, normal speech, no focal findings or movement disorder noted Psychiatric: Affect is Appropriate. Assessment and Recommendations: 20 y.o. year old female at 20w1d weeks gestation, with normal ultrasound. After a normal ultrasound evaluation, obese women without diabetes may still have up to a 1% risk of a major anomaly, including some anomalies not detectable by ultrasound. echocardiogram is scheduled, due to personal history of CHD. Due to primigravida and BMI >=30, low dose aspirin is recommended; two tablets per day. I appreciate the opportunity to be involved in this patients care, and am available if further questions should arise. Luis HAGEN MD 02/16/2021 Cc: Lisa Alvarez, with copy of ultrasound report documented in this encounter Plan of Treatment Not on file documented as of this encounter Visit Diagnoses Diagnosis Obesity affecting in second trimester Membranous ventricular septal defect Ventricular septal defect Congenital heart defect Unspecified congenital anomaly of heart documented in this encounter Care Teams Deputy Sheriff Generalist/Bailiff Relationship Specialty Start Date End Date Teressa Morrison, CARA PCP - General Family Medicine 02/04/21 documented as of this encounter
[2024-04-18 11:47] LABS: TB Interpretation Negative (Negative); TB1 Ag minus Nil 0.01 IU/ml
== END 2024-04-16 11:59 | disposition home or self-care (01) ==
PROVIDERS: PCP Nurse Practitioner Family; Visit Provider Nurse Practitioner Family
DX: G43.909 Migraine, unspecified, not intractable, without status migrainosus (principal)
CPT/HCPCS: 36415; 86480

== ENCOUNTER → 2024-04-18 02:21 | Outpatient (CLI) | payer MEDICAID, SELFPAY ==
--- NOTE | 2024-04-18 | DI.CT_ITS ---
Exam(s) CT HEAD WO EXAM: CT HEAD WO CLINICAL HISTORY: [address]. TECHNIQUE: Imaging Protocol: Axial computed tomography images with coronal and sagittal reformatted images were created and reviewed COMPARISON: No exams were available for comparison FINDINGS: There are no skull fractures. There is no fluid in the visualized paranasal sinuses. There is no evidence of intracranial hemorrhage, mass effect, or shift of midline structures. There are no extra-axial fluid collections. The ventricles are not enlarged or shifted and there is no blo od within the ventricular system nor within the basal cisterns. IMPRESSION: No acute intracranial findings on this noninfused CT scan of the brain. RADIATION DOSE DELIVERED: Total DLP DATA REPOSITORY: All CT scans at this facility are submitted to the National Radiology Data Registry (NRDR) Dose Index Registry (DIR) with the [employer] (ACR). RADIATION OPTIMIZATION: All CT scans at this facility use at least one of these dose optimization te chniques: automated exposure control; mA and/or kV adjustment per patient size (includes targeted exa ms where dose is matched to clinical indication); or iterative reconstruction.
== END ==
PROVIDERS: PCP Nurse Practitioner Family; Visit Provider Nurse Practitioner Family
DX: G43.909 Migraine, unspecified, not intractable, without status migrainosus (principal)
CPT/HCPCS: 70450

== ENCOUNTER 2024-07-19 03:04 | Outpatient (CLI) | payer MEDICAID, SELFPAY ==
[2024-07-19 10:08] LABS: Panorama Kit Sent via Fed Ex
[2024-07-19 10:42] LABS: Abs Immature Grans 0.03 10^3/uL (0.0-0.06); Absolute Basophil Count 0.02 10^3/uL (0.0-0.2); Absolute Eosinophil Count 0.13 10^3/uL (0.0-0.7); Absolute Lymphocyte Count 1.92 10^3/uL (1.2-3.4); Absolute Monocyte Count 0.55 10^3/uL (0.1-0.8); Absolute Neutrophil Count 6.52 10^3/uL (1.2-6.7); Basophils % 0.2 %; Eosinophils % 1.4 %; HCT 36.3 % (36.0-46.0); HGB 12.6 g/dL (11.2-15.7); Immature Grans % 0.3 %; Lymphocytes % 20.9 %; MCH 30.1 pg (27.0-33.0); MCHC 34.7 % (32.0-36.0); MCV 87 fL (80-95); MPV 9.6 fL (8.0-11.0); Neutrophils % 71.2 %; Platelet Count 256 10^3/uL (130-400); RBC 4.19 10^6/uL (3.93-5.22); RDW-SD 40.6 fL; WBC 9.17 10^3/uL (4.4-10.8)
[2024-07-19 11:09] LABS: Glucose,1 Hr (Glucola) 81 mg/dL (80-140)
[2024-07-20 10:22] LABS: Hepatitis B Surface Ag Negative (Negative)
[2024-07-20 10:27] LABS: Hepatitis C Ab w Rflx HCV PCR Negative (Negative)
[2024-07-20 11:18] LABS: HIV-1/2 Ag & Ab Screen Negative (Negative)
[2024-07-20 11:43] LABS: Rubella IgG Ab (UVM) Negative (See Note); Varicella IgG Antibody Negative (See Note)
[2024-07-22 15:26] LABS: Syphilis IgG w/Reflex Nonreactive (Nonreactive)
== END 2024-07-19 03:05 | disposition home or self-care (01) ==
LOC: LBO 03:04
PROVIDERS: PCP Nurse Practitioner Family; Visit Provider Advanced Practice Midwife
DX: Z34.91 Encounter for supervision of normal pregnancy, unspecified, first trimester (principal)
CPT/HCPCS: 36415; 82950; 86787; 86803; 86850; 86900; 86901; 87340; 87389; 85025; 86762; 86780

== ENCOUNTER 2024-07-19 10:03 | Outpatient (REF) | payer MEDICAID, SELFPAY ==
--- NOTE | 2024-07-19 08:52 | PAPFT_PTH ---
PATIENT: Lorena Preston LOC: [facility] U#:[id number] AGE/SX: 23/F ROOM: RE07/19/[address]: Ann Marie Weiss : 2000 BED: DIS: 07/19/2024 SPEC #: [id number] RECD: 07/19/24 13:01 STATUS: NIC REMaria Alejandra #: [id number] WENDI: 07/19/24 08:[address]: Ann Marie Weiss DEPT: [facility] Cytology RECD BY: Svetlana Anderson ENTERED: 07/19/24 13:02 SP TYPE: PAPFT OTHR DR: Kaylen Petersen Tissues: 1 - CX/ENDOCX FOR PAP SMEARS Procedures: PAP THIN PREP/UVM Screening HPV DNA PROBE Comments: [id number] (HPV 16 & 18/45) (CHLAMYDIA/GC)
[2024-07-20 12:11] LABS: Chlamydia Result Negative (Negative); GC Result Negative (Negative)
== END 2024-07-19 10:04 | disposition home or self-care (01) ==
LOC: LBN 10:03
PROVIDERS: PCP Nurse Practitioner Family; Visit Provider Advanced Practice Midwife
DX: Z34.91 Encounter for supervision of normal pregnancy, unspecified, first trimester (principal)
CPT/HCPCS: 87491; 87591; 88142; 87086; 87624

== ENCOUNTER 2024-11-10 15:52 | Outpatient (REF) | payer MEDICAID, SELFPAY | END 2024-11-10 15:53 | disposition home or self-care (01) | LOC: LBN 15:52 | PROVIDERS: PCP Nurse Practitioner Family; Visit Provider Nurse Practitioner Family | DX: B37.31 Acute candidiasis of vulva and vagina (principal) | CPT/HCPCS: 87480; 87510; 87660 ==

== ENCOUNTER 2024-11-13 03:19 | Outpatient (CLI) | payer MEDICAID, SELFPAY ==
[2024-11-13 12:49] LABS: HCT 34.2 % (36.0-46.0); HGB 11.3 g/dL (11.2-15.7); MCH 30.1 pg (27.0-33.0); MCV 91 fL (80-95); MPV 9.1 fL (8.0-11.0); Platelet Count 228 10^3/uL (130-400); RBC 3.75 10^6/uL (3.93-5.22); RDW 13.8 % (11.7-14.6); RDW-SD 45.9 fL
[2024-11-13 13:02] LABS: Glucose,1 Hr (Glucola) 85 mg/dL (80-140)
[2024-11-15 08:38] LABS: Bile Acids, Total 8 mcmol/L (<=10)
== END 2024-11-13 03:20 | disposition home or self-care (01) ==
LOC: LBO 03:19
PROVIDERS: Advanced Practice Midwife; PCP Nurse Practitioner Family; Visit Provider Advanced Practice Midwife
DX: Z34.92 Encounter for supervision of normal pregnancy, unspecified, second trimester (principal); O99.712 Diseases of the skin and subcutaneous tissue complicating pregnancy, second trimester; L29.9 Pruritus, unspecified
CPT/HCPCS: 36415; 82950; 85027; 82239

== ENCOUNTER 2024-12-24 02:11 | Outpatient (CLI) | payer MEDICAID, SELFPAY ==
--- NOTE | 2024-12-24 07:15 | DI.US_ITS ---
Exam(s) US OB MYRA WEIGHT EXAM: US OB MYRA WEIGHT CLINICAL HISTORY: H/O oligohydramnios,z87.59. TECHNIQUE: Transabdominal obstetrical ultrasound was performed. COMPARISON: US POCUS EXAM from 07/19/2024 FINDINGS: There is a single viable intrauterine gestation with cardiac activity identified-149 bpm The fetus is presently in cephalic position . Amniotic fluid: There is a normal amount of amniotic fluid with an MYRA of 13.6cm. Placental location: The placenta is posterior grade 2,with no evidence of placenta previa.Three-vesse l umbilical cord was identified Dating parameters place this at approximately 34 weeks and 4 days gestational age, implying KOBE of . BPD measures 34 weeks and 1 day HC measures 34 weeks and 5 days AC measures 35 weeks and 1 day FL measures 34 weeks and 0 days Estimated weight is 2482 gm-5 pounds, 8 ounces Fetus is at the 71st percentile on the Hadlock scale. IMPRESSION:: Viable 3rd trimester gestation, as described above. DATA REPOSITORY:
== END 2024-12-24 02:31 ==
LOC: DI 02:11
PROVIDERS: PCP Nurse Practitioner Family; Visit Provider Advanced Practice Midwife
DX: Z87.59 Personal history of other complications of pregnancy, childbirth and the puerperium (principal); Z34.83 Encounter for supervision of other normal pregnancy, third trimester; Z3A.35 35 weeks gestation of pregnancy
CPT/HCPCS: 76816

== ENCOUNTER 2025-01-11 11:02 | Outpatient (REF) | payer MEDICAID, SELFPAY | END 2025-01-11 11:03 | disposition home or self-care (01) | LOC: LBN 11:02 | PROVIDERS: PCP Nurse Practitioner Family; Visit Provider Advanced Practice Midwife | DX: Z34.93 Encounter for supervision of normal pregnancy, unspecified, third trimester (principal); Z3A.36 36 weeks gestation of pregnancy | CPT/HCPCS: 87081 ==

== ENCOUNTER 2025-01-24 11:57 | Outpatient (CLI) | payer MEDICAID, SELFPAY ==
[2025-01-24 12:55] VITALS: BP 113/61; PULSE 88; PULSE 90; RESP 17; TEMP 36.6; O2SAT 98
[2025-01-24 13:52] VITALS: BP 113/61; PULSE 88; TEMP 36.6
[2025-01-24 14:14] LABS: HCT 31.7 % (36.0-46.0); HGB 10.5 g/dL (11.2-15.7); MCH 27.7 pg (27.0-33.0); MCHC 33.1 % (32.0-36.0); MCV 84 fL (80-95); MPV 9.1 fL (8.0-11.0); Platelet Count 199 10^3/uL (130-400); RBC 3.79 10^6/uL (3.93-5.22); RDW 13.3 % (11.7-14.6); RDW-SD 40.9 fL; WBC 12.11 10^3/uL (4.4-10.8)
[2025-01-24 14:40] LABS: ALT 15 U/L (14-59); AST 14 U/L (15-37); Albumin 2.7 g/dL (3.4-5.0); Alkaline Phosphatase 272 U/L (46-116); Anion Gap 8.4 mmol/L (3-11); BUN 9 mg/dL (7-18); Bilirubin, Total 0.4 mg/dL (0.2-1.0); CO2 20.6 mmol/L (21.0-32.0); CREATININE 0.6 mg/dL (0.55-1.02); Calcium 8.5 mg/dL (8.5-10.1); Chloride 109 mmol/L (98-107); Estimated GFR 128.46 (mL/min/1.73m2); Glucose 94 mg/dL (74-106); Potassium 3.6 mmol/L (3.5-5.1); Sodium 138 mmol/L (136-145)
--- NOTE | 2025-01-24 16:16 | W.OBNST ---
Date of service: 01/24/25 Time of Service: 16:17 NST Evaluation Reason for NST Reasons for Nonstress Test: FALSE LABOR Gestational Age Gestational Age in Weeks and Days: 38 Weeks and 1Days Test and Monitor Explained Test/Monitor Explained: Test Explained, Monitor Explained and Patient Verbalized Understanding Vital Signs Blood Pressure: 113/61 Pulse: 88 Temperature: 97.9 F Urine Results Urine Protein: Positive Urine Ketones: Negative Urine Glucose: Negative Urine Blood: Negative NST Information Date on Monitor: 01/24/25 Time on Monitor: 12:32 Date off Monitor: 01/24/25 Time off Monitor: 14:09 Total Time on Monitor: 97 NST Interventions: PO Hydration Contraction Frequency: occasional, mild to palpation NST Evaluation Patient States Movement: Present FHR Baseline: 125 Variability: Moderate 6-25 bpm Accelerations: 15x15 Decelerations: None NST Results: Reactive Note Ultrasound Done: N/A. NST Note Note: 24y.o at 38w1d hx successful x1 and PLTCS. SVE 3/40/-3 VTX intact bag of vasquez. Mild irregular uterine contractions, not painful per patient. Possible early labor or false labor. Labor precautions reviewed. Desires discharge to home. Discharge in stable condition and undelivered. NST Reviewed and Verified by: Cheryl Parrish
[2025-01-24 16:21] VITALS: BP 113/61; PULSE 88; TEMP 36.6
== END 2025-01-24 14:10 ==
LOC: BCD 11:58 → OBS 12:07
PROVIDERS: PCP Nurse Practitioner Family; Visit Provider Advanced Practice Midwife
DX: O47.1 False labor at or after 37 completed weeks of gestation (principal); Z3A.38 38 weeks gestation of pregnancy
CPT/HCPCS: 59025; 36415; 80053; 85027; 86850; 86900; 86901

== ENCOUNTER 2025-01-25 10:40 | Outpatient (CLI) | payer MEDICAID, SELFPAY ==
--- NOTE | 2025-01-25 10:00 | DI.US_ITS ---
Exam(s) US OB MYRA WEIGHT EXAM: US OB MYRA WEIGHT CLINICAL HISTORY: size less than dates, O26.849,fundal height low for dates, Z34.90, WET READ. TECHNIQUE: Transabdominal obstetrical ultrasound was performed. COMPARISON: No exams were available for comparison FINDINGS: There is a single viable intrauterine gestation with cardiac activity identified-136 bpm The fetus is presently in cephalic position . Amniotic fluid: There is a normal amount of amniotic fluid with an MYRA of 19 x 1cm. Placental location: The placenta is posterior-fundal grade 2,with no evidence of placenta previa. Dating parameters place this at approximately 39 weeks gestational age, implying KOBE of 11/2024. BPD measures 37 weeks and 4 days HC measures 40 weeks and 3 days AC measures 40 weeks and 5 days FL measures 37 weeks and 2 days Estimated weight is 3824 gm-8 pound 7 ounce Fetus is at the 90th percentile on the Hadlock scale. IMPRESSION:: Viable 3rd trimester gestation, as described above. DATA REPOSITORY:
== END 2025-01-25 11:00 ==
LOC: DI 10:41
PROVIDERS: PCP Nurse Practitioner Family; Visit Provider Advanced Practice Midwife
DX: O26.843 Uterine size-date discrepancy, third trimester; Z3A.40 40 weeks gestation of pregnancy
CPT/HCPCS: 76816

== ENCOUNTER 2025-01-26 07:40 | Outpatient (CLI) | payer MEDICAID, SELFPAY ==
[2025-01-26 13:13] VITALS: BP 116/59; PULSE 94; TEMP 36.5
--- NOTE | 2025-01-26 16:48 | W.OBNST ---
Date of service: 01/26/25 Time of Service: 14:00 NST Evaluation Reason for NST Reasons for Nonstress Test: FALSE LABOR Gestational Age Gestational Age in Weeks and Days: 38 Weeks and 3Days Test and Monitor Explained Test/Monitor Explained: Test Explained Vital Signs Blood Pressure: 116/59 Pulse: 94 Temperature: 97.7 F NST Information Date on Monitor: 01/26/25 Time on Monitor: 13:02 Date off Monitor: 01/26/25 Time off Monitor: 13:22 Total Time on Monitor: 20 NST Interventions: None NST Evaluation Patient States Movement: Present FHR Baseline: 130 Variability: Moderate 6-25 bpm Accelerations: 15x15 Decelerations: None NST Results: Reactive Note Ultrasound Done: N/A. NST Note Note: cvx 4/75%, soft & midpelvis, vtx -2/-3, intact membranes, No contractions, not in labor, d/c home, RTO 01/30 for scheduled 39 wk check and prn, sx labor reviewed pt reaffirms desires for TOLAC NST Reviewed and Verified by: Ally Yancey
[2025-01-26 16:50] VITALS: BP 116/59; PULSE 94; TEMP 36.5
== END 2025-01-26 13:40 | disposition home health service (06) ==
LOC: BCD 07:44 → OBS 13:06
PROVIDERS: PCP Nurse Practitioner Family; Visit Provider Advanced Practice Midwife
DX: O47.1 False labor at or after 37 completed weeks of gestation (principal); Z3A.38 38 weeks gestation of pregnancy
CPT/HCPCS: 59025

== ENCOUNTER 2025-01-27 19:00 | Inpatient (IN) | payer MEDICAID, SELFPAY ==
[2025-01-27] VITALS (16 sets, daily range): BP systolic 105–128; BP diastolic 55–78; PULSE 54–96; RESP 16–18; TEMP 37.4; O2SAT 99–100; BMI 34.6
[2025-01-27 19:21] LABS: HCT 33.5 % (36.0-46.0); HGB 10.9 g/dL (11.2-15.7); MCHC 32.5 % (32.0-36.0); MCV 83 fL (80-95); MPV 9.3 fL (8.0-11.0); Platelet Count 231 10^3/uL (130-400); RBC 4.03 10^6/uL (3.93-5.22); RDW 13.6 % (11.7-14.6); RDW-SD 41.1 fL; WBC 14.48 10^3/uL (4.4-10.8)
--- NOTE | 2025-01-27 19:50 | ANES.PREOP_ITS ---
General Info Date of Service Date Performed: 01/27/25 Height: 5 ft 4.5 in Weight: 92.986 kg Body Mass Index (BMI): 34.6 Meds Allergies and Home Medications Allergies Allergy/AdvReac Type Severity Reaction Status Date / Time No Known Allergies Allergy Verified 01/25/25 09:50 Home Medication ?Medication ?Instructions ?Recorded albuterol sulfate 90 mcg/actuation 2 puff inhalation Q4H PRN ##1 06/01/17 aerosol inhaler (ProAir HFA) cholecalciferol (vitamin D3) 25 25 mcg PO DAILY 10/29/20 mcg (1,000 unit) chewable tablet vitamin B complex 1 tab PO DAILY 04/30/21 pantoprazole 40 mg tablet,delayed 40 mg PO DAILY #30 tabs 07/05/22 release (Protonix) vitamins no.119-iron 1 tab PO DAILY 07/05/22 fumarate 29 mg-folic acid 1 mg tablet docusate sodium 100 mg capsule 100 mg PO BID #60 caps 11/09/22 (Colace) doxylamine 10 mg-pyridoxine (vit 1 tab PO DAILY 07/19/24 B6) 10 mg tablet,delayed release (Diclegis) cholecalciferol (vitamin D3) 10 10 mcg PO DAILY 08/29/24 mcg (400 unit) chewable tablet (Vitamin D3) ondansetron 4 mg disintegrating 4 mg PO Q6H PRN 12/28/24 tablet Current Visit Medications: Current Medications Generic Name Dose Route Start Last Admin Trade Name Freq PRN Reason Stop Dose Admin Ringer's Solution 1,000 mls @ 125 mls/hr 01/27/25 18:45 IV INFUSION CAIT IV Miscellaneous Supplies 1 each 01/27/25 18:45 Iv Access IV DIRECTED CAIT Sodium Chloride 0 ml 01/27/25 18:45 Normal Saline Flush 10 Ml Syr IVP PRN PRN Sodium Chloride 0 ml 01/27/25 20:00 Normal Saline Flush 10 Ml Syr IVP BID CAIT Sodium Chloride 0 ml 01/27/25 18:45 Normal Saline 10 Ml Vial IJ DIRECTED PRN PFSH Active Problems Active Problems: Problem Status Onset Code Fundal height low for dates Acute O26.849 History of oligohydramnios Acute Z87.59 pruritus Acute O99.719, L29.9 Rubella non-immune status, antepartum Acute O09.899, Z28.39 Acute Z34.90 Delayed menses Acute N91.0 Vaginal discharge Acute N89.8 Thrush Acute B37.0 Anemia, blood loss Acute D50.0 Gestational diabetes Acute O24.419 , delivered Acute O34.219 Depression Chronic F32.9 Anxiety disorder, unspecified Acute F41.9 LGSIL (low grade squamous intraepithelial dysplasia) Acute BMI 32.0-32.9,adult Acute Z68.32 Heart murmur Acute R01.1 Susceptible to varicella (non-immune), currently Acute O09.899, Z28.39 Anemia affecting in third trimester Acute O99.013 Medical History Medical History Normal labor Weight loss, non-intentional Attention-deficit hyperactivity disorder, unspecified type (09/07/16) has IEP for developmental/assisitive therapies (F90.9- adhd unspecified type) Chronic right shoulder pain (06/01/17) Intentional self-harm by sharp object (01/19/16) Mild intermittent asthma, uncomplicated (08/24/16) Learning difficulty (11/24/12) IEP in place for speech/language services Limitation of joint motion of right shoulder (07/06/17) Membranous ventricular septal defect (11/24/12) Followed by Dr. Chun, 02/2016- does not need SBE prophylaxis, no need to restrict from any vigorious physical activity. Re-eval in 3 years Sleep difficulties (06/01/16) Surgical History Surgical History Previous delivery affecting , antepartum LTCS 06/28/21 arrest of dilation/ second stage 5 hours Status post primary low transverse section 06/28/21.Arrest of dilation. Jose Brooks. Tobacco Smoking/Tobacco Use Status: Never Passive smoking exposure: No Alcohol Alcohol Intake: never Substance Use Substance use: Never Substance use type: does not use Prental History History 2 3 Para 2 Hx # Term Pregnancies 2 Multiple births 0 Hx # Pregnancies 0 Ectopic pregnancies 0 AB induced 0 Hx Number of Living Children 2 AB spontaneous 0 Past Pregnancies Del. Date GA/Weeks # Preg Succ Route Wgt Sex Labor Lgth Anesth esia Location Prov Complic 06/28/21 39 No Yes 3804.506 g Male regional [facility] Kris BARKLEY for labor, C/S Dr. Alvarez 01/14/23 38 No Yes vaginal 3610.028 g Female 4hrs 2 min regional [facility]/MD Sujit. Precipitous delivery. Delivery Date: 06/28/21 Last Updated by: Leyda Sherman MD spont labor, epidural, pushed for 4 hrs, baby stuck OP, C/S [facility] Delivery Date: 01/14/23 Last Updated by: BEBO Kraus; manual removal of placenta completed by MD Sujit Vital Signs and Lab Results Vital Signs Most Recent Vital Signs in EMR: Most Recent Vital Signs Pulse Resp BP 96 H 18 119/63 01/27/25 19:39 01/27/25 19:39 01/27/25 19:39 Lab Results 01/27/25 19:13 Blood Type / Crossmatch: 2 Antibody Screen NEGATIVE 01/24/25 Complete Blood Count: 2 White Blood Count 14.48 10^3/uL (4.4-10.8) H 01/27/25 19:13 Red Blood Count 4.03 10^6/uL (3.93-5.22) 01/27/25 19:13 Hemoglobin 10.9 g/dL (11.2-15.7) L 01/27/25 19:13 Hematocrit 33.5 % (36.0-46.0) L 01/27/25 19:13 Platelet Count 231 10^3/uL (130-400) 01/27/25 19:13 Complete Metabolic Panel: 2 Sodium 138 mmol/L (136-145) 01/24/25 13:56 Potassium 3.6 mmol/L (3.5-5.1) 01/24/25 13:56 Chloride 109 mmol/L (98-107) H 01/24/25 13:56 Carbon Dioxide 20.6 mmol/L (21.0-32.0) L 01/24/25 13:56 BUN 9 mg/dL (7-18) 01/24/25 13:56 Creatinine 0.6 mg/dL (0.55-1.02) 01/24/25 13:56 Est GFR (CKD-EPI 2020) 128.46 (mL/min/1.73m2) 01/24/25 13:56 Calcium 8.5 mg/dL (8.5-10.1) 01/24/25 13:56 Albumin 2.7 g/dL (3.4-5.0) L 01/24/25 13:56 Glucose 94 mg/dL (74-106) 01/24/25 13:56 Liver Function Panel: 2 Alanine Aminotransferase (ALT/SGPT) 15 U/L (14-59) 01/24/25 13: 56 Aspartate Amino Transf (AST/SGOT) 14 U/L (15-37) L 01/24/25 13: 56 Coagulation Panel: 2 No Data to Display Cardiac Panel: 2 No Data to Display Arterial Blood Gas: 2 No Data to Display Venous Blood Gas: 2 No Data to Display Pancreas Panel: 2 No Data to Display Thyroid Panel: 2 No Data to Display Infectious Disease: 2 No Data to Display Blood Cultures: 2 No Data to Display Toxicology Panel: 2 No Data to Display Panel: 2 No Data to Display Imaging and Studies Imaging and Studies Study information below may be from another EMR and interpreted by another provider. Please see original notes in EMR for more complete details. EKG Summary: Conclusion Sinus rhythm...normal P axis, V-rate 50- 99 Borderline short AR interval...AR int <120mS Normal Electrocardiogram Pulmonary Function Summary: DATE OF SERVICE: August 22, 2017. REQUESTING PROVIDER: Teressa Morrison N.P. Spirometry shows no evidence of obstructive airways disease. No bronchodilator response. Lung volumes show no evidence of restriction. Diffusion capacity normal. Airways resistance normal. IMPRESSION: Overall normal pulmonary function study. If the diagnosis of asthma is in question, proceeding with Methacholine challenge testing may prove to be useful. Clinical correlation recommended. Other Study Summary:: 05/26/21 Assessment & Plan (1) VSD (ventricular septal defect): Patient has a very small muscular ventricular septal defect, not hemodynamically significant. She was experiencing atypical chest pain which sounds musculoskeletal. This is no longer present. She does not really have any specific cardiac symptoms I would see no specific contribution of her VSD related to the care of her , labor or delivery. Endocarditis prophylaxis is not indicated. I would not anticipate any cardiac issues We would like to reevaluate the patient in about a year, when she is not . This was discussed and she seemed agreeable Orders: Anesthesia Assessment and Plan Anesthesia History Personal History: No History of Anesthesia Complications Family History: No Family History of Anesthesia Complications Exercise Tolerance Exercise Tolerance: Metabolic Equivalents>4 Cardiac & Pulmonary Exam Cardiac Exam: Normal S1/S2 Heart Sounds and Heart Murmur Present Pulmonary Exam: Clear Bilateral Breath Sounds Implantable Cardiac Device Does patient have a Pacemaker or an ICD?: No Airway Exam Known Difficult Airway: No Mallampati Class: 1 Mouth Opening: Normal (> 3cm) Thyromental Distance: Greater than 3 cm Neck Range of Motion: Full ROM Neck Circumference: Thick Teeth Condition: Normal Dentition ASA Classification ASA Score: ASA 3 Emergency Case?: No NPO Status NPO Status: Full Stomach Status Status: Confirmed Anesthesia Plan Resuscitation Status: Full Code Anesthesia Technique: General Anesthesia Airway Planned: Endotracheal Tube Monitors Used: Standard Monitors
[2025-01-27] MEDS: Oxytocin/Normal Saline 30 UNITS/500 ML BAG 95 UNITS IV (20:08)
[2025-01-27] MEDS: miSOPROStol 200 MCG TAB 400 MCG SL (20:20)
--- NOTE | 2025-01-27 20:31 | HPE_ITS ---
Date of service: 01/27/25 Time of Service: 20:31 Assessment and Plan Assessment and plan (1) Spontaneous onset of labor: Status: Acute Assessment and plan: Admit to Center and routine admission labs. Dr. Maloney was notified of admission and OR team was called in. Comfort measures. Anticipate imminent . OB-HPI Labor/Delivery History of Present Illness Reason for Visit: R/O SROM, TOLAC Chief Complaint: Uterine Contractions; Suspected Rupture of Membranes , Associated Signs and Symptoms of Suspected ROM: contractions. KOBE Calculator Estimated Delivery Date Method WG Current Estimate 02/06/25 Ultrasound #1 Other Estimates 01/23/25 LMP (Uncertain) Infant Delivery Date-Baby A 01/27/25 38w 4d Comments: Lorena reports AROM at 1400 for clear fluid. She called at 1830 and reported regular contractions. History of Present Expected Delivery Route/Plan (#2) - CNM FOB- Walter Narayanan (second child together) BG Rubella and Varicella non-immune, offer vaccines Depo injection immediately Plan unmedicated , use of tub and nitrous GBS negative Specific Issues/Plan 1. Previous and , desires TOLAC - Consent and counseling 12/28. - She may want 39wk induction at [facility] if no early labor like last time ___ 2. BMI 34- early GTT=81; History of gestational diabetes, 28 wk 1hr=85 3. Pt hx VSD/murmur, to Dr. Henson 05/2021: no ATB prophylaxis, no restrictions. [facility] [place] level 2 US - normal anatomy, echo=nml 4. History anxiety and depression and ADHD - no medications currently 5. LGSIL pap - colposcopy 01/2022, follow up pap 07/19-WNL 6. cfDNA low risk female, SMA and CF negative previously, AFP declined 7. History of precipitous delivery. 8. History of oligo: 32 week growth US MYRA 13cm, 71%ile 9. H/o Retained placenta 2nd delivery with manual removal in several pieces Assessment: History Reviewed & Current Informed Consent Informed Consent: Vaginal after PFSH All Active Problems (Updated 01/27/25 @ 21:28 by Ann Marie Weiss CNM) Spontaneous onset of labor (Acute) History of oligohydramnios (Acute) pruritus (Acute) Rubella non-immune status, antepartum (Acute) (Acute) Delayed menses (Acute) Vaginal discharge (Acute) Thrush (Acute) nipple , delivered (Acute) 01/14/23. Precipitous labor. Radha Gay. Retained placenta, manual extraction at bedside. Depression (Chronic) Anxiety disorder, unspecified (Acute) LGSIL (low grade squamous intraepithelial dysplasia) (Acute) BMI 32.0-32.9,adult (Acute) Heart murmur (Acute) Susceptible to varicella (non-immune), currently (Acute) Anemia affecting in third trimester (Acute) Medical History Normal labor Weight loss, non-intentional Attention-deficit hyperactivity disorder, unspecified type (09/07/16) has IEP for developmental/assisitive therapies (F90.9- adhd unspecified type) Chronic right shoulder pain (06/01/17) Intentional self-harm by sharp object (01/19/16) Mild intermittent asthma, uncomplicated (08/24/16) Learning difficulty (11/24/12) IEP in place for speech/language services Limitation of joint motion of right shoulder (07/06/17) Membranous ventricular septal defect (11/24/12) Followed by Dr. Chun, 02/2016- does not need SBE prophylaxis, no need to restrict from any vigorious physical activity. Re-eval in 3 years Sleep difficulties (06/01/16) Surgical History Previous delivery affecting , antepartum LTCS 06/28/21 arrest of dilation/ second stage 5 hours Status post primary low transverse section 06/28/21.Arrest of dilation. Jose Brooks. Family History Mother Gestational diabetes Father Depression with anxiety Sister Asthma sports induced Grandfather Neoplasm MGF- Prostate, Lung, NonHodgkins PGF- Colon MGGM-cervical cancer Grandmother Eczema MGM Obsessive compulsive disorder PGM ADHD (attention deficit hyperactivity disorder) PGM GRANDPARENT Alcohol abuse Essential hypertension Heart disease Social History Smoking/Tobacco Use Status: Never Smoking risk assessment performed?: Yes Alcohol Intake: never Drug use: Never Substance use type: does not use Household members: significant other, children and other Details: FOX-Alex. Hahn- Amanda Brooks-Deidra Housing: house Number of Children: 2 Do you think of yourself as: straight/heterosexual Do you feel safe at home: Yes Do you feel safe in your relationship?: Yes History History 3 Para 2 Hx # Term Pregnancies 2 Multiple births 0 Hx # Pregnancies 0 Ectopic pregnancies 0 AB induced 0 Hx Number of Living Children 2 AB spontaneous 0 Past Pregnancies Del. Date GA/Weeks # Preg Succ Route Wgt Sex Labor Lgth Anesth esia Location Prov Complic 06/28/21 39 No Yes 8 lb 6.2 oz Male [facility] Kris [facility] for labor, C/S Dr. Alvarez 01/14/23 38 No Yes vaginal 7 lb 15.34 oz Female 4hrs 2 min [facility] puneet Tellez CNM/MD Sujit. Precipitous delivery. Delivery Date: 06/28/21 Last Updated by: Leyda Sherman MD spont labor, epidural, pushed for 4 hrs, baby stuck OP, C/S Bell Delivery Date: 01/14/23 Last Updated by: BEBO Kraus; manual removal of placenta completed by MD Sujit Meds Allergies and Home Medications Allergies Allergy/AdvReac Type Severity Reaction Status Date / Time No Known Allergies Allergy Verified 01/25/25 09:50 Home Medications ?Medication ?Instructions ?Recorded ?Confirmed ?Type Inhaler, Assist Devices ##1 06/01/17 01/24/25 Clinic [Aerochamber Mini] albuterol sulfate 90 mcg/actuation 2 puff inhalation Q4H PRN ##1 06/01/17 01/24/25 History aerosol inhaler (ProAir HFA) cholecalciferol (vitamin D3) 25 25 mcg PO DAILY 10/29/20 01/24/25 History mcg (1,000 unit) chewable tablet vitamin B complex 1 tab PO DAILY 04/30/21 01/24/25 History pantoprazole 40 mg tablet,delayed 40 mg PO DAILY #30 tabs 07/05/22 01/24/25 Rx release (Protonix) vitamins no.119-iron 1 tab PO DAILY 07/05/22 01/24/25 History fumarate 29 mg-folic acid 1 mg tablet docusate sodium 100 mg capsule 100 mg PO BID #60 caps 11/09/22 01/24/25 Rx (Colace) doxylamine 10 mg-pyridoxine (vit 1 tab PO DAILY 07/19/24 01/24/25 History B6) 10 mg tablet,delayed release (Diclegis) cholecalciferol (vitamin D3) 10 10 mcg PO DAILY 08/29/24 01/24/25 History mcg (400 unit) chewable tablet (Vitamin D3) ondansetron 4 mg disintegrating 4 mg PO Q6H PRN 12/28/24 01/24/25 History tablet Exam Physical Exam Vital signs: Pulse Resp BP 96 H 18 119/63 01/27/25 19:39 01/27/25 19:39 01/27/25 19:39 Vital Signs Reviewed: Yes Constitutional Constitutional: no acute distress Detailed Labor and Delivery Exam Dilation: 5 Effacement (%): 90 station: -1 Position: RONALD Cervix position: posterior Consistency: soft Dobson Score: Cervical Points Exam 0 1 2 3 Dilation Closed 1-2cm 3-4 cm 5-6cm Effacement 0-30% 40-50% 60-70% 80% Consistency Firm Medium Soft Station -3 -2 -1,0 +1,+2 Position Posterior Mid Anterior Amniotic Fluid: Clear Pooling: Positive Monitor Mode: External Contraction Frequency(min): every 3-4 min Contraction Duration(sec): 60 Contraction Intensity: Strong Fetus A Heart Rate Baseline: 120 Monitor Accelerations: 15 X 15 Monitor Decelerations: None Variability: Moderate (6-25 BPM) Presentation: Vertex Categories: Category I Date of Membrane Rupture: 01/27/25 Time of Membrane Rupture: 14:00 HEENT Exam HEENT Exam: Normal Respiratory Exam Respiratory Exam: Normal Cardiovascular Exam Cardiovascular Exam: Normal Abdominal Exam Abdominal Exam: Normal Exam Exam: Normal Extremities Exam Extremities Exam: Normal Results Results Group Beta Strep: Negative Abnormal Lab Findings: Abnormal Labs 01/27/25 19:13 WBC 14.48 H Hgb 10.9 L Hct 33.5 L Risk Assessment Risk for Shoulder Dystocia Historical/Initial OB: POSITIVE FOR: Pre- BMI>30; NEGATIVE FOR: Pelvic Abnormality, Previous Shoulder Dystocia or Previous Macrosomia 36 Weeks: NEGATIVE FOR: Current Gestational DM, EFW>4500gms or Maternal Weight Gain>40lbs 40 Weeks: NEGATIVE FOR: EFW> 4500 gms, Maternal Weight Gain >40lb or Post Dates Risk for Pre-Eclampsia Yes, if one or more: NEGATIVE FOR: Hx Pre-E/Gest HTN, Chronic HTN, Multiple Gestation, Pre-gestational DM, Renal Disease, Systemic Lupus or APA Syndrome Yes, if 2 or more: POSITIVE FOR: BMI>30; NEGATIVE FOR: Nulliparity, Age>= 35 yrs, >10yr btwn pregnancies, ethinicty, Mother/Sister w/ Pre-E or Previous IUGR Risk for Post- Hemorrhage Initial: NEGATIVE FOR: Multiple Gestation, Previous PPH, Known Clotting Deficiency, Grand Multiparity or Anticoagulation 36 Weeks: NEGATIVE FOR: Anemia, hgb<10, Low platelets(thrombocytopenia), Gestational HTN or Pre-E, Polyhydraminios or EFW>4500gms 40 Weeks: NEGATIVE FOR: Anemia, hgb<10, Low platelets (thrombocytopenia), Gestation HTN or Pre-E, Polyhydraminios or EFW>4500gms At Risk?: No Risks Reviewed Risks Reviewed Upon Admission: Yes
[2025-01-27] MEDS: TRANEXAMIC ACID/SOD. CHL. 1,000 MG/100 ML BAG 600 MG IVPB (20:50)
--- NOTE | 2025-01-27 21:30 | W.OBDELIVERY ---
Date of service: 01/27/25 Time of Service: 21:30 OB Labor/ Delivery Information Baby A Delivery Delivery Method: Spontaneaous Presentation: Cephalic Cephalic Position: Vertex Vertex Position: Left Occipital Anterior Cord Description-Baby A: 3 Vessels Cord Description Comment: loose nuchal cord x 1 Amniotic Fluid: Clear Estimated Blood Loss: 600 Delivery Outcome: Liveborn Complications: none Infant Transferred: Remains with Mother Note: FHTs 120s during first stage of labor. FHTs 110 in second stage. She progressed quickly to full dilation and began pushing. Second stage huddle was done. Spontaneous delivery of female infant delivered in RONALD position. There was a loose nuchal cord which was slipped over the baby's head before delivery. Baby was placed on mother's abdomen and dried and stimulated. Spontaneous cry. Cord was clamped and cut by the baby's father. The placenta delivered spontaneously and appears to be intact with a three vessel cord. Pitocin 30 units was administered before delivery of the placenta. The perineum was inspected and it was intact with a right periurethral laceration. There was bright bleeding after delivery of the placenta and misoprostol 400 mcg was given PO. At 30 minutes post , there was again bright bleeding for a total EBL of 600 cc. TXA was administered IV. Dr. Maloney was notified of her status. She did get up to void at 90 minutes post as she declined a catheter and she was unable to void. She passed a small clot on the toilet and breastfed her baby after straight cath for 75 cc clear urine. After delivery, Mother and baby and father of the baby were stable and bonding well in the delivery room and there were no complications. Providers Doctor: Ann Marie Weiss Nurse: Renita Dunn Nurse: Radha Yen Labor/Delivery Information Number of Babies in Womb: 1 Steroids Given: None Reason Steroids Not Administered: N/A Group Beta Strep: Negative Antibiotics Administered: No Rubella Status: Nonimmune Blood Type: O+ Varicella Immunity: Immune Medication in Delivery: pitocin, po misoprostol after placenta Born En Route: No Maternal Complications: Precipitous Labor(<3hrs) Shoulder Dystocia: No Stages of Labor Onset of Labor Date: 01/27/25 Onset of Labor Time: 16:00 ROM Baby A: 01/27/25 ROM Baby A: 14:00 ROM Total Time- Baby A: [id number] Infant Delivery Date-Baby A: 01/27/25 Infant Delivery Time-Baby A: 20:08 Placenta Delivery Date-Baby A: 01/27/25 Placenta Delivery Time-Baby A: 20:15 Labor-Stage 3 Duration: 7 minutes Total Length of Labor-Baby A: 4 hours and 8 minutes Placenta Cultured: No Placenta Status: Delivered Baby A Infant Gender: Female Gestational Status: Early Term (37-38.6 wks) Gestational Age in Weeks/Days: 38 Weeks and 4 Days Length-Baby A: 7.87 in Score-1 Minute Interval(Baby A) Heart Rate-1 minute: 100 BPM or Greater Respiratory Effort- 1 minute: Spontaneous/Strong Cry Muscle Tone-1 minute: Active Movement Reflex Response-1 minute: Prompt Response Color-1 minute: Bluish Hands or Feet Total Score-1 minute: 9 Score-5 Minute Interval(Baby A) Heart Rate- 5 minute: 100 BPM or Greater Respiratory Effort-5 minute: Spontaneous/Strong Cry Muscle Tone-5 minute: Active Movement Reflex Response-5 minute: Prompt Response Color-5 minute: Bluish Hands or Feet Total Score- 5 minute: 9
[2025-01-27] MEDS: Acetaminophen 325 MG TAB 650 MG PO (21:33)
[2025-01-27] MEDS: Ibuprofen 600 MG TAB PO (21:34)
[2025-01-27] MEDS: Hamamelis Leaf/Glycerin 100 EACH BOX PR (21:57)
[2025-01-27] MEDS: Dibucaine 1% 28 GM TUBE TP (21:58)
[2025-01-27] MEDS: Oxytocin/Normal Saline 30 UNIT/500 ML BAG 95 UNITS IV (22:04)
[2025-01-27] MEDS: Methylergonovine 0.2 MG/ML VIAL IM (22:15)
[2025-01-28] VITALS (9 sets, daily range): BP systolic 94–143; BP diastolic 55–83; PULSE 53–92; RESP 16–18; TEMP 36.3–37.3; O2SAT 99
[2025-01-28] MEDS: Methylergonovine 0.2 MG TAB PO ×2 (05:14→14:52)
[2025-01-28] MEDS: Ibuprofen 600 MG TAB PO ×3 (05:15→18:25)
[2025-01-28] MEDS: Acetaminophen 325 MG TAB 650 MG PO ×3 (05:15→18:26)
[2025-01-28 06:43] LABS: HGB 10.5 g/dL (11.2-15.7); MCHC 32.8 % (32.0-36.0); MCV 82 fL (80-95); MPV 9.1 fL (8.0-11.0); Platelet Count 202 10^3/uL (130-400); RBC 3.89 10^6/uL (3.93-5.22); RDW 13.5 % (11.7-14.6); RDW-SD 40.4 fL; WBC 16.78 10^3/uL (4.4-10.8)
--- NOTE | 2025-01-28 07:06 | OBPPV_ITS ---
Date of service: 01/28/25 Time of Service: 07:06 Assessment and Plan Assessment and plan (1) , delivered, current hospitalization: Status: Acute Assessment and plan: A: PPD#1, nml recovery, CBC nml, hgb 10.5 off to a good start P: Pt desires discharge at 24 hrs tonight Depo Provera 150 mg IM prior to discharge for BCM Pt accepts MMR and Varicella vaccines Written instructions reviewed and given to pt F/up at 2 & 6 wks , 2nd Varicella vaccine @ 6 wks (2) Term delivered: Status: Acute Subjective Subjective Patient comments: No complaints, Pain well controlled (pain levels have decreased overnight, remains sore upon fundal massage), Tolerating diet and Flatus present Patient's Mood: tired but pleased baby status: Doing well, Nursing well, Rooming in and Strong Bonding Observed [place] feeding status: Exclusively breast feeding Exam Physical Exam Vital signs: Temp Pulse Resp BP Pulse Ox 99.1 F 92 H 16 94/57 L 99 01/28/25 05:16 01/28/25 05:16 01/28/25 05:16 01/28/25 05:16 01/27/25 20:44 Vital Signs Reviewed: Yes Constitutional Constitutional: no acute distress, average body habitus and cooperative HEENT Exam HEENT Exam: Normal Neck Exam Neck Exam: Normal Breast Exam Bilateral: Breast Exam: Normal and Soft Nipple Exam: Normal and Uninjured Respiratory Exam Respiratory Exam: Normal Cardiovascular Exam Cardiovascular Exam: Normal Abdominal Exam Abdomen: Other (soft, mildly tender) Fundal Exam Fundus: Below Umbilicus and Firm Rectal Exam Rectal Exam: Normal Exam Perineum: Intact and Normal Extremities Exam Extremity Exam: Normal, Full ROM and Warm to Touch Back/Spine/Pelvis Exam Back Exam: Normal Skin Exam Skin Exam: Normal Neurological Exam Neurological Exam: Normal Psychiatric Exam Psychiatric Exam: Normal Results Abnormal Lab Findings: Abnormal Labs 01/27/25 01/28/25 19:13 06:33 WBC 14.48 H 16.78 H RBC 3.89 L Hgb 10.9 L 10.5 L Hct 33.5 L 32.0 L
[2025-01-28] MEDS: Docusate Sodium 100 MG CAP PO ×2 (10:32→21:42)
[2025-01-29] MEDS: Ibuprofen 600 MG TAB PO ×2 (00:17→06:05)
[2025-01-29] MEDS: Acetaminophen 325 MG TAB 650 MG PO ×2 (00:17→06:05)
[2025-01-29 00:46] VITALS: BP 111/70; PULSE 92; RESP 18; TEMP 36.7
--- NOTE | 2025-01-29 06:58 | W.PM.OBPNV1 ---
Date of service: 01/29/25 Time of Service: 06:58 Assessment and Plan Assessment and plan (1) , delivered, current hospitalization: Status: Acute Assessment and plan: A: PPD#2, nml recovery, going well P: Discharge today to home Depo Provera 150 mg IM prior to discharge for BCM Pt accepts MMR and Varicella vaccines Written instructions reviewed and given to pt F/up at 2 & 6 wks , 2nd Varicella vaccine @ 6 wks (2) Term delivered: Status: Acute Exam Physical Exam Vital signs: Temp Pulse Resp BP Pulse Ox 98.1 F 92 H 18 111/70 99 01/29/25 00:46 01/29/25 00:46 01/29/25 00:46 01/29/25 00:46 01/28/25 08:56 Vital Signs Reviewed: Yes Constitutional Constitutional: no acute distress, average body habitus and cooperative HEENT Exam HEENT Exam: Normal Neck Exam Neck Exam: Normal Breast Exam Bilateral: Breast Exam: Normal and Soft Respiratory Exam Respiratory Exam: Normal Cardiovascular Exam Cardiovascular Exam: Normal Abdominal Exam Abdomen: Other (soft, mildly tender) Fundal Exam Fundus: Below Umbilicus and Firm Rectal Exam Rectal Exam: Normal Exam Perineum: Intact and Normal Extremities Exam Extremity Exam: Normal, Full ROM and Warm to Touch Back/Spine/Pelvis Exam Back Exam: Normal Skin Exam Skin Exam: Normal Neurological Exam Neurological Exam: Normal Psychiatric Exam Psychiatric Exam: Normal Results Hemoglobin/Hematocrit: Hgb 10.5 g/dL (11.2-15.7) L 01/28/25 06:33 Hct 32.0 % (36.0-46.0) L 01/28/25 06:33 Abnormal Lab Findings: Abnormal Labs 01/27/25 01/28/25 19:13 06:33 WBC 14.48 H 16.78 H RBC 3.89 L Hgb 10.9 L 10.5 L Hct 33.5 L 32.0 L Hemorrrhage Note IV Site Right Forearm: IV Catheter Gauge: 18
--- NOTE | 2025-01-29 06:59 | DSE_ITS ---
Date of service: 01/29/25 Time of Service: 06:59 DS: Diagnosis Discharge Diagnosis (1) , delivered, current hospitalization: Status: Acute (2) Term delivered: Status: Acute Discharge Plan Disposition Patient Disposition: Home Condition: Good Discharge Details Reason For Visit: R/O SROM, TOLAC Admit Date/Time: 01/27/25 19:00 Admit Provider: Ann Marie Weiss Attending Provider: Ann Marie Weiss Primary Care Provider: Kaylen Petersen Hospital Course Hospital Course: within 90 minutes of arrival in unit on day of admission, nml recovery though initially persistent increased lochia treated with TXA, misoprostel, pitocin and methergine to good effect. Discharge on PPD#2 Home Meds and New Rx's Prescriptions: No Action cholecalciferol (vitamin D3) [Vitamin D3] 10 mcg (400 unit) tablet,chewable 10 mcg PO DAILY vitamin B complex Tablet 1 tab PO DAILY PNV 119-iron fum-folic acid 29 mg iron- 1 mg tablet 1 tab PO DAILY doxylamine-pyridoxine (vit B6) [Diclegis] 10-10 mg tablet,delayed release (DR/EC) 1 tab PO DAILY albuterol sulfate [ProAir HFA] 8.5 GM HFA aerosol inhaler 2 puff Inhalation Q4H PRN Qty: 1 Rx Instructions: use with spacer (DME) Inhaler, Assist Devices [Aerochamber Mini] 1 EACH spacer 1 ea Miscellaneous Q4H PRN Qty: 1 0RF docusate sodium [Colace] 100 mg capsule 100 mg PO BID Qty: 60 4RF medroxyprogesterone [Depo-Provera] 150 mg/mL syringe 150 mg IM [id number] Qty: 1 5RF Discharge Instructions Additional Instructions: Please keep you 2 and 6 week appointments, call for any and all concerns or questions. Stand Alone Forms: BC Instructions, BC Post Vaginal Deliver Activity:: Activity as Tolerated Equipment/Supplies:: No Equipment Needed Diet:: Normal Diet OB:DS Summary Summary Vaginal Delivery Method: Spontaneaous Episiotomy Description: None Laceration Description: None Laceration Extension: N/A Contraception Discussed Contraception Discussed: Yes Contraceptive Plan: Medroxyprogesterone, Infant Gender-Baby A: Female Status at Discharge Functional status at discharge: independent ambulation Overall status at discharge: patient is progressing back to baseline Mental Status: mental status grossly normal Speech and Movement: speech and movement normal and speech clear Mood: congruent mood Affect: normal affect Quality:SDOH Health Related Social Needs: No Data to Display Exam Physical Exam Vital signs: Temp Pulse Resp BP Pulse Ox 98.1 F 92 H 18 111/70 99 01/29/25 00:46 01/29/25 00:46 01/29/25 00:46 01/29/25 00:46 01/28/25 08:56 Vital Signs Reviewed: Yes Constitutional Constitutional: no acute distress, average body habitus and cooperative HEENT Exam HEENT Exam: Normal Neck Exam Neck Exam: Normal Breast Exam Bilateral: Breast Exam: Normal and Soft Respiratory Exam Respiratory Exam: Normal Cardiovascular Exam Cardiovascular Exam: Normal Abdominal Exam Abdomen: Other (soft, mildly tender) Fundal Exam Fundus: Below Umbilicus and Firm Rectal Exam Rectal Exam: Normal Exam Perineum: Intact and Normal Extremities Exam Extremity Exam: Normal, Full ROM and Warm to Touch Back/Spine/Pelvis Exam Back Exam: Normal Skin Exam Skin Exam: Normal Neurological Exam Neurological Exam: Normal Psychiatric Exam Psychiatric Exam: Normal PFSH All Active Problems (Updated 01/28/25 @ 07:09 by Ally Yancey) Term delivered (Acute) , delivered, current hospitalization (Acute) Rubella non-immune status, antepartum (Acute) Depression (Chronic) Anxiety disorder, unspecified (Acute) BMI 32.0-32.9,adult (Acute) Heart murmur (Acute) Susceptible to varicella (non-immune), currently (Acute) Medical History (Updated 01/28/25 @ 07:09 by Ally Yancey) Spontaneous onset of labor Anemia affecting in third trimester LGSIL (low grade squamous intraepithelial dysplasia) , delivered 01/14/23. Precipitous labor. Amanda Gay. Retained placenta, manual extraction at bedside. Thrush nipple Weight loss, non-intentional Attention-deficit hyperactivity disorder, unspecified type (09/07/16) has IEP for developmental/assisitive therapies (F90.9- adhd unspecified type) Chronic right shoulder pain (06/01/17) Intentional self-harm by sharp object (01/19/16) Mild intermittent asthma, uncomplicated (08/24/16) Learning difficulty (11/24/12) IEP in place for speech/language services Limitation of joint motion of right shoulder (07/06/17) Membranous ventricular septal defect (11/24/12) Followed by Dr. Chun, 02/2016- does not need SBE prophylaxis, no need to restrict from any vigorious physical activity. Re-eval in 3 years Sleep difficulties (06/01/16) Surgical History Previous delivery affecting , antepartum LTCS 06/28/21 arrest of dilation/ second stage 5 hours Status post primary low transverse section 06/28/21.Arrest of dilation. Jose Brooks. Family History Mother Gestational diabetes Father Depression with anxiety Sister Asthma sports induced Grandfather Neoplasm MGF- Prostate, Lung, NonHodgkins PGF- Colon MGGM-cervical cancer Grandmother Eczema MGM Obsessive compulsive disorder PGM ADHD (attention deficit hyperactivity disorder) PGM GRANDPARENT Alcohol abuse Essential hypertension Heart disease Social History Smoking/Tobacco Use Status: Never Smoking risk assessment performed?: Yes Alcohol Intake: never Drug use: Never Substance use type: does not use Household members: significant other, children and other Details: FOX-Alex. Hahn- Cecilia, Amanda-Deidra Housing: house Number of Children: 2 Do you think of yourself as: straight/heterosexual Do you feel safe at home: Yes Do you feel safe in your relationship?: Yes History History 3 Para 2 Hx # Term Pregnancies 2 Multiple births 0 Hx # Pregnancies 0 Ectopic pregnancies 0 AB induced 0 Hx Number of Living Children 2 AB spontaneous 0 Past Pregnancies Del. Date GA/Weeks # Preg Succ Route Wgt Sex Labor Lgth Anesth esia Location Prov Complic 06/28/21 39 No Yes 8 lb 6.2 oz Male [facility] for labor, C/S Dr. Alvarez 01/14/23 38 No Yes vaginal 7 lb 15.34 oz Female 4hrs 2 min [facility] Telle[facility] CNM/MD Sujit. Precipitous delivery. Delivery Date: 06/28/21 Last Updated by: Leyda Sherman MD spont labor, epidural, pushed for 4 hrs, baby stuck OP, C/S Bell Delivery Date: 01/14/23 Last Updated by: BEBO Kraus; manual removal of placenta completed by MD Sujit DS: Data Vitals/I&O Vitals and I&O: Vital Signs Temperature 98.1 F 01/29/25 00:46 Temperature Source Oral 01/29/25 00:46 Pulse 92 H 01/29/25 00:46 Pulse Rhythm Regular 01/28/25 20:07 Respiratory Rate 18 01/29/25 00:46 Respiratory Depth Normal 01/28/25 08:56 Blood Pressure 111/70 01/29/25 00:46 Blood Pressure Mean 83 01/29/25 00:46 Pulse Oximetry 99 01/28/25 08:56 Oxygen Delivery Method Room Air 01/27/25 19:39 Oxygen Flow Rate 0 01/27/25 19:39 Pain Level 3 01/29/25 06:05 Intake & Output 01/28/25 01/28/25 01/29/25 11:59 23:59 11:59 Output Total 350 / 350 Balance -350 / -350 Output: Urine 350 / 350 Other: Urine Color Pale Pale
[2025-01-29 07:35] VITALS: BP 133/77; PULSE 92; RESP 12; TEMP 36.5
[2025-01-29] MEDS: Measles, Mumps, & Rubella Vaccine 0.5 ML VIAL SC (07:55)
[2025-01-29] MEDS: Varicella Virus Vaccine (Live) 0.5 ML SC (08:09)
== END 2025-01-29 09:30 | disposition home or self-care (01) | DRG 806 ==
PROVIDERS: Advanced Practice Midwife; Admitting Provider Advanced Practice Midwife; PCP Nurse Practitioner Family; Visit Provider Advanced Practice Midwife
DX: O99.42 Diseases of the circulatory system complicating childbirth (principal); O41.03X0 Oligohydramnios, third trimester, not applicable or unspecified; Z37.0 Single live birth; Q21.0 Ventricular septal defect; O34.219 Maternal care for unspecified type scar from previous cesarean delivery; Z3A.38 38 weeks gestation of pregnancy; J45.20 Mild intermittent asthma, uncomplicated; O62.3 Precipitate labor; O99.344 Other mental disorders complicating childbirth; F41.8 Other specified anxiety disorders; O69.81X0 Labor and delivery complicated by cord around neck, without compression, not applicable or unspecified; O99.02 Anemia complicating childbirth; D64.9 Anemia, unspecified; O99.52 Diseases of the respiratory system complicating childbirth; O71.82 Other specified trauma to perineum and vulva
CPT/HCPCS: 36415; 85027; 86850; 86900; 86901; 90707; 90716; 96372; J1050; J2210

== ENCOUNTER 2025-09-23 15:37 | Emergency (ER) | payer MEDICAID, SELFPAY ==
[2025-09-23 15:39] VITALS: BP 105/62; PULSE 86; RESP 16; TEMP 36.4; O2SAT 97
[2025-09-23 15:58] VITALS: BP 105/62; PULSE 86; RESP 16; TEMP 36.4; O2SAT 97
--- NOTE | 2025-09-23 16:00 | W.ED.GENAD ---
Discharge Plan Disposition Patient Disposition: Home Condition: Stable Discharge Details Clinical Impression: Dental infection Primary Care Provider: Kaylen Petersen ED Provider: Alexander Conklin Home Meds and New Rx's Prescriptions: New penicillin V potassium 250 mg/5 mL recon soln 500 mg PO QID 10 Days Qty: 400 0RF Continued cholecalciferol (vitamin D3) [Vitamin D3] 10 mcg (400 unit) tablet,chewable 10 mcg PO DAILY vitamin B complex Tablet 1 tab PO DAILY PNV 119-iron fum-folic acid 29 mg iron- 1 mg tablet 1 tab PO DAILY albuterol sulfate [ProAir HFA] 8.5 GM HFA aerosol inhaler 2 puff Inhalation Q4H PRN Qty: 1 Rx Instructions: use with spacer (DME) Inhaler, Assist Devices [Aerochamber Mini] 1 EACH spacer 1 ea Miscellaneous Q4H PRN Qty: 1 0RF docusate sodium [Colace] 100 mg capsule 100 mg PO BID PRN Discharge Instructions Instructions: Dental Pain ED Additional Instructions: Please take full course of antibiotic as prescribed. Call today to arrange timely follow-up with a dentist. You should be seen a soon as possible and follow-up. Please follow-up with your primary care physician. Return to the emergency department immediately for any worsening or new concerning symptoms. Stand Alone Forms: Portal Information Referrals: Kaylen Petersen [Primary Care Provider, Medicine] [facility] General Mode of arrival: ambulatory. Date/Time Provider Initiated Documentation: 09/23/25 15:41. Limitations to Documentation: no limitations. Information obtained by: patient. HPI Narrative: HISTORY OF PRESENT ILLNESS 24-year-old female patient presents with pain in tooth #17. Patient had pain in this tooth for about a year. She was seen by her dentist who recommended root canal but has not been able to secure an appointment. Pain initially improved/resolved. Pain recurred in the same tooth, persisting for 2 months. Reports sensation of a hole in the tooth for over a year. Pain radiates to ear, causing significant discomfort. No known allergies to antibiotics, prefers pill forms due to difficulty swallowing pills. Related Data Home Medications ?Medication ?Instructions ?Recorded ?Confirmed albuterol sulfate 90 mcg/actuation 2 puff inhalation Q4H PRN ##1 06/01/17 09/23/25 aerosol inhaler (ProAir HFA) vitamin B complex 1 tab PO DAILY 04/30/21 09/23/25 vitamins no.119-iron 1 tab PO DAILY 07/05/22 09/23/25 fumarate 29 mg-folic acid 1 mg tablet cholecalciferol (vitamin D3) 10 10 mcg PO DAILY 08/29/24 09/23/25 mcg (400 unit) chewable tablet (Vitamin D3) docusate sodium 100 mg capsule 100 mg PO BID PRN 09/23/25 09/23/25 (Colace) penicillin V potassium 250 mg/5 mL 500 mg (10 mL) PO QID 10 days #400 09/23/25 oral solution mL Previous Rx's ?Medication ?Instructions ?Recorded penicillin V potassium 250 mg/5 mL 500 mg (10 mL) PO QID 10 days #400 09/23/25 oral solution mL Allergies Allergy/AdvReac Type Severity Reaction Status Date / Time No Known Allergies Allergy Verified 09/23/25 15:43 General Stated Complaint: DentalOral CALI: 4 Review of Systems Constitutional Constitutional: Denies fever(s) ENT Ears, Nose, Mouth, and Throat: Reports as per HPI Exam Const General: cooperative and no acute distress HENMT Head: normocephalic and atraumatic Mouth: moist mucous membranes Teeth and gingiva: caries ( tooth #17 with chronic fracture) Throat: posterior oropharynx normal Other: No fluctuance along lower left gumline, no trismus Eyes EOM: EOM intact bilaterally Neck Neck: trachea midline and supple Lymphatic: no lymphadenopathy noted Cardio Rate: regular rate Course Vital Signs Vital signs: Vital Signs Temperature 36.4 C 09/23/25 15:39 Pulse 86 09/23/25 15:39 Respiratory Rate 16 09/23/25 15:39 Blood Pressure 105/62 09/23/25 15:39 Pulse Oximetry 97 09/23/25 15:39 Temperature 36.4 C 09/23/25 15:39 Temperature Source Oral 09/23/25 15:39 Pulse 86 09/23/25 15:39 Respiratory Rate 16 09/23/25 15:39 Blood Pressure 105/62 09/23/25 15:39 Blood Pressure Position Sitting 09/23/25 15:39 Pulse Oximetry 97 09/23/25 15:39 Oxygen Delivery Method Room Air 09/23/25 15:39 Oxygen Flow Rate 0 09/23/25 15:39 Pain Level 4 09/23/25 15:39 Medical Decision Making 24-year-old female with tooth #17 dental pain, chronic caries with fracture of the tooth. No signs of abscess. Plan to initiate treatment with penicillin and have her follow-up with her dentist to soon as possible for recommended treatment. Usual and customary discharge instructions were reviewed. PFSH All Active Problems Dental infection (Acute) care and examination of lactating mother (Acute) Term delivered (Acute) , delivered, current hospitalization (Acute) Rubella non-immune status, antepartum (Acute) Depression (Chronic) Anxiety disorder, unspecified (Acute) BMI 32.0-32.9,adult (Acute) Heart murmur (Acute) Susceptible to varicella (non-immune), currently (Acute) Medical History Spontaneous onset of labor Anemia affecting in third trimester LGSIL (low grade squamous intraepithelial dysplasia) , delivered 01/14/23. Precipitous labor. Radha Gay. Retained placenta, manual extraction at bedside. Thrush nipple Weight loss, non-intentional Attention-deficit hyperactivity disorder, unspecified type (09/07/16) has IEP for developmental/assisitive therapies (F90.9- adhd unspecified type) Chronic right shoulder pain (06/01/17) Intentional self-harm by sharp object (01/19/16) Mild intermittent asthma, uncomplicated (08/24/16) Learning difficulty (11/24/12) IEP in place for speech/language services Limitation of joint motion of right shoulder (07/06/17) Membranous ventricular septal defect (11/24/12) Followed by Dr. Chun, 02/2016- does not need SBE prophylaxis, no need to restrict from any vigorious physical activity. Re-eval in 3 years Sleep difficulties (06/01/16) Surgical History Previous delivery affecting , antepartum LTCS 06/28/21 arrest of dilation/ second stage 5 hours Status post primary low transverse section 06/28/21.Arrest of dilation. Jose Brooks. Family History Mother Gestational diabetes Father Depression with anxiety Sister Asthma sports induced Grandfather Neoplasm MGF- Prostate, Lung, NonHodgkins PGF- Colon MGGM-cervical cancer Grandmother Eczema MGM Obsessive compulsive disorder PGM ADHD (attention deficit hyperactivity disorder) PGM GRANDPARENT Alcohol abuse Essential hypertension Heart disease Social History Smoking/Tobacco Use Status: Never Smoking risk assessment performed?: Yes Alcohol Intake: never Drug use: Never Substance use type: does not use Household members: significant other, children and other Details: Shagufta Hahn-Cecilia, Amanda-Deidra Housing: house Number of Children: 2 Do you think of yourself as: straight/heterosexual Do you feel safe at home: Yes Do you feel safe in your relationship?: Yes History History 3 Para 3 Hx # Term Pregnancies 3 Multiple births 0 Hx # Pregnancies 0 Ectopic pregnancies 0 AB induced 0 Hx Number of Living Children 3 AB spontaneous 0 Past Pregnancies Del. Date GA/Weeks # Preg Succ Route Wgt Sex Labor Lgth Anesthesia Location [facility] 06/28/21 39 No Yes 3804.506 g [facility] C[facility]S Dr. Alvarez 01/14/23 38 No Yes vaginal 3610.028 g Female 4hrs 2 min regional [facility] T[facility]/MD Sujit. Precipitous delivery. 01/27/25 38 No Yes vaginal 3600.389 g Female 4hrs 8min RUB[facility] Tellez Delivery Date: 06/28/21 Last Updated by: Leyda Sherman MD spont labor, epidural, pushed for 4 hrs, baby stuck OP, C/S [facility] Delivery Date: 01/14/23 Last Updated by: BEBO Kraus; manual removal of placenta completed by MD Sujit Delivery Date: 01/27/25 Last Updated by: Lisa Cutler LPN TXJohn after delivery for bright red bleeding; EBL 600ml
== END 2025-09-23 16:12 | disposition home or self-care (01) ==
LOC: ER 16:02
PROVIDERS: Emergency Provider Student in an Organized Health Care Education/Training Program; PCP Nurse Practitioner Family
DX: R68.84 Jaw pain (principal); K04.7 Periapical abscess without sinus
CPT/HCPCS: 99283 ×2